=== PATIENT | female | born 1995 | race Caucasian/White ===

== ENCOUNTER 2016-09-02 01:00 | Emergency (ER) | payer MEDICAID ==
[2016-09-02] MEDS ORDERED: diphenhydrAMINE INJ 50 MG/ML VIAL IVP STA (01:22)
[2016-09-02] MEDS ORDERED: SODIUM CHLORIDE 0.9% 1,000 ML IV ONE (01:22)
[2016-09-02] MEDS ORDERED: METOCLOPRAMIDE 10 MG/2 ML VIAL IVP STA (01:22)
[2016-09-02] MEDS ORDERED: diphenhydrAMINE INJ 50 MG/ML VIAL ONE (01:36)
[2016-09-02] MEDS ORDERED: METOCLOPRAMIDE 10 MG/2 ML VIAL IVP ONE (01:36)
[2016-09-02] MEDS ORDERED: ONDANSETRON 4 MG/2 ML VIAL IVP STA (02:23)
[2016-09-02] MEDS ORDERED: LORazepam 2 MG/ML SYRINGE IVP STA (02:24)
[2016-09-02] MEDS ORDERED: ONDANSETRON 4 MG/2 ML VIAL ONE (02:30)
[2016-09-02] MEDS ORDERED: LORazepam 2 MG/ML SYRINGE ONE (02:30)
== END 2016-09-02 04:04 | disposition home or self-care (01) ==
DX: G43.A0 Cyclical vomiting, in migraine, not intractable (principal)
CPT/HCPCS: 36415; 80053; 83690; 83735; 84100; 84703; 85025; 96361; 96374; 96375; 99283; 99284; J2060

== ENCOUNTER 2016-09-03 09:09 | Emergency (ER) | payer MEDICAID ==
[2016-09-03] MEDS ORDERED: SODIUM CHLORIDE 0.9% 1,000 ML IV ONE (09:27)
[2016-09-03] MEDS ORDERED: FAMOTIDINE 20 MG/50 ML 50 ML IV ONE ×2 (09:27→09:53)
--- NOTE | 2016-09-03 09:40 | ED Physician Documentation ---
History of Present Illness - Stated complaint Stated Complaint: ABN PX, BLOOD IN VOMIT - Chief complaint Chief Complaint: Abd Pain - Additonal information Additional information: hx from pt 20 f denies preg - neg HCG yesterday hx cyclic vomiting related to marijuana seen 24 hr ago for same txed with zofran and ativan and was better got home sx reoccurred feels dehydrated streak of blood in vomit after retching no bloody black BM mild to mod upper abd pain Review of Systems Constitutional: denies: Fever, Chills GI: reports: Abdominal Pain, Nausea, Vomiting, Hematemesis. denies: Bloody / black stool : denies: Now EGA Endocrine: denies: Easy bruising / bleeding Immunocompromised: denies: Immunocompromised PD PAST MEDICAL HISTORY - Past Medical History Cardiovascular: None Respiratory: None Neuro: None Endocrine/Autoimmune: None GI: Other DBA: None : None HEENT: None Psych: None Musculoskeletal: None Derm: None - Past Surgical History Past Surgical History: Yes General: EGD HEENT: Myringotomy (tubes) - Present Medications Home Medications: Ambulatory Orders Medication Instructions Recorded Confirmed Lorazepam [Ativan] 1 mg PO BID #15 tablet 07/08/16 09/02/16 Ondansetron Odt [Zofran] 4 mg TL Q6H PRN #20 tablet 07/08/16 09/02/16 Doxylamine/Pyridoxine HCl 1 each PO Q6HR PRN #30 tab 09/02/16 [Diclegis Dr 10-10 mg Tablet] Levonorgestrel-Ethin Estradiol 1 each PO DAILY 09/02/16 09/02/16 [Lutera-28 Tablet] Promethazine Sup [Phenergan Supp] 12.5 mg IA Q8H #12 supp 09/03/16 Sucralfate 1 gm PO ACHS #120 tablet 09/03/16 raNITIdine [Zantac] 150 mg PO BID #60 tablet 09/03/16 - Allergies Allergies/Adverse Reactions: Allergies Allergy/AdvReac Type Severity Reaction Status Date / Time No Known Drug Allergies Allergy Verified 09/02/16 01:08 - Social History Does the pt smoke?: No Smoking Status: Never smoker Does the pt drink ETOH?: No Does the pt have substance abuse?: Yes Substance Use and Type: Marijuana - Immunizations Immunizations are current?: Yes - POLST Patient has POLST: No PD ED PE NORMAL - Vitals Vital signs reviewed: Yes - Neck Neck: Supple, no meningeal sign - Cardiac Cardiac: RRR - Respiratory Respiratory: No respiratory distress, Clear bilaterally - Abdomen Abdomen: Soft, Other (mild upper TTP s rebound or guarding) - Derm Derm: Normal color - Neuro Neuro: Alert and oriented X 3 - Psych Psych: Normal mood Results - Vitals Vitals: Vital Signs - 24 hr 09/03/16 09/03/16 09/03/16 09:15 11:16 11:54 Temperature 37.5 C Heart Rate 80 79 Respiratory 18 18 Rate Blood Pressure 140/91 H 132/82 H O2 Saturation 100 100 09/03/16 12:24 Temperature Heart Rate 98 Respiratory 18 Rate Blood Pressure 112/57 L O2 Saturation 98 Oxygen O2 Source Room air - Labs Labs: Laboratory Tests 09/03/16 10:00 Hgb 13.6 PD MEDICAL DECISION MAKING - ED course ED course: hgb fine pt txed with IVF zofran pepcid and phenergan and felt better Departure - Departure Disposition: 01 Home, Self Care Clinical Impression: Cyclic vomiting syndrome Qualifiers: Vomiting Intractability: non-intractable Nausea presence: with nausea Qualified Code(s): G43.A0 - Cyclical vomiting, not intractable Gastritis Qualifiers: Gastritis type: unspecified gastritis Chronicity: acute Gastritis bleeding: with bleeding Qualified Code(s): K29.01 - Acute gastritis with bleeding Condition: Good Instructions: ED PUD Vs Gastritis, Syndrome Cyclic Vomiting Ch Follow-Up: Fadi Davila MD [Provider Admit Priv/Credential] - (for consideration of endoscopy to further evaluate the blood in your vomit) Prescriptions: Promethazine Sup [Phenergan Supp] 12.5 mg IA Q8H #12 supp Sucralfate 1 gm PO ACHS #120 tablet raNITIdine [Zantac] 150 mg PO BID #60 tablet Comments: You have been rehydrated. We rechecked you blood count and you have not lost too much blood We gave medications in the ER and to take at home for gastritis / ulcers as this is the likely cause of your vomiting blood. I also recommend that you follow up with the surgeons for consideration of a scope I also wrote a prescription for another vomiting medication called phenergan Forms: Activity restrictions
[2016-09-03] MEDS ORDERED: ONDANSETRON 4 MG/2 ML VIAL ONE ×2 (09:56→11:00)
[2016-09-03] MEDS: ONDANSETRON 4 MG/2 ML VIAL IVP STA ×2 (10:00→10:17)
[2016-09-03] MEDS ORDERED: LORazepam 2 MG/ML SYRINGE IVP STA (10:04)
[2016-09-03] MEDS ORDERED: LORazepam 2 MG/ML SYRINGE ONE (10:10)
[2016-09-03] MEDS ORDERED: ONDANSETRON 4 MG/2 ML VIAL IVP STA (11:03)
[2016-09-03] MEDS ORDERED: PROMETHAZINE INJ 25 MG in SODIUM CHLORIDE 0.9% 50 ML IV STA (11:42)
[2016-09-03] MEDS ORDERED: PROMETHAZINE 25 MG/1 ML VIAL ONE (11:44)
[2016-09-03 12:25] VITALS: BP 112/57
== END 2016-09-03 12:52 | disposition home or self-care (01) ==
LOC: ED 09:09
DX: K29.01 Acute gastritis with bleeding (principal); G43.A0 Cyclical vomiting, in migraine, not intractable
CPT/HCPCS: 36415; 85018; 96365; 96375; 96376; 99284; J2060

== ENCOUNTER 2016-10-02 04:25 | Emergency (ER) | payer MEDICAID ==
[2016-10-02] MEDS ORDERED: ONDANSETRON ODT 4 MG TABLET TL STA (04:55)
[2016-10-02] MEDS ORDERED: ONDANSETRON ODT 4 MG TABLET ONE (05:01)
[2016-10-02] MEDS ORDERED: ONDANSETRON 4 MG/2 ML VIAL IVP STA (05:22)
[2016-10-02] MEDS ORDERED: SODIUM CHLORIDE 0.9% 1,000 ML IV ONE (05:22)
[2016-10-02] MEDS ORDERED: ONDANSETRON 4 MG/2 ML VIAL ONE (05:24)
[2016-10-02] MEDS ORDERED: METOCLOPRAMIDE 10 MG/2 ML VIAL IVP STA (06:12)
[2016-10-02] MEDS ORDERED: METOCLOPRAMIDE 10 MG/2 ML VIAL IVP ONE (06:23)
[2016-10-02] MEDS ORDERED: MORPHINE 2 MG/ML SYRINGE IVP STA (06:25)
[2016-10-02] MEDS ORDERED: MORPHINE 2 MG/ML SYRINGE ONE (06:29)
== END 2016-10-02 07:34 | disposition home or self-care (01) ==
DX: K52.9 Noninfective gastroenteritis and colitis, unspecified (principal)
CPT/HCPCS: 81001; 81025; 87275; 87276; 96361; 96374; 96375; 99284; Q0162

== ENCOUNTER 2016-11-01 22:56 | Emergency (ER) | payer MEDICAID ==
[2016-11-01] MEDS ORDERED: IPRATROPIUM/ALBUTEROL 3 ML NEB INH STA (23:55)
[2016-11-02] MEDS ORDERED: IPRATROPIUM/ALBUTEROL 3 ML NEB INH ONE (00:02)
[2016-11-02] MEDS ORDERED: MAG HYDROX/AL HYDROX/SIMETH 30 ML UDC PO STA (01:14)
[2016-11-02] MEDS ORDERED: PHENobarb/HYOSCY/ATROPINE/SCOP 5 ML SYRINGE PO STA (01:14)
[2016-11-02] MEDS ORDERED: LIDOCAINE VISCOUS 2% 15 ML UDC MM STA (01:15)
[2016-11-02] MEDS ORDERED: MAG HYDROX/AL HYDROX/SIMETH 30 ML UDC ONE (01:16)
[2016-11-02] MEDS ORDERED: PHENobarb/HYOSCY/ATROPINE/SCOP 5 ML SYRINGE PO ONE (01:16)
[2016-11-02] MEDS ORDERED: LIDOCAINE VISCOUS 2% 15 ML UDC MM ONE (01:16)
== END 2016-11-02 01:25 | disposition home or self-care (01) ==
DX: J45.909 Unspecified asthma, uncomplicated (principal); K21.9 Gastro-esophageal reflux disease without esophagitis
CPT/HCPCS: 71020; 81025; 94640; 99283; 99284; A9270; J7620

== ENCOUNTER 2017-01-03 18:56 | Emergency (ER) | payer MEDICAID ==
--- NOTE | 2017-01-03 20:13 | ED Physician Documentation ---
PD HPI NVD - Stated complaint Stated Complaint: VOMITING - Chief complaint Chief Complaint: Abd Pain - History obtained from History obtained from: Patient - History of Present Illness Timing - onset: Enter time (07:30), Today Timing - duration: Hours Timing - details: Gradual onset, Waxing and waning Pain level now: 9 Associated symptoms: Abdominal pain. No: Fever Improved by: Other (nothing) Worsened by: Eating (any PO intake), Other Similar symptoms before: No diagnosis (multiple visits to this ED including several this year already for similar symptoms) Recently seen: Emergency Dept - Additonal information Additional information: c/o nausea, vomiting, generalized abdominal pain since 7:30 this morning. H/O same, episodically for years w/o specific diagnosis. Patient tells me she currently does not have a PMD, that she "ran out" of her antinauseants as well. Review of Systems Constitutional: denies: Fever Cardiac: reports: Reviewed and negative Respiratory: reports: Reviewed and negative GI: reports: Abdominal Pain, Nausea, Vomiting : denies: Dysuria, Frequency PD PAST MEDICAL HISTORY - Past Medical History Cardiovascular: None Respiratory: Asthma Neuro: None Endocrine/Autoimmune: None GI: Other INTAKE MAN: None : None HEENT: None Psych: None Musculoskeletal: None Derm: None - Past Surgical History Past Surgical History: Yes General: EGD HEENT: Myringotomy (tubes) - Present Medications Home Medications: Ambulatory Orders Medication Instructions Recorded Confirmed Lorazepam [Ativan] 1 mg PO BID #15 tablet 07/08/16 01/03/17 Levonorgestrel-Ethin Estradiol 1 each PO DAILY 09/02/16 01/03/17 [Lutera-28 Tablet] Albuterol Sulfate [Proventil Hfa 1 - 2 puffs INH Q4H PRN #1 inhaler 11/02/1606/11 Inhaler] Inhaler, Assist Devices [Aerovent 1 each MC PRN PRN #1 spacer 11/02/16 01/03/17 Plus] Ibuprofen 800 mg PO 01/03/17 LORazepam [Ativan] 0.5 mg PO Q6H PRN #14 tablet 01/03/17 Promethazine [Phenergan] 25 - 50 mg PO Q6H PRN #10 tab 01/03/17 - Allergies Allergies/Adverse Reactions: Allergies Allergy/AdvReac Type Severity Reaction Status Date / Time No Known Drug Allergies Allergy Verified 09/02/16 01:08 - Social History Does the pt smoke?: No Smoking Status: Never smoker Does the pt drink ETOH?: No Does the pt have substance abuse?: Yes - Immunizations Immunizations are current?: Yes - POLST Patient has POLST: No PD ED PE NORMAL - Vitals Vital signs reviewed: Yes - General General: Alert and oriented X 3, No acute distress, Well developed/nourished - HEENT HEENT: Moist mucous membranes - Neck Neck: Supple, no meningeal sign - Cardiac Cardiac: RRR, No murmur - Respiratory Respiratory: No respiratory distress, Clear bilaterally - Abdomen Abdomen: Soft, Non tender, Non distended - Back Back: No CVA TTP Results - Vitals Vitals: Vital Signs - 24 hr 01/03/17 01/03/17 19:08 21:20 Temperature 36.0 C L 36.6 C Heart Rate 106 H 70 Respiratory 20 18 Rate Blood Pressure 129/89 H 128/77 O2 Saturation 98 100 Oxygen O2 Source Room air - Labs Labs: Laboratory Tests 01/03/17 01/03/17 20:25 20:25 WBC 11.8 H RBC 4.66 Hgb 14.5 Hct 42.9 MCV 92.1 MCH 31.2 H MCHC 33.9 RDW 13.6 Plt Count 345 MPV 7.0 L Neut # 9.6 H Lymph # 1.5 [place] # 0.6 Eos # 0.0 Baso # 0.1 Absolute Nucleated RBC 0.00 Nucleated RBCs 0.0 Sodium 139 Potassium 4.6 Chloride 108 Carbon Dioxide 22 Anion Gap 9.0 BUN 15 Creatinine 0.9 Estimated GFR (MDRD) 80 L Glucose 149 H Calcium 9.9 Total Bilirubin 0.8 AST 17 ALT 15 Alkaline Phosphatase 45 Total Protein 8.1 Albumin 4.5 Globulin 3.6 Albumin/Globulin Ratio 1.3 Lipase 17 L PD MEDICAL DECISION MAKING - ED course Complexity details: reviewed old records, reviewed results, re-evaluated patient , considered differential, d/w patient Departure - Departure Disposition: 01 Home, Self Care Clinical Impression: Vomiting Condition: Good Instructions: ED Nausea Vomiting Follow-Up: [facility] [Provider Group] [facility] [Provider Group] Prescriptions: LORazepam [Ativan] 0.5 mg PO Q6H PRN #14 tablet PRN Reason: Nausea / Vomiting Promethazine [Phenergan] 25 - 50 mg PO Q6H PRN #10 tab PRN Reason: Nausea / Vomiting Discharge Date/Time: 01/03/17 22:17
[2017-01-03] MEDS ORDERED: PROMETHAZINE INJ 12.5 MG in SODIUM CHLORIDE 0.9% 50 ML IV STA (20:22)
[2017-01-03] MEDS ORDERED: LORazepam 2 MG/ML SYRINGE IVP STA (20:22)
[2017-01-03] MEDS ORDERED: SODIUM CHLORIDE 0.9% 1,000 ML IV STA (20:22)
[2017-01-03] MEDS ORDERED: PROMETHAZINE 25 MG/1 ML VIAL ONE (20:25)
[2017-01-03] MEDS ORDERED: LORazepam 2 MG/ML SYRINGE ONE (20:25)
[2017-01-03 20:38] LABS: BASOPHILS # (AUTO) 0.1 10^3/uL (0.0-0.1); BASOPHILS % (AUTO) 1.1 %; EOSINOPHILS % (AUTO) 0.4 %; HCT - HEMATOCRIT 42.9 % (37.0-47.0); HGB - HEMOGLOBIN 14.5 g/dL (12.0-16.0); LYMPHOCYTES # (AUTO) 1.5 10^3/uL (1.5-3.5); LYMPHOCYTES % (AUTO) 12.5 %; MEAN CORPUSCULAR HEMOGLOBIN 31.2 pg (27.0-31.0); MEAN CORPUSCULAR HGB CONC 33.9 g/dL (32.0-36.0); MEAN CORPUSCULAR VOLUME 92.1 fL (81.0-99.0); MONOCYTES # (AUTO) 0.6 10^3/uL (0.0-1.0); NEUTROPHILS # (AUTO) 9.6 10^3/uL (1.5-6.6); RED BLOOD COUNT 4.66 10^6/uL (4.20-5.40); RED CELL DISTRIBUTION WIDTH 13.6 % (12.0-15.0); UNCORRECTED WHITE BLOOD COUNT 11.8 x10^3/uL; WHITE BLOOD COUNT 11.8 x10^3/uL (4.8-10.8)
[2017-01-03 20:47] LABS: ALBUMIN/GLOBULIN RATIO 1.3 (1.0-2.2); BILIRUBIN,TOTAL 0.8 mg/dL (0.2-1.0); CALCIUM 9.9 mg/dL (8.5-10.3); CREATININE 0.9 mg/dL (0.4-1.0); POTASSIUM 4.6 mmol/L (3.5-5.0); TOTAL PROTEIN 8.1 g/dL (6.7-8.2)
[2017-01-03 21:21] VITALS: BP 128/77
[2017-01-03] MEDS ORDERED: ONDANSETRON ODT 4 MG Prepack 2 TL STA (22:09)
[2017-01-03] MEDS ORDERED: ONDANSETRON ODT 4 MG Prepack 2 TL ONE (22:11)
== END 2017-01-03 22:17 | disposition home or self-care (01) ==
LOC: ED 18:56
DX: R11.2 Nausea with vomiting, unspecified (principal); R10.84 Generalized abdominal pain; J45.909 Unspecified asthma, uncomplicated
CPT/HCPCS: 36415; 80053; 83690; 85025; 96365; 96375; 99283; 99284; J2060

== ENCOUNTER 2017-01-12 08:00 | Outpatient (CLI) | payer MEDICAID | END 2017-01-12 08:01 | disposition home or self-care (01) | LOC: LAB.R 08:00 | PROVIDERS: ATTEND Nurse Practitioner Obstetrics & Gynecology | DX: Z11.3 Encounter for screening for infections with a predominantly sexual mode of transmission (principal) | CPT/HCPCS: 87491; 87591 ==

== ENCOUNTER 2017-02-14 11:20 | Emergency (ER) | payer MEDICAID ==
[2017-02-14] MEDS ORDERED: HALOPERIDOL 5 MG/ML VIAL IVP STA (12:29)
[2017-02-14] MEDS ORDERED: SODIUM CHLORIDE 0.9% 1,000 ML IV ONE (12:29)
[2017-02-14] MEDS ORDERED: HALOPERIDOL 5 MG/ML VIAL ONE (12:31)
--- NOTE | 2017-02-14 12:32 | ED Physician Documentation ---
PD HPI NVD - Stated complaint Stated Complaint: VOMITTING, DIARRHEA - Chief complaint Chief Complaint: Abd Pain - History obtained from History obtained from: Patient, Family - History of Present Illness Timing - onset: Yesterday Timing - duration: Days (2) Timing - details: Gradual onset Pain level max: 8 Pain level now: 6 Associated symptoms: Abdominal pain (cramping). No: Fever, Chest pain, Hematemesis, Melena, Hematochezia, Dizzy, Near syncope / syncope Contributing factors: Other (uses marijuana daily). No: Sick contact, Bad food , Travel, Recent antibiotics, Alcohol use, Anticoagulated Improved by: Other (zofran, phenergan) Worsened by: Other (nothing) Similar symptoms before: Other (states this happens routinely to her) Recently seen: Emergency Dept (several times for same) Review of Systems Ten Systems: 10 systems reviewed and negative Constitutional: denies: Fever, Chills Nose: denies: Rhinorrhea / runny nose, Congestion Throat: denies: Sore throat Cardiac: denies: Chest pain / pressure Respiratory: denies: Cough GI: reports: Nausea, Vomiting, Diarrhea Skin: denies: Rash Musculoskeletal: denies: Neck pain, Back pain Neurologic: denies: Headache PD PAST MEDICAL HISTORY - Past Medical History Past Medical History: Yes Cardiovascular: None Respiratory: Asthma Neuro: None Endocrine/Autoimmune: None GI: Other 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 : None HEENT: None Psych: None Musculoskeletal: None Derm: None - Past Surgical History Past Surgical History: Yes General: EGD HEENT: Myringotomy (tubes) - Present Medications Home Medications: Ambulatory Orders Medication Instructions Recorded Confirmed Levonorgestrel-Ethin Estradiol 1 each PO DAILY 09/02/16 02/14/17 [Lutera-28 Tablet] Albuterol Sulfate [Proventil Hfa 1 - 2 puffs INH Q4H PRN #1 inhaler 11/02/16 Inhaler] LORazepam [Ativan] 0.5 mg PO Q6H PRN #10 tablet 02/14/17 Ondansetron Odt [Zofran] 4 mg TL Q6H PRN #10 tablet 02/14/17 Promethazine [Phenergan] 25 mg PO Q6H PRN #10 tab 02/14/17 - Allergies Allergies/Adverse Reactions: Allergies Allergy/AdvReac Type Severity Reaction Status Date / Time No Known Drug Allergies Allergy Verified 09/02/16 01:08 - Social History Does the pt smoke?: No Smoking Status: Never smoker Does the pt drink ETOH?: No Does the pt have substance abuse?: Yes - Immunizations Immunizations are current?: Yes - POLST Patient has POLST: No PD ED PE NORMAL - Vitals Vital signs reviewed: Yes - General General: Alert and oriented X 3, No acute distress - HEENT HEENT: Moist mucous membranes - Neck Neck: Supple, no meningeal sign - Cardiac Cardiac: RRR - Respiratory Respiratory: No respiratory distress, Clear bilaterally - Abdomen Abdomen: Soft, Non tender, Non distended - Derm Derm: Warm and dry - Neuro Neuro: Alert and oriented X 3 - Psych Psych: Normal mood, Normal affect Results - Vitals Vitals: Vital Signs - 24 hr 02/14/17 02/14/17 11:23 13:08 Temperature 37.0 C Heart Rate 58 L 72 Respiratory 18 16 Rate Blood Pressure 132/83 H 121/80 O2 Saturation 99 99 Oxygen O2 Source Room air - Labs Labs: Laboratory Tests 02/14/17 02/14/17 02/14/17 11:27 11:27 12:40 WBC 13.3 H RBC 4.52 Hgb 14.0 Hct 41.7 MCV 92.3 MCH 31.0 MCHC 33.6 RDW 13.2 Plt Count 334 MPV 7.8 L Neut # 12.2 H Lymph # 0.7 L [place] # 0.3 Eos # 0.0 Baso # 0.1 Absolute Nucleated RBC 0.00 Nucleated RBCs 0.0 Sodium 137 Potassium 3.6 Chloride 107 Carbon Dioxide 19 L Anion Gap 11.0 BUN 12 Creatinine 1.0 Estimated GFR (MDRD) 71 L Glucose 144 H Calcium 9.8 Total Bilirubin 0.5 AST 19 ALT 14 Alkaline Phosphatase 38 L Total Protein 8.0 Albumin 4.4 Globulin 3.6 Albumin/Globulin Ratio 1.2 Lipase 21 L Urine Color YELLOW Urine Clarity CLEAR Urine pH 6.0 Ur Specific [place] 1.020 Urine Protein NEGATIVE Urine Glucose (UA) NEGATIVE Urine Ketones 40 H Urine Occult Blood NEGATIVE Urine Nitrite NEGATIVE Urine Bilirubin NEGATIVE Urine Urobilinogen 0.2 (NORMAL) Ur Leukocyte Esterase NEGATIVE Ur Microscopic Review NOT INDICATED Urine Culture Comments NOT INDICATED Urine HCG, Qual NEGATIVE PD MEDICAL DECISION MAKING - ED course Complexity details: reviewed results, re-evaluated patient, considered differential, d/w patient, d/w family ED course: Patient is a 21-year-old female who presents to the emergency department with recurrent abdominal pain and vomiting. Appears to be linked to her daily marijuana use. It resolved with Haldol and Zofran. She states that warm showers often help her as well. She is well-appearing, nontoxic. Afebrile. Tolerating p.o. without difficulty. Well-hydrated. Patient counseled regarding signs and symptoms for which I believe and urgent re-evaluation would be necessary. Patient with good understanding of and agreement to plan and is comfortable going home at this time This document was made in part using voice recognition software. While efforts are made to proofread this document, sound alike and grammatical errors may occur. Departure - Departure Disposition: 01 Home, Self Care Clinical Impression: Cannabinoid hyperemesis syndrome Condition: Good Instructions: ED Nausea Vomiting Follow-Up: your,doctor in 1 week [Other] Prescriptions: LORazepam [Ativan] 0.5 mg PO Q6H PRN #10 tablet PRN Reason: Anxiety Promethazine [Phenergan] 25 mg PO Q6H PRN #10 tab PRN Reason: Nausea / Vomiting Ondansetron Odt [Zofran] 4 mg TL Q6H PRN #10 tablet PRN Reason: Nausea / Vomiting Comments: This is very likely related to your marijuana use. It will likely resolve with stopping your marijuana use. Return if you worsen. Discharge Date/Time: 02/14/17 13:42
[2017-02-14 12:49] LABS: BILIRUBIN,URINE NEGATIVE (NEGATIVE)
[2017-02-14 12:55] LABS: HCG UR QUAL NEGATIVE; UA CHARGE (STRIP ONLY) YES; UR CULTURE IF IND NOT INDICATED
[2017-02-14 12:56] LABS: BASOPHILS # (AUTO) 0.1 10^3/uL (0.0-0.1); BASOPHILS % (AUTO) 0.4 %; HCT - HEMATOCRIT 41.7 % (37.0-47.0); LYMPHOCYTES # (AUTO) 0.7 10^3/uL (1.5-3.5); LYMPHOCYTES % (AUTO) 5.3 %; MEAN CORPUSCULAR HGB CONC 33.6 g/dL (32.0-36.0); MEAN CORPUSCULAR VOLUME 92.3 fL (81.0-99.0); MEAN PLATELET VOLUME 7.8 fL (7.9-10.8); MONOCYTES # (AUTO) 0.3 10^3/uL (0.0-1.0); MONOCYTES % (AUTO) 2.3 %; NEUTROPHILS # (AUTO) 12.2 10^3/uL (1.5-6.6); RED BLOOD COUNT 4.52 10^6/uL (4.20-5.40); RED CELL DISTRIBUTION WIDTH 13.2 % (12.0-15.0); UNCORRECTED WHITE BLOOD COUNT 13.3 x10^3/uL; WHITE BLOOD COUNT 13.3 x10^3/uL (4.8-10.8)
[2017-02-14 12:59] LABS: ALBUMIN/GLOBULIN RATIO 1.2 (1.0-2.2); BILIRUBIN,TOTAL 0.5 mg/dL (0.2-1.0); CALCIUM 9.8 mg/dL (8.5-10.3); POTASSIUM 3.6 mmol/L (3.5-5.0)
[2017-02-14 13:08] VITALS: BP 121/80
[2017-02-14] MEDS ORDERED: ONDANSETRON 4 MG/2 ML VIAL IVP STA (13:18)
[2017-02-14] MEDS ORDERED: ONDANSETRON 4 MG/2 ML VIAL ONE (13:22)
== END 2017-02-14 13:42 | disposition home or self-care (01) ==
LOC: ED 11:20
DX: R11.10 Vomiting, unspecified (principal); F12.988 Cannabis use, unspecified with other cannabis-induced disorder; J45.909 Unspecified asthma, uncomplicated
CPT/HCPCS: 36415; 80053; 81001; 81003; 81025; 83690; 85025; 87086; 96361; 96374; 96375; 99283; 99284

== ENCOUNTER → 2017-03-04 | Outpatient (CLI) | payer MEDICAID ==
[2017-03-04 19:11] LABS: BASOPHILS # (AUTO) 0.1 10^3/uL (0.0-0.1); BASOPHILS % (AUTO) 1.9 %; EOSINOPHILS # (AUTO) 0.2 10^3/uL (0.0-0.7); EOSINOPHILS % (AUTO) 2.1 %; HCT - HEMATOCRIT 45.9 % (37.0-47.0); HGB - HEMOGLOBIN 15.2 g/dL (12.0-16.0); LYMPHOCYTES # (AUTO) 1.9 10^3/uL (1.5-3.5); LYMPHOCYTES % (AUTO) 24.3 %; MEAN CORPUSCULAR HEMOGLOBIN 31.2 pg (27.0-31.0); MEAN CORPUSCULAR HGB CONC 33.2 g/dL (32.0-36.0); MEAN CORPUSCULAR VOLUME 94.1 fL (81.0-99.0); MEAN PLATELET VOLUME 7.6 fL (7.9-10.8); MONOCYTES # (AUTO) 0.6 10^3/uL (0.0-1.0); NEUTROPHILS # (AUTO) 4.9 10^3/uL (1.5-6.6); NEUTROPHILS % (AUTO) 63.7 %; RED BLOOD COUNT 4.88 10^6/uL (4.20-5.40); RED CELL DISTRIBUTION WIDTH 13.1 % (12.0-15.0); UNCORRECTED WHITE BLOOD COUNT 7.7 x10^3/uL; WHITE BLOOD COUNT 7.7 x10^3/uL (4.8-10.8)
[2017-03-04 19:30] LABS: ALBUMIN/GLOBULIN RATIO 1.3 (1.0-2.2); BILIRUBIN,TOTAL 0.6 mg/dL (0.2-1.0); BUN - BLOOD UREA NITROGEN 10 mg/dL (6-20); CALCIUM 9.5 mg/dL (8.5-10.3); CARBON DIOXIDE - CO2 24 mmol/L (21-32); CHLORIDE 106 mmol/L (101-111); CHOL/HDL RATIO 2.8 (<4.4); CHOLESTEROL 173 mg/dL; CREATININE 0.9 mg/dL (0.4-1.0); GFR - MDRD 80 (>89); GLUCOSE 83 mg/dL (70-100); HDL CHOLESTEROL 62 mg/dL; LDL/HDL RATIO 1.6 (<4.4); POTASSIUM 3.8 mmol/L (3.5-5.0); SODIUM 137 mmol/L (135-145); TRIGLYCERIDES 44 mg/dL; VLDL CHOLESTEROL 9 mg/dL
== END ==
LOC: LAB.N 08:00
PROVIDERS: ATTEND Nurse Practitioner Gerontology
DX: Z13.9 Encounter for screening, unspecified (principal)
CPT/HCPCS: 36415; 80050; 80061

== ENCOUNTER 2017-03-09 12:25 | Emergency (ER) | payer MEDICAID ==
[2017-03-09] MEDS ORDERED: ONDANSETRON ODT 4 MG TABLET TL STA (13:26)
[2017-03-09] MEDS ORDERED: ONDANSETRON ODT 4 MG TABLET ONE (13:27)
[2017-03-09 14:27] LABS: HCG UR QUAL NEGATIVE
[2017-03-09] MEDS ORDERED: HYDROmorphone 1 MG/ML SYRINGE IVP STA (14:49)
[2017-03-09] MEDS ORDERED: SODIUM CHLORIDE 0.9% 1,000 ML IV ONE (14:49)
[2017-03-09] MEDS ORDERED: PROMETHAZINE INJ 25 MG in SODIUM CHLORIDE 0.9% 50 ML IV STA (14:49)
[2017-03-09] MEDS ORDERED: LORazepam 2 MG/ML SYRINGE IVP STA (14:49)
--- NOTE | 2017-03-09 14:53 | ED Physician Documentation ---
PD HPI ABD PAIN - Stated complaint Stated Complaint: VOMITING/DEHYDRATION - Chief complaint Chief Complaint: Abd Pain - History obtained from History obtained from: Patient - History of Present Illness Timing - onset: Other (21-year-old woman with recurrent nausea, vomiting, upper abdominal pain. Thought due to cannabinoid hyperemesis, she does smoke marijuana daily and gets significant relief with warm showers. Has been throwing up for the last 12-13 hours nonstop without blood.) Review of Systems Constitutional: reports: Fatigue. 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 : None HEENT: None Psych: None Musculoskeletal: None Derm: None - Past Surgical History Past Surgical History: Yes General: EGD HEENT: Myringotomy (tubes) - Present Medications Home Medications: Ambulatory Orders Medication Instructions Recorded Confirmed Levonorgestrel-Ethin Estradiol 1 each PO DAILY 09/02/16 02/14/17 [Lutera-28 Tablet] Albuterol Sulfate [Proventil Hfa 1 - 2 puffs INH Q4H PRN #1 inhaler 11/02/16 Inhaler] LORazepam [Ativan] 0.5 mg PO Q6H PRN #10 tablet 02/14/17 Ondansetron Odt [Zofran] 4 mg TL Q6H PRN #10 tablet 02/14/17 Promethazine [Phenergan] 25 mg PO Q6H PRN #10 tab 02/14/17 Lorazepam [Ativan] 1 mg PO TID PRN #10 tablet 03/09/17 Ondansetron HCl [Zofran] 4 mg PO Q6H PRN #10 tablet 03/09/17 Promethazine [Phenergan] 25 - 50 mg PO Q6H PRN #15 tab 03/09/17 - Allergies Allergies/Adverse Reactions: Allergies Allergy/AdvReac Type Severity Reaction Status Date / Time No Known Drug Allergies Allergy Verified 09/02/16 01:08 - Social History Does the pt smoke?: No Smoking Status: Never smoker Does the pt drink ETOH?: No Does the pt have substance abuse?: Yes - Immunizations Immunizations are current?: Yes - POLST Patient has POLST: No PD ED PE NORMAL - Vitals Vital signs reviewed: Yes - General General: Alert and oriented X 3 (anxious/retiching) - Abdomen Abdomen: Soft, Other (hyperactive bowel tones, NTTP) - Neuro Neuro: Alert and oriented X 3, Normal speech - Psych Psych: Normal mood, Normal affect Results - Vitals Vitals: Vital Signs - 24 hr 03/09/17 03/09/17 03/09/17 12:35 15:03 16:23 Temperature 36.3 C L Heart Rate 62 91 93 Respiratory 18 20 16 Rate Blood Pressure 138/92 H 120/73 110/73 O2 Saturation 100 100 97 Oxygen O2 Source Room air - Labs Labs: Laboratory Tests 03/09/17 03/09/17 14:13 14:45 Sodium 137 Potassium 3.6 Chloride 104 Carbon Dioxide 18 L Anion Gap 15.0 H BUN 10 Creatinine 0.9 Estimated GFR (MDRD) 80 L Glucose 144 H Calcium 9.8 Ur Specific [place] 1.025 Urine HCG, Qual NEGATIVE PD MEDICAL DECISION MAKING - ED course ED course: She has a history and physical examination consistent with cannabinoid hyperemesis syndrome. She was administered IV medications and fluids with improvement and on recheck she passed an oral challenge and remains nontender. Departure - Departure Disposition: 01 Home, Self Care Clinical Impression: Cannabinoid hyperemesis syndrome Vomiting Qualifiers: Vomiting type: unspecified Vomiting Intractability: non-intractable Nausea presence: with nausea Qualified Code(s): R11.2 - Nausea with vomiting, unspecified Condition: Good Record reviewed to determine appropriate education?: Yes Instructions: ED Nausea Vomiting Prescriptions: Lorazepam [Ativan] 1 mg PO TID PRN #10 tablet PRN Reason: Anxiety Promethazine [Phenergan] 25 - 50 mg PO Q6H PRN #15 tab PRN Reason: Nausea / Vomiting Ondansetron HCl [Zofran] 4 mg PO Q6H PRN #10 tablet PRN Reason: Nausea / Vomiting Comments: DISCUSSED IT IS IMPERATIVE TO STOP SMOKING MARIJUANA
[2017-03-09] MEDS ORDERED: HYDROmorphone 1 MG/ML SYRINGE ONE (15:35)
[2017-03-09] MEDS ORDERED: PROMETHAZINE 25 MG/1 ML VIAL ONE (15:36)
[2017-03-09] MEDS ORDERED: LORazepam 2 MG/ML SYRINGE ONE (16:09)
[2017-03-09 16:21] LABS: CALCIUM 9.8 mg/dL (8.5-10.3); CREATININE 0.9 mg/dL (0.4-1.0); POTASSIUM 3.6 mmol/L (3.5-5.0)
[2017-03-09 17:15] VITALS: BP 98/61
== END 2017-03-09 17:16 | disposition home or self-care (01) ==
LOC: ED 12:25
DX: F12.988 Cannabis use, unspecified with other cannabis-induced disorder (principal); R11.10 Vomiting, unspecified
CPT/HCPCS: 36415; 80048; 81025; 96365; 96375; 99283; 99284; J1170; J2060; J7040; Q0162

== ENCOUNTER 2017-03-25 14:39 | Emergency (ER) | payer MEDICAID ==
[2017-03-25] MEDS ORDERED: ONDANSETRON 4 MG/2 ML VIAL ONE (15:04)
[2017-03-25] MEDS ORDERED: ONDANSETRON 4 MG/2 ML VIAL IVP STA (15:06)
[2017-03-25 15:35] LABS: BASOPHILS # (AUTO) 0.1 10^3/uL (0.0-0.1); BASOPHILS % (AUTO) 1.2 %; EOSINOPHILS % (AUTO) 0.3 %; HCT - HEMATOCRIT 44.8 % (37.0-47.0); HGB - HEMOGLOBIN 15.4 g/dL (12.0-16.0); LYMPHOCYTES # (AUTO) 1.1 10^3/uL (1.5-3.5); LYMPHOCYTES % (AUTO) 10.6 %; MEAN CORPUSCULAR HEMOGLOBIN 31.9 pg (27.0-31.0); MEAN CORPUSCULAR HGB CONC 34.3 g/dL (32.0-36.0); MEAN CORPUSCULAR VOLUME 93.1 fL (81.0-99.0); MEAN PLATELET VOLUME 7.2 fL (7.9-10.8); MONOCYTES # (AUTO) 0.4 10^3/uL (0.0-1.0); MONOCYTES % (AUTO) 4.2 %; NEUTROPHILS # (AUTO) 8.8 10^3/uL (1.5-6.6); NEUTROPHILS % (AUTO) 83.7 %; RED BLOOD COUNT 4.81 10^6/uL (4.20-5.40); RED CELL DISTRIBUTION WIDTH 12.7 % (12.0-15.0); UNCORRECTED WHITE BLOOD COUNT 10.5 x10^3/uL; WHITE BLOOD COUNT 10.5 x10^3/uL (4.8-10.8)
[2017-03-25 15:48] LABS: ALBUMIN/GLOBULIN RATIO 1.3 (1.0-2.2); BILIRUBIN,TOTAL 0.8 mg/dL (0.2-1.0); POTASSIUM 3.7 mmol/L (3.5-5.0); TOTAL PROTEIN 8.4 g/dL (6.7-8.2)
--- NOTE | 2017-03-25 17:25 | ED Physician Documentation ---
PD HPI NVD - Stated complaint Stated Complaint: VOMITING - Chief complaint Chief Complaint: Abd Pain - History obtained from History obtained from: Patient - History of Present Illness Timing - onset: Last night Timing - duration: Hours Timing - details: Abrupt onset Associated symptoms: Abdominal pain. No: Fever, Hematemesis Contributing factors: No: Sick contact, Bad food, Travel, Recent antibiotics Similar symptoms before: Diagnosis (presumed cyclic vomiting) Recently seen: Emergency Dept Review of Systems Constitutional: reports: Myalgias. denies: Fever, Chills Nose: denies: Rhinorrhea / runny nose, Congestion Throat: denies: Sore throat Cardiac: denies: Chest pain / pressure Respiratory: denies: Dyspnea, Cough GI: reports: Abdominal Pain, Nausea, Vomiting, Diarrhea (mild). denies: Abdominal Swelling, Hematemesis, Bloody / black stool : denies: Dysuria, Frequency Neurologic: reports: Generalized weakness. 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 : None HEENT: None Psych: None Musculoskeletal: None Derm: None - Past Surgical History Past Surgical History: Yes General: EGD HEENT: Myringotomy (tubes) - Present Medications Home Medications: Ambulatory Orders Medication Instructions Recorded Confirmed Levonorgestrel-Ethin Estradiol 1 each PO DAILY 09/02/16 03/25/17 [Lutera-28 Tablet] Albuterol Sulfate [Proventil Hfa 1 - 2 puffs INH Q4H PRN #1 inhaler 11/02/16 Inhaler] Ondansetron Odt [Zofran] 4 mg TL Q6H PRN #15 tablet 03/25/17 Promethazine Supp [Phenergan Supp] 25 mg MI Q6H PRN #5 supp 03/25/17 - Allergies Allergies/Adverse Reactions: Allergies Allergy/AdvReac Type Severity Reaction Status Date / Time No Known Drug Allergies Allergy Verified 09/02/16 01:08 - Social History Does the pt smoke?: No Smoking Status: Never smoker Does the pt drink ETOH?: No Does the pt have substance abuse?: Yes - Immunizations Immunizations are current?: Yes - POLST Patient has POLST: No PD ED PE NORMAL - Vitals Vital signs reviewed: Yes - General General: Alert and oriented X 3, Well developed/nourished, Other (forceful wretching. vomiting water that she just drank in waiting room. ) - HEENT HEENT: Moist mucous membranes, Pharynx benign - Neck Neck: Supple, no meningeal sign, No adenopathy - Cardiac Cardiac: RRR, No murmur - Respiratory Respiratory: Clear bilaterally - Abdomen Abdomen: Normal bowel sounds, Soft, Non distended, No organomegaly, Other ( tender upper abd uniformly) - Female Female : Deferred - Rectal Rectal: Deferred - Back Back: No CVA TTP - Derm Derm: Normal color, Warm and dry - Neuro Neuro: Alert and oriented X 3, No motor deficit, Normal speech Results - Vitals Vitals: Vital Signs - 24 hr 03/25/17 03/25/17 03/25/17 14:50 17:02 18:18 Temperature 36.2 C L 36.3 C L Heart Rate 85 63 79 Respiratory 18 15 15 Rate Blood Pressure 145/105 H 133/98 H 121/90 H O2 Saturation 99 100 99 03/25/17 03/25/17 19:13 19:47 Temperature 36.5 C Heart Rate 97 71 Respiratory 15 14 Rate Blood Pressure 104/68 102/68 O2 Saturation 98 100 Oxygen O2 Source Room air - Labs Labs: Laboratory Tests 03/25/17 03/25/17 03/25/17 14:50 14:50 14:50 WBC 10.5 RBC 4.81 Hgb 15.4 Hct 44.8 MCV 93.1 MCH 31.9 H MCHC 34.3 RDW 12.7 Plt Count 365 MPV 7.2 L Neut # 8.8 H Lymph # 1.1 L [place] # 0.4 Eos # 0.0 Baso # 0.1 Absolute Nucleated RBC 0.00 Nucleated RBCs 0.0 Sodium 141 Potassium 3.7 Chloride 109 Carbon Dioxide 20 L Anion Gap 12.0 BUN 11 Creatinine 1.0 Estimated GFR (MDRD) 71 L Glucose 149 H Calcium 10.0 Total Bilirubin 0.8 AST 20 ALT 12 Alkaline Phosphatase 40 L Total Protein 8.4 H Albumin 4.7 Globulin 3.7 Albumin/Globulin Ratio 1.3 Lipase 25 Urine Color Urine Clarity Urine pH Ur Specific [place] Urine Protein Urine Glucose (UA) Urine Ketones Urine Occult Blood Urine Nitrite Urine Bilirubin Urine Urobilinogen Ur Leukocyte Esterase Urine RBC Urine WBC Ur Squamous Epith Cells Urine Bacteria Ur Microscopic Review Urine Culture Comments Urine HCG, Qual H. pylori IgG Antibody Negative 03/25/17 03/25/17 17:23 17:23 WBC RBC Hgb Hct MCV MCH MCHC RDW Plt Count MPV Neut # Lymph # [place] # Eos # Baso # Absolute Nucleated RBC Nucleated RBCs Sodium Potassium Chloride Carbon Dioxide Anion Gap BUN Creatinine Estimated GFR (MDRD) Glucose Calcium Total Bilirubin AST ALT Alkaline Phosphatase Total Protein Albumin Globulin Albumin/Globulin Ratio Lipase Urine Color YELLOW Urine Clarity CLEAR Urine pH 6.0 Ur Specific [place] >=1.030 H >=1.030 H Urine Protein NEGATIVE Urine Glucose (UA) NEGATIVE Urine Ketones 15 H Urine Occult Blood LARGE H Urine Nitrite NEGATIVE Urine Bilirubin NEGATIVE Urine Urobilinogen 0.2 (NORMAL) Ur Leukocyte Esterase NEGATIVE Urine RBC TNTC H Urine WBC 0-3 Ur Squamous Epith Cells FEW Squamous Urine Bacteria Rare Ur Microscopic Review INDICATED Urine Culture Comments NOT INDICATED Urine HCG, Qual NEGATIVE H. pylori IgG Antibody PD MEDICAL DECISION MAKING - ED course Complexity details: considered differential (seems similar to prior episodes and so I did not feel imaging/workup needed. Feeling improved with IV meds and fluids. ), d/w patient Departure - Departure Disposition: 01 Home, Self Care Clinical Impression: Cyclic vomiting syndrome Qualifiers: Vomiting Intractability: intractable Nausea presence: with nausea Qualified Code(s): G43.A1 - Cyclical vomiting, intractable Condition: Stable Record reviewed to determine appropriate education?: Yes Prescriptions: Promethazine Supp [Phenergan Supp] 25 mg MI Q6H PRN #5 supp PRN Reason: Nausea / Vomiting Ondansetron Odt [Zofran] 4 mg TL Q6H PRN #15 tablet PRN Reason: Nausea / Vomiting Comments: Plan food only for the next couple of days. Ondansetron or promethazine as needed for nausea. If there are potential triggers for starting the nausea than try to avoid them. Recheck if repetitive vomiting not relieved by home medications. Discharge Date/Time: 03/25/17 19:53
[2017-03-25] MEDS ORDERED: LORazepam 2 MG/ML SYRINGE IVP STA (17:33)
[2017-03-25] MEDS ORDERED: SODIUM CHLORIDE 0.9% 1,000 ML IV ONE ×2 (17:33→17:34)
[2017-03-25] MEDS ORDERED: PROMETHAZINE INJ 12.5 MG in SODIUM CHLORIDE 0.9% 50 ML IV STA (17:34)
[2017-03-25] MEDS ORDERED: HYDROmorphone 1 MG/ML SYRINGE IVP STA (17:34)
[2017-03-25] MEDS ORDERED: HYDROmorphone 1 MG/ML SYRINGE ONE (17:52)
[2017-03-25] MEDS ORDERED: PROMETHAZINE 25 MG/1 ML VIAL ONE (17:54)
[2017-03-25] MEDS ORDERED: LORazepam 2 MG/ML SYRINGE ONE (17:54)
[2017-03-25 18:50] LABS: BILIRUBIN,URINE NEGATIVE (NEGATIVE)
[2017-03-25 18:52] LABS: HCG UR QUAL NEGATIVE; UA w/ MICROSCOPIC CHARGE YES
[2017-03-25 18:56] LABS: UR CULTURE IF IND NOT INDICATED; WBC,URINE 0-3 /HPF (0-5)
[2017-03-25 19:48] VITALS: BP 102/68
[2017-03-25 19:50] LABS: H. PYLORI IGG ANTIBODY Negative (Negative); HPYLORI NEG QC Negative (Negative); HPYLORI POS QC POSITIVE (Positive)
== END 2017-03-25 19:53 | disposition home or self-care (01) ==
LOC: ED 14:39
DX: G43.A1 Cyclical vomiting, in migraine, intractable (principal)
CPT/HCPCS: 36415; 80053; 81001; 81025; 83690; 85025; 87339; 96365; 96375; 99284; J1170; J2060; J7040; 81003; 87086

== ENCOUNTER 2017-04-24 12:09 | Emergency (ER) | payer MEDICAID ==
[2017-04-24 12:56] LABS: HCT - HEMATOCRIT 44.2 % (37.0-47.0); HGB - HEMOGLOBIN 14.8 g/dL (12.0-16.0); MEAN CORPUSCULAR HGB CONC 33.5 g/dL (32.0-36.0); MEAN CORPUSCULAR VOLUME 92.6 fL (81.0-99.0); MEAN PLATELET VOLUME 6.9 fL (7.9-10.8); RED BLOOD COUNT 4.78 10^6/uL (4.20-5.40); RED CELL DISTRIBUTION WIDTH 12.7 % (12.0-15.0); WHITE BLOOD COUNT 10.3 x10^3/uL (4.8-10.8)
[2017-04-24 13:04] LABS: BILIRUBIN,URINE NEGATIVE (NEGATIVE); PH,URINE 5.5 PH (5.0-7.5)
[2017-04-24] MEDS ORDERED: HYDROmorphone 1 MG/ML CARPUJECT IVP STA (13:06)
[2017-04-24] MEDS ORDERED: LORazepam 2 MG/ML SYRINGE IVP STA (13:06)
[2017-04-24] MEDS ORDERED: PROMETHAZINE INJ 25 MG in SODIUM CHLORIDE 0.9% 50 ML IV STA (13:06)
[2017-04-24 13:09] LABS: ALBUMIN/GLOBULIN RATIO 1.3 (1.0-2.2); BILIRUBIN,TOTAL 0.8 mg/dL (0.2-1.0); CALCIUM 9.7 mg/dL (8.5-10.3); CREATININE 1.1 mg/dL (0.4-1.0); POTASSIUM 3.9 mmol/L (3.5-5.0); TOTAL PROTEIN 8.1 g/dL (6.7-8.2)
[2017-04-24] MEDS ORDERED: SODIUM CHLORIDE FLUSH 0.9% 10 ML SYRINGE IVP ONE (13:14)
[2017-04-24] MEDS ORDERED: HYDROmorphone 1 MG/ML CARPUJECT ONE (13:23)
[2017-04-24] MEDS ORDERED: PROMETHAZINE 25 MG/1 ML VIAL ONE (13:24)
[2017-04-24] MEDS ORDERED: LORazepam 2 MG/ML SYRINGE ONE (13:24)
[2017-04-24] MEDS ORDERED: SODIUM CHLORIDE 0.9% 1,000 ML IV ONE (13:27)
--- NOTE | 2017-04-24 14:46 | ED Physician Documentation ---
PD HPI ABD PAIN - Stated complaint Stated Complaint: VOMITING - Chief complaint Chief Complaint: Abd Pain - History obtained from History obtained from: Patient, Family - History of Present Illness Timing - onset: Today Timing - duration: Days (1) Timing - details: Abrupt onset Pain level max: 9 Quality: Aching, Pain Location: Epigastric Radiation: Other (non-radiating) Improved by: Vomiting Worsened by: Eating Associated symptoms: Nausea, Vomiting. No: Fever, Hematemesis, Diarrhea, Constipation, Melena, Hematochezia, Dysuria Similar symptoms before: Diagnosis (Cannabinoid-induced hyperemesis) Recently seen: Emergency Dept (Several times for same) - Additional information Additional information: States that she is still utilizing marijuana nearly daily Review of Systems Constitutional: denies: Fever, Chills Throat: denies: Sore throat Cardiac: denies: Chest pain / pressure Respiratory: denies: Cough GI: reports: Nausea, Vomiting. denies: Constipation, Diarrhea : denies: Now EGA Skin: denies: Rash Musculoskeletal: denies: Neck pain, Back pain Neurologic: denies: Headache PD PAST MEDICAL HISTORY - Past Medical History Past Medical History: Yes Cardiovascular: None Respiratory: Asthma Neuro: None Endocrine/Autoimmune: None GI: Other SIDER: None : None HEENT: None Psych: None Musculoskeletal: None Derm: None - Past Surgical History Past Surgical History: Yes General: EGD HEENT: Myringotomy (tubes) - Present Medications Home Medications: Ambulatory Orders Medication Instructions Recorded Confirmed Levonorgestrel-Ethin Estradiol 1 each PO DAILY 09/02/16 04/24/17 [Lutera-28 Tablet] Albuterol Sulfate [Proventil Hfa 1 - 2 puffs INH Q4H PRN #1 inhaler 11/02/16 Inhaler] Promethazine Supp [Phenergan Supp] 25 mg ME Q6H PRN #5 supp 03/25/17 04/24/17 Ondansetron Odt [Zofran] 4 mg TL Q6H PRN #10 tablet 04/24/17 Promethazine [Phenergan] 25 mg PO Q6H PRN #10 tab 04/24/17 - Allergies Allergies/Adverse Reactions: Allergies Allergy/AdvReac Type Severity Reaction Status Date / Time No Known Drug Allergies Allergy Verified 09/02/16 01:08 - Social History Does the pt smoke?: No Smoking Status: Never smoker Does the pt drink ETOH?: No Does the pt have substance abuse?: Yes Substance Use and Type: Marijuana - Immunizations Immunizations are current?: Yes - POLST Patient has POLST: No PD ED PE NORMAL - Vitals Vital signs reviewed: Yes - General General: Alert and oriented X 3, No acute distress, Well developed/nourished - HEENT HEENT: PERRL, Moist mucous membranes - Neck Neck: Supple, no meningeal sign - Cardiac Cardiac: RRR, Strong equal pulses - Respiratory Respiratory: No respiratory distress, Clear bilaterally - Abdomen Abdomen: Normal bowel sounds, Soft, Non distended, Other (Mildly diffuse tenderness to palpation without peritoneal signs) - Derm Derm: Warm and dry - Neuro Neuro: Alert and oriented X 3 - Psych Psych: Normal mood, Normal affect Results - Vitals Vitals: Vital Signs - 24 hr 04/24/17 04/24/17 04/24/17 12:12 13:38 14:56 Temperature 36.9 C Heart Rate 81 50 L 74 Respiratory 20 15 16 Rate Blood Pressure 136/89 H 136/95 H 130/63 O2 Saturation 96 100 98 Oxygen O2 Source Room air - Labs Labs: Laboratory Tests 04/24/17 04/24/17 04/24/17 12:29 12:29 12:29 WBC RBC Hgb Hct MCV MCH MCHC RDW Plt Count MPV Sodium Potassium Chloride Carbon Dioxide Anion Gap BUN Creatinine Estimated GFR (MDRD) Glucose Calcium Total Bilirubin AST ALT Alkaline Phosphatase Total Protein Albumin Globulin Albumin/Globulin Ratio Lipase Urine Color YELLOW Cancelled Urine Clarity CLEAR Cancelled Urine pH 5.5 Cancelled Ur Specific [place] >=1.030 H Cancelled Urine Protein NEGATIVE Cancelled Urine Glucose (UA) NEGATIVE Cancelled Urine Ketones 15 H Cancelled Urine Occult Blood LARGE H Cancelled Urine Nitrite NEGATIVE Cancelled Urine Bilirubin NEGATIVE Cancelled Urine Urobilinogen 0.2 (NORMAL) Cancelled Ur Leukocyte Esterase TRACE H Cancelled Urine RBC 0-5 Urine WBC 4-5 Ur Squamous Epith Cells MOD Squamous H Amorphous Sediment Marked Urine Bacteria None Seen Ur Microscopic Review Cancelled Urine Culture Comments Cancelled 04/24/17 04/24/17 12:51 12:51 WBC 10.3 RBC 4.78 Hgb 14.8 Hct 44.2 MCV 92.6 MCH 31.0 MCHC 33.5 RDW 12.7 Plt Count 379 MPV 6.9 L Sodium 138 Potassium 3.9 Chloride 106 Carbon Dioxide 20 L Anion Gap 12.0 BUN 19 Creatinine 1.1 H Estimated GFR (MDRD) 63 L Glucose 178 H Calcium 9.7 Total Bilirubin 0.8 AST 17 ALT 13 Alkaline Phosphatase 45 Total Protein 8.1 Albumin 4.5 Globulin 3.6 Albumin/Globulin Ratio 1.3 Lipase 23 Urine Color Urine Clarity Urine pH Ur Specific [place] Urine Protein Urine Glucose (UA) Urine Ketones Urine Occult Blood Urine Nitrite Urine Bilirubin Urine Urobilinogen Ur Leukocyte Esterase Urine RBC Urine WBC Ur Squamous Epith Cells Amorphous Sediment Urine Bacteria Ur Microscopic Review Urine Culture Comments PD MEDICAL DECISION MAKING - ED course Complexity details: reviewed old records, reviewed results, re-evaluated patient , considered differential, d/w patient, d/w family ED course: Patient is a 21-year-old female who presents to the emergency department with what appears to be recurrent cannabinoid-induced hyperemesis. Counseled again to stop using marijuana. Patient was given her usual medications which resolved her symptoms. Tolerating p.o. without difficulty and request to go home at this time. Will prescribe a small amount of medications for home and have her follow-up with her PCP for further evaluation and care. She is very well-appearing, nontoxic. Afebrile. Abdomen is soft, nontender nondistended on serial examination. Patient counseled regarding signs and symptoms for which I believe and urgent re-evaluation would be necessary. Patient with good understanding of and agreement to plan and is comfortable going home at this time This document was made in part using voice recognition software. While efforts are made to proofread this document, sound alike and grammatical errors may occur. Departure - Departure Disposition: 01 Home, Self Care Clinical Impression: Cannabinoid hyperemesis syndrome Cyclic vomiting syndrome Qualifiers: Vomiting Intractability: non-intractable Nausea presence: with nausea Qualified Code(s): G43.A0 - Cyclical vomiting, not intractable Condition: Good Instructions: ED Nausea Vomiting Follow-Up: your,doctor within 1 week [Other] Prescriptions: Ondansetron Odt [Zofran] 4 mg TL Q6H PRN #10 tablet PRN Reason: Nausea / Vomiting Promethazine [Phenergan] 25 mg PO Q6H PRN #10 tab PRN Reason: Nausea / Vomiting Comments: Please stop using marijuana at home. Return if you worsen. Your blood pressure was elevated today on check in to the emergency department. This does not mean that you have hypertension, it is a common phenomenon to check into the emergency department and have elevated blood pressure. I recommend that you see your primary care physician within the week to have it rechecked when you're feeling better. Discharge Date/Time: 04/24/17 14:59
[2017-04-24 14:57] VITALS: BP 130/63
== END 2017-04-24 14:59 | disposition home or self-care (01) ==
LOC: ED 12:09
DX: F12.988 Cannabis use, unspecified with other cannabis-induced disorder (principal); G43.A0 Cyclical vomiting, in migraine, not intractable; R03.0 Elevated blood-pressure reading, without diagnosis of hypertension
CPT/HCPCS: 36415; 80053; 81003; 83690; 85027; 96365; 96375; 99283; J1170; J2060; J7040; 81001; 87086

== ENCOUNTER 2017-04-26 07:37 | Outpatient (CLI) | payer MEDICAID | END 2017-04-26 07:38 | disposition critical access hospital (66) | LOC: EMS 07:37 | PROVIDERS: ATTEND Surgery | DX: R11.2 Nausea with vomiting, unspecified (principal) | CPT/HCPCS: A0425; A0427 ==

== ENCOUNTER 2017-04-26 07:56 | Emergency (ER) | payer MEDICAID ==
[2017-04-26] MEDS ORDERED: SODIUM CHLORIDE 0.9% 1,000 ML IV ONE (08:04)
[2017-04-26] MEDS ORDERED: HYDROmorphone 1 MG/ML CARPUJECT IVP STA (08:04)
[2017-04-26] MEDS ORDERED: PROMETHAZINE INJ 25 MG in SODIUM CHLORIDE 0.9% 50 ML IV STA (08:04)
[2017-04-26] MEDS ORDERED: PROMETHAZINE 25 MG/1 ML VIAL ONE (08:10)
[2017-04-26] MEDS ORDERED: HYDROmorphone 1 MG/ML CARPUJECT ONE (08:10)
--- NOTE | 2017-04-26 08:11 | ED Physician Documentation ---
PD HPI NVD - Stated complaint Stated Complaint: VOMITING - Chief complaint Chief Complaint: Abd Pain - History obtained from History obtained from: Patient - History of Present Illness Timing - onset: Enter time (529), Today Timing - duration: Hours Timing - details: Abrupt onset, Still present Associated symptoms: Abdominal pain, Dizzy Improved by: Vomiting Worsened by: Moving Similar symptoms before: Diagnosis (cyclical vomiting) Recently seen: Emergency Dept (Seen here 2 days ago) - Additonal information Additional information: This is the 22nd visit in 3 years for this 21-year-old female with cannabis hyperemesis. She was seen in the emergency department 2 days ago and medicated then. Review of Systems Constitutional: reports: Chills, Myalgias, Fatigue, Sweats. 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 : None HEENT: None Psych: None Musculoskeletal: None Derm: None - Past Surgical History Past Surgical History: Yes General: EGD HEENT: Myringotomy (tubes) - Present Medications Home Medications: Ambulatory Orders Medication Instructions Recorded Confirmed Levonorgestrel-Ethin Estradiol 1 each PO DAILY 09/02/16 04/24/17 [Lutera-28 Tablet] Albuterol Sulfate [Proventil Hfa 1 - 2 puffs INH Q4H PRN #1 inhaler 11/02/16 Inhaler] Promethazine Supp [Phenergan Supp] 25 mg OR Q6H PRN #5 supp 03/25/17 04/24/17 Ondansetron Odt [Zofran] 4 mg TL Q6H PRN #10 tablet 04/24/17 Promethazine [Phenergan] 25 mg PO Q6H PRN #10 tab 04/24/17 Lorazepam [Ativan] 1 mg PO Q6HR PRN #12 tablet 04/26/17 Sulfamethoxazole/Trimethoprim 1 each PO BID #10 tablet 04/26/17 [Sulfamethoxazole-Tmp Ds Tablet] - Allergies Allergies/Adverse Reactions: Allergies Allergy/AdvReac Type Severity Reaction Status Date / Time No Known Drug Allergies Allergy Verified 09/02/16 01:08 - Social History Does the pt smoke?: No Smoking Status: Never smoker Does the pt drink ETOH?: No Does the pt have substance abuse?: Yes - Immunizations Immunizations are current?: Yes - POLST Patient has POLST: No PD ED PE NORMAL - Vitals Vital signs reviewed: Yes (hypertensive) - General General: Well developed/nourished, Other (Thin female with wretching) - HEENT HEENT: Atraumatic, PERRL, EOMI, Other (dry mucous membranes) - Neck Neck: Supple, no meningeal sign - Cardiac Cardiac: RRR, No murmur - Respiratory Respiratory: No respiratory distress, Clear bilaterally - Abdomen Abdomen: Soft, Other (mild general tenderness without garding/rebound. ) - Back Back: No CVA TTP, No spinal TTP - Derm Derm: Normal color, Warm and dry, No rash - Extremities Extremities: No deformity, No edema - Neuro Neuro: No motor deficit, No sensory deficit, Normal speech - Psych Psych: Normal mood, Normal affect Results - Vitals Vitals: Vital Signs - 24 hr 04/26/17 04/26/17 04/26/17 07:57 08:55 10:11 Temperature 36.4 C L 36.2 C L 36.5 C Heart Rate 68 82 72 Respiratory 18 12 12 Rate Blood Pressure 148/78 H 134/102 H 99/58 L O2 Saturation 100 100 97 04/26/17 11:41 Temperature 36.2 C L Heart Rate 74 Respiratory 16 Rate Blood Pressure 101/68 O2 Saturation 100 Oxygen O2 Source Room air - Labs Labs: Laboratory Tests 04/26/17 04/26/17 04/26/17 08:17 08:17 09:30 WBC 9.6 RBC 4.60 Hgb 14.3 Hct 42.2 MCV 91.8 MCH 31.2 H MCHC 34.0 RDW 12.9 Plt Count 315 MPV 6.8 L Neut # 6.7 H Lymph # 1.9 [place] # 0.7 Eos # 0.2 Baso # 0.1 Absolute Nucleated RBC 0.00 Nucleated RBC % 0.0 Sodium 136 Potassium 3.1 L Chloride 108 Carbon Dioxide 16 L Anion Gap 12.0 BUN 15 Creatinine 1.0 Estimated GFR (MDRD) 71 L Glucose 117 H Calcium 8.8 Total Bilirubin 0.8 AST 15 ALT 11 Alkaline Phosphatase 37 L Total Protein 7.3 Albumin 4.2 Globulin 3.1 Albumin/Globulin Ratio 1.4 Lipase 28 Urine Color YELLOW Urine Clarity HAZY Urine pH 6.0 Ur Specific [place] 1.025 Urine Protein NEGATIVE Urine Glucose (UA) NEGATIVE Urine Ketones 15 H Urine Occult Blood NEGATIVE Urine Nitrite POSITIVE H Urine Bilirubin NEGATIVE Urine Urobilinogen 0.2 (NORMAL) Ur Leukocyte Esterase SMALL H Urine RBC 0-5 Urine WBC >25 H Ur Squamous Epith Cells FEW Squamous Urine Bacteria Many H Urine Mucus Moderate Strands Ur Microscopic Review INDICATED Urine Culture Comments INDICATED Urine HCG, Qual NEGATIVE Procedures - IVC sono (time) 0802 Bedside IVC sono: IVC measures (cm) (1.92), Euvolemia PD MEDICAL DECISION MAKING - ED course Complexity details: reviewed old records, reviewed results, re-evaluated patient , considered differential, d/w patient, d/w family ED course: 22-year-old female with cannabis hyperemesis presents to the emergency department for her 22nd visit to the emergency department in 3 years for similar symptoms. This patient has improvement in her symptoms with the use of intravenous Promethazine and Ativan. She is found to have urinary tract infection and she is given Rocephin intravenously as well.She was not dehydrated on arrival to the emergency department Departure - Departure Disposition: 01 Home, Self Care Clinical Impression: Cannabinoid hyperemesis syndrome Urinary tract infection Qualifiers: Urinary tract infection type: acute cystitis Hematuria presence: without hematuria Qualified Code(s): N30.00 - Acute cystitis without hematuria Condition: Stable Instructions: ED UTI Cystitis Female, Cyclic Vomiting Syndrome Follow-Up: Your, doctor [Other] Prescriptions: Lorazepam [Ativan] 1 mg PO Q6HR PRN #12 tablet PRN Reason: anxiety/vomiting Sulfamethoxazole/Trimethoprim [Sulfamethoxazole-Tmp Ds Tablet] 1 each PO BID # 10 tablet
[2017-04-26 08:24] LABS: BASOPHILS # (AUTO) 0.1 10^3/uL (0.0-0.1); BASOPHILS % (AUTO) 1.4 %; EOSINOPHILS # (AUTO) 0.2 10^3/uL (0.0-0.7); EOSINOPHILS % (AUTO) 1.6 %; HCT - HEMATOCRIT 42.2 % (37.0-47.0); HGB - HEMOGLOBIN 14.3 g/dL (12.0-16.0); LYMPHOCYTES # (AUTO) 1.9 10^3/uL (1.5-3.5); LYMPHOCYTES % (AUTO) 19.3 %; MEAN CORPUSCULAR HEMOGLOBIN 31.2 pg (27.0-31.0); MEAN CORPUSCULAR VOLUME 91.8 fL (81.0-99.0); MEAN PLATELET VOLUME 6.8 fL (7.9-10.8); MONOCYTES # (AUTO) 0.7 10^3/uL (0.0-1.0); MONOCYTES % (AUTO) 7.5 %; NEUTROPHILS # (AUTO) 6.7 10^3/uL (1.5-6.6); NEUTROPHILS % (AUTO) 70.2 %; RED CELL DISTRIBUTION WIDTH 12.9 % (12.0-15.0); UNCORRECTED WHITE BLOOD COUNT 9.6 x10^3/uL; WHITE BLOOD COUNT 9.6 x10^3/uL (4.8-10.8)
[2017-04-26 08:36] LABS: ALBUMIN/GLOBULIN RATIO 1.4 (1.0-2.2); BILIRUBIN,TOTAL 0.8 mg/dL (0.2-1.0); CALCIUM 8.8 mg/dL (8.5-10.3); POTASSIUM 3.1 mmol/L (3.5-5.0); TOTAL PROTEIN 7.3 g/dL (6.7-8.2)
[2017-04-26] MEDS ORDERED: LORazepam 2 MG/ML SYRINGE IVP STA (08:45)
[2017-04-26] MEDS ORDERED: LORazepam 2 MG/ML SYRINGE ONE ×2 (08:53→09:05)
[2017-04-26] MEDS ORDERED: fentaNYL 100 MCG/2 ML VIAL ONE (08:54)
[2017-04-26] MEDS ORDERED: DEXAMETHASONE 10 MG/ML VIAL ONE (08:54)
[2017-04-26] MEDS ORDERED: ONDANSETRON 4 MG/2 ML VIAL ONE (08:54)
[2017-04-26 10:14] LABS: BILIRUBIN,URINE NEGATIVE (NEGATIVE)
[2017-04-26 10:24] LABS: HCG UR QUAL NEGATIVE; UA w/ MICROSCOPIC CHARGE YES
[2017-04-26 10:31] LABS: UR CULTURE IF IND INDICATED; WBC,URINE >25 /HPF (0-5)
[2017-04-26] MEDS ORDERED: cefTRIAXone 1 GM in SODIUM CHLORIDE 0.9% MINIBAG 100 ML IV STA (10:36)
[2017-04-26] MEDS ORDERED: POTASSIUM BICARB 25 MEQ TABLET PO STA (10:36)
[2017-04-26] MEDS ORDERED: POTASSIUM BICARB 25 MEQ TABLET PO ONE (10:44)
[2017-04-26] MEDS ORDERED: cefTRIAXone 1 GM VIAL ONE (10:45)
[2017-04-26 11:42] VITALS: BP 101/68
== END 2017-04-26 12:03 | disposition home or self-care (01) ==
LOC: EDUNIT# → ED 07:56
DX: F12.988 Cannabis use, unspecified with other cannabis-induced disorder (principal); N30.00 Acute cystitis without hematuria
CPT/HCPCS: 36415; 80053; 81001; 81025; 83690; 85025; 87086; 87181; 96365; 96366; 96375; 99283; 99284; A9270; J1170; J2060; J7040; 81003

== ENCOUNTER 2017-06-04 19:39 | Emergency (ER) | payer MEDICAID ==
[2017-06-04 20:12] LABS: BILIRUBIN,URINE NEGATIVE (NEGATIVE); HCG UR QUAL NEGATIVE; UA w/ MICROSCOPIC CHARGE YES
[2017-06-04 20:14] LABS: UR CULTURE IF IND INDICATED
[2017-06-04] MEDS ORDERED: SODIUM CHLORIDE 0.9% 1,000 ML IV ONE (20:46)
[2017-06-04] MEDS ORDERED: PROMETHAZINE INJ 25 MG in SODIUM CHLORIDE 0.9% 50 ML IV STA (20:46)
[2017-06-04] MEDS ORDERED: LORazepam 2 MG/ML SYRINGE IVP STA (20:46)
--- NOTE | 2017-06-04 20:47 | ED Physician Documentation ---
PD HPI ABD PAIN - Stated complaint Stated Complaint: VOMITING - Chief complaint Chief Complaint: Abd Pain - History obtained from History obtained from: Patient, Family - History of Present Illness Timing - onset: Other (21-year-old woman with history of cannabinoid hyperemesis syndrome, continues to smoke marijuana daily. Has been vomiting for the last few hours and lately has had blood streaks. Also complains of upper abdominal pain and chest burning with some diarrhea. 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 : None HEENT: None Psych: None Musculoskeletal: None Derm: None - Past Surgical History Past Surgical History: Yes General: EGD HEENT: Myringotomy (tubes) - Present Medications Home Medications: Ambulatory Orders Medication Instructions Recorded Confirmed Levonorgestrel-Ethin Estradiol 1 each PO DAILY 09/02/16 04/24/17 [Lutera-28 Tablet] Albuterol Sulfate [Proventil Hfa 1 - 2 puffs INH Q4H PRN #1 inhaler 11/02/1605/11 Inhaler] Lorazepam [Ativan] 1 mg PO TID PRN #7 tablet 06/04/17 Ondansetron HCl [Zofran] 4 mg PO Q6H PRN #10 tablet 06/04/17 Promethazine [Phenergan] 25 - 50 mg PO Q6H PRN #15 tab 06/04/17 Sulfamethoxazole/Trimethoprim 1 each PO BID 5 Days tablet 06/04/17 [Sulfamethoxazole-Tmp Ds Tablet] - Allergies Allergies/Adverse Reactions: Allergies Allergy/AdvReac Type Severity Reaction Status Date / Time No Known Drug Allergies Allergy Verified 06/04/17 19:47 - Social History Does the pt smoke?: No Smoking Status: Never smoker Does the pt drink ETOH?: No Does the pt have substance abuse?: Yes - Immunizations Immunizations are current?: Yes - POLST Patient has POLST: No PD ED PE NORMAL - Vitals Vital signs reviewed: Yes - General General: Alert and oriented X 3, Other (Intermittently retching, Nonbloody emesis in the emesis bag.) - Neck Neck: Supple, no meningeal sign, No bony TTP - Cardiac Cardiac: RRR, No murmur - Respiratory Respiratory: No respiratory distress, Clear bilaterally - Abdomen Abdomen: Normal bowel sounds, Soft, Non tender - Neuro Neuro: Alert and oriented X 3, Normal speech - Psych Psych: Normal mood, Normal affect Results - Vitals Vitals: Vital Signs - 24 hr 06/04/17 06/04/17 06/04/17 19:44 21:38 22:08 Temperature 36 C L Heart Rate 78 62 96 Respiratory 16 18 17 Rate Blood Pressure 132/93 H 149/96 H 133/92 H O2 Saturation 98 100 99 Oxygen O2 Source Room air - Labs Labs: Laboratory Tests 06/04/17 06/04/17 06/04/17 20:00 20:40 20:40 WBC 16.2 H RBC 4.64 Hgb 14.5 Hct 44.1 MCV 95.1 MCH 31.2 H MCHC 32.8 RDW 12.7 Plt Count 326 MPV 7.3 L Neut # 13.9 H Lymph # 1.5 [place] # 0.5 Eos # 0.1 Baso # 0.2 H Absolute Nucleated RBC 0.00 Nucleated RBC % 0.0 Sodium 137 Potassium 3.5 Chloride 106 Carbon Dioxide 19 L Anion Gap 12.0 BUN 10 Creatinine 0.9 Estimated GFR (MDRD) 80 L Glucose 174 H Calcium 9.6 Total Bilirubin 0.6 AST 15 ALT 11 Alkaline Phosphatase 39 L Total Protein 7.8 Albumin 4.3 Globulin 3.5 Albumin/Globulin Ratio 1.2 Lipase 19 L Urine Color YELLOW Urine Clarity CLOUDY Urine pH 6.0 Ur Specific [place] >=1.030 H Urine Protein TRACE Urine Glucose (UA) NEGATIVE Urine Ketones 15 H Urine Occult Blood SMALL H Urine Nitrite NEGATIVE Urine Bilirubin NEGATIVE Urine Urobilinogen 0.2 (NORMAL) Ur Leukocyte Esterase TRACE H Urine RBC 0-5 Urine WBC 6-10 H Ur Squamous Epith Cells FEW Squamous Urine Crystals 0-2 Calcium Oxalate Urine Bacteria Many H Ur Microscopic Review INDICATED Urine Culture Comments INDICATED Urine HCG, Qual NEGATIVE PD MEDICAL DECISION MAKING - ED course ED course: 21-year-old with history of cyclic vomiting versus cannabinoid hyperemesis syndrome, I suspect the latter. She was treated stepwise with medications including Ativan, Phenergan, Zofran 2, and later Haldol with relief of her nausea and feeling much better. Note made that she does have evidence of UTI. She did have a UTI a month ago and states she finished the antibiotics. The culture at that time was pansensitive E. coli. She was administered Rocephin in the ER tonight. Departure - Departure Disposition: 01 Home, Self Care Clinical Impression: Cannabinoid hyperemesis syndrome Urinary tract infection Qualifiers: Urinary tract infection type: acute cystitis Hematuria presence: without hematuria Qualified Code(s): N30.00 - Acute cystitis without hematuria Condition: Good Record reviewed to determine appropriate education?: Yes Instructions: ED Nausea Vomiting Prescriptions: Lorazepam [Ativan] 1 mg PO TID PRN #7 tablet PRN Reason: Anxiety Ondansetron HCl [Zofran] 4 mg PO Q6H PRN #10 tablet PRN Reason: Nausea / Vomiting Promethazine [Phenergan] 25 - 50 mg PO Q6H PRN #15 tab PRN Reason: Nausea / Vomiting Sulfamethoxazole/Trimethoprim [Sulfamethoxazole-Tmp Ds Tablet] 1 each PO BID 5 Days tablet Comments: Call your doctor to arrange a follow-up appointment, make the next available appointment. In the interim, return anytime if worse or if new symptoms develop. As discussed, I recommend that you abstain from marijuana. I think that is causing your symptoms. Your blood pressure was elevated today on check into the emergency department. This does not mean that you have hypertension, it is a common phenomenon to come to the emergency department and have elevated blood pressure. I recommend that you see your primary care physician within the week to have it rechecked when you are feeling better.
[2017-06-04 20:59] LABS: BASOPHILS # (AUTO) 0.2 10^3/uL (0.0-0.1); BASOPHILS % (AUTO) 1.1 %; EOSINOPHILS # (AUTO) 0.1 10^3/uL (0.0-0.7); EOSINOPHILS % (AUTO) 0.5 %; HCT - HEMATOCRIT 44.1 % (37.0-47.0); HGB - HEMOGLOBIN 14.5 g/dL (12.0-16.0); LYMPHOCYTES # (AUTO) 1.5 10^3/uL (1.5-3.5); LYMPHOCYTES % (AUTO) 9.3 %; MEAN CORPUSCULAR HEMOGLOBIN 31.2 pg (27.0-31.0); MEAN CORPUSCULAR HGB CONC 32.8 g/dL (32.0-36.0); MEAN CORPUSCULAR VOLUME 95.1 fL (81.0-99.0); MEAN PLATELET VOLUME 7.3 fL (7.9-10.8); MONOCYTES # (AUTO) 0.5 10^3/uL (0.0-1.0); MONOCYTES % (AUTO) 3.4 %; NEUTROPHILS # (AUTO) 13.9 10^3/uL (1.5-6.6); NEUTROPHILS % (AUTO) 85.7 %; RED BLOOD COUNT 4.64 10^6/uL (4.20-5.40); RED CELL DISTRIBUTION WIDTH 12.7 % (12.0-15.0); UNCORRECTED WHITE BLOOD COUNT 16.2 x10^3/uL; WHITE BLOOD COUNT 16.2 x10^3/uL (4.8-10.8)
[2017-06-04] MEDS: ONDANSETRON 4 MG/2 ML VIAL IVP STA ×2 (20:59→21:00)
[2017-06-04] MEDS ORDERED: ONDANSETRON 4 MG/2 ML VIAL ONE ×2 (21:02→22:18)
[2017-06-04] MEDS ORDERED: LORazepam 2 MG/ML SYRINGE ONE (21:02)
[2017-06-04] MEDS ORDERED: PROMETHAZINE 25 MG/1 ML VIAL ONE (21:02)
[2017-06-04 21:05] LABS: ALBUMIN/GLOBULIN RATIO 1.2 (1.0-2.2); BILIRUBIN,TOTAL 0.6 mg/dL (0.2-1.0); CALCIUM 9.6 mg/dL (8.5-10.3); CREATININE 0.9 mg/dL (0.4-1.0); POTASSIUM 3.5 mmol/L (3.5-5.0); TOTAL PROTEIN 7.8 g/dL (6.7-8.2)
[2017-06-04] MEDS ORDERED: cefTRIAXone 1 GM in SODIUM CHLORIDE 0.9% MINIBAG 100 ML IV STA (21:41)
[2017-06-04] MEDS ORDERED: cefTRIAXone 1 GM VIAL ONE (21:54)
[2017-06-04] MEDS ORDERED: ONDANSETRON 4 MG/2 ML VIAL IVP STA (22:11)
[2017-06-04] MEDS ORDERED: HALOPERIDOL 5 MG/ML VIAL IVP ONE (22:36)
[2017-06-04] MEDS ORDERED: HALOPERIDOL 5 MG/ML VIAL ONE (22:45)
[2017-06-04] MEDS ORDERED: ONDANSETRON ODT 4 MG Prepack 2 TL STA (23:11)
[2017-06-04] MEDS ORDERED: ONDANSETRON ODT 4 MG Prepack 2 TL ONE (23:20)
[2017-06-04 23:31] VITALS: BP 136/75
== END 2017-06-04 23:31 | disposition home or self-care (01) ==
LOC: ED 19:39
DX: R11.10 Vomiting, unspecified (principal); N30.00 Acute cystitis without hematuria; R03.0 Elevated blood-pressure reading, without diagnosis of hypertension; F12.90 Cannabis use, unspecified, uncomplicated
CPT/HCPCS: 36415; 80053; 81001; 81025; 83690; 85025; 87086; 96361; 96365; 96367; 96375; 96376; 99284; J2060; J7040; 81003

== ENCOUNTER 2017-07-14 18:09 | Emergency (ER) | payer MEDICAID ==
[2017-07-14] MEDS ORDERED: SODIUM CHLORIDE 0.9% 1,000 ML IV ONE (18:25)
--- NOTE | 2017-07-14 18:28 | ED Physician Documentation ---
PD HPI ABD PAIN - Stated complaint Stated Complaint: ABD PX - Chief complaint Chief Complaint: Abd Pain - History obtained from History obtained from: Patient, Family - History of Present Illness Timing - onset: Other (21-year-old woman with presumed history of cannabinoid hyperemesis presents with ongoing lower abdominal pain and vomiting. She has been slightly constipated and has been vomiting a lot with this and feels dehydrated. No UTI symptoms. 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 : None HEENT: None Psych: None Musculoskeletal: None Derm: None - Past Surgical History Past Surgical History: Yes General: EGD HEENT: Myringotomy (tubes) - Present Medications Home Medications: Ambulatory Orders Medication Instructions Recorded Confirmed Levonorgestrel-Ethin Estradiol 1 each PO DAILY 09/02/16 07/14/17 [Lutera-28 Tablet] Albuterol Sulfate [Proventil Hfa 1 - 2 puffs INH Q4H PRN #1 inhaler 11/02/16 Inhaler] Lorazepam [Ativan] 1 mg PO TID PRN #7 tablet 06/04/17 07/14/17 Ondansetron HCl [Zofran] 4 mg PO Q6H PRN #10 tablet 06/04/17 07/14/17 Promethazine [Phenergan] 25 - 50 mg PO Q6H PRN #15 tab 06/04/17 07/14/17 Ondansetron HCl [Zofran] 4 mg PO Q6H PRN #10 tablet 07/14/17 busPIRone [Buspar] 5 mg PO BID #60 tablet 07/14/17 - Allergies Allergies/Adverse Reactions: Allergies Allergy/AdvReac Type Severity Reaction Status Date / Time No Known Drug Allergies Allergy Verified 06/04/17 19:47 - Social History Does the pt smoke?: No Smoking Status: Never smoker Does the pt drink ETOH?: No Does the pt have substance abuse?: Yes - Immunizations Immunizations are current?: Yes - POLST Patient has POLST: No PD ED PE NORMAL - Vitals Vital signs reviewed: Yes - General General: Alert and oriented X 3, Other (restless, moaning) - HEENT HEENT: PERRL (dilated), EOMI - Neck Neck: Supple, no meningeal sign, No bony TTP - Cardiac Cardiac: RRR, No murmur - Respiratory Respiratory: No respiratory distress, Clear bilaterally - Abdomen Abdomen: Normal bowel sounds, Soft, Non tender - Back Back: No CVA TTP, No spinal TTP - Derm Derm: Normal color, Warm and dry - Extremities Extremities: No edema, No calf tenderness / cord - Neuro Neuro: Alert and oriented X 3, Normal speech - Psych Psych: Normal mood, Normal affect Results - Vitals Vitals: Vital Signs - 24 hr 07/14/17 07/14/17 07/14/17 18:16 19:49 20:32 Temperature 35.9 C L Heart Rate 78 74 80 Respiratory 17 20 16 Rate Blood Pressure 130/93 H 146/86 H 141/97 H O2 Saturation 99 99 100 07/14/17 21:33 Temperature 36.3 C L Heart Rate 74 Respiratory 16 Rate Blood Pressure 134/86 H O2 Saturation 100 Oxygen O2 Source Room air - Labs Labs: Laboratory Tests 07/14/17 07/14/17 07/14/17 18:30 18:30 21:25 WBC 15.4 H RBC 4.64 Hgb 14.6 Hct 43.8 MCV 94.5 MCH 31.4 H MCHC 33.3 RDW 12.2 Plt Count 355 MPV 7.3 L Neut # 13.2 H Lymph # 1.5 [place] # 0.6 Eos # 0.0 Baso # 0.1 Absolute Nucleated RBC 0.00 Nucleated RBC % 0.0 Sodium 139 Potassium 3.3 L Chloride 106 Carbon Dioxide 19 L Anion Gap 14.0 H BUN 11 Creatinine 0.9 Estimated GFR (MDRD) 80 L Glucose 141 H Calcium 9.8 Total Bilirubin 0.7 AST 20 ALT 11 Alkaline Phosphatase 38 L Total Protein 8.1 Albumin 4.5 Globulin 3.6 Albumin/Globulin Ratio 1.3 Lipase 17 L Urine Color YELLOW Urine Clarity HAZY Urine pH 8.0 H Ur Specific [place] 1.020 Urine Protein NEGATIVE Urine Glucose (UA) NEGATIVE Urine Ketones 15 H Urine Occult Blood LARGE H Urine Nitrite NEGATIVE Urine Bilirubin NEGATIVE Urine Urobilinogen 0.2 (NORMAL) Ur Leukocyte Esterase NEGATIVE Urine RBC 11-25 H Urine WBC 6-10 H Ur Squamous Epith Cells MOD Squamous H Urine Bacteria Few Ur Microscopic Review INDICATED Urine Culture Comments NOT INDICATED Urine HCG, Qual NEGATIVE PD MEDICAL DECISION MAKING - ED course ED course: 21-year-old with chronic recurrent abdominal pain, usually here once or twice a month for the last 2 years.Usually resolves with medications here. I had a long discussion with the patient and her mother. She has never successfully tried to quit smoking marijuana and therefore has never been able to dissuade us from the diagnosis of cannabinoid hyperemesis syndrome. We discussed the reasons for her being unable to quit marijuana, partially just because she likes it, partially because of chronic anxiety. The clinic try to put her on Zoloft, the mom refused, stating that everybody in the family had had bad reactions to Zoloft. Mom wanted to trial BuSpar and this did not seem unreasonable. She improved stepwise mixed with medications here and requested discharge. I discussed the importance of outpatient follow-up, despite having been here many times over the last few years she is only seen her family doctor once in the preceding 2 years. And she has not had a GI referral. Departure - Departure Disposition: 01 Home, Self Care Clinical Impression: Cannabinoid hyperemesis syndrome Condition: Good Record reviewed to determine appropriate education?: Yes Instructions: ED Nausea Vomiting Follow-Up: [facility] [Provider Group] Prescriptions: busPIRone [Buspar] 5 mg PO BID #60 tablet Ondansetron HCl [Zofran] 4 mg PO Q6H PRN #10 tablet PRN Reason: Nausea / Vomiting Comments: As discussed, it is imperative to follow-up with your primary care physician for referrals to gastroenterology given your chronic recurrent abdominal pain and vomiting. Also as discussed I suspect this chronic recurrent abdominal pain and vomiting is related to daily marijuana use and it is imperative to quit marijuana to see if that improves her symptoms. Your blood pressure was elevated today on check into the emergency department. This does not mean that you have hypertension, it is a common phenomenon to come to the emergency department and have elevated blood pressure. I recommend that you see your primary care physician within the week to have it rechecked when you are feeling better.
[2017-07-14] MEDS: HALOPERIDOL 5 MG/ML VIAL IVP ONE ×2 (18:32→18:48)
[2017-07-14] MEDS ORDERED: ONDANSETRON 4 MG/2 ML VIAL IVP STA ×2 (18:40→21:02)
[2017-07-14] MEDS ORDERED: ACETAMINOPHEN 1,000 MG/100 ML 100 ML IV STA (18:41)
[2017-07-14] MEDS ORDERED: LORazepam 2 MG/ML VIAL IVP STA (18:41)
[2017-07-14 18:55] LABS: BASOPHILS # (AUTO) 0.1 10^3/uL (0.0-0.1); BASOPHILS % (AUTO) 0.8 %; EOSINOPHILS % (AUTO) 0.3 %; HCT - HEMATOCRIT 43.8 % (37.0-47.0); HGB - HEMOGLOBIN 14.6 g/dL (12.0-16.0); LYMPHOCYTES # (AUTO) 1.5 10^3/uL (1.5-3.5); LYMPHOCYTES % (AUTO) 9.4 %; MEAN CORPUSCULAR HEMOGLOBIN 31.4 pg (27.0-31.0); MEAN CORPUSCULAR HGB CONC 33.3 g/dL (32.0-36.0); MEAN CORPUSCULAR VOLUME 94.5 fL (81.0-99.0); MEAN PLATELET VOLUME 7.3 fL (7.9-10.8); MONOCYTES # (AUTO) 0.6 10^3/uL (0.0-1.0); MONOCYTES % (AUTO) 3.7 %; NEUTROPHILS # (AUTO) 13.2 10^3/uL (1.5-6.6); NEUTROPHILS % (AUTO) 85.8 %; RED BLOOD COUNT 4.64 10^6/uL (4.20-5.40); RED CELL DISTRIBUTION WIDTH 12.2 % (12.0-15.0); UNCORRECTED WHITE BLOOD COUNT 15.4 x10^3/uL; WHITE BLOOD COUNT 15.4 x10^3/uL (4.8-10.8)
[2017-07-14 18:56] LABS: ALBUMIN/GLOBULIN RATIO 1.3 (1.0-2.2); BILIRUBIN,TOTAL 0.7 mg/dL (0.2-1.0); CALCIUM 9.8 mg/dL (8.5-10.3); CREATININE 0.9 mg/dL (0.4-1.0); POTASSIUM 3.3 mmol/L (3.5-5.0); TOTAL PROTEIN 8.1 g/dL (6.7-8.2)
[2017-07-14] MEDS ORDERED: KETOROLAC 30 MG/ML VIAL IVP STA (19:23)
[2017-07-14] MEDS ORDERED: PROMETHAZINE INJ 25 MG in SODIUM CHLORIDE 0.9% 50 ML IV STA (19:23)
[2017-07-14] MEDS ORDERED: LACTATED RINGERS 1,000 ML IV STA (20:34)
[2017-07-14] MEDS ORDERED: busPIRone 5 MG TABLET PO STA (21:02)
[2017-07-14 21:34] LABS: BILIRUBIN,URINE NEGATIVE (NEGATIVE); UA w/ MICROSCOPIC CHARGE YES
[2017-07-14 21:36] LABS: HCG UR QUAL NEGATIVE
[2017-07-14 21:46] LABS: UR CULTURE IF IND NOT INDICATED
[2017-07-14] MEDS ORDERED: ONDANSETRON ODT 4 MG Prepack 2 TL STA (22:13)
[2017-07-14] MEDS ORDERED: HYDROcod/ACET 5/325 Prepack 6 PO STA (22:13)
[2017-07-14 22:22] VITALS: BP 125/93
== END 2017-07-14 22:22 | disposition home or self-care (01) ==
LOC: ED 18:09
DX: F12.988 Cannabis use, unspecified with other cannabis-induced disorder (principal); R11.2 Nausea with vomiting, unspecified; R03.0 Elevated blood-pressure reading, without diagnosis of hypertension; J45.909 Unspecified asthma, uncomplicated
CPT/HCPCS: 36415; 80053; 81001; 81025; 83690; 85025; 96361; 96365; 96375; 96376; 99284; A9270; J2060; J7040; J7120; 81003; 87086

== ENCOUNTER 2017-08-29 03:17 | Emergency (ER) | payer MEDICAID ==
[2017-08-29] MEDS ORDERED: ONDANSETRON 4 MG/2 ML VIAL IVP STA (03:23)
[2017-08-29] MEDS ORDERED: SODIUM CHLORIDE 0.9% 1,000 ML IV ONE ×2 (03:24→03:43)
[2017-08-29] MEDS ORDERED: LORazepam 2 MG/ML VIAL IVP STA (03:24)
[2017-08-29] MEDS ORDERED: PROMETHAZINE INJ 25 MG in SODIUM CHLORIDE 0.9% 50 ML IV STA (03:43)
--- NOTE | 2017-08-29 03:50 | ED Physician Documentation ---
PD HPI NVD - Stated complaint Stated Complaint: VOMITING - Chief complaint Chief Complaint: Abd Pain - History obtained from History obtained from: Patient, EMS - History of Present Illness Timing - onset: Today Timing - details: Abrupt onset Associated symptoms: Abdominal pain Contributing factors: Other (smoking marijuana) Similar symptoms before: Work up / diagnostics, Treatment Recently seen: Not recently seen - Additonal information Additional information: Patient is a 21 year old female with a history of marijuana induced cyclic vomiting who is presenting to the emergency department for uncontrollable vomiting. Patient does admit to smoking marijuana again. Patient has multiple visits for the same reason. Review of Systems Constitutional: denies: Fever, Chills Eyes: reports: Reviewed and negative Ears: reports: Reviewed and negative Nose: reports: Reviewed and negative Throat: reports: Reviewed and negative Cardiac: reports: Reviewed and negative Respiratory: reports: Reviewed and negative GI: reports: Abdominal Pain : denies: Dysuria, Frequency Skin: denies: Rash, Lesions Neurologic: denies: Generalized weakness, Focal weakness Psychiatric: reports: Anxiety Immunocompromised: denies: Immunocompromised PD PAST MEDICAL HISTORY - Past Medical History Past Medical History: Yes Cardiovascular: None Respiratory: Asthma Neuro: None Endocrine/Autoimmune: None 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 : None HEENT: None Psych: None Musculoskeletal: None Derm: None Other Past Medical History: Cyclic Vomiting; Hyperemesis Cannaboid Syndrome - Past Surgical History Past Surgical History: Yes General: EGD HEENT: Myringotomy (tubes) - Present Medications Home Medications: Ambulatory Orders Medication Instructions Recorded Confirmed Levonorgestrel-Ethin Estradiol 1 each PO DAILY 09/02/16 08/29/17 [Lutera-28 Tablet] Albuterol Sulfate [Proventil Hfa 1 - 2 puffs INH Q4H PRN #1 inhaler 11/02/1611/10 Inhaler] Lorazepam [Ativan] 1 mg PO TID PRN #7 tablet 06/04/17 08/29/17 Ondansetron HCl [Zofran] 4 mg PO Q6H PRN #10 tablet 06/04/17 07/14/17 Ondansetron HCl [Zofran] 4 mg PO Q6H PRN #10 tablet 07/14/17 08/29/17 Ondansetron Odt [Zofran] 4 mg TL Q6H PRN #20 tablet 08/29/17 Promethazine [Phenergan] 25 mg PO Q6H PRN #10 tab 08/29/17 - Allergies Allergies/Adverse Reactions: Allergies Allergy/AdvReac Type Severity Reaction Status Date / Time No Known Drug Allergies Allergy Verified 08/29/17 03:22 - Social History Does the pt smoke?: No Smoking Status: Never smoker Does the pt drink ETOH?: No Does the pt have substance abuse?: Yes - Immunizations Immunizations are current?: Yes - POLST Patient has POLST: No PD ED PE NORMAL - Vitals Vital signs reviewed: Yes - General General: Alert and oriented X 3 - HEENT HEENT: Atraumatic - Neck Neck: Supple, no meningeal sign - Respiratory Respiratory: No respiratory distress - Abdomen Abdomen: Non distended - Derm Derm: Normal color - Extremities Extremities: No deformity, Normal ROM s pain - Neuro Neuro: Alert and oriented X 3, No motor deficit, No sensory deficit, Normal speech Eye Opening: Spontaneous Motor: Obeys Commands Verbal: Oriented GCS Score: 15 PD ED PE EXPANDED - General General: Alert, Other (vomiting) - Cardiac Cardiac: Tachy Results - Vitals Vitals: Vital Signs - 24 hr 08/29/17 08/29/17 08/29/17 03:18 03:41 04:20 Temperature 36.4 C L Heart Rate 75 79 96 Respiratory 20 19 20 Rate Blood Pressure 142/101 H 131/86 H 129/96 H O2 Saturation 100 100 100 08/29/17 05:22 Temperature 36.5 C Heart Rate 87 Respiratory 16 Rate Blood Pressure 111/78 O2 Saturation 97 Oxygen O2 Source Room air - Labs Labs: Laboratory Tests 08/29/17 08/29/17 08/29/17 03:30 03:50 03:50 WBC 7.8 RBC 4.09 L Hgb 13.2 Hct 38.7 MCV 94.6 MCH 32.3 H MCHC 34.2 RDW 12.8 Plt Count 232 MPV 7.3 L Neut # 6.1 Lymph # 0.[address] # 0.6 Eos # 0.2 Baso # 0.2 H Absolute Nucleated RBC 0.00 Nucleated RBC % 0.0 Sodium 137 Potassium 3.7 Chloride 110 Carbon Dioxide 17 L Anion Gap 10.0 BUN 9 Creatinine 0.9 Estimated GFR (MDRD) 80 L Glucose 163 H Calcium 8.1 L Urine Color YELLOW Urine Clarity CLEAR Urine pH 6.0 Ur Specific [place] >=1.030 H Urine Protein NEGATIVE Urine Glucose (UA) NEGATIVE Urine Ketones 40 H Urine Occult Blood NEGATIVE Urine Nitrite NEGATIVE Urine Bilirubin NEGATIVE Urine Urobilinogen 0.2 (NORMAL) Ur Leukocyte Esterase TRACE H Urine RBC 0-5 Urine WBC 4-5 Ur Squamous Epith Cells MANY Squamous H Urine Bacteria Few Urine Mucus Few Strands Ur Microscopic Review INDICATED Urine Culture Comments NOT INDICATED Urine HCG, Qual NEGATIVE PD MEDICAL DECISION MAKING - ED course Complexity details: reviewed old records, reviewed results, re-evaluated patient , considered differential, d/w patient ED course: Patient was seen and examined at bedside. IV access was gained and labs were drawn. Patient was treated with a fluid bolus, zofran, ativan and fluids. Patient continued to have nausea so was treated with phenagren. patient continued to vomit and was allowed to take a hot shower in the emergency department. Patient's vomiting did cease. patient was given detailed discharge and follow up Departure - Departure Disposition: 01 Home, Self Care Clinical Impression: Cyclical vomiting with nausea Condition: Good Instructions: ED Nausea Vomiting Follow-Up: primary,care provider [Other] - Within 3 Days Prescriptions: Ondansetron Odt [Zofran] 4 mg TL Q6H PRN #20 tablet PRN Reason: Nausea / Vomiting Promethazine [Phenergan] 25 mg PO Q6H PRN #10 tab PRN Reason: Nausea / Vomiting Comments: Your symptoms today were caused by the cyclic vomiting secondary to marijuana use. the only way to prevent it is to quit using marijuana. I understand that it is a coping mechanism for anxiety but you need to work with your doctor and possible counselors to help better deal with your anxiety.
[2017-08-29 03:56] LABS: BILIRUBIN,URINE NEGATIVE (NEGATIVE); GLUCOSE, URINE (UA) NEGATIVE (NEGATIVE); KETONES,URINE (UA) 40 mg/dL (NEGATIVE); LEUKOCYTE ESTERASE, URINE TRACE (NEGATIVE); NITRITE,URINE NEGATIVE (NEGATIVE); OCCULT BLOOD,URINE NEGATIVE (NEGATIVE); PROTEIN,URINE NEGATIVE (NEGATIVE); UROBILINOGEN,URINE 0.2 (NORMAL) E.U./dL (NORMAL)
[2017-08-29 03:58] LABS: CLARITY,URINE CLEAR (CLEAR); HCG UR QUAL NEGATIVE
[2017-08-29 04:04] LABS: BACTERIA,URINE Few /HPF (None Seen); MUCUS,URINE Few Strands; RBC,URINE 0-5 /HPF (0-5); SQUAMOUS EPITHELIAL CELL,UR MANY Squamous (<= Few)
[2017-08-29 04:06] LABS: BASOPHILS # (AUTO) 0.2 10^3/uL (0.0-0.1); BASOPHILS % (AUTO) 2.2 %; EOSINOPHILS # (AUTO) 0.2 10^3/uL (0.0-0.7); EOSINOPHILS % (AUTO) 2.4 %; HGB - HEMOGLOBIN 13.2 g/dL (12.0-16.0); LYMPHOCYTES # (AUTO) 0.8 10^3/uL (1.5-3.5); LYMPHOCYTES % (AUTO) 10.2 %; MEAN CORPUSCULAR HEMOGLOBIN 32.3 pg (27.0-31.0); MEAN CORPUSCULAR HGB CONC 34.2 g/dL (32.0-36.0); MEAN CORPUSCULAR VOLUME 94.6 fL (81.0-99.0); MEAN PLATELET VOLUME 7.3 fL (7.9-10.8); MONOCYTES # (AUTO) 0.6 10^3/uL (0.0-1.0); MONOCYTES % (AUTO) 7.6 %; NEUTROPHILS # (AUTO) 6.1 10^3/uL (1.5-6.6); NEUTROPHILS % (AUTO) 77.6 %; PLT - PLATELET COUNT 232 10^3/uL (130-450); RED BLOOD COUNT 4.09 10^6/uL (4.20-5.40); RED CELL DISTRIBUTION WIDTH 12.8 % (12.0-15.0); WHITE BLOOD COUNT 7.8 x10^3/uL (4.8-10.8)
[2017-08-29 04:13] LABS: CALCIUM 8.1 mg/dL (8.5-10.3); CREATININE 0.9 mg/dL (0.4-1.0)
[2017-08-29] MEDS ORDERED: ONDANSETRON ODT 4 MG Prepack 2 TL PRN (05:36)
[2017-08-29 06:12] VITALS: BP 131/84
== END 2017-08-29 05:46 | disposition home or self-care (01) ==
LOC: EDUNIT# → EDBD → ED 03:17
DX: G43.A0 Cyclical vomiting, in migraine, not intractable (principal)
CPT/HCPCS: 36415; 80048; 81001; 81003; 81025; 85025; 87086; 96365; 96375; 99284

== ENCOUNTER 2017-08-29 12:24 | Emergency (ER) | payer MEDICAID ==
[2017-08-29] MEDS ORDERED: LACTATED RINGERS 1,000 ML IV STA (13:05)
[2017-08-29] MEDS ORDERED: HALOPERIDOL 5 MG/ML VIAL IVP ONE (13:07)
--- NOTE | 2017-08-29 13:08 | ED Physician Documentation ---
PD HPI ABD PAIN - Stated complaint Stated Complaint: VOMITING - Chief complaint Chief Complaint: Abd Pain - History obtained from History obtained from: Patient - History of Present Illness Timing - onset: Other (She has recurrent vomiting, possibly cannabinoid hyperemesis. She says she did stop for about a week but did not really notice a difference. She was here last night with vomiting and abdominal pain, but recurred shortly after discharge.) Review of Systems Constitutional: denies: Fever, Chills Throat: denies: Dental pain / toothache, Sore throat Cardiac: denies: Chest pain / pressure, Palpitations Respiratory: denies: Dyspnea, Cough PD PAST MEDICAL HISTORY - Past Medical History Cardiovascular: None Respiratory: Asthma Neuro: None Endocrine/Autoimmune: None GI: Other [place]: None : None HEENT: None Psych: None Musculoskeletal: None Derm: None - Past Surgical History Past Surgical History: Yes General: EGD HEENT: Myringotomy (tubes) - Present Medications Home Medications: Ambulatory Orders Medication Instructions Recorded Confirmed Levonorgestrel-Ethin Estradiol 1 each PO DAILY 09/02/16 08/29/17 [Lutera-28 Tablet] Albuterol Sulfate [Proventil Hfa 1 - 2 puffs INH Q4H PRN #1 inhaler 11/02/1611/10 Inhaler] Lorazepam [Ativan] 1 mg PO TID PRN #7 tablet 06/04/17 08/29/17 Ondansetron HCl [Zofran] 4 mg PO Q6H PRN #10 tablet 06/04/17 07/14/17 Ondansetron HCl [Zofran] 4 mg PO Q6H PRN #10 tablet 07/14/17 08/29/17 Ondansetron HCl [Zofran] 4 mg PO Q6H PRN #10 tablet 08/29/17 Ondansetron Odt [Zofran] 4 mg TL Q6H PRN #20 tablet 08/29/17 Promethazine [Phenergan] 25 mg PO Q6H PRN #10 tab 08/29/17 - Allergies Allergies/Adverse Reactions: Allergies Allergy/AdvReac Type Severity Reaction Status Date / Time No Known Drug Allergies Allergy Verified 08/29/17 12:29 - Social History Does the pt smoke?: No Smoking Status: Never smoker Does the pt drink ETOH?: No Does the pt have substance abuse?: Yes - Immunizations Immunizations are current?: Yes - POLST Patient has POLST: No PD ED PE NORMAL - Vitals Vital signs reviewed: Yes - General General: Alert and oriented X 3, No acute distress - Abdomen Abdomen: Normal bowel sounds, Soft, Non tender - Neuro Neuro: Alert and oriented X 3, Normal speech Results - Vitals Vitals: Vital Signs - 24 hr 08/29/17 12:27 Temperature 36 C L Heart Rate 85 Respiratory 18 Rate Blood Pressure 144/93 H O2 Saturation 97 Oxygen O2 Source Room air - Labs Labs: Laboratory Tests 08/29/17 13:35 Sodium 133 L Potassium 3.7 Chloride 102 Carbon Dioxide 19 L Anion Gap 12.0 BUN 7 Creatinine 0.8 Estimated GFR (MDRD) 91 Glucose 118 H Calcium 8.9 Total Bilirubin 0.5 AST 17 ALT 12 Alkaline Phosphatase 37 L Total Protein 7.4 Albumin 4.0 Globulin 3.4 Albumin/Globulin Ratio 1.2 Lipase 23 PD MEDICAL DECISION MAKING - ED course Complexity details: reviewed old records (Frequent visits for same with negative workups) ED course: Benign examination, labs improved especially with regard to bicarb. After Haldol IV and IV fluids passed an oral challenge and requested discharge. Departure - Departure Disposition: Home, Self Care Clinical Impression: Cyclic vomiting syndrome Qualifiers: Vomiting Intractability: non-intractable Nausea presence: with nausea Qualified Code(s): G43.A0 - Cyclical vomiting, not intractable Condition: Good Record reviewed to determine appropriate education?: Yes Instructions: ED Abdominal Pain Unkn Cause Prescriptions: Ondansetron HCl [Zofran] 4 mg PO Q6H PRN #10 tablet PRN Reason: Nausea / Vomiting Comments: Call your doctor to arrange a follow-up appointment, make the next available appointment. In the interim, return anytime if worse or if new symptoms develop. Your blood pressure was elevated today on check into the emergency department. This does not mean that you have hypertension, it is a common phenomenon to come to the emergency department and have elevated blood pressure. I recommend that you see your primary care physician within the week to have it rechecked when you are feeling better.
[2017-08-29 13:53] LABS: ALBUMIN/GLOBULIN RATIO 1.2 (1.0-2.2); BILIRUBIN,TOTAL 0.5 mg/dL (0.2-1.0); CALCIUM 8.9 mg/dL (8.5-10.3); CREATININE 0.8 mg/dL (0.4-1.0); TOTAL PROTEIN 7.4 g/dL (6.7-8.2)
[2017-08-29] MEDS ORDERED: ONDANSETRON 4 MG/2 ML VIAL IVP STA (14:19)
[2017-08-29 15:04] VITALS: BP 98/68
== END 2017-08-29 15:02 | disposition home or self-care (01) ==
LOC: ED 12:24
DX: G43.A0 Cyclical vomiting, in migraine, not intractable (principal); R03.0 Elevated blood-pressure reading, without diagnosis of hypertension
CPT/HCPCS: 36415; 80048; 80053; 81001; 81025; 83690; 85025; 96361; 96365; 96375; 99283; 99284; J2060; J7040; J7120; 81003; 87086; 96374

== ENCOUNTER 2017-10-01 07:13 | Emergency (ER) | payer MEDICAID ==
[2017-10-01] MEDS ORDERED: SODIUM CHLORIDE 0.9% 2,000 ML IV ONE (07:31)
[2017-10-01 08:00] LABS: CALCIUM 9.1 mg/dL (8.5-10.3); CREATININE 0.8 mg/dL (0.4-1.0)
--- NOTE | 2017-10-01 08:02 | ED Physician Documentation ---
History of Present Illness - Stated complaint Stated Complaint: VOMITING - Chief complaint Chief Complaint: General - Additonal information Additional information: hx from pt 22 y/o f known cyclic vomiting syndrome to ER toda with 2 days of intractable NV abd pain diarrhea typcial of her cyclic vomiting small amt blood in emesis after retching none in stool no travel or bad food pshx endoscopy (normal per pt) states haldol does not work for her but phenergan and ativan do Review of Systems Constitutional: denies: Fever, Chills Cardiac: denies: Chest pain / pressure Respiratory: denies: Dyspnea GI: reports: Abdominal Pain, Nausea, Vomiting, Diarrhea. 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 : None HEENT: None Psych: None Musculoskeletal: None Derm: None - Past Surgical History Past Surgical History: Yes General: EGD HEENT: Myringotomy (tubes) - Present Medications Home Medications: Ambulatory Orders Medication Instructions Recorded Confirmed Levonorgestrel-Ethin Estradiol 1 each PO DAILY 09/02/16 08/29/17 [Lutera-28 Tablet] Ondansetron Odt [Zofran] 4 mg TL Q6H PRN #10 tablet 10/01/17 - Allergies Allergies/Adverse Reactions: Allergies Allergy/AdvReac Type Severity Reaction Status Date / Time No Known Drug Allergies Allergy Verified 10/01/17 07:27 - Social History Does the pt smoke?: No Smoking Status: Never smoker Does the pt drink ETOH?: No Does the pt have substance abuse?: Yes - Immunizations Immunizations are current?: Yes - POLST Patient has POLST: No PD ED PE NORMAL - Vitals Vital signs reviewed: Yes - General General: Alert and oriented X 3 - HEENT HEENT: PERRL, Moist mucous membranes - Neck Neck: Supple, no meningeal sign - Cardiac Cardiac: RRR - Respiratory Respiratory: No respiratory distress, Clear bilaterally - Abdomen Abdomen: Soft, Other (mild diffuse non focal TTP) - Derm Derm: Warm and dry - Neuro Neuro: Alert and oriented X 3 Results - Vitals Vitals: Vital Signs - 24 hr 10/01/17 07:21 Temperature 35.3 C L Heart Rate 71 Respiratory 18 Rate Blood Pressure 141/108 H O2 Saturation 98 Oxygen O2 Source Room air - Labs Labs: Laboratory Tests 10/01/17 10/01/17 10/01/17 07:40 07:40 07:40 Sodium 134 L Potassium 3.3 L Chloride 107 Carbon Dioxide 16 L Anion Gap 11.0 BUN 15 Creatinine 0.8 Estimated GFR (MDRD) 91 Glucose 146 H Calcium 9.1 Lipase 13 L Serum HCG, Qual NEGATIVE Urine Color Urine Clarity Urine pH Ur Specific [place] Urine Protein Urine Glucose (UA) Urine Ketones Urine Occult Blood Urine Nitrite Urine Bilirubin Urine Urobilinogen Ur Leukocyte Esterase Urine RBC Urine WBC Ur Squamous Epith Cells Urine Bacteria Ur Microscopic Review Urine Culture Comments 10/01/17 07:45 Sodium Potassium Chloride Carbon Dioxide Anion Gap BUN Creatinine Estimated GFR (MDRD) Glucose Calcium Lipase Serum HCG, Qual Urine Color YELLOW Urine Clarity CLOUDY Urine pH 5.5 Ur Specific [place] >=1.030 H Urine Protein NEGATIVE Urine Glucose (UA) NEGATIVE Urine Ketones NEGATIVE Urine Occult Blood TRACE-INTA Urine Nitrite NEGATIVE Urine Bilirubin NEGATIVE Urine Urobilinogen 0.2 (NORMAL) Ur Leukocyte Esterase NEGATIVE Urine RBC 6-10 H Urine WBC 4-5 Ur Squamous Epith Cells FEW Squamous Urine Bacteria Many H Ur Microscopic Review INDICATED Urine Culture Comments INDICATED PD MEDICAL DECISION MAKING - ED course ED course: no improvement with phenergan and ativan pt requesting to take a warm shower (not available in ER and too busy for staff to take her to med surg) will try haldol which worked last time per Dr head note - it worked great and all vomiting ceased and pt told nurse she was ready to go Departure - Departure Disposition: 01 Home, Self Care Clinical Impression: Cyclic vomiting syndrome Qualifiers: Vomiting Intractability: unspecified Nausea presence: unspecified Qualified Code(s): G43.A0 - Cyclical vomiting, not intractable Condition: Good Instructions: ED Diet High Potassium, ED Nausea Vomiting Prescriptions: Ondansetron Odt [Zofran] 4 mg TL Q6H PRN #10 tablet PRN Reason: Nausea / Vomiting Comments: Your labs were fine except for slightly low potassium You are not Since the rectal; phernaergan was not working for you, i have prescribed dissolvable zofran - do not take it today after getting haldol because they interact and can cause heart rhythm issues - but can use it in the future as needed. if you use marijuana please stop - it might be causing the cyclic vomiting Forms: Activity restrictions
[2017-10-01 08:15] LABS: HCG,QUALITATIVE BLOOD NEGATIVE
[2017-10-01] MEDS ORDERED: LORazepam 2 MG/ML VIAL IVP STA (08:24)
[2017-10-01] MEDS ORDERED: PROMETHAZINE INJ 25 MG in SODIUM CHLORIDE 0.9% 50 ML IV STA (08:24)
[2017-10-01] MEDS ORDERED: HALOPERIDOL 5 MG/ML VIAL IVP STA (09:33)
[2017-10-01 09:43] LABS: BILIRUBIN,URINE NEGATIVE (NEGATIVE); GLUCOSE, URINE (UA) NEGATIVE (NEGATIVE); KETONES,URINE (UA) NEGATIVE (NEGATIVE); LEUKOCYTE ESTERASE, URINE NEGATIVE (NEGATIVE); NITRITE,URINE NEGATIVE (NEGATIVE); OCCULT BLOOD,URINE TRACE-INTA (NEGATIVE); PH,URINE 5.5 PH (5.0-7.5); PROTEIN,URINE NEGATIVE (NEGATIVE); UROBILINOGEN,URINE 0.2 (NORMAL) E.U./dL (NORMAL)
[2017-10-01 09:50] LABS: BACTERIA,URINE Many /HPF (None Seen); CLARITY,URINE CLOUDY (CLEAR); SQUAMOUS EPITHELIAL CELL,UR FEW Squamous (<= Few)
[2017-10-01 11:07] VITALS: BP 119/75
== END 2017-10-01 11:09 | disposition home or self-care (01) ==
LOC: ED 07:13
DX: G43.A0 Cyclical vomiting, in migraine, not intractable (principal)
CPT/HCPCS: 36415; 80048; 81001; 83690; 84703; 87086; 96365; 96366; 96375; 99283; 99284; J2060; J7040; 81003

== ENCOUNTER 2017-10-15 23:39 | Emergency (ER) | payer MEDICAID ==
[2017-10-15] MEDS ORDERED: SODIUM CHLORIDE 0.9% 1,000 ML IV ONE (23:58)
[2017-10-15] MEDS ORDERED: MORPHINE 10 MG/ML VIAL ONE (23:58)
[2017-10-15] MEDS ORDERED: LORazepam 2 MG/ML VIAL IVP STA (23:58)
[2017-10-15] MEDS ORDERED: ONDANSETRON 4 MG/2 ML VIAL IVP STA (23:58)
[2017-10-16] MEDS ORDERED: HALOPERIDOL 5 MG/ML VIAL IVP ONE (01:01)
[2017-10-16] MEDS ORDERED: diphenhydrAMINE INJ 50 MG/ML VIAL IVP STA (01:15)
[2017-10-16 01:56] VITALS: BP 143/98
--- NOTE | 2017-10-16 01:57 | ED Physician Documentation ---
PD HPI NVD - Stated complaint Stated Complaint: VOM/FLAKO/FEV - Chief complaint Chief Complaint: Abd Pain - History obtained from History obtained from: Patient - History of Present Illness Timing - onset: Today Timing - details: Gradual onset, Still present Associated symptoms: Abdominal pain Contributing factors: Other (smoked marijuana). No: Sick contact Similar symptoms before: Work up / diagnostics, Treatment Recently seen: Emergency Dept - Additonal information Additional information: patient is a 22 year old female with a history of cyclic vomiting and anxiety who is presenting to the emergency department for nausea, vomiting and abdominal pain. Patient states that she gets very anxious and the only thing that helps is the marijuana. The marijuana then triggers the vomiting. Patient states that she has been vomiting throughout the day today. Review of Systems Constitutional: denies: Fever, Chills Eyes: reports: Reviewed and negative Nose: reports: Reviewed and negative Throat: reports: Reviewed and negative Cardiac: denies: Chest pain / pressure, Palpitations GI: reports: Abdominal Pain, Nausea, Vomiting, Diarrhea : reports: Reviewed and negative Skin: reports: Reviewed and negative Musculoskeletal: reports: Reviewed and negative Neurologic: reports: Reviewed and negative Psychiatric: reports: Anxiety. 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 : None HEENT: None Psych: None Musculoskeletal: None Derm: None - Past Surgical History Past Surgical History: Yes General: EGD HEENT: Myringotomy (tubes) - Present Medications Home Medications: Ambulatory Orders Medication Instructions Recorded Confirmed Levonorgestrel-Ethin Estradiol 1 each PO DAILY 09/02/16 08/29/17 [Lutera-28 Tablet] Ondansetron Odt [Zofran] 4 mg TL Q6H PRN #10 tablet 10/01/17 Ondansetron Odt [Zofran] 4 mg TL Q6H PRN #14 tablet 10/16/17 - Allergies Allergies/Adverse Reactions: Allergies Allergy/AdvReac Type Severity Reaction Status Date / Time No Known Drug Allergies Allergy Verified 10/15/17 23:49 - Social History Does the pt smoke?: No Smoking Status: Never smoker Does the pt drink ETOH?: No Does the pt have substance abuse?: Yes Substance Use and Type: Marijuana - Immunizations Immunizations are current?: Yes - POLST Patient has POLST: No PD ED PE NORMAL - Vitals Vital signs reviewed: Yes - General General: Alert and oriented X 3 - HEENT HEENT: Atraumatic, PERRL - Neck Neck: Supple, no meningeal sign - Cardiac Cardiac: RRR, No murmur - Respiratory Respiratory: No respiratory distress - Derm Derm: Normal color, No rash - Extremities Extremities: No deformity - Neuro Neuro: Alert and oriented X 3, No motor deficit Eye Opening: Spontaneous Motor: Obeys Commands Verbal: Oriented GCS Score: 15 PD ED PE EXPANDED - General General: Alert, Anxious, Other (actively vomiting) - Abdomen Abdomen: Tender to palpation, Epigastric. No: Rebound, Guarding Results - Vitals Vitals: Vital Signs - 24 hr 10/15/17 10/16/17 10/16/17 23:48 00:25 01:04 Temperature 36.0 C L Heart Rate 102 H 95 Respiratory 20 20 20 Rate Blood Pressure 138/108 H 146/103 H O2 Saturation 100 99 10/16/17 01:55 Temperature 36.5 C Heart Rate 85 Respiratory 12 Rate Blood Pressure 143/98 H O2 Saturation 98 Oxygen O2 Source Room air PD MEDICAL DECISION MAKING - ED course Complexity details: reviewed old records, reviewed results, re-evaluated patient , considered differential, d/w patient, d/w family ED course: Patient was seen and examined at bedside. IV access was gained. patient was treated with zofran, morphine, ativan and IV fluids. Patient was allowed to take a hot shower for about 20 mintues. When patient came out of the shower she started gagging again. Patient was treated with benadryl and hadol. Patient responeded well to the therapy. Patient had no more episodes of emesis and was asking to go home. Patient was discharged in stable condition. Departure - Departure Disposition: 01 Home, Self Care Clinical Impression: Cyclic vomiting syndrome Condition: Good Instructions: Cyclic Vomiting Syndrome Follow-Up: primary,care provider [Other] - Within 3 Days Prescriptions: Ondansetron Odt [Zofran] 4 mg TL Q6H PRN #14 tablet PRN Reason: Nausea / Vomiting Comments: Your symptoms today are being caused by cyclic vomiting, likely secondary to your marijuana use. I understand that you use it for your anxiety but this is a recurrent issue. You should try alternatives to managing your stress and anxiety if possible. You should follow up with your doctor. You may return to the emergency department at any time for new, worsening or uncontrollable symptoms. Discharge Date/Time: 10/16/17 02:03
== END 2017-10-16 02:03 | disposition home or self-care (01) ==
LOC: ED 23:39
DX: G43.A0 Cyclical vomiting, in migraine, not intractable (principal); F12.90 Cannabis use, unspecified, uncomplicated
CPT/HCPCS: 96361; 96374; 96375; 99283; 99284; J1200; J2060

== ENCOUNTER 2017-10-21 07:12 | Emergency (ER) | payer MEDICAID ==
[2017-10-21] MEDS ORDERED: SODIUM CHLORIDE 0.9% 2,000 ML IV ONE (07:31)
--- NOTE | 2017-10-21 07:35 | ED Physician Documentation ---
History of Present Illness - Stated complaint Stated Complaint: VOMITING - Chief complaint Chief Complaint: Abd Pain - Additonal information Additional information: hx from pt 22 f well known to the ed as she suffers from cyclic vomiting to ED with NV for a week now intractable no diarrhea thinks this bout may have been triggered by rx for sulfa for infected toes no fever diffuse abd pain not sure if she might be only possible bad food was a pizza pocket Review of Systems Constitutional: denies: Fever, Chills Cardiac: denies: Chest pain / pressure Respiratory: denies: Dyspnea GI: reports: Abdominal Pain, Nausea, Vomiting. 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 : None HEENT: None Psych: None Musculoskeletal: None Derm: None - Past Surgical History Past Surgical History: Yes General: EGD HEENT: Myringotomy (tubes) - Present Medications Home Medications: Ambulatory Orders Medication Instructions Recorded Confirmed Levonorgestrel-Ethin Estradiol 1 each PO DAILY 09/02/16 08/29/17 [Lutera-28 Tablet] Ondansetron Odt [Zofran] 4 mg TL Q6H PRN #10 tablet 10/01/17 Ondansetron Odt [Zofran] 4 mg TL Q6H PRN #14 tablet 10/16/17 Promethazine Supp [Phenergan Supp] 25 mg NC Q6H PRN #10 supp 10/21/17 - Allergies Allergies/Adverse Reactions: Allergies Allergy/AdvReac Type Severity Reaction Status Date / Time No Known Drug Allergies Allergy Verified 10/15/17 23:49 - Social History Does the pt smoke?: No Smoking Status: Never smoker Does the pt drink ETOH?: No Does the pt have substance abuse?: Yes - Immunizations Immunizations are current?: Yes - POLST Patient has POLST: No PD ED PE NORMAL - Vitals Vital signs reviewed: Yes - General General: Alert and oriented X 3, Other (retching) - Cardiac Cardiac: RRR - Respiratory Respiratory: No respiratory distress, Clear bilaterally - Abdomen Abdomen: Soft, Other (mod diffuse TTP s peritoneal signs) - Derm Derm: Normal color - Neuro Neuro: Alert and oriented X 3 Results - Vitals Vitals: Vital Signs - 24 hr 10/21/17 10/21/17 07:15 08:35 Temperature 37.0 C Heart Rate 90 76 Respiratory 18 17 Rate Blood Pressure 147/107 H 133/99 H O2 Saturation 97 100 Oxygen O2 Source Room air - Labs Labs: Laboratory Tests 10/21/17 10/21/17 10/21/17 07:30 07:37 07:37 WBC 9.2 RBC 4.41 Hgb 14.2 Hct 41.1 MCV 93.1 MCH 32.3 H MCHC 34.7 RDW 12.2 Plt Count 338 MPV 7.0 L Neut # 6.2 Lymph # 2.0 [place] # 0.8 Eos # 0.2 Baso # 0.1 Absolute Nucleated RBC 0.00 Nucleated RBC % 0.0 Sodium 134 L Potassium 3.2 L Chloride 103 Carbon Dioxide 19 L Anion Gap 12.0 BUN 10 Creatinine 1.2 H Estimated GFR (MDRD) 57 L Glucose 135 H Calcium 9.9 Total Bilirubin 0.9 AST 24 ALT 13 Alkaline Phosphatase 40 L Total Protein 7.8 Albumin 4.6 Globulin 3.2 Albumin/Globulin Ratio 1.4 Lipase 14 L Urine Color DARK YELLOW Urine Clarity CLEAR Urine pH 5.5 Ur Specific [place] >=1.030 H Urine Protein NEGATIVE Urine Glucose (UA) NEGATIVE Urine Ketones 15 H Urine Occult Blood NEGATIVE Urine Nitrite NEGATIVE Urine Bilirubin NEGATIVE Urine Urobilinogen 0.2 (NORMAL) Ur Leukocyte Esterase TRACE H Urine RBC 0-5 Urine WBC 0-3 Ur Squamous Epith Cells MOD Squamous H Urine Bacteria Moderate H Ur Microscopic Review INDICATED Urine Culture Comments NOT INDICATED Urine HCG, Qual NEGATIVE PD MEDICAL DECISION MAKING - ED course ED course: better with haldol, still with abd pain, given toradol as well tele checked and pt has nl QT K repleted HCG neg UA not a clean catch feeling better, little nausea no more vomit, abd non tender on rpt exam will dc Departure - Departure Disposition: 01 Home, Self Care Clinical Impression: Cyclic vomiting syndrome Qualifiers: Vomiting Intractability: non-intractable Nausea presence: with nausea Qualified Code(s): G43.A0 - Cyclical vomiting, not intractable Condition: Good Prescriptions: Promethazine Supp [Phenergan Supp] 25 mg NC Q6H PRN #10 supp PRN Reason: vomiting Comments: You are not Your labs were fine except for dehydration and slightly low potassium which we replaced. Your were given IV fluids, IV potassium, IV pain meds. Please continue your usual vomiting medications at home (but no zofran today because you got haldol) and plenty or oral fluids Marijuana use can contribute to cyclic vomiting so if you use marijuana please stop Forms: Activity restrictions
[2017-10-21 07:39] LABS: GLUCOSE, URINE (UA) NEGATIVE (NEGATIVE); KETONES,URINE (UA) 15 mg/dL (NEGATIVE); LEUKOCYTE ESTERASE, URINE TRACE (NEGATIVE); NITRITE,URINE NEGATIVE (NEGATIVE); OCCULT BLOOD,URINE NEGATIVE (NEGATIVE); PH,URINE 5.5 PH (5.0-7.5); PROTEIN,URINE NEGATIVE (NEGATIVE); UROBILINOGEN,URINE 0.2 (NORMAL) E.U./dL (NORMAL)
[2017-10-21 07:41] LABS: CLARITY,URINE CLEAR (CLEAR); HCG UR QUAL NEGATIVE
[2017-10-21 07:45] LABS: BILIRUBIN,URINE NEGATIVE (NEGATIVE); ICTOTEST,URINE NEGATIVE
[2017-10-21 07:46] LABS: BASOPHILS # (AUTO) 0.1 10^3/uL (0.0-0.1); BASOPHILS % (AUTO) 0.8 %; EOSINOPHILS # (AUTO) 0.2 10^3/uL (0.0-0.7); EOSINOPHILS % (AUTO) 1.9 %; HGB - HEMOGLOBIN 14.2 g/dL (12.0-16.0); LYMPHOCYTES % (AUTO) 21.4 %; MEAN CORPUSCULAR HEMOGLOBIN 32.3 pg (27.0-31.0); MEAN CORPUSCULAR HGB CONC 34.7 g/dL (32.0-36.0); MEAN CORPUSCULAR VOLUME 93.1 fL (81.0-99.0); MONOCYTES # (AUTO) 0.8 10^3/uL (0.0-1.0); MONOCYTES % (AUTO) 8.9 %; NEUTROPHILS # (AUTO) 6.2 10^3/uL (1.5-6.6); PLT - PLATELET COUNT 338 10^3/uL (130-450); RED BLOOD COUNT 4.41 10^6/uL (4.20-5.40); RED CELL DISTRIBUTION WIDTH 12.2 % (12.0-15.0); WHITE BLOOD COUNT 9.2 x10^3/uL (4.8-10.8)
[2017-10-21 07:56] LABS: BACTERIA,URINE Moderate /HPF (None Seen); RBC,URINE 0-5 /HPF (0-5); SQUAMOUS EPITHELIAL CELL,UR MOD Squamous (<= Few)
[2017-10-21] MEDS ORDERED: HALOPERIDOL 5 MG/ML VIAL IVP STA (07:56)
[2017-10-21 07:58] LABS: ALBUMIN 4.6 g/dL (3.2-5.5); ALBUMIN/GLOBULIN RATIO 1.4 (1.0-2.2); BILIRUBIN,TOTAL 0.9 mg/dL (0.2-1.0); CALCIUM 9.9 mg/dL (8.5-10.3); CREATININE 1.2 mg/dL (0.4-1.0); TOTAL PROTEIN 7.8 g/dL (6.7-8.2)
[2017-10-21] MEDS ORDERED: KETOROLAC 60 MG/2 ML VIAL IVP STA (08:19)
[2017-10-21] MEDS ORDERED: POTASSIUM CHLOR 10 MEQ/100 ML 10 MEQ/100 ML BAG IV ONE (08:20)
[2017-10-21 09:46] VITALS: BP 138/98
== END 2017-10-21 09:47 | disposition home or self-care (01) ==
LOC: ED 07:12
DX: G43.A0 Cyclical vomiting, in migraine, not intractable (principal); E86.0 Dehydration
CPT/HCPCS: 36415; 80053; 81001; 81003; 81025; 83690; 85025; 87086; 96365; 96375; 99284

== ENCOUNTER 2017-11-25 01:46 | Emergency (ER) | payer MEDICAID ==
[2017-11-25] MEDS ORDERED: HALOPERIDOL 5 MG/ML VIAL IVP ONE (01:51)
[2017-11-25] MEDS ORDERED: SODIUM CHLORIDE 0.9% 1,000 ML IV ONE (01:52)
[2017-11-25] MEDS ORDERED: PROMETHAZINE INJ 25 MG in SODIUM CHLORIDE 0.9% 50 ML IV STA (01:56)
[2017-11-25] MEDS ORDERED: LORazepam 2 MG/ML VIAL IVP STA ×2 (01:56→04:03)
[2017-11-25] MEDS ORDERED: ONDANSETRON 4 MG/2 ML VIAL IVP STA ×2 (01:56→04:03)
--- NOTE | 2017-11-25 02:00 | ED Physician Documentation ---
History of Present Illness - Stated complaint Stated Complaint: VOMITING - History obtained from History obtained from: Patient, Friend - History of Present Illness Timing: Today, How many hours ago (12) Pain level max: 8 Pain level now: 8 Improved by: states ativan, phenergan and zofran have helped in the past Worsened by: eating - Additonal information Additional information: Patient is a 22-year-old female who presents to the emergency department with vomiting for the past 12 hours. This is a chronic ongoing condition for her. She does use marijuana daily. States that she does not like the way that the Haldol makes her feel and does not want this medication in the emergency department. Has not taken anything for vomiting today. Has cramping diffuse abdominal pain as well. No fevers. No diarrhea. No constipation. States that she is not . 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 : None HEENT: None Psych: None Musculoskeletal: None Derm: None - Past Surgical History Past Surgical History: Yes General: EGD HEENT: Myringotomy (tubes) - Present Medications Home Medications: Ambulatory Orders Medication Instructions Recorded Confirmed Levonorgestrel-Ethin Estradiol 1 each PO DAILY 09/02/16 08/29/17 [Lutera-28 Tablet] Ondansetron Odt [Zofran] 4 mg TL Q6H PRN #10 tablet 10/01/17 Ondansetron Odt [Zofran] 4 mg TL Q6H PRN #14 tablet 10/16/17 Promethazine Supp [Phenergan Supp] 25 mg MA Q6H PRN #10 supp 10/21/17 Ondansetron Odt [Zofran] 4 mg TL Q6H PRN #10 tablet 05/03/18 Promethazine [Phenergan] 25 mg PO Q6H PRN #10 tab 11/25/17 - Allergies Allergies/Adverse Reactions: Allergies Allergy/AdvReac Type Severity Reaction Status Date / Time No Known Drug Allergies Allergy Verified 10/15/17 23:49 - Social History Does the pt smoke?: No Smoking Status: Never smoker Does the pt drink ETOH?: No Does the pt have substance abuse?: Yes - Immunizations Immunizations are current?: Yes - POLST Patient has POLST: No PD ED PE NORMAL - Vitals Vital signs reviewed: Yes - General General: Alert and oriented X 3, No acute distress - HEENT HEENT: Moist mucous membranes - Neck Neck: Supple, no meningeal sign - Cardiac Cardiac: RRR, Strong equal pulses - Respiratory Respiratory: No respiratory distress, Clear bilaterally - Abdomen Abdomen: Soft, Non tender, Non distended - Derm Derm: Warm and dry - Extremities Extremities: No edema - Neuro Neuro: Alert and oriented X 3 Results - Vitals Vitals: Vital Signs - 24 hr 11/25/17 11/25/17 11/25/17 01:50 03:14 04:52 Temperature 36.8 C 37.1 C 36.8 C Heart Rate 79 88 83 Respiratory 18 24 12 Rate Blood Pressure 147/72 H 140/92 H 140/94 H O2 Saturation 96 100 100 Oxygen O2 Source Room air - Labs Labs: Laboratory Tests 11/25/17 11/25/17 01:50 01:50 WBC 12.0 H RBC 4.56 Hgb 14.6 Hct 42.4 MCV 93.1 MCH 32.0 H MCHC 34.3 RDW 12.3 Plt Count 376 MPV 6.7 L Neut # 8.5 H Lymph # 2.3 [place] # 1.0 Eos # 0.1 Baso # 0.1 Absolute Nucleated RBC 0.00 Nucleated RBC % 0.0 Sodium 138 Potassium 3.5 Chloride 109 Carbon Dioxide 18 L Anion Gap 11.0 BUN 13 Creatinine 0.9 Estimated GFR (MDRD) 79 L Glucose 143 H Calcium 9.5 Total Bilirubin 0.9 AST 20 ALT 18 Alkaline Phosphatase 36 L Total Protein 8.1 Albumin 4.4 Globulin 3.7 Albumin/Globulin Ratio 1.2 Lipase 17 L PD MEDICAL DECISION MAKING - ED course Complexity details: reviewed old records, reviewed results, re-evaluated patient , considered differential, d/w patient ED course: Patient is a 22-year-old female who presents to the emergency department with vomiting. Appears consistent with her prior history of cannabinoid-induced hyperemesis. She was given Ativan, Zofran and Phenergan. She was also allowed to take a warm shower and felt better. She adamantly refuses Haldol that she does not like the way it makes her feel. Counseled that she should stop smoking marijuana. Patient states that she would like to go home at this time. Will prescribe Zofran and Phenergan for home. Patient counseled regarding signs and symptoms for which I believe and urgent re-evaluation would be necessary. Patient with good understanding of and agreement to plan and is comfortable going home at this time This document was made in part using voice recognition software. While efforts are made to proofread this document, sound alike and grammatical errors may occur. Patient refused UA as well. States no poss of . Departure - Departure Disposition: Home, Self Care Clinical Impression: Cannabinoid hyperemesis syndrome, Vomiting Condition: Good Instructions: ED Nausea Vomiting Follow-Up: your,doctor in 1 week [Other] Prescriptions: Ondansetron Odt [Zofran] 4 mg TL Q6H PRN #10 tablet PRN Reason: Nausea / Vomiting Promethazine [Phenergan] 25 mg PO Q6H PRN #10 tab PRN Reason: Nausea / Vomiting Comments: Go home and rest. You need to stop using marijuana as this is likely contributing to your symptoms. Return if you worsen. Discharge Date/Time: 11/25/17 05:05
[2017-11-25 02:16] LABS: ALBUMIN 4.4 g/dL (3.2-5.5); ALBUMIN/GLOBULIN RATIO 1.2 (1.0-2.2); BILIRUBIN,TOTAL 0.9 mg/dL (0.2-1.0); CALCIUM 9.5 mg/dL (8.5-10.3); CREATININE 0.9 mg/dL (0.4-1.0); TOTAL PROTEIN 8.1 g/dL (6.7-8.2)
[2017-11-25] MEDS ORDERED: KETOROLAC 60 MG/2 ML VIAL IVP STA (02:26)
[2017-11-25 02:49] LABS: BASOPHILS # (AUTO) 0.1 10^3/uL (0.0-0.1); BASOPHILS % (AUTO) 0.8 %; EOSINOPHILS # (AUTO) 0.1 10^3/uL (0.0-0.7); EOSINOPHILS % (AUTO) 0.9 %; HGB - HEMOGLOBIN 14.6 g/dL (12.0-16.0); LYMPHOCYTES # (AUTO) 2.3 10^3/uL (1.5-3.5); LYMPHOCYTES % (AUTO) 18.9 %; MEAN CORPUSCULAR HGB CONC 34.3 g/dL (32.0-36.0); MEAN CORPUSCULAR VOLUME 93.1 fL (81.0-99.0); MEAN PLATELET VOLUME 6.7 fL (7.9-10.8); MONOCYTES % (AUTO) 8.7 %; NEUTROPHILS # (AUTO) 8.5 10^3/uL (1.5-6.6); NEUTROPHILS % (AUTO) 70.7 %; PLT - PLATELET COUNT 376 10^3/uL (130-450); RED BLOOD COUNT 4.56 10^6/uL (4.20-5.40); RED CELL DISTRIBUTION WIDTH 12.3 % (12.0-15.0)
[2017-11-25 04:53] VITALS: BP 140/94
== END 2017-11-25 05:05 | disposition home or self-care (01) ==
LOC: ED 01:46
DX: R11.10 Vomiting, unspecified (principal); F12.90 Cannabis use, unspecified, uncomplicated
CPT/HCPCS: 36415; 80053; 83690; 85025; 96365; 96375; 96376; 99283; 99284; J2060; J7040

== ENCOUNTER 2017-11-26 20:01 | Emergency (ER) | payer MEDICAID ==
--- NOTE | 2017-11-26 20:13 | ED Physician Documentation ---
PD HPI NVD - Stated complaint Stated Complaint: VOMITING - History obtained from History obtained from: Patient - History of Present Illness Timing - onset: How many days ago (2) Timing - details: Gradual onset, Waxing and waning Pain level now: 9 Associated symptoms: Abdominal pain. No: Fever Improved by: Other (no ameliorating factors) Worsened by: Eating, Position Similar symptoms before: No diagnosis (chronic N/V) Recently seen: Emergency Dept - Additonal information Additional information: T+R from this ED yesterday for same. This is her [facility]th [facility] ED visit over past 12 months, predominantly for same c/o. She says she tried zofran and phenergan at home PO without success and did not try phenergan ND because she feels this "makes my intestinal pain worse" (per patient). She is very specifically asking that I not give her haldol, as "it takes too long". Her chief complaint tonight is, as typical for her ED visits, intractable N/V, and also generalized abdominal pain Review of Systems Constitutional: denies: Fever, Chills, Sweats Cardiac: reports: Reviewed and negative Respiratory: reports: Reviewed and negative GI: reports: Abdominal Pain, Nausea, Vomiting. 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 HEENT: None Psych: None Musculoskeletal: None Derm: None - Past Surgical History Past Surgical History: Yes General: EGD HEENT: Myringotomy (tubes) - Present Medications Home Medications: Ambulatory Orders Medication Instructions Recorded Confirmed Levonorgestrel-Ethin Estradiol 1 each PO DAILY 09/02/16 08/29/17 [Lutera-28 Tablet] Ondansetron Odt [Zofran] 4 mg TL Q6H PRN #10 tablet 10/01/17 Ondansetron Odt [Zofran] 4 mg TL Q6H PRN #14 tablet 10/16/17 Promethazine Supp [Phenergan Supp] 25 mg ND Q6H PRN #10 supp 10/21/17 Ondansetron Odt [Zofran] 4 mg TL Q6H PRN #10 tablet 11/25/17 Promethazine [Phenergan] 25 mg PO Q6H PRN #10 tab 11/25/17 Potassium Chloride [K-Dur] 20 meq PO BIDWM #6 tablet 11/26/17 - Allergies Allergies/Adverse Reactions: Allergies Allergy/AdvReac Type Severity Reaction Status Date / Time No Known Drug Allergies Allergy Verified 10/15/17 23:49 - Social History Does the pt smoke?: No Smoking Status: Never smoker Does the pt drink ETOH?: No Does the pt have substance abuse?: Yes - Immunizations Immunizations are current?: Yes - POLST Patient has POLST: No PD ED PE NORMAL - Vitals Vital signs reviewed: Yes - General General: Alert and oriented X 3, No acute distress, Well developed/nourished - HEENT HEENT: Moist mucous membranes - Neck Neck: Supple, no meningeal sign - Cardiac Cardiac: RRR, No murmur - Respiratory Respiratory: No respiratory distress - Abdomen Abdomen: Normal bowel sounds, Soft, Non distended, Other (indicates tenderness with palpation, but when distracted, the tenderness fluctuates greatly in severity and location. when asked to focus on the abdominal exam, she is diffusely tender) Results - Vitals Vitals: Vital Signs - 24 hr 11/26/17 11/26/17 20:10 22:17 Temperature 36.3 C L 37.2 C Heart Rate 80 69 Respiratory 20 20 Rate Blood Pressure 148/105 H 130/105 H O2 Saturation 100 100 Oxygen O2 Source Room air - Labs Labs: Laboratory Tests 11/26/17 11/26/17 11/26/17 20:21 20:21 20:21 WBC 14.1 H RBC 4.51 Hgb 14.1 Hct 42.1 MCV 93.4 MCH 31.2 H MCHC 33.4 RDW 12.4 Plt Count 455 H MPV 6.6 L Neut # 10.1 H Lymph # 2.7 [place] # 1.0 Eos # 0.1 Baso # 0.1 Absolute Nucleated RBC 0.00 Nucleated RBC % 0.0 Sodium 134 L Potassium 2.9 L Chloride 104 Carbon Dioxide 19 L Anion Gap 11.0 BUN 10 Creatinine 1.0 Estimated GFR (MDRD) 70 L Glucose 113 H Calcium 8.8 Total Bilirubin 1.1 H AST 22 ALT 25 Alkaline Phosphatase 34 L Total Protein 8.0 Albumin 4.7 Globulin 3.3 Albumin/Globulin Ratio 1.4 Lipase 22 HCG, Quant < 0.60 PD MEDICAL DECISION MAKING - ED course Complexity details: reviewed old records, reviewed results, re-evaluated patient , considered differential, d/w patient ED course: After IV fluids, zofran, ativan, toradol, and phenergan, patient felt well enough to go home and requested d/c home. Mild hypokalemia; given her presentation of vomiting, I thought it would be best to rx potassium to be taken tomorrow once rx is filled and BID for next few days rather than give dose in ED now that vomiting is under control Departure - Departure Disposition: Home, Self Care Clinical Impression: Vomiting, Hypokalemia Condition: Good Instructions: ED Potassium Deficiency, ED Nausea Vomiting Follow-Up: [facility] [Provider Group] [facility] [Provider Group] Prescriptions: Potassium Chloride [K-Dur] 20 meq PO BIDWM #6 tablet
[2017-11-26] MEDS ORDERED: SODIUM CHLORIDE 0.9% 1,000 ML IV STA ×2 (20:23→21:00)
[2017-11-26] MEDS ORDERED: ONDANSETRON 4 MG/2 ML VIAL IVP STA ×2 (20:23→22:07)
[2017-11-26] MEDS ORDERED: PROMETHAZINE INJ 25 MG in SODIUM CHLORIDE 0.9% 50 ML IV STA (20:23)
[2017-11-26] MEDS ORDERED: diphenhydrAMINE INJ 50 MG/ML VIAL IVP STA (20:24)
[2017-11-26] MEDS ORDERED: KETOROLAC 60 MG/2 ML VIAL IVP STA (20:24)
[2017-11-26 20:30] LABS: BASOPHILS # (AUTO) 0.1 10^3/uL (0.0-0.1); EOSINOPHILS # (AUTO) 0.1 10^3/uL (0.0-0.7); EOSINOPHILS % (AUTO) 0.5 %; HGB - HEMOGLOBIN 14.1 g/dL (12.0-16.0); LYMPHOCYTES # (AUTO) 2.7 10^3/uL (1.5-3.5); LYMPHOCYTES % (AUTO) 19.3 %; MEAN CORPUSCULAR HEMOGLOBIN 31.2 pg (27.0-31.0); MEAN CORPUSCULAR HGB CONC 33.4 g/dL (32.0-36.0); MEAN CORPUSCULAR VOLUME 93.4 fL (81.0-99.0); MEAN PLATELET VOLUME 6.6 fL (7.9-10.8); MONOCYTES % (AUTO) 7.2 %; NEUTROPHILS # (AUTO) 10.1 10^3/uL (1.5-6.6); PLT - PLATELET COUNT 455 10^3/uL (130-450); RED BLOOD COUNT 4.51 10^6/uL (4.20-5.40); RED CELL DISTRIBUTION WIDTH 12.4 % (12.0-15.0); WHITE BLOOD COUNT 14.1 x10^3/uL (4.8-10.8)
[2017-11-26 20:39] LABS: ALBUMIN 4.7 g/dL (3.2-5.5); ALBUMIN/GLOBULIN RATIO 1.4 (1.0-2.2); BILIRUBIN,TOTAL 1.1 mg/dL (0.2-1.0); CALCIUM 8.8 mg/dL (8.5-10.3)
[2017-11-26] MEDS ORDERED: LORazepam 2 MG/ML VIAL IVP STA (22:07)
[2017-11-26 23:49] VITALS: BP 128/88
== END 2017-11-26 23:30 | disposition home or self-care (01) ==
LOC: ED 20:01
DX: R11.10 Vomiting, unspecified (principal); E87.6 Hypokalemia
CPT/HCPCS: 36415; 80053; 83690; 84702; 85025; 96361; 96365; 96375; 96376; 99283; 99284; J1200; J2060; J7040

== ENCOUNTER 2018-01-07 18:54 | Emergency (ER) | payer MEDICAID ==
[2018-01-07] MEDS ORDERED: HALOPERIDOL 5 MG/ML VIAL IVP ONE (19:06)
[2018-01-07] MEDS ORDERED: SODIUM CHLORIDE 0.9% 1,000 ML IV ONE (19:06)
[2018-01-07] MEDS ORDERED: ONDANSETRON 4 MG/2 ML VIAL IVP STA (19:06)
[2018-01-07 19:26] LABS: BASOPHILS # (AUTO) 0.1 10^3/uL (0.0-0.1); EOSINOPHILS # (AUTO) 0.4 10^3/uL (0.0-0.7); EOSINOPHILS % (AUTO) 2.7 %; LYMPHOCYTES # (AUTO) 2.4 10^3/uL (1.5-3.5); LYMPHOCYTES % (AUTO) 16.9 %; MEAN CORPUSCULAR HEMOGLOBIN 32.5 pg (27.0-31.0); MEAN CORPUSCULAR HGB CONC 33.6 g/dL (32.0-36.0); MEAN CORPUSCULAR VOLUME 96.6 fL (81.0-99.0); MONOCYTES # (AUTO) 1.1 10^3/uL (0.0-1.0); MONOCYTES % (AUTO) 7.4 %; NEUTROPHILS # (AUTO) 10.3 10^3/uL (1.5-6.6); PLT - PLATELET COUNT 343 10^3/uL (130-450); RED BLOOD COUNT 4.63 10^6/uL (4.20-5.40); RED CELL DISTRIBUTION WIDTH 12.6 % (12.0-15.0); WHITE BLOOD COUNT 14.3 x10^3/uL (4.8-10.8)
[2018-01-07] MEDS ORDERED: LORazepam 2 MG/ML VIAL IVP STA (19:28)
[2018-01-07] MEDS ORDERED: PROMETHAZINE INJ 25 MG in SODIUM CHLORIDE 0.9% 50 ML IV STA ×2 (19:28→21:32)
[2018-01-07 19:39] LABS: ALBUMIN 4.3 g/dL (3.2-5.5); ALBUMIN/GLOBULIN RATIO 1.2 (1.0-2.2); BILIRUBIN,TOTAL 0.6 mg/dL (0.2-1.0); CALCIUM 9.3 mg/dL (8.5-10.3); CREATININE 0.9 mg/dL (0.4-1.0)
[2018-01-07 19:43] LABS: BILIRUBIN,URINE NEGATIVE (NEGATIVE); GLUCOSE, URINE (UA) NEGATIVE (NEGATIVE); KETONES,URINE (UA) TRACE mg/dL (NEGATIVE); LEUKOCYTE ESTERASE, URINE NEGATIVE (NEGATIVE); NITRITE,URINE NEGATIVE (NEGATIVE); OCCULT BLOOD,URINE NEGATIVE (NEGATIVE); PROTEIN,URINE TRACE mg/dL (NEGATIVE); UROBILINOGEN,URINE 0.2 (NORMAL) E.U./dL (NORMAL)
[2018-01-07 19:47] LABS: CLARITY,URINE CLOUDY (CLEAR); HCG UR QUAL NEGATIVE
[2018-01-07 20:16] LABS: AMORPHOUS SEDIMENT,UR Marked /LPF; BACTERIA,URINE None Seen /HPF (None Seen); RBC,URINE 0-5 /HPF (0-5); SQUAMOUS EPITHELIAL CELL,UR FEW Squamous (<= Few)
--- NOTE | 2018-01-07 20:43 | ED Physician Documentation ---
PD HPI NVD - Stated complaint Stated Complaint: AB PX - Chief complaint Chief Complaint: Abd Pain - History obtained from History obtained from: Patient, Family - History of Present Illness Timing - onset: How many weeks ago (2) Timing - details: Gradual onset Associated symptoms: Abdominal pain Similar symptoms before: Work up / diagnostics, Treatment Recently seen: Emergency Dept - Additonal information Additional information: Patient is a 22 year old female with a history of cyclic vomiting who is presenting to the emergency department for vomiting. patient states that she has had nausea and vomiting for the last 15 days. Patient does admit to smoking marijuana again recently. Review of Systems Constitutional: denies: Fever, Chills GI: reports: Abdominal Pain, Nausea, Vomiting. 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 : None HEENT: None Psych: None Musculoskeletal: None Derm: None - Past Surgical History Past Surgical History: Yes General: EGD HEENT: Myringotomy (tubes) - Present Medications Home Medications: Ambulatory Orders Medication Instructions Recorded Confirmed Levonorgestrel-Ethin Estradiol 1 each PO DAILY 09/02/16 08/29/17 [Lutera-28 Tablet] Ondansetron Odt [Zofran] 4 mg TL Q6H PRN #10 tablet 10/01/17 Ondansetron Odt [Zofran] 4 mg TL Q6H PRN #14 tablet 10/16/17 Promethazine Supp [Phenergan Supp] 25 mg [place] Q6H PRN #10 supp 10/21/17 Ondansetron Odt [Zofran] 4 mg TL Q6H PRN #10 tablet 11/25/17 Promethazine [Phenergan] 25 mg PO Q6H PRN #10 tab 11/25/17 LORazepam [Ativan] 0.5 mg PO Q6H #10 tablet 01/07/18 Promethazine [Phenergan] 25 mg PO Q6H PRN #10 tab 01/07/18 - Allergies Allergies/Adverse Reactions: Allergies Allergy/AdvReac Type Severity Reaction Status Date / Time No Known Drug Allergies Allergy Verified 01/07/18 19:01 - Social History Does the pt smoke?: No Smoking Status: Never smoker Does the pt drink ETOH?: No Does the pt have substance abuse?: Yes - Immunizations Immunizations are current?: Yes - POLST Patient has POLST: No PD ED PE NORMAL - Vitals Vital signs reviewed: Yes - General General: Alert and oriented X 3 - HEENT HEENT: Atraumatic - Cardiac Cardiac: RRR - Respiratory Respiratory: No respiratory distress - Derm Derm: Normal color, Warm and dry - Extremities Extremities: No deformity - Neuro Neuro: Alert and oriented X 3, No motor deficit Eye Opening: Spontaneous Motor: Obeys Commands Verbal: Oriented GCS Score: 15 - Psych Psych: Normal mood PD ED PE EXPANDED - Abdomen Abdomen: Tender to palpation, Generalized/diffuse. No: Rebound, Guarding Results - Vitals Vitals: Vital Signs - 24 hr 01/07/18 18:59 Temperature 36.3 C L Heart Rate 109 H Respiratory 18 Rate Blood Pressure 142/98 H O2 Saturation 97 Oxygen O2 Source Room air - Labs Labs: Laboratory Tests 01/07/18 01/07/18 01/07/18 19:16 19:16 19:19 WBC 14.3 H RBC 4.63 Hgb 15.0 Hct 44.7 MCV 96.6 MCH 32.5 H MCHC 33.6 RDW 12.6 Plt Count 343 MPV 7.0 L Neut # (Auto) 10.3 H Lymph # (Auto) 2.4 [place] # (Auto) 1.1 H Eos # (Auto) 0.4 Baso # (Auto) 0.1 Absolute Nucleated RBC 0.01 Nucleated RBC % 0.1 Sodium 135 Potassium 3.8 Chloride 104 Carbon Dioxide 21 Anion Gap 10.0 BUN 14 Creatinine 0.9 Estimated GFR (MDRD) 79 L Glucose 108 H Calcium 9.3 Total Bilirubin 0.6 AST 18 ALT 12 Alkaline Phosphatase 39 L Total Protein 8.0 Albumin 4.3 Globulin 3.7 Albumin/Globulin Ratio 1.2 Lipase 24 Urine Color YELLOW Urine Clarity CLOUDY Urine pH 8.0 H Ur Specific [place] 1.020 Urine Protein TRACE Urine Glucose (UA) NEGATIVE Urine Ketones TRACE Urine Occult Blood NEGATIVE Urine Nitrite NEGATIVE Urine Bilirubin NEGATIVE Urine Urobilinogen 0.2 (NORMAL) Ur Leukocyte Esterase NEGATIVE Urine RBC 0-5 Urine WBC 0-3 Ur Squamous Epith Cells FEW Squamous Amorphous Sediment Marked Urine Bacteria None Seen Ur Microscopic Review INDICATED Urine Culture Comments NOT INDICATED Urine HCG, Qual NEGATIVE PD MEDICAL DECISION MAKING - ED course Complexity details: reviewed old records, reviewed results, re-evaluated patient , considered differential, d/w patient ED course: Patient was seen and examined at bedside. IV access was gained and labs were drawn. patient was started on a fluid bolus. Patient states that the things that work best for her are phenegran and ativan. Patient was treated with both. Patient's did get a repeat doses of phenagran and ativan. patient had a few episodes of wretching but no significant vomiting. patient's electrolytes were within normal limits and there was no sign of severe dehydration. patient required no further inpatient work up and was stable for discharge with outpatient follow up. - Sepsis Event Vital Signs: Vital Signs - 24 hr 01/07/18 18:59 Temperature 36.3 C L Heart Rate 109 H Respiratory 18 Rate Blood Pressure 142/98 H O2 Saturation 97 Oxygen O2 Source Room air Departure - Departure Disposition: Home, Self Care Clinical Impression: Cyclical vomiting with nausea Condition: Good Instructions: ED Nausea Vomiting Follow-Up: Sonia Brody ARNP [Primary Care Provider] - Prescriptions: LORazepam [Ativan] 0.5 mg PO Q6H #10 tablet Promethazine [Phenergan] 25 mg PO Q6H PRN #10 tab PRN Reason: Nausea / Vomiting Comments: Your diagnostics today were within normal limits. there are no major abnormalities or signs of severe dehydration on your blood work or urine. As you know you need to try to quit smoking/taking marijuana. You should follow up with your doctor on wednesday. You may return to the emergency department at any time for new, worsening or uncontrollable symptoms.
[2018-01-07] MEDS ORDERED: PROMETHAZINE 25 MG TABLET PO STA (21:45)
[2018-01-07] MEDS ORDERED: LORazepam 0.5 MG TABLET PO STA (21:45)
[2018-01-07 21:47] VITALS: BP 134/92
== END 2018-01-07 22:37 | disposition home or self-care (01) ==
LOC: ED 18:54
DX: G43.A0 Cyclical vomiting, in migraine, not intractable (principal); R11.0 Nausea
CPT/HCPCS: 36415; 80053; 81001; 81025; 83690; 85025; 96365; 96375; 99283; 99284; A9270; J2060; J7040; Q0169; 81003; 87086

== ENCOUNTER 2018-02-03 20:15 | Outpatient (CLI) | payer MEDICAID ==
--- NOTE | 2018-02-04 12:19 | Ultrasound Report ---
Procedure Date: 02/03/2018 Accession Number: [id number] / [id number] Procedure: US - Abdomen Complete CPT Code: FULL RESULT: EXAM: Abdomen Complete DATE: 02/03/2018 9:04 PM CLINICAL HISTORY: ABDOMINAL PAIN, CHRONIC COMPARISON: 02/16/2016 TECHNIQUE: Real-time scanning was performed with static images obtained. FINDINGS: Liver: Normal in size and echotexture. 16 cm. Main portal vein flow: Hepatopetal. Gallbladder: Normal. No stones, wall thickening, or sonographic Krishnamurthy's sign. Biliary System: Common bile duct measures 4 mm. No intrahepatic or extrahepatic ductal dilatation. Pancreas: Visualized portion is unremarkable. Kidneys: Right: 10 cm longitudinally. Normal. No contour-deforming mass, stones, or hydronephrosis. Left: 9.3 cm longitudinally. Normal. No contour-deforming mass, stones, or hydronephrosis. Spleen: 9.2 cm. Normal in size and echotexture. Aorta and Inferior Vena Cava: Unremarkable. IMPRESSION: Normal abdomen ultrasound. RADIA
== END 2018-02-03 20:16 | disposition home or self-care (01) ==
LOC: DI 20:15
PROVIDERS: ATTEND Nurse Practitioner
DX: R10.9 Unspecified abdominal pain (principal)
CPT/HCPCS: 76700

== ENCOUNTER 2018-02-18 17:30 | Emergency (ER) | payer MEDICAID ==
[2018-02-18] MEDS ORDERED: HYDROmorphone 2 MG/ML VIAL IVP STA ×2 (17:51→18:50)
[2018-02-18] MEDS ORDERED: LORazepam 2 MG/ML VIAL IVP STA (17:51)
[2018-02-18] MEDS ORDERED: SODIUM CHLORIDE 0.9% 1,000 ML IV ONE (17:51)
[2018-02-18] MEDS ORDERED: HALOPERIDOL 5 MG/ML VIAL IVP ONE ×2 (17:51→19:26)
--- NOTE | 2018-02-18 17:53 | ED Physician Documentation ---
PD HPI ABD PAIN - Stated complaint Stated Complaint: VOM/CONST - Chief complaint Chief Complaint: Abd Pain - History obtained from History obtained from: Patient - History of Present Illness Timing - onset: Yesterday (22-year-old woman with chronic recurrent abdominal pain which I think is probably cannabinoid hyperemesis, she admits to smoking every day including today. She has developed central and lower abdominal pain starting 2 days ago and vomiting starting yesterday. She has been feeling like she is constipated for the last 2 days but did have a small bowel movement today. She had a recent negative ultrasound.) Review of Systems Constitutional: reports: Sweats. 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 : None HEENT: None Psych: None Musculoskeletal: None Derm: None - Past Surgical History Past Surgical History: Yes General: EGD HEENT: Myringotomy (tubes) - Present Medications Home Medications: Ambulatory Orders Medication Instructions Recorded Confirmed Levonorgestrel-Ethin Estradiol 1 each PO DAILY 09/02/16 08/29/17 [Lutera-28 Tablet] Ondansetron Odt [Zofran] 4 mg TL Q6H PRN #10 tablet 10/01/17 Ondansetron Odt [Zofran] 4 mg TL Q6H PRN #14 tablet 10/16/17 Promethazine Supp [Phenergan Supp] 25 mg [place] Q6H PRN #10 supp 10/21/17 Ondansetron Odt [Zofran] 4 mg TL Q6H PRN #10 tablet 11/25/17 Promethazine [Phenergan] 25 mg PO Q6H PRN #10 tab 11/25/17 LORazepam [Ativan] 0.5 mg PO Q6H #10 tablet 01/07/18 Promethazine [Phenergan] 25 mg PO Q6H PRN #10 tab 01/07/18 Lorazepam [Ativan] 1 mg PO TID PRN #15 tablet 02/18/18 Promethazine [Phenergan] 25 - 50 mg PO Q6H PRN #15 tab 02/18/18 - Allergies Allergies/Adverse Reactions: Allergies Allergy/AdvReac Type Severity Reaction Status Date / Time No Known Drug Allergies Allergy Verified 02/18/18 17:39 - Social History Does the pt smoke?: No Smoking Status: Never smoker Does the pt drink ETOH?: No Does the pt have substance abuse?: Yes - Immunizations Immunizations are current?: Yes - POLST Patient has POLST: No PD ED PE NORMAL - Vitals Vital signs reviewed: Yes - General General: Alert and oriented X 3, Other (Writhing uncomfortable) - HEENT HEENT: Pharynx benign - Neck Neck: Supple, no meningeal sign, No bony TTP - Cardiac Cardiac: RRR, No murmur - Respiratory Respiratory: No respiratory distress, Clear bilaterally - Abdomen Abdomen: Normal bowel sounds, Soft, Non tender - Back Back: No CVA TTP, No spinal TTP - Derm Derm: Normal color, Warm and dry - Extremities Extremities: No edema, No calf tenderness / cord - Neuro Neuro: Alert and oriented X 3, Normal speech Results - Vitals Vitals: Vital Signs - 24 hr 02/18/18 02/18/18 02/18/18 17:36 18:12 18:57 Temperature 37 C Heart Rate 97 89 86 Respiratory 24 16 16 Rate Blood Pressure 162/98 H 125/87 H 112/75 O2 Saturation 100 99 100 02/18/18 02/18/18 19:05 19:28 Temperature Heart Rate 85 Respiratory 17 16 Rate Blood Pressure 103/67 O2 Saturation 98 Oxygen O2 Source Room air - Labs Labs: Laboratory Tests 02/18/18 02/18/18 02/18/18 18:15 18:15 18:15 WBC 13.1 H RBC 4.58 Hgb 14.9 Hct 44.2 MCV 96.6 MCH 32.6 H MCHC 33.8 RDW 12.2 Plt Count 336 MPV 7.8 L Neut # (Auto) 10.2 H Lymph # (Auto) 1.8 [place] # (Auto) 0.8 Eos # (Auto) 0.1 Baso # (Auto) 0.2 H Absolute Nucleated RBC 0.00 Nucleated RBC % 0.0 Sodium 139 Potassium 3.3 L Chloride 111 Carbon Dioxide 17 L Anion Gap 11.0 BUN 12 Creatinine 0.9 Estimated GFR (MDRD) 79 L Glucose 131 H Calcium 9.6 Total Bilirubin 1.0 AST 19 ALT 12 Alkaline Phosphatase 39 L Total Protein 8.2 Albumin 4.4 Globulin 3.8 Albumin/Globulin Ratio 1.2 Lipase 24 Urine Color YELLOW Urine Clarity CLEAR Urine pH 6.0 Ur Specific [place] >=1.030 H Urine Protein NEGATIVE Urine Glucose (UA) NEGATIVE Urine Ketones >=80 H Urine Occult Blood SMALL H Urine Nitrite NEGATIVE Urine Bilirubin NEGATIVE Urine Urobilinogen 0.2 (NORMAL) Ur Leukocyte Esterase TRACE H Urine RBC 6-10 H Urine WBC 0-3 Ur Squamous Epith Cells MANY Squamous H Amorphous Sediment Few Urine Bacteria Few Urine Mucus Moderate Strands Ur Microscopic Review INDICATED Urine Culture Comments NOT INDICATED Urine HCG, Qual 02/18/18 18:22 WBC RBC Hgb Hct MCV MCH MCHC RDW Plt Count MPV Neut # (Auto) Lymph # (Auto) [place] # (Auto) Eos # (Auto) Baso # (Auto) Absolute Nucleated RBC Nucleated RBC % Sodium Potassium Chloride Carbon Dioxide Anion Gap BUN Creatinine Estimated GFR (MDRD) Glucose Calcium Total Bilirubin AST ALT Alkaline Phosphatase Total Protein Albumin Globulin Albumin/Globulin Ratio Lipase Urine Color Urine Clarity Urine pH Ur Specific [place] 1.030 Urine Protein Urine Glucose (UA) Urine Ketones Urine Occult Blood Urine Nitrite Urine Bilirubin Urine Urobilinogen Ur Leukocyte Esterase Urine RBC Urine WBC Ur Squamous Epith Cells Amorphous Sediment Urine Bacteria Urine Mucus Ur Microscopic Review Urine Culture Comments Urine HCG, Qual NEGATIVE PD MEDICAL DECISION MAKING - ED course ED course: 22-year-old woman who has recurrent upper abdominal pain and vomiting which I am sure is cannabinoid hyperemesis. We talked at length about her marijuana use and she admits to using daily and heavily. She has a lot of anxiety about quitting, problems include the fact that she enjoys it so much and also that her boyfriend uses heavily. She understands it may help her to quit and I am sure that this is so. She was treated stepwise with medications here and remained nontender with improvement in her symptoms and passed an oral challenge. - Sepsis Event Vital Signs: Vital Signs - 24 hr 02/18/18 02/18/18 02/18/18 17:36 18:12 18:57 Temperature 37 C Heart Rate 97 89 86 Respiratory 24 16 16 Rate Blood Pressure 162/98 H 125/87 H 112/75 O2 Saturation 100 99 100 02/18/18 02/18/18 19:05 19:28 Temperature Heart Rate 85 Respiratory 17 16 Rate Blood Pressure 103/67 O2 Saturation 98 Oxygen O2 Source Room air Departure - Departure Disposition: 01 Home, Self Care Clinical Impression: Cannabinoid hyperemesis syndrome, Vomiting, Dehydration Condition: Good Record reviewed to determine appropriate education?: Yes Instructions: ED Nausea Vomiting Prescriptions: Lorazepam [Ativan] 1 mg PO TID PRN #15 tablet PRN Reason: Anxiety Promethazine [Phenergan] 25 - 50 mg PO Q6H PRN #15 tab PRN Reason: Nausea / Vomiting Comments: Call your doctor to arrange a follow-up appointment, make the next available appointment. In the interim, return anytime if worse or if new symptoms develop.
[2018-02-18 18:25] LABS: GLUCOSE, URINE (UA) NEGATIVE (NEGATIVE); KETONES,URINE (UA) >=80 mg/dL (NEGATIVE); LEUKOCYTE ESTERASE, URINE TRACE (NEGATIVE); NITRITE,URINE NEGATIVE (NEGATIVE); OCCULT BLOOD,URINE SMALL (NEGATIVE); PROTEIN,URINE NEGATIVE (NEGATIVE); UROBILINOGEN,URINE 0.2 (NORMAL) E.U./dL (NORMAL)
[2018-02-18 18:33] LABS: BILIRUBIN,URINE NEGATIVE (NEGATIVE); CLARITY,URINE CLEAR (CLEAR); ICTOTEST,URINE NEGATIVE
[2018-02-18 18:34] LABS: HCG UR QUAL NEGATIVE
[2018-02-18 18:37] LABS: AMORPHOUS SEDIMENT,UR Few /LPF; BACTERIA,URINE Few /HPF (None Seen); SQUAMOUS EPITHELIAL CELL,UR MANY Squamous (<= Few)
[2018-02-18 18:38] LABS: MUCUS,URINE Moderate Strands
[2018-02-18 19:20] VITALS: BP 103/67
[2018-02-18 19:39] LABS: BASOPHILS # (AUTO) 0.2 10^3/uL (0.0-0.1); BASOPHILS % (AUTO) 1.2 %; EOSINOPHILS # (AUTO) 0.1 10^3/uL (0.0-0.7); EOSINOPHILS % (AUTO) 0.7 %; HGB - HEMOGLOBIN 14.9 g/dL (12.0-16.0); LYMPHOCYTES # (AUTO) 1.8 10^3/uL (1.5-3.5); LYMPHOCYTES % (AUTO) 14.1 %; MEAN CORPUSCULAR HEMOGLOBIN 32.6 pg (27.0-31.0); MEAN CORPUSCULAR HGB CONC 33.8 g/dL (32.0-36.0); MEAN CORPUSCULAR VOLUME 96.6 fL (81.0-99.0); MEAN PLATELET VOLUME 7.8 fL (7.9-10.8); MONOCYTES # (AUTO) 0.8 10^3/uL (0.0-1.0); MONOCYTES % (AUTO) 6.3 %; NEUTROPHILS # (AUTO) 10.2 10^3/uL (1.5-6.6); NEUTROPHILS % (AUTO) 77.7 %; PLT - PLATELET COUNT 336 10^3/uL (130-450); RED BLOOD COUNT 4.58 10^6/uL (4.20-5.40); RED CELL DISTRIBUTION WIDTH 12.2 % (12.0-15.0); WHITE BLOOD COUNT 13.1 x10^3/uL (4.8-10.8)
[2018-02-18 19:42] LABS: ALBUMIN 4.4 g/dL (3.2-5.5); ALBUMIN/GLOBULIN RATIO 1.2 (1.0-2.2); CALCIUM 9.6 mg/dL (8.5-10.3); CREATININE 0.9 mg/dL (0.4-1.0); TOTAL PROTEIN 8.2 g/dL (6.7-8.2)
== END 2018-02-18 20:14 | disposition home or self-care (01) ==
LOC: ED 17:30
DX: F12.188 Cannabis abuse with other cannabis-induced disorder (principal)
CPT/HCPCS: 80053; 81001; 81025; 83690; 85025; 96361; 96374; 96376; 99284; J1170; J2060; 36415; 81003; 87086

== ENCOUNTER 2018-02-22 06:32 | Outpatient (CLI) | payer MEDICAID | END 2018-02-22 06:33 | disposition critical access hospital (66) | LOC: EMS 06:32 | PROVIDERS: ATTEND Surgery | DX: R11.10 Vomiting, unspecified (principal); R10.30 Lower abdominal pain, unspecified | CPT/HCPCS: A0425; A0427; A0999 ==

== ENCOUNTER 2018-02-22 06:50 | Emergency (ER) | payer MEDICAID ==
[2018-02-22] MEDS ORDERED: SODIUM CHLORIDE 0.9% 1,000 ML IV ONE (07:04)
[2018-02-22] MEDS ORDERED: LORazepam 2 MG/ML VIAL IVP STA (07:04)
[2018-02-22] MEDS ORDERED: KETOROLAC 60 MG/2 ML VIAL IVP STA (07:04)
[2018-02-22] MEDS ORDERED: PROMETHAZINE INJ 12.5 MG in SODIUM CHLORIDE 0.9% 50 ML IV STA (07:04)
[2018-02-22 07:22] LABS: BASOPHILS # (AUTO) 0.1 10^3/uL (0.0-0.1); BASOPHILS % (AUTO) 0.6 %; EOSINOPHILS % (AUTO) 0.1 %; HGB - HEMOGLOBIN 13.8 g/dL (12.0-16.0); LYMPHOCYTES # (AUTO) 0.7 10^3/uL (1.5-3.5); LYMPHOCYTES % (AUTO) 4.9 %; MEAN CORPUSCULAR HEMOGLOBIN 32.4 pg (27.0-31.0); MEAN CORPUSCULAR HGB CONC 34.2 g/dL (32.0-36.0); MEAN CORPUSCULAR VOLUME 94.8 fL (81.0-99.0); MEAN PLATELET VOLUME 7.1 fL (7.9-10.8); MONOCYTES # (AUTO) 0.4 10^3/uL (0.0-1.0); MONOCYTES % (AUTO) 2.7 %; NEUTROPHILS # (AUTO) 12.3 10^3/uL (1.5-6.6); NEUTROPHILS % (AUTO) 91.7 %; PLT - PLATELET COUNT 329 10^3/uL (130-450); RED BLOOD COUNT 4.25 10^6/uL (4.20-5.40); RED CELL DISTRIBUTION WIDTH 12.2 % (12.0-15.0); WHITE BLOOD COUNT 13.4 x10^3/uL (4.8-10.8)
--- NOTE | 2018-02-22 07:23 | ED Physician Documentation ---
History of Present Illness - Stated complaint Stated Complaint: VOMITING - Chief complaint Chief Complaint: Abd Pain - Additonal information Additional information: hx from pt 22 f numerous ED visits for abd pain NVD has had neg EGD and sono for same per prior EMP notes believed to be cannaboid hypermesis pt presents today with NVD and abd pain lower > upper since 2 AM [place] small blood streaks in vomit no blood in diarrhea no bad food took phenergan [place] at home and EMS gave zofran IV not sure if she might be preg but doubts it - HCG was neg 3 days ago on her last ED visit no travel she tells me toradol and ofirmev dont work for her and she will need morphine or dilaudid Review of Systems Constitutional: denies: Fever, Chills Cardiac: denies: Chest pain / pressure Respiratory: denies: Dyspnea, Cough GI: reports: Abdominal Pain, Nausea, Vomiting, Diarrhea : denies: Now EGA (neg 3 days ago) Endocrine: denies: Easy bruising / bleeding Immunocompromised: denies: Immunocompromised PD PAST MEDICAL HISTORY - Past Medical History Past Medical History: Yes Cardiovascular: None Respiratory: Asthma Neuro: None Endocrine/Autoimmune: None 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 : None HEENT: None Psych: None Musculoskeletal: None Derm: None - Past Surgical History Past Surgical History: Yes General: EGD HEENT: Myringotomy (tubes) - Present Medications Home Medications: Ambulatory Orders Medication Instructions Recorded Confirmed Levonorgestrel-Ethin Estradiol 1 each PO DAILY 09/02/16 08/29/17 [Lutera-28 Tablet] Ondansetron Odt [Zofran] 4 mg TL Q6H PRN #10 tablet 10/01/17 Ondansetron Odt [Zofran] 4 mg TL Q6H PRN #14 tablet 10/16/17 Promethazine Supp [Phenergan Supp] 25 mg [place] Q6H PRN #10 supp 10/21/17 Ondansetron Odt [Zofran] 4 mg TL Q6H PRN #10 tablet 11/25/17 Promethazine [Phenergan] 25 mg PO Q6H PRN #10 tab 11/25/17 LORazepam [Ativan] 0.5 mg PO Q6H #10 tablet 01/07/18 Promethazine [Phenergan] 25 mg PO Q6H PRN #10 tab 01/07/18 Lorazepam [Ativan] 1 mg PO TID PRN #15 tablet 02/18/18 Promethazine [Phenergan] 25 - 50 mg PO Q6H PRN #15 tab 02/18/18 Sucralfate 1 gm PO ACHS #120 tablet 02/22/18 raNITIdine [Zantac] 150 mg PO BID #60 tablet 02/22/18 - Allergies Allergies/Adverse Reactions: Allergies Allergy/AdvReac Type Severity Reaction Status Date / Time No Known Drug Allergies Allergy Verified 02/22/18 06:58 - Social History Does the pt smoke?: No Smoking Status: Never smoker Does the pt drink ETOH?: No Does the pt have substance abuse?: Yes - Immunizations Immunizations are current?: Yes - POLST Patient has POLST: No PD ED PE NORMAL - Vitals Vital signs reviewed: Yes (tachypneic - anxious crying yelling) - General General: Alert and oriented X 3 - HEENT HEENT: Atraumatic - Neck Neck: Supple, no meningeal sign - Cardiac Cardiac: RRR - Respiratory Respiratory: No respiratory distress, Clear bilaterally - Abdomen Abdomen: Soft, Other (diffuse TTP s focal pain or peritoneal signs) - Derm Derm: Normal color - Neuro Neuro: Alert and oriented X 3 - Psych Psych: Other (anxious) Results - Vitals Vitals: Vital Signs - 24 hr 02/22/18 02/22/18 02/22/18 06:55 07:48 09:13 Temperature 36.7 C 36.6 C Heart Rate 88 78 85 Respiratory 26 H 18 18 Rate Blood Pressure 149/81 H 140/100 H 149/100 H O2 Saturation 100 99 100 Oxygen O2 Source Room air - Labs Labs: Laboratory Tests 02/22/18 02/22/18 02/22/18 07:14 07:14 07:14 WBC 13.4 H RBC 4.25 Hgb 13.8 Hct 40.3 MCV 94.8 MCH 32.4 H MCHC 34.2 RDW 12.2 Plt Count 329 MPV 7.1 L Neut # (Auto) 12.3 H Lymph # (Auto) 0.7 L [place] # (Auto) 0.4 Eos # (Auto) 0.0 Baso # (Auto) 0.1 Absolute Nucleated RBC 0.00 Nucleated RBC % 0.0 Sodium 135 Potassium 3.4 L Chloride 108 Carbon Dioxide 16 L Anion Gap 11.0 BUN 9 Creatinine 0.7 Estimated GFR (MDRD) 106 Glucose 129 H Calcium 8.6 Total Bilirubin 0.8 AST 22 ALT 13 Alkaline Phosphatase 38 L Total Protein 7.7 Albumin 4.0 Globulin 3.7 Albumin/Globulin Ratio 1.1 Lipase 20 L Serum HCG, Qual NEGATIVE PD MEDICAL DECISION MAKING - ED course ED course: pt has 11 visits for same 2017 and this is her 9th or 10th visit so far in 2018 will give phenergan ativan toradol and pepcid - but not dilaudid or morphine pt a little better req more meds so gave carafate as well has received MSE and not avute issue req admission or surgery or antibiotics identified, it is recurrent, feels safe to dc home - Sepsis Event Vital Signs: Vital Signs - 24 hr 02/22/18 02/22/18 02/22/18 06:55 07:48 09:13 Temperature 36.7 C 36.6 C Heart Rate 88 78 85 Respiratory 26 H 18 18 Rate Blood Pressure 149/81 H 140/100 H 149/100 H O2 Saturation 100 99 100 Oxygen O2 Source Room air Departure - Departure Disposition: 01 Home, Self Care Clinical Impression: Recurrent abdominal pain Vomiting Qualifiers: Vomiting type: unspecified Vomiting Intractability: unspecified Nausea presence : unspecified Qualified Code(s): R11.10 - Vomiting, unspecified Diarrhea Qualifiers: Diarrhea type: unspecified type Qualified Code(s): R19.7 - Diarrhea, unspecified Instructions: ED Abdominal Pain Unkn Cause, ED Nausea Vomiting Follow-Up: Steve López MD [Provider Admit Priv/Credential] - Annabella Dorado DNP [Primary Care Provider] - Prescriptions: raNITIdine [Zantac] 150 mg PO BID #60 tablet Sucralfate 1 gm PO ACHS #120 tablet Comments: Your labs look fine. You are not Since you were vomiting small amounts of blood i am concerned about gastritis or an ulcer - since you cant get into GI until June I referred you to our surgery clinic for an endoscopy Continue your zofran and phenergan as prescribed Also take the zantac and carafate I prescribed Recommend decreasing marijuana and alcohol use. Follow up with your PMD for a repeat blood count this week Discharge Date/Time: 02/22/18 09:14
[2018-02-22 07:37] LABS: ALBUMIN/GLOBULIN RATIO 1.1 (1.0-2.2); BILIRUBIN,TOTAL 0.8 mg/dL (0.2-1.0); CALCIUM 8.6 mg/dL (8.5-10.3); CREATININE 0.7 mg/dL (0.4-1.0); TOTAL PROTEIN 7.7 g/dL (6.7-8.2)
[2018-02-22 07:47] LABS: HCG,QUALITATIVE BLOOD NEGATIVE
[2018-02-22] MEDS ORDERED: SUCRALFATE 1 GM/10 ML UDC PO STA (09:04)
[2018-02-22 09:14] VITALS: BP 149/100
== END 2018-02-22 09:14 | disposition home or self-care (01) ==
LOC: EDUNIT# → ED 06:50
DX: R10.9 Unspecified abdominal pain (principal); R11.10 Vomiting, unspecified; R19.7 Diarrhea, unspecified
CPT/HCPCS: 36415; 80053; 83690; 84703; 85025; 96365; 96375; 99283; A9270; J2060; J7040

== ENCOUNTER 2018-04-21 18:59 | Emergency (ER) | payer MEDICAID ==
[2018-04-21] MEDS ORDERED: ONDANSETRON 4 MG/2 ML VIAL IVP STA (19:08)
[2018-04-21] MEDS ORDERED: SODIUM CHLORIDE 0.9% 1,000 ML IV ONE (19:08)
[2018-04-21] MEDS ORDERED: LORazepam 2 MG/ML VIAL IVP STA (19:08)
[2018-04-21 19:34] LABS: MUDS CUTOFF CONCENTRATIONS CUTOFF CONC BELOW:
[2018-04-21 19:38] LABS: BILIRUBIN,URINE NEGATIVE (NEGATIVE); GLUCOSE, URINE (UA) NEGATIVE (NEGATIVE); KETONES,URINE (UA) NEGATIVE (NEGATIVE); LEUKOCYTE ESTERASE, URINE MODERATE (NEGATIVE); NITRITE,URINE NEGATIVE (NEGATIVE); OCCULT BLOOD,URINE LARGE (NEGATIVE); PROTEIN,URINE NEGATIVE (NEGATIVE); UROBILINOGEN,URINE 0.2 (NORMAL) E.U./dL (NORMAL)
[2018-04-21] MEDS ORDERED: PROMETHAZINE INJ 25 MG in SODIUM CHLORIDE 0.9% 50 ML IV STA (19:40)
[2018-04-21] MEDS ORDERED: HYDROmorphone 1 MG/ML CARPUJECT IVP STA (19:40)
[2018-04-21 19:41] LABS: CLARITY,URINE SL. CLOUDY (CLEAR); HCG UR QUAL NEGATIVE
--- NOTE | 2018-04-21 19:45 | ED Physician Documentation ---
PD HPI NVD - Stated complaint Stated Complaint: VOMITING - Chief complaint Chief Complaint: Abd Pain - History obtained from History obtained from: Patient, Family (mom) - History of Present Illness Timing - onset: Other (This is a 22-year-old woman who is well-known to this emergency department for cannabinoid hyperemesis. Despite having this discussed many times she continues to smoke marijuana daily. She had 3 Days of central abdominal pain, vomiting and diarrhea without fevers. Her menses started today so she doubts .) Review of Systems Ten Systems: 10 systems reviewed and negative Constitutional: reports: Fatigue. 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 : None HEENT: None Psych: None Musculoskeletal: None Derm: None - Past Surgical History Past Surgical History: Yes General: EGD HEENT: Myringotomy (tubes) - Present Medications Home Medications: Ambulatory Orders Medication Instructions Recorded Confirmed Levonorgestrel-Ethin Estradiol 1 each PO DAILY 09/02/16 08/29/17 [Lutera-28 Tablet] Ondansetron Odt [Zofran] 4 mg TL Q6H PRN #10 tablet 10/01/17 Ondansetron Odt [Zofran] 4 mg TL Q6H PRN #14 tablet 10/16/17 Promethazine Supp [Phenergan Supp] 25 mg [place] Q6H PRN #10 supp 10/21/17 Ondansetron Odt [Zofran] 4 mg TL Q6H PRN #10 tablet 11/25/17 Promethazine [Phenergan] 25 mg PO Q6H PRN #10 tab 11/25/17 LORazepam [Ativan] 0.5 mg PO Q6H #10 tablet 01/07/18 Promethazine [Phenergan] 25 mg PO Q6H PRN #10 tab 01/07/18 Lorazepam [Ativan] 1 mg PO TID PRN #15 tablet 02/18/18 Promethazine [Phenergan] 25 - 50 mg PO Q6H PRN #15 tab 02/18/18 Sucralfate 1 gm PO ACHS #120 tablet 02/22/18 raNITIdine [Zantac] 150 mg PO BID #60 tablet 02/22/18 Lorazepam [Ativan] 1 mg PO TID PRN #10 tablet 04/21/18 Ondansetron Odt [Zofran] 4 mg TL Q6H PRN #10 tablet 04/21/18 Promethazine [Phenergan] 25 mg PO Q6H PRN #10 tab 04/21/18 - Allergies Allergies/Adverse Reactions: Allergies Allergy/AdvReac Type Severity Reaction Status Date / Time No Known Drug Allergies Allergy Verified 02/22/18 06:58 - Social History Does the pt smoke?: No Smoking Status: Never smoker Does the pt drink ETOH?: No Does the pt have substance abuse?: Yes - Immunizations Immunizations are current?: Yes - POLST Patient has POLST: No PD ED PE NORMAL - Vitals Vital signs reviewed: Yes - General General: Alert and oriented X 3, No acute distress - Cardiac Cardiac: RRR, No murmur - Respiratory Respiratory: No respiratory distress, Clear bilaterally - Abdomen Abdomen: Normal bowel sounds, Soft, Non tender - Neuro Neuro: Alert and oriented X 3, Normal speech Results - Vitals Vitals: Vital Signs - 24 hr 04/21/18 04/21/18 19:01 20:10 Temperature 36.3 C L Heart Rate 110 H 91 Respiratory 23 16 Rate Blood Pressure 137/104 H 114/67 O2 Saturation 94 96 Oxygen O2 Source Room air - Labs Labs: Laboratory Tests 04/21/18 04/21/18 04/21/18 19:07 19:07 19:46 Sodium 137 Potassium 3.3 L Chloride 108 Carbon Dioxide 18 L Anion Gap 11.0 BUN 10 Creatinine 1.0 Estimated GFR (MDRD) 70 L Glucose 124 H Calcium 8.6 Total Bilirubin 0.9 AST 19 ALT 12 Alkaline Phosphatase 40 L Total Protein 7.3 Albumin 4.1 Globulin 3.2 Albumin/Globulin Ratio 1.3 Lipase 30 Urine Color YELLOW Urine Clarity SL. CLOUDY Urine pH 6.0 Ur Specific [place] 1.015 Urine Protein NEGATIVE Urine Glucose (UA) NEGATIVE Urine Ketones NEGATIVE Urine Occult Blood LARGE H Urine Nitrite NEGATIVE Urine Bilirubin NEGATIVE Urine Urobilinogen 0.2 (NORMAL) Ur Leukocyte Esterase MODERATE H Urine RBC TNTC H Urine WBC 11-25 H Ur Squamous Epith Cells MOD Squamous H Urine Bacteria Many H Ur Microscopic Review INDICATED Urine Culture Comments NOT INDICATED Urine HCG, Qual NEGATIVE Urine Opiates Screen NEGATIVE Ur Oxycodone Screen NEGATIVE Urine Methadone Screen NEGATIVE Ur Propoxyphene Screen NEGATIVE Ur Barbiturates Screen NEGATIVE Ur Tricyclics Screen NEGATIVE Ur Phencyclidine Scrn NEGATIVE Ur Amphetamine Screen NEGATIVE U Methamphetamines Scrn NEGATIVE U Benzodiazepines Scrn POSITIVE H Urine Cocaine Screen NEGATIVE U Cannabinoids Screen POSITIVE H PD MEDICAL DECISION MAKING - ED course Complexity details: reviewed old records ED course: 22-year-old woman with cannabinoid hyperemesis syndrome presents with exacerbation of same, nothing in the history is physical examination to suggest new etiology. Administration of meds she improved in stepwise fashion and was able to tolerate oral liquids and potassium was repleted orally. - Sepsis Event Vital Signs: Vital Signs - 24 hr 04/21/18 04/21/18 19:01 20:10 Temperature 36.3 C L Heart Rate 110 H 91 Respiratory 23 16 Rate Blood Pressure 137/104 H 114/67 O2 Saturation 94 96 Oxygen O2 Source Room air Departure - Departure Disposition: Home, Self Care Clinical Impression: Cannabinoid hyperemesis syndrome Condition: Good Record reviewed to determine appropriate education?: Yes Instructions: ED Nausea Vomiting Prescriptions: Lorazepam [Ativan] 1 mg PO TID PRN #10 tablet PRN Reason: Anxiety Ondansetron Odt [Zofran] 4 mg TL Q6H PRN #10 tablet PRN Reason: Nausea / Vomiting Promethazine [Phenergan] 25 mg PO Q6H PRN #10 tab PRN Reason: Nausea / Vomiting Comments: Really, stop smoking marijuana, you will get better. Call your doctor to arrange a follow-up appointment, make the next available appointment. In the interim, return anytime if worse or if new symptoms develop.
[2018-04-21 19:48] LABS: BACTERIA,URINE Many /HPF (None Seen); RBC,URINE TNTC /HPF (0-5); SQUAMOUS EPITHELIAL CELL,UR MOD Squamous (<= Few)
[2018-04-21 19:50] LABS: AMPHETAMINE SCREEN,URINE NEGATIVE (NEGATIVE); BENZODIAZEPINES SCREEN, URINE POSITIVE (NEGATIVE); COCAINE SCREEN URINE NEGATIVE (NEGATIVE); METHADONE SCREEN, URINE NEGATIVE (NEGATIVE); METHAMPHETAMINES SCREEN, URINE NEGATIVE (NEGATIVE); OPIATE SCREEN, URINE NEGATIVE (NEGATIVE); OXYCODONE SCREEN, URINE NEGATIVE (NEGATIVE); PROPOXYPHENE SCREEN, URINE NEGATIVE (NEGATIVE); TRICYCLIC ANTIDEPRESSANT,URINE NEGATIVE (NEGATIVE)
[2018-04-21 20:04] LABS: ALBUMIN 4.1 g/dL (3.2-5.5); ALBUMIN/GLOBULIN RATIO 1.3 (1.0-2.2); BILIRUBIN,TOTAL 0.9 mg/dL (0.2-1.0); CALCIUM 8.6 mg/dL (8.5-10.3); TOTAL PROTEIN 7.3 g/dL (6.7-8.2)
[2018-04-21] MEDS ORDERED: POTASSIUM BICARB 25 MEQ TABLET PO STA (20:18)
[2018-04-21] MEDS ORDERED: ONDANSETRON ODT 4 MG Prepack 2 TL STA (20:51)
[2018-04-21 21:13] VITALS: BP 112/65
== END 2018-04-21 21:14 | disposition home or self-care (01) ==
LOC: ED 18:59
DX: T40.7X1A Poisoning by cannabis (derivatives), accidental (unintentional), initial encounter (principal); R11.10 Vomiting, unspecified
CPT/HCPCS: 36415; 80053; 80306; 81001; 81025; 83690; 96361; 96365; 96375; 99283; 99284; A9270; J1170; J2060; J7040; 81003; 87086

== ENCOUNTER 2018-05-14 08:41 | Emergency (ER) | payer MEDICAID ==
[2018-05-14] MEDS ORDERED: SODIUM CHLORIDE 0.9% 1,000 ML IV ONE (09:04)
[2018-05-14] MEDS ORDERED: LORazepam 2 MG/ML VIAL IVP STA (09:04)
[2018-05-14] MEDS ORDERED: PROMETHAZINE INJ 25 MG in SODIUM CHLORIDE 0.9% 50 ML IV STA (09:04)
[2018-05-14] MEDS ORDERED: MORPHINE 10 MG/ML VIAL IVP STA (09:05)
--- NOTE | 2018-05-14 09:07 | ED Physician Documentation ---
PD HPI NVD - Stated complaint Stated Complaint: VOMITING - Chief complaint Chief Complaint: Abd Pain - History obtained from History obtained from: Patient, Family - History of Present Illness Timing - onset: How many days ago (3) Timing - duration: Days (3) Timing - details: Gradual onset, Still present Associated symptoms: Abdominal pain, Loss of appetite Contributing factors: Other (cannibis use) Improved by: Vomiting Similar symptoms before: Diagnosis (canabis hyperemisis) Recently seen: Emergency Dept (last month for same) - Additonal information Additional information: 22-year-old female with history of cyclic cannabis induced hyperemesis has developed vomiting again. She has had significant vomiting for the past 3 days and is now into the emergency department for treatment. Patient has history of cannabis use and cannabis hyperemesis and she is declaring today that she will stop using cannabis. 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 : None HEENT: None Psych: None Musculoskeletal: None Derm: None - Past Surgical History Past Surgical History: Yes General: EGD HEENT: Myringotomy (tubes) - Present Medications Home Medications: Ambulatory Orders Medication Instructions Recorded Confirmed Levonorgestrel-Ethin Estradiol 1 each PO DAILY 09/02/16 08/29/17 [Lutera-28 Tablet] Ondansetron Odt [Zofran] 4 mg TL Q6H PRN #10 tablet 10/01/17 Ondansetron Odt [Zofran] 4 mg TL Q6H PRN #14 tablet 10/16/17 Promethazine Supp [Phenergan Supp] 25 mg [place] Q6H PRN #10 supp 10/21/17 Ondansetron Odt [Zofran] 4 mg TL Q6H PRN #10 tablet 11/25/17 Promethazine [Phenergan] 25 mg PO Q6H PRN #10 tab 11/25/17 LORazepam [Ativan] 0.5 mg PO Q6H #10 tablet 01/07/18 Promethazine [Phenergan] 25 mg PO Q6H PRN #10 tab 01/07/18 Lorazepam [Ativan] 1 mg PO TID PRN #15 tablet 02/18/18 Promethazine [Phenergan] 25 - 50 mg PO Q6H PRN #15 tab 02/18/18 Sucralfate 1 gm PO ACHS #120 tablet 02/22/18 raNITIdine [Zantac] 150 mg PO BID #60 tablet 02/22/18 Lorazepam [Ativan] 1 mg PO TID PRN #10 tablet 04/21/18 Ondansetron Odt [Zofran] 4 mg TL Q6H PRN #10 tablet 04/21/18 Promethazine [Phenergan] 25 mg PO Q6H PRN #10 tab 04/21/18 Ondansetron Odt [Zofran] 4 mg TL Q6H PRN #10 tablet 05/14/18 - Allergies Allergies/Adverse Reactions: Allergies Allergy/AdvReac Type Severity Reaction Status Date / Time No Known Drug Allergies Allergy Verified 02/22/18 06:58 - Social History Does the pt smoke?: No Smoking Status: Never smoker Does the pt drink ETOH?: No Does the pt have substance abuse?: Yes - Immunizations Immunizations are current?: Yes - POLST Patient has POLST: No PD ED PE NORMAL - Vitals Vital signs reviewed: Yes (tachy ) - General General: Alert and oriented X 3, Well developed/nourished, Other (22 y/o female wiggling in the bed appears uncomfortable. 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, No motor deficit, No sensory deficit, Normal speech Eye Opening: Spontaneous Motor: Obeys Commands Verbal: Oriented GCS Score: 15 - Psych Psych: Normal mood, Normal affect Results - Vitals Vitals: Vital Signs - 24 hr 05/14/18 08:45 Temperature 35.5 C L Heart Rate 115 H Respiratory 20 Rate Blood Pressure 113/74 O2 Saturation 99 Oxygen O2 Source Room air - Labs Labs: Laboratory Tests 05/14/18 05/14/18 05/14/18 09:11 09:11 11:18 WBC 13.5 H RBC 4.56 Hgb 14.8 Hct 42.8 MCV 93.9 MCH 32.6 H MCHC 34.7 RDW 12.8 Plt Count 352 MPV 7.1 L Neut # (Auto) 10.5 H Lymph # (Auto) 1.5 [place] # (Auto) 1.0 Eos # (Auto) 0.2 Baso # (Auto) 0.2 H Absolute Nucleated RBC 0.00 Nucleated RBC % 0.0 Sodium 138 Potassium 3.6 Chloride 108 Carbon Dioxide 17 L Anion Gap 13.0 BUN 12 Creatinine 1.1 H Estimated GFR (MDRD) 63 L Glucose 133 H Calcium 9.2 Total Bilirubin 0.8 AST 20 ALT 12 Alkaline Phosphatase 43 Total Protein 7.9 Albumin 4.2 Globulin 3.7 Albumin/Globulin Ratio 1.1 Lipase 26 Urine Color DARK YELLOW Urine Clarity CLEAR Urine pH 6.5 Ur Specific [place] 1.025 Urine Protein NEGATIVE Urine Glucose (UA) NEGATIVE Urine Ketones 40 H Urine Occult Blood TRACE-LYSE Urine Nitrite NEGATIVE Urine Bilirubin NEGATIVE Urine Urobilinogen 0.2 (NORMAL) Ur Leukocyte Esterase NEGATIVE Ur Microscopic Review NOT INDICATED Urine Culture Comments NOT INDICATED Urine HCG, Qual NEGATIVE PD MEDICAL DECISION MAKING - ED course Complexity details: reviewed results, re-evaluated patient, considered differential, d/w patient ED course: 22-year-old female with history of cannabis hyperemesis is treated in the emergency department with the use of intravenous Ativan Phenergan and morphine with resolution of her symptoms. Departure - Departure Disposition: 01 Home, Self Care Clinical Impression: Cannabinoid hyperemesis syndrome Condition: Stable Instructions: ED Nausea Vomiting Follow-Up: Annabella Dorado DNP [Primary Care Provider] - Prescriptions: Ondansetron Odt [Zofran] 4 mg TL Q6H PRN #10 tablet PRN Reason: Nausea / Vomiting
[2018-05-14 09:18] LABS: BASOPHILS # (AUTO) 0.2 10^3/uL (0.0-0.1); BASOPHILS % (AUTO) 1.4 %; EOSINOPHILS # (AUTO) 0.2 10^3/uL (0.0-0.7); EOSINOPHILS % (AUTO) 1.7 %; HGB - HEMOGLOBIN 14.8 g/dL (12.0-16.0); LYMPHOCYTES # (AUTO) 1.5 10^3/uL (1.5-3.5); LYMPHOCYTES % (AUTO) 11.3 %; MEAN CORPUSCULAR HEMOGLOBIN 32.6 pg (27.0-31.0); MEAN CORPUSCULAR HGB CONC 34.7 g/dL (32.0-36.0); MEAN CORPUSCULAR VOLUME 93.9 fL (81.0-99.0); MEAN PLATELET VOLUME 7.1 fL (7.9-10.8); MONOCYTES % (AUTO) 7.5 %; NEUTROPHILS # (AUTO) 10.5 10^3/uL (1.5-6.6); NEUTROPHILS % (AUTO) 78.1 %; PLT - PLATELET COUNT 352 10^3/uL (130-450); RED BLOOD COUNT 4.56 10^6/uL (4.20-5.40); RED CELL DISTRIBUTION WIDTH 12.8 % (12.0-15.0); WHITE BLOOD COUNT 13.5 x10^3/uL (4.8-10.8)
[2018-05-14 09:28] LABS: ALBUMIN 4.2 g/dL (3.2-5.5); ALBUMIN/GLOBULIN RATIO 1.1 (1.0-2.2); BILIRUBIN,TOTAL 0.8 mg/dL (0.2-1.0); CALCIUM 9.2 mg/dL (8.5-10.3); CREATININE 1.1 mg/dL (0.4-1.0); TOTAL PROTEIN 7.9 g/dL (6.7-8.2)
[2018-05-14 11:24] LABS: BILIRUBIN,URINE NEGATIVE (NEGATIVE); GLUCOSE, URINE (UA) NEGATIVE (NEGATIVE); KETONES,URINE (UA) 40 mg/dL (NEGATIVE); LEUKOCYTE ESTERASE, URINE NEGATIVE (NEGATIVE); NITRITE,URINE NEGATIVE (NEGATIVE); OCCULT BLOOD,URINE TRACE-LYSE (NEGATIVE); PH,URINE 6.5 PH (5.0-7.5); PROTEIN,URINE NEGATIVE (NEGATIVE); UROBILINOGEN,URINE 0.2 (NORMAL) E.U./dL (NORMAL)
[2018-05-14 11:26] LABS: CLARITY,URINE CLEAR (CLEAR); HCG UR QUAL NEGATIVE
[2018-05-14 12:04] VITALS: BP 110/70
== END 2018-05-14 12:04 | disposition home or self-care (01) ==
LOC: ED 08:41
DX: T40.7X1A Poisoning by cannabis (derivatives), accidental (unintentional), initial encounter (principal); R11.10 Vomiting, unspecified; F12.90 Cannabis use, unspecified, uncomplicated; Z96.22 Myringotomy tube(s) status
CPT/HCPCS: 36415; 80053; 81003; 81025; 83690; 85025; 96361; 96365; 96375; 99283; J2060; J7040; 81001; 87086

== ENCOUNTER 2018-05-17 07:02 | Emergency (ER) | payer MEDICAID ==
[2018-05-17] MEDS ORDERED: HYDROmorphone 1 MG/ML CARPUJECT IVP STA (07:24)
[2018-05-17] MEDS ORDERED: LORazepam 2 MG/ML VIAL IVP STA (07:24)
[2018-05-17] MEDS ORDERED: PROMETHAZINE INJ 12.5 MG in SODIUM CHLORIDE 0.9% 50 ML IV STA (07:24)
[2018-05-17] MEDS ORDERED: SODIUM CHLORIDE 0.9% 1,000 ML IV ONE (07:24)
[2018-05-17] MEDS ORDERED: ONDANSETRON 4 MG/2 ML VIAL IVP STA (07:25)
--- NOTE | 2018-05-17 07:25 | ED Physician Documentation ---
PD HPI NVD - Stated complaint Stated Complaint: N/V - Chief complaint Chief Complaint: Abd Pain - History obtained from History obtained from: Patient, Family (mother), EMS - History of Present Illness Timing - onset: How many hours ago (07 26/), Today Timing - duration: Hours Timing - details: Abrupt onset, Still present Associated symptoms: Abdominal pain, Loss of appetite. No: Fever, Hematemesis, Melena, Near syncope / syncope, Weight loss, Dysuria Contributing factors: Other (regular cannibis use). No: Sick contact, Bad food, Travel, Recent antibiotics, Alcohol use Improved by: Other (feels better with showering). No: Vomiting Worsened by: Eating Similar symptoms before: Diagnosis (presumed cannabis hyperemesis.) Recently seen: Emergency Dept (2 days ago) Review of Systems Constitutional: denies: Fever, Chills, Myalgias Nose: denies: Rhinorrhea / runny nose, Congestion Throat: denies: Sore throat Cardiac: denies: Chest pain / pressure Respiratory: denies: Dyspnea, Cough GI: reports: Abdominal Pain (mid abdomen, and today is lower abd.), Nausea, Vomiting. denies: Abdominal Swelling, Diarrhea, Hematemesis : denies: Dysuria, Frequency, Discharge, Missed period Skin: denies: Rash, Lesions Neurologic: reports: Generalized weakness. 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 : None HEENT: None Psych: None Musculoskeletal: None Derm: None - Past Surgical History Past Surgical History: Yes General: EGD HEENT: Myringotomy (tubes) - Present Medications Home Medications: Ambulatory Orders Medication Instructions Recorded Confirmed Levonorgestrel-Ethin Estradiol 1 each PO DAILY 09/02/16 08/29/17 [Lutera-28 Tablet] Ondansetron Odt [Zofran] 4 mg TL Q6H PRN #10 tablet 10/01/17 Ondansetron Odt [Zofran] 4 mg TL Q6H PRN #14 tablet 10/16/17 Ondansetron Odt [Zofran] 4 mg TL Q6H PRN #10 tablet 11/25/17 Promethazine [Phenergan] 25 mg PO Q6H PRN #10 tab 11/25/17 LORazepam [Ativan] 0.5 mg PO Q6H #10 tablet 01/07/18 Promethazine [Phenergan] 25 mg PO Q6H PRN #10 tab 01/07/18 Lorazepam [Ativan] 1 mg PO TID PRN #15 tablet 02/18/18 Sucralfate 1 gm PO ACHS #120 tablet 02/22/18 raNITIdine [Zantac] 150 mg PO BID #60 tablet 02/22/18 Lorazepam [Ativan] 1 mg PO TID PRN #10 tablet 04/21/18 Ondansetron Odt [Zofran] 4 mg TL Q6H PRN #10 tablet 04/21/18 Promethazine [Phenergan] 25 mg PO Q6H PRN #10 tab 04/21/18 Ondansetron Odt [Zofran] 4 mg TL Q6H PRN #10 tablet 05/14/18 Promethazine Supp [Phenergan Supp] 25 mg [place] Q6H PRN #10 supp 05/17/18 Promethazine [Phenergan] 25 - 50 mg PO Q6H PRN #15 tab 05/17/18 - Allergies Allergies/Adverse Reactions: Allergies Allergy/AdvReac Type Severity Reaction Status Date / Time No Known Drug Allergies Allergy Verified 05/17/18 07:19 - Social History Does the pt smoke?: No Smoking Status: Never smoker Does the pt drink ETOH?: No Does the pt have substance abuse?: Yes - Immunizations Immunizations are current?: Yes - POLST Patient has POLST: No PD ED PE NORMAL - Vitals Vital signs reviewed: Yes - General General: Alert and oriented X 3, Well developed/nourished, Other (appears in severe pain and is yelling/screaming, having repetitive vomiting. ) - HEENT HEENT: PERRL, Pharynx benign - Neck Neck: Supple, no meningeal sign, No adenopathy - Cardiac Cardiac: RRR, No murmur - Respiratory Respiratory: Clear bilaterally - Abdomen Abdomen: Soft, Non distended, No organomegaly, Other (tender diffusely, but more mid abd without distension. Bowel sounds are active. ) - Female Female : Deferred - Rectal Rectal: Deferred - Back Back: No CVA TTP - Derm Derm: Normal color, Warm and dry - Extremities Extremities: No deformity, No tenderness to palpate - Neuro Neuro: Alert and oriented X 3, No motor deficit, Normal speech - Psych Psych: No: Normal affect (crying, yelling, and emotive. ) Results - Vitals Vitals: Vital Signs - 24 hr 05/17/18 05/17/18 05/17/18 07:10 07:39 09:54 Temperature 36.0 C L 36.4 C L Heart Rate 92 73 Respiratory 18 18 14 Rate Blood Pressure 147/86 H 91/61 O2 Saturation 99 97 98 Oxygen O2 Source Room air - Labs Labs: Laboratory Tests 05/17/18 07:30 Sodium 134 L Potassium 3.3 L Chloride 107 Carbon Dioxide 14 L Anion Gap 13.0 BUN 12 Creatinine 1.0 Estimated GFR (MDRD) 70 L Glucose 164 H Calcium 9.1 Total Bilirubin 0.7 AST 24 ALT 12 Alkaline Phosphatase 39 L Total Protein 7.6 Albumin 4.0 Globulin 3.6 Albumin/Globulin Ratio 1.1 Lipase 32 PD MEDICAL DECISION MAKING - ED course Complexity details: re-evaluated patient (improved with meds (Zofran, Ativen and Dilaudid, along with fluids). Recheck abd shows still mid and lower abd mild tenderness, left and right, without guarding nor percussion tenderness. Doubt appendix by exam at this point. Talked with patient/mom about returning if persistent lower abd pain or RLQ tender. She is encouraged to stop regular marijuana use. ) Departure - Departure Disposition: 01 Home, Self Care Clinical Impression: Cannabinoid hyperemesis syndrome, Abdominal pain Condition: Stable Record reviewed to determine appropriate education?: Yes Instructions: ED Abdominal Pain Unkn Cause, ED Nausea Vomiting Follow-Up: Annabella Dorado DNP [Primary Care Provider] - Prescriptions: Promethazine [Phenergan] 25 - 50 mg PO Q6H PRN #15 tab PRN Reason: Nausea / Vomiting Promethazine Supp [Phenergan Supp] 25 mg [place] Q6H PRN #10 supp PRN Reason: vomiting Comments: Drink lots of fluids today. Tylenol or ibuprofen if needed for some residual pains. Ondansetron or promethazine if needed for persistent nausea. Avoid any cannabis for at least a month or 2 and see if you stop having these episodes, which is likely. Discharge Date/Time: 05/17/18 10:15
[2018-05-17 07:54] LABS: ALBUMIN/GLOBULIN RATIO 1.1 (1.0-2.2); BILIRUBIN,TOTAL 0.7 mg/dL (0.2-1.0); CALCIUM 9.1 mg/dL (8.5-10.3); TOTAL PROTEIN 7.6 g/dL (6.7-8.2)
[2018-05-17] MEDS ORDERED: KETOROLAC 15 MG/ML VIAL IVP STA (08:46)
[2018-05-17] MEDS ORDERED: HYDROmorphone 2 MG/ML VIAL IVP STA (08:46)
[2018-05-17 09:55] VITALS: BP 91/61
== END 2018-05-17 10:15 | disposition home or self-care (01) ==
LOC: EDUNIT# → ED 07:02
DX: T40.7X1A Poisoning by cannabis (derivatives), accidental (unintentional), initial encounter (principal); F12.188 Cannabis abuse with other cannabis-induced disorder; R11.2 Nausea with vomiting, unspecified; R10.9 Unspecified abdominal pain
CPT/HCPCS: 36415; 80053; 83690; 96365; 96375; 96376; 99283; J1170; J2060; J7040

== ENCOUNTER 2018-05-23 16:00 | Emergency (ER) | payer MEDICAID ==
[2018-05-23 16:09] VITALS: BP 137/89
== END 2018-05-23 19:27 | disposition left against medical advice (07) ==
LOC: ED 16:00
DX: Z53.21 Procedure and treatment not carried out due to patient leaving prior to being seen by health care provider (principal)

== ENCOUNTER 2018-05-23 19:37 | Outpatient (CLI) | payer MEDICAID | END 2018-05-23 19:38 | disposition critical access hospital (66) | LOC: EMS 19:37 | PROVIDERS: ATTEND Surgery | DX: R11.2 Nausea with vomiting, unspecified (principal) | CPT/HCPCS: A0425; A0429; A0999 ==

== ENCOUNTER 2018-05-23 19:45 | Emergency (ER) | payer MEDICAID ==
[2018-05-23 21:06] LABS: BASOPHILS % (AUTO) 0.2 %; EOSINOPHILS % (AUTO) 0.1 %; HGB - HEMOGLOBIN 15.7 g/dL (12.0-16.0); LYMPHOCYTES # (AUTO) 0.6 10^3/uL (1.5-3.5); LYMPHOCYTES % (AUTO) 3.6 %; MEAN CORPUSCULAR HEMOGLOBIN 32.9 pg (27.0-31.0); MEAN CORPUSCULAR HGB CONC 34.8 g/dL (32.0-36.0); MEAN CORPUSCULAR VOLUME 94.6 fL (81.0-99.0); MEAN PLATELET VOLUME 7.2 fL (7.9-10.8); MONOCYTES # (AUTO) 0.4 10^3/uL (0.0-1.0); MONOCYTES % (AUTO) 2.6 %; NEUTROPHILS # (AUTO) 14.9 10^3/uL (1.5-6.6); NEUTROPHILS % (AUTO) 93.5 %; PLT - PLATELET COUNT 392 10^3/uL (130-450); RED BLOOD COUNT 4.76 10^6/uL (4.20-5.40); RED CELL DISTRIBUTION WIDTH 12.8 % (12.0-15.0); WHITE BLOOD COUNT 15.9 x10^3/uL (4.8-10.8)
[2018-05-23 21:14] LABS: ALBUMIN 4.7 g/dL (3.2-5.5); ALBUMIN/GLOBULIN RATIO 1.2 (1.0-2.2); BILIRUBIN,TOTAL 1.1 mg/dL (0.2-1.0); CALCIUM 9.8 mg/dL (8.5-10.3); TOTAL PROTEIN 8.6 g/dL (6.7-8.2)
[2018-05-23] MEDS ORDERED: MORPHINE 2 MG/ML CARPUJECT IVP STA (21:55)
[2018-05-23] MEDS ORDERED: SODIUM CHLORIDE 0.9% 1,000 ML IV ONE (21:55)
[2018-05-23] MEDS ORDERED: ONDANSETRON 4 MG/2 ML VIAL IVP STA (21:55)
[2018-05-23] MEDS ORDERED: LORazepam 2 MG/ML VIAL IVP STA (21:56)
--- NOTE | 2018-05-23 21:58 | ED Physician Documentation ---
PD HPI NVD - Stated complaint Stated Complaint: VOMITING - Chief complaint Chief Complaint: Abd Pain - History obtained from History obtained from: Patient, Family - History of Present Illness Timing - onset: Today Timing - duration: Hours Timing - details: Abrupt onset, Still present Associated symptoms: Abdominal pain Contributing factors: Alcohol use Improved by: Vomiting Similar symptoms before: Diagnosis (cannabis hyperemesis) Recently seen: Emergency Dept - Additonal information Additional information: 22-year-old female with a history of cannabis hyperemesis syndrome has developed vomiting again today. She was most recently in the emergency department about 1 week ago with cannabis hyperemesis. She has responded to treatment previously with morphine and Ativan Zofran and Phenergan and Dilaudid. Any combination of these seems to help. She states that she was not partaking in cannabis but was drinking last night. 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 : None HEENT: None Psych: None Musculoskeletal: None Derm: None - Past Surgical History Past Surgical History: Yes General: EGD HEENT: Myringotomy (tubes) - Present Medications Home Medications: Ambulatory Orders Medication Instructions Recorded Confirmed Levonorgestrel-Ethin Estradiol 1 each PO DAILY 09/02/16 08/29/17 [Lutera-28 Tablet] Ondansetron Odt [Zofran] 4 mg TL Q6H PRN #10 tablet 10/01/17 Ondansetron Odt [Zofran] 4 mg TL Q6H PRN #14 tablet 10/16/17 Ondansetron Odt [Zofran] 4 mg TL Q6H PRN #10 tablet 11/25/17 Promethazine [Phenergan] 25 mg PO Q6H PRN #10 tab 11/25/17 LORazepam [Ativan] 0.5 mg PO Q6H #10 tablet 01/07/18 Promethazine [Phenergan] 25 mg PO Q6H PRN #10 tab 01/07/18 Lorazepam [Ativan] 1 mg PO TID PRN #15 tablet 02/18/18 RX: Sucralfate 1 gm PO ACHS #120 tablet 02/22/18 raNITIdine [Zantac] 150 mg PO BID #60 tablet 02/22/18 Lorazepam [Ativan] 1 mg PO TID PRN #10 tablet 04/21/18 Ondansetron Odt [Zofran] 4 mg TL Q6H PRN #10 tablet 04/21/18 Promethazine [Phenergan] 25 mg PO Q6H PRN #10 tab 04/21/18 Ondansetron Odt [Zofran] 4 mg TL Q6H PRN #10 tablet 05/14/18 Promethazine Supp [Phenergan Supp] 25 mg [place] Q6H PRN #10 supp 05/17/18 Promethazine [Phenergan] 25 - 50 mg PO Q6H PRN #15 tab 05/17/18 Ondansetron Odt [Zofran] 4 mg TL Q6H PRN #10 tablet 05/24/18 - Allergies Allergies/Adverse Reactions: Allergies Allergy/AdvReac Type Severity Reaction Status Date / Time No Known Drug Allergies Allergy Verified 05/23/18 20:05 - Social History Does the pt smoke?: No Smoking Status: Never smoker Does the pt drink ETOH?: No Does the pt have substance abuse?: Yes - Immunizations Immunizations are current?: Yes - POLST Patient has POLST: No PD ED PE NORMAL - Vitals Vital signs reviewed: Yes (hypertensive) - General General: Alert and oriented X 3, Well developed/nourished, Other (Thin 22-year-old female writhing in pain in the emergency department crying and begging for relief. The patient came to the emergency department the road waiting room was full and she called 911 to be brought in by ambulance.) - HEENT HEENT: Atraumatic, PERRL, EOMI - Neck Neck: Supple, no meningeal sign - Cardiac Cardiac: RRR, No murmur - Respiratory Respiratory: No respiratory distress, Clear bilaterally - Abdomen Abdomen: Soft, Non tender, Non distended - Back Back: No CVA TTP, No spinal TTP - Derm Derm: Normal color, Warm and dry, No rash - Extremities Extremities: No deformity, No edema - Neuro Neuro: Alert and oriented X 3, sales activity manager 2-12 intact, No motor deficit, No sensory deficit, Normal speech Eye Opening: Spontaneous Motor: Obeys Commands Verbal: Oriented GCS Score: 15 - Psych Psych: Normal affect, Other (mood is anxoius ) Results - Vitals Vitals: Vital Signs - 24 hr 05/23/18 05/24/18 20:00 00:14 Temperature 37.1 C Heart Rate 74 98 Respiratory 20 18 Rate Blood Pressure 145/100 H 109/83 H O2 Saturation 100 98 Oxygen O2 Source Room air - Labs Labs: Laboratory Tests 05/23/18 05/23/18 05/23/18 20:55 20:55 22:00 WBC 15.9 H RBC 4.76 Hgb 15.7 Hct 45.0 MCV 94.6 MCH 32.9 H MCHC 34.8 RDW 12.8 Plt Count 392 MPV 7.2 L Neut # (Auto) 14.9 H Lymph # (Auto) 0.6 L [place] # (Auto) 0.4 Eos # (Auto) 0.0 Baso # (Auto) 0.0 Absolute Nucleated RBC 0.01 Nucleated RBC % 0.0 Sodium 136 Potassium 3.4 L Chloride 102 Carbon Dioxide 19 L Anion Gap 15.0 H BUN 11 Creatinine 1.0 Estimated GFR (MDRD) 70 L Glucose 143 H Calcium 9.8 Total Bilirubin 1.1 H AST 27 ALT 19 Alkaline Phosphatase 51 Total Protein 8.6 H Albumin 4.7 Globulin 3.9 Albumin/Globulin Ratio 1.2 Lipase 21 L Urine Color YELLOW Urine Clarity CLEAR Urine pH 8.5 H Ur Specific [place] 1.020 Urine Protein TRACE Urine Glucose (UA) NEGATIVE Urine Ketones >=80 H Urine Occult Blood NEGATIVE Urine Nitrite NEGATIVE Urine Bilirubin NEGATIVE Urine Urobilinogen 0.2 (NORMAL) Ur Leukocyte Esterase NEGATIVE Ur Microscopic Review NOT INDICATED Urine Culture Comments NOT INDICATED Urine HCG, Qual 05/23/18 22:00 WBC RBC Hgb Hct MCV MCH MCHC RDW Plt Count MPV Neut # (Auto) Lymph # (Auto) [place] # (Auto) Eos # (Auto) Baso # (Auto) Absolute Nucleated RBC Nucleated RBC % Sodium Potassium Chloride Carbon Dioxide Anion Gap BUN Creatinine Estimated GFR (MDRD) Glucose Calcium Total Bilirubin AST ALT Alkaline Phosphatase Total Protein Albumin Globulin Albumin/Globulin Ratio Lipase Urine Color Urine Clarity Urine pH Ur Specific [place] 1.020 Urine Protein Urine Glucose (UA) Urine Ketones Urine Occult Blood Urine Nitrite Urine Bilirubin Urine Urobilinogen Ur Leukocyte Esterase Ur Microscopic Review Urine Culture Comments Urine HCG, Qual NEGATIVE PD MEDICAL DECISION MAKING - ED course Complexity details: reviewed old records, reviewed results, re-evaluated patient, considered differential, d/w patient, d/w family ED course: 22-year-old female with history of cannabis hyperemesis has developed hyperemesis again and she is treated here in the emergency department with Ativan morphine 2 mg and Zofran intravenously. She has marked resolution of her symptoms and is discharged home. She states that she did not smoke cannabis this time but did drink heavily. She was counseled on the inappropriateness of her drama this evening related to calling the ambulance from the waiting room of the emergency department. Departure - Departure Disposition: 01 Home, Self Care Clinical Impression: Cyclic vomiting syndrome Condition: Stable Instructions: ED Diet Vomiting Diarrhea Follow-Up: Annabella Dorado DNP [Primary Care Provider] - Prescriptions: Ondansetron Odt [Zofran] 4 mg TL Q6H PRN #10 tablet PRN Reason: Nausea / Vomiting Discharge Date/Time: 05/24/18 00:16
[2018-05-23 22:17] LABS: BILIRUBIN,URINE NEGATIVE (NEGATIVE); GLUCOSE, URINE (UA) NEGATIVE (NEGATIVE); KETONES,URINE (UA) >=80 mg/dL (NEGATIVE); LEUKOCYTE ESTERASE, URINE NEGATIVE (NEGATIVE); NITRITE,URINE NEGATIVE (NEGATIVE); OCCULT BLOOD,URINE NEGATIVE (NEGATIVE); PH,URINE 8.5 PH (5.0-7.5); PROTEIN,URINE TRACE mg/dL (NEGATIVE); UROBILINOGEN,URINE 0.2 (NORMAL) E.U./dL (NORMAL)
[2018-05-23 22:18] LABS: CLARITY,URINE CLEAR (CLEAR)
[2018-05-23 22:20] LABS: HCG UR QUAL NEGATIVE
[2018-05-24 00:14] VITALS: BP 109/83
== END 2018-05-24 00:16 | disposition home or self-care (01) ==
LOC: ED 19:45
DX: R11.10 Vomiting, unspecified (principal)
CPT/HCPCS: 36415; 80053; 81003; 81025; 83690; 85025; 96361; 96374; 96375; 99283; J2060; 81001; 87086

== ENCOUNTER 2018-06-13 11:10 | Outpatient (CLI) | payer MEDICAID | END 2018-06-13 11:11 | disposition critical access hospital (66) | LOC: EMS 11:10 | PROVIDERS: ATTEND Surgery | DX: R11.2 Nausea with vomiting, unspecified (principal); R10.9 Unspecified abdominal pain ==

== ENCOUNTER 2018-06-13 11:16 | Emergency (ER) | payer MEDICAID ==
[2018-06-13 11:25] VITALS: BP 110/70
--- NOTE | 2018-06-13 11:25 | ED Physician Documentation ---
PD HPI NVD - Stated complaint Stated Complaint: N/V - Chief complaint Chief Complaint: Abd Pain - History obtained from History obtained from: Patient - History of Present Illness Timing - onset: How many hours ago (4), Today Timing - duration: Hours (4) Timing - details: Abrupt onset Associated symptoms: Abdominal pain (upper). No: Fever, Chest pain, Near syncope / syncope Contributing factors: No: Sick contact, Bad food, Travel, Recent antibiotics Improved by: No: Eating, Vomiting Worsened by: Eating Similar symptoms before: Diagnosis (cyclic vomiting, presumed Cannabis mediated) Review of Systems Constitutional: denies: Fever Nose: denies: Rhinorrhea / runny nose, Congestion Throat: denies: Sore throat Cardiac: denies: Chest pain / pressure Respiratory: denies: Dyspnea GI: reports: Abdominal Pain, Nausea, Vomiting, Diarrhea (mild). 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 : None HEENT: None Psych: None Musculoskeletal: None Derm: None - Past Surgical History Past Surgical History: Yes General: EGD HEENT: Myringotomy (tubes) - Present Medications Home Medications: Ambulatory Orders Medication Instructions Recorded Confirmed Levonorgestrel-Ethin Estradiol 1 each PO DAILY 09/02/16 08/29/17 [Lutera-28 Tablet] Ondansetron Odt [Zofran] 4 mg TL Q6H PRN #10 tablet 10/01/17 Ondansetron Odt [Zofran] 4 mg TL Q6H PRN #14 tablet 10/16/17 Ondansetron Odt [Zofran] 4 mg TL Q6H PRN #10 tablet 11/25/17 Promethazine [Phenergan] 25 mg PO Q6H PRN #10 tab 11/25/17 LORazepam [Ativan] 0.5 mg PO Q6H #10 tablet 01/07/18 Promethazine [Phenergan] 25 mg PO Q6H PRN #10 tab 01/07/18 Lorazepam [Ativan] 1 mg PO TID PRN #15 tablet 02/18/18 Sucralfate 1 gm PO ACHS #120 tablet 02/22/18 raNITIdine [Zantac] 150 mg PO BID #60 tablet 02/22/18 Lorazepam [Ativan] 1 mg PO TID PRN #10 tablet 04/21/18 Ondansetron Odt [Zofran] 4 mg TL Q6H PRN #10 tablet 04/21/18 Promethazine [Phenergan] 25 mg PO Q6H PRN #10 tab 04/21/18 Ondansetron Odt [Zofran] 4 mg TL Q6H PRN #10 tablet 05/14/18 Promethazine Supp [Phenergan Supp] 25 mg [place] Q6H PRN #10 supp 05/17/18 Promethazine [Phenergan] 25 - 50 mg PO Q6H PRN #15 tab 05/17/18 Ondansetron Odt [Zofran] 4 mg TL Q6H PRN #10 tablet 05/24/18 - Allergies Allergies/Adverse Reactions: Allergies Allergy/AdvReac Type Severity Reaction Status Date / Time No Known Drug Allergies Allergy Verified 05/23/18 20:05 - Social History Does the pt smoke?: No Smoking Status: Never smoker Does the pt drink ETOH?: No Does the pt have substance abuse?: Yes - Immunizations Immunizations are current?: Yes - POLST Patient has POLST: No PD ED PE NORMAL - Vitals Vital signs reviewed: Yes - General General: Alert and oriented X 3, Well developed/nourished, Other (appears anxious and in pain; holding emesis bag. ) - HEENT HEENT: Pharynx benign - Neck Neck: Supple, no meningeal sign, No adenopathy - Cardiac Cardiac: RRR, No murmur - Respiratory Respiratory: Clear bilaterally - Abdomen Abdomen: Soft, Non distended, No organomegaly, Other (increased active bowel sounds. Tender with guarding upper abdomen. Small emesis here did not have any blood appearance. ). No: Normal bowel sounds - Female Female : Deferred - Rectal Rectal: Deferred - Back Back: No CVA TTP - Derm Derm: Normal color, Warm and dry - Neuro Neuro: Alert and oriented X 3, No motor deficit, Normal speech Results - Vitals Vitals: Vital Signs - 24 hr 06/13/18 11:21 Heart Rate 75 Respiratory 20 Rate Blood Pressure 110/70 O2 Saturation 99 Oxygen O2 Source Room air - Labs Labs: Laboratory Tests 06/13/18 11:24 Ur Specific [place] 1.020 Urine HCG, Qual NEGATIVE PD MEDICAL DECISION MAKING - ED course Complexity details: reviewed old records, re-evaluated patient (much improved with meds similar to prior visits. ), considered differential, d/w patient Departure - Departure Disposition: 01 Home, Self Care Clinical Impression: Cyclic vomiting syndrome Qualifiers: Vomiting Intractability: intractable Nausea presence: with nausea Qualified Code(s): G43.A1 - Cyclical vomiting, intractable Condition: Stable Record reviewed to determine appropriate education?: Yes Follow-Up: Annabella Dorado DNP [Primary Care Provider] - Comments: Small frequent fluids at home and bland food today. Progress to regular as tolerated. Discharge Date/Time: 06/13/18 14:19
[2018-06-13 11:46] LABS: HCG UR QUAL NEGATIVE
[2018-06-13] MEDS ORDERED: ONDANSETRON 4 MG/2 ML VIAL IVP STA (11:51)
[2018-06-13] MEDS ORDERED: SODIUM CHLORIDE 0.9% 1,000 ML IV ONE (11:51)
[2018-06-13] MEDS ORDERED: PROMETHAZINE INJ 12.5 MG in SODIUM CHLORIDE 0.9% 50 ML IV STA (11:51)
[2018-06-13] MEDS ORDERED: KETOROLAC 15 MG/ML VIAL IVP STA (11:51)
[2018-06-13] MEDS ORDERED: HYDROmorphone 2 MG/ML VIAL IVP STA (11:51)
[2018-06-13] MEDS ORDERED: LORazepam 2 MG/ML VIAL IVP STA (11:52)
== END 2018-06-13 14:19 | disposition home or self-care (01) ==
LOC: EDUNIT# → ED 11:16
DX: G43.A1 Cyclical vomiting, in migraine, intractable (principal)
CPT/HCPCS: 81025; 96361; 96365; 96375; 99283; J1170; J2060; J7040

== ENCOUNTER 2018-07-08 23:07 | Outpatient (CLI) | payer MEDICAID | END 2018-07-08 23:08 | disposition critical access hospital (66) | LOC: EMS 23:07 | PROVIDERS: ATTEND Surgery | DX: R11.10 Vomiting, unspecified (principal) | CPT/HCPCS: A0425; A0429 ==

== ENCOUNTER 2018-07-08 23:14 | Emergency (ER) | payer MEDICAID ==
--- NOTE | 2018-07-08 23:18 | ED Physician Documentation ---
PD HPI NVD - Stated complaint Stated Complaint: VOMITING - History obtained from History obtained from: Patient, Family (mother (in ED, at bedside)) - History of Present Illness Timing - onset: Today Timing - duration: Hours Timing - details: Abrupt onset, Waxing and waning Pain level max: 10 Pain level now: 10 Associated symptoms: Abdominal pain. No: Fever, Chest pain, Hematemesis, Hematochezia Improved by: Other (nothing) Worsened by: Other (no exacerbating factors) Similar symptoms before: Diagnosis (cyclical vomiting syndrome) Recently seen: Emergency Dept - Additonal information Additional information: Patient c/o nausea, vomiting, abdominal pain. "It's my cannabis hyperemesis syndrome" (per patient). Patient states she was anxious earlier today and thus smoked marijuana, and she subsequently developed these symptoms. She has had many previous ED visits for same, including last month as well as a few visits in April. Patient's ALEXIA form indicates 20 MI ED visits over past 12 months. Patient was at [facility] ED a few hours ago. I was able to access ED notes through [facility], and they indicate patient took out her IV and told staff there that she was going to go to another ED. Patient went home and called 911 and brought to [facility] ED. Patient tells me that she needs ativan, phenergan, and "either morphine or dilaudid". 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 : None HEENT: None Psych: None Musculoskeletal: None Derm: None - Past Surgical History Past Surgical History: Yes General: EGD HEENT: Myringotomy (tubes) - Present Medications Home Medications: Ambulatory Orders Medication Instructions Recorded Confirmed Levonorgestrel-Ethin Estradiol 1 each PO DAILY 09/02/16 08/29/17 [Lutera-28 Tablet] Ondansetron Odt [Zofran] 4 mg TL Q6H PRN #10 tablet 10/01/17 Ondansetron Odt [Zofran] 4 mg TL Q6H PRN #14 tablet 10/16/17 Ondansetron Odt [Zofran] 4 mg TL Q6H PRN #10 tablet 11/25/17 Promethazine [Phenergan] 25 mg PO Q6H PRN #10 tab 11/25/17 LORazepam [Ativan] 0.5 mg PO Q6H #10 tablet 01/07/18 Promethazine [Phenergan] 25 mg PO Q6H PRN #10 tab 01/07/18 Lorazepam [Ativan] 1 mg PO TID PRN #15 tablet 02/18/18 Sucralfate 1 gm PO ACHS #120 tablet 02/22/18 raNITIdine [Zantac] 150 mg PO BID #60 tablet 02/22/18 Lorazepam [Ativan] 1 mg PO TID PRN #10 tablet 04/21/18 Ondansetron Odt [Zofran] 4 mg TL Q6H PRN #10 tablet 04/21/18 Promethazine [Phenergan] 25 mg PO Q6H PRN #10 tab 04/21/18 Ondansetron Odt [Zofran] 4 mg TL Q6H PRN #10 tablet 05/14/18 Promethazine Supp [Phenergan Supp] 25 mg [place] Q6H PRN #10 supp 05/17/18 Promethazine [Phenergan] 25 - 50 mg PO Q6H PRN #15 tab 05/17/18 Ondansetron Odt [Zofran] 4 mg TL Q6H PRN #10 tablet 05/24/18 LORazepam [Ativan] 0.5 - 1 mg PO Q6H PRN #10 tablet 07/09/18 - Allergies Allergies/Adverse Reactions: Allergies Allergy/AdvReac Type Severity Reaction Status Date / Time No Known Drug Allergies Allergy Verified 05/23/18 20:05 - Social History Does the pt smoke?: No Smoking Status: Never smoker Does the pt drink ETOH?: No Does the pt have substance abuse?: Yes - Immunizations Immunizations are current?: Yes - POLST Patient has POLST: No PD ED PE NORMAL - Vitals Vital signs reviewed: Yes - General General: Alert and oriented X 3, Well developed/nourished, Other (anxious at times, although there seems to be a strong distractable component (when discussing her symptoms, she seems anxious, but relaxed and NAD when discussing past medical/surgical history)) - HEENT HEENT: Moist mucous membranes - Cardiac Cardiac: RRR, No murmur - Respiratory Respiratory: No respiratory distress, Clear bilaterally - Abdomen Abdomen: Soft, Non distended, Other (c/o tenderness with palpation diffusely, but distractable component (while listening for bowel sounds, I do not note any reaction when I push with my stethoscope while asking her about current medications and allergies)) - Back Back: No CVA TTP - Derm Derm: Normal color, Warm and dry Results - Vitals Vitals: Vital Signs - 24 hr 07/08/18 07/09/18 23:18 01:16 Temperature 36.6 C Heart Rate 98 97 Respiratory 18 16 Rate Blood Pressure 145/102 H 107/80 O2 Saturation 99 99 Oxygen O2 Source Room air - Labs Labs: Laboratory Tests 07/08/18 07/08/18 23:52 23:52 WBC 15.7 H RBC 4.09 L Hgb 13.5 Hct 38.7 MCV 94.6 MCH 33.1 H MCHC 35.0 RDW 12.3 Plt Count 291 MPV 7.4 L Neut # (Auto) 14.6 H Lymph # (Auto) 0.7 L [place] # (Auto) 0.3 Eos # (Auto) 0.0 Baso # (Auto) 0.1 Absolute Nucleated RBC 0.01 Nucleated RBC % 0.1 Sodium 132 L Potassium 3.3 L Chloride 104 Carbon Dioxide 17 L Anion Gap 11.0 BUN 10 Creatinine 0.8 Estimated GFR (MDRD) 91 Glucose 130 H Calcium 8.7 Total Bilirubin 0.8 AST 19 ALT 14 Alkaline Phosphatase 41 L Total Protein 7.8 Albumin 4.1 Globulin 3.7 Albumin/Globulin Ratio 1.1 Lipase 20 L PD MEDICAL DECISION MAKING - ED course Complexity details: reviewed old records, reviewed results, re-evaluated patient, considered differential, d/w patient, d/w family ED course: On initial evaluation, patient and parent repeatedly insist patient needs to have morphine or dilaudid. They both repeatedly tell me "that's what she always gets", and "it's the only thing that works". Mother tells me that if I look at previous records, I will see that she only responds to regimens that include morphine or dilaudid. I expressed my concern regarding her frequency of ED visits and insistence on receiving opiate/narcotic medication as the only means of relief. I explained that I would like to treat her symptoms and that there were different medications that can be tried, but that I would not order opiate medications at this time. On reevaluation, after IV fluids, IV phenergan and IV ativan, patient is resting comfortably. She is smiling and in NAD, says she feels "much better". I d/w patient and mother that I had a chance to further review her previous visits and I note that most of her visits in the first half of this year involved regimens that did not include any opiate medications, and that the notes reflected good symptomatic relief on these visits (including in November when I was the on-duty ED physician). The patient did not seem to be frustrated and unhappy as she did when I first evaluated her tonight. Departure - Departure Disposition: 01 Home, Self Care Clinical Impression: Cyclic vomiting syndrome Qualifiers: Vomiting Intractability: non-intractable Nausea presence: with nausea Qualified Code(s): G43.A0 - Cyclical vomiting, not intractable Condition: Good Instructions: ED Diet Vomiting Diarrhea, ED Vomiting Diarrhea Nonspecific Ad Follow-Up: Annabella Dorado DNP [Primary Care Provider] - Within 1 week Prescriptions: LORazepam [Ativan] 0.5 - 1 mg PO Q6H PRN #10 tablet PRN Reason: Anxiety Discharge Date/Time: 07/09/18 01:19
[2018-07-08] MEDS ORDERED: SODIUM CHLORIDE 0.9% 1,000 ML IV STA (23:54)
[2018-07-08] MEDS ORDERED: PROMETHAZINE INJ 25 MG in SODIUM CHLORIDE 0.9% 50 ML IV STA (23:54)
[2018-07-08] MEDS ORDERED: LORazepam 2 MG/ML VIAL IVP STA (23:54)
[2018-07-09 00:19] LABS: BASOPHILS # (AUTO) 0.1 10^3/uL (0.0-0.1); BASOPHILS % (AUTO) 0.6 %; HGB - HEMOGLOBIN 13.5 g/dL (12.0-16.0); LYMPHOCYTES # (AUTO) 0.7 10^3/uL (1.5-3.5); LYMPHOCYTES % (AUTO) 4.4 %; MEAN CORPUSCULAR HEMOGLOBIN 33.1 pg (27.0-31.0); MEAN CORPUSCULAR VOLUME 94.6 fL (81.0-99.0); MEAN PLATELET VOLUME 7.4 fL (7.9-10.8); MONOCYTES # (AUTO) 0.3 10^3/uL (0.0-1.0); MONOCYTES % (AUTO) 1.8 %; NEUTROPHILS # (AUTO) 14.6 10^3/uL (1.5-6.6); NEUTROPHILS % (AUTO) 93.2 %; PLT - PLATELET COUNT 291 10^3/uL (130-450); RED BLOOD COUNT 4.09 10^6/uL (4.20-5.40); RED CELL DISTRIBUTION WIDTH 12.3 % (12.0-15.0); WHITE BLOOD COUNT 15.7 x10^3/uL (4.8-10.8)
[2018-07-09 00:28] LABS: ALBUMIN 4.1 g/dL (3.2-5.5); ALBUMIN/GLOBULIN RATIO 1.1 (1.0-2.2); BILIRUBIN,TOTAL 0.8 mg/dL (0.2-1.0); CALCIUM 8.7 mg/dL (8.5-10.3); CREATININE 0.8 mg/dL (0.4-1.0); TOTAL PROTEIN 7.8 g/dL (6.7-8.2)
[2018-07-09 01:17] VITALS: BP 107/80
== END 2018-07-09 01:19 | disposition home or self-care (01) ==
LOC: EDUNIT# → ED 23:14
DX: G43.A0 Cyclical vomiting, in migraine, not intractable (principal)
CPT/HCPCS: 36415; 80053; 83690; 85025; 93005; 96374; 99283; J2060; J7040

== ENCOUNTER 2018-07-14 11:34 | Outpatient (CLI) | payer MEDICAID ==
--- NOTE | 2018-07-15 00:38 | XRAY Report ---
Reason: ABDOMINAL PAIN,CHRONIC Procedure Date: 07/14/2018 Accession Number: [id number] / [id number] Procedure: XR - Abdomen 2 View X-Ray CPT Code: 67241 FULL RESULT: EXAM: ABDOMEN RADIOGRAPHY EXAM DATE: 07/14/2018 12:59 PM. CLINICAL HISTORY: ABDOMINAL PAIN,CHRONIC. COMPARISON: None. TECHNIQUE: 2 views. FINDINGS: Lung Bases: Unremarkable. Bowel Gas Pattern: Within normal limits. No dilated loops or abnormal fluid levels. Free Air: None. Other: None. IMPRESSION: Normal 2-view abdomen x-ray. RADIA
== END 2018-07-14 11:35 | disposition home or self-care (01) ==
LOC: DI 11:34
PROVIDERS: ATTEND Nurse Practitioner
DX: R10.9 Unspecified abdominal pain (principal); G89.29 Other chronic pain
CPT/HCPCS: 74019

== ENCOUNTER 2018-07-14 19:39 | Emergency (ER) | payer MEDICAID ==
--- NOTE | 2018-07-14 20:16 | ED Physician Documentation ---
PD HPI NVD - Stated complaint Stated Complaint: VOMITING - Chief complaint Chief Complaint: Abd Pain - History obtained from History obtained from: Patient - History of Present Illness Timing - onset: Yesterday Timing - details: Gradual onset, Waxing and waning Pain level now: 7 Associated symptoms: Abdominal pain. No: Fever Improved by: Other (no ameliorating factors) Worsened by: Eating Recently seen: Emergency Dept (Frequent ED visits including last week) Review of Systems Constitutional: denies: Fever, Chills, Sweats Cardiac: reports: Reviewed and negative Respiratory: reports: Reviewed and negative GI: reports: Abdominal Pain, Nausea, Vomiting. denies: Constipation, Diarrhea : denies: Dysuria, Frequency PD PAST MEDICAL HISTORY - Past Medical History Cardiovascular: None Respiratory: Asthma Neuro: None Endocrine/Autoimmune: None GI: Other INDUSTRIAL ENG: None : None HEENT: None Psych: Anxiety Musculoskeletal: None Derm: None - Past Surgical History Past Surgical History: Yes General: EGD HEENT: Myringotomy (tubes) - Present Medications Home Medications: Ambulatory Orders Medication Instructions Recorded Confirmed Levonorgestrel-Ethin Estradiol 1 each PO DAILY 09/02/16 08/29/17 [Lutera-28 Tablet] Promethazine Supp [Phenergan Supp] 25 mg [place] Q6H PRN #10 supp 05/17/18 - Allergies Allergies/Adverse Reactions: Allergies Allergy/AdvReac Type Severity Reaction Status Date / Time No Known Drug Allergies Allergy Verified 07/14/18 19:50 - Social History Does the pt smoke?: No Smoking Status: Never smoker Does the pt drink ETOH?: No Does the pt have substance abuse?: Yes Substance Use and Type: Marijuana - Immunizations Immunizations are current?: Yes - POLST Patient has POLST: No PD ED PE NORMAL - Vitals Vital signs reviewed: Yes - General General: Alert and oriented X 3, No acute distress, Well developed/nourished - Cardiac Cardiac: RRR, No murmur - Respiratory Respiratory: No respiratory distress, Clear bilaterally - Abdomen Abdomen: Soft, Non distended, Other (periubilical tenderness with distractable component) - Derm Derm: Normal color, Warm and dry Results - Vitals Vitals: Vital Signs - 24 hr 07/14/18 07/14/18 07/14/18 19:46 21:58 23:05 Temperature 36.5 C Heart Rate 97 74 75 Respiratory 22 16 16 Rate Blood Pressure 158/114 H 130/93 H 106/75 O2 Saturation 96 100 99 Oxygen O2 Source Room air - Labs Labs: Laboratory Tests 07/14/18 07/14/18 20:24 20:24 WBC 10.7 RBC 4.54 Hgb 15.1 Hct 43.5 MCV 95.8 MCH 33.3 H MCHC 34.8 RDW 12.6 Plt Count 396 MPV 7.4 L Neut # (Auto) 7.2 H Lymph # (Auto) 2.0 [place] # (Auto) 0.9 Eos # (Auto) 0.2 Baso # (Auto) 0.4 H Absolute Nucleated RBC 0.01 Nucleated RBC % 0.1 Sodium 138 Potassium 3.2 L Chloride 108 Carbon Dioxide 18 L Anion Gap 12.0 BUN 12 Creatinine 1.0 Estimated GFR (MDRD) 70 L Glucose 114 H Calcium 9.2 Total Bilirubin 0.9 AST 22 ALT 17 Alkaline Phosphatase 44 Total Protein 8.2 Albumin 4.3 Globulin 3.9 Albumin/Globulin Ratio 1.1 Lipase 25 PD MEDICAL DECISION MAKING - ED course Complexity details: reviewed old records, reviewed results, re-evaluated patient, considered differential, d/w patient ED course: Patient reported significant improvement in symptoms, nearly resolved nausea and the pain resolved completely. Departure - Departure Disposition: 01 Home, Self Care Clinical Impression: Hypokalemia, Vomiting Condition: Good Instructions: ED Potassium Deficiency, ED Nausea Vomiting Follow-Up: Annabella Dorado DNP [Primary Care Provider] - Discharge Date/Time: 07/14/18 23:08
[2018-07-14] MEDS ORDERED: LORazepam 2 MG/ML VIAL IVP STA (20:27)
[2018-07-14] MEDS ORDERED: PROMETHAZINE INJ 25 MG in SODIUM CHLORIDE 0.9% 50 ML IV STA (20:27)
[2018-07-14] MEDS ORDERED: SODIUM CHLORIDE 0.9% 1,000 ML IV STA (20:27)
[2018-07-14 20:43] LABS: BASOPHILS # (AUTO) 0.4 10^3/uL (0.0-0.1); BASOPHILS % (AUTO) 3.9 %; EOSINOPHILS # (AUTO) 0.2 10^3/uL (0.0-0.7); EOSINOPHILS % (AUTO) 2.1 %; HGB - HEMOGLOBIN 15.1 g/dL (12.0-16.0); LYMPHOCYTES % (AUTO) 18.5 %; MEAN CORPUSCULAR HEMOGLOBIN 33.3 pg (27.0-31.0); MEAN CORPUSCULAR HGB CONC 34.8 g/dL (32.0-36.0); MEAN CORPUSCULAR VOLUME 95.8 fL (81.0-99.0); MEAN PLATELET VOLUME 7.4 fL (7.9-10.8); MONOCYTES # (AUTO) 0.9 10^3/uL (0.0-1.0); MONOCYTES % (AUTO) 8.1 %; NEUTROPHILS # (AUTO) 7.2 10^3/uL (1.5-6.6); NEUTROPHILS % (AUTO) 67.4 %; PLT - PLATELET COUNT 396 10^3/uL (130-450); RED BLOOD COUNT 4.54 10^6/uL (4.20-5.40); RED CELL DISTRIBUTION WIDTH 12.6 % (12.0-15.0); WHITE BLOOD COUNT 10.7 x10^3/uL (4.8-10.8)
[2018-07-14 20:52] LABS: ALBUMIN 4.3 g/dL (3.2-5.5); ALBUMIN/GLOBULIN RATIO 1.1 (1.0-2.2); BILIRUBIN,TOTAL 0.9 mg/dL (0.2-1.0); CALCIUM 9.2 mg/dL (8.5-10.3); TOTAL PROTEIN 8.2 g/dL (6.7-8.2)
[2018-07-14] MEDS ORDERED: KETOROLAC 60 MG/2 ML VIAL IVP STA (21:06)
[2018-07-14] MEDS ORDERED: ONDANSETRON 4 MG/2 ML VIAL IVP STA (22:29)
[2018-07-14 23:07] VITALS: BP 106/75
== END 2018-07-14 23:08 | disposition home or self-care (01) ==
LOC: ED 19:39
DX: E87.6 Hypokalemia (principal); R11.10 Vomiting, unspecified
CPT/HCPCS: 36415; 74019; 80053; 83690; 85025; 96361; 96365; 96375; 99283

== ENCOUNTER 2018-08-06 05:43 | Emergency (ER) | payer MEDICAID ==
[2018-08-06] MEDS ORDERED: SODIUM CHLORIDE 0.9% 1,000 ML IV ONE (06:04)
[2018-08-06] MEDS ORDERED: LORazepam 2 MG/ML VIAL IVP STA (06:05)
[2018-08-06] MEDS ORDERED: KETOROLAC 15 MG/ML VIAL IVP STA (06:05)
[2018-08-06] MEDS ORDERED: PROMETHAZINE INJ 12.5 MG in SODIUM CHLORIDE 0.9% 50 ML IV STA (06:05)
[2018-08-06] MEDS ORDERED: PROMETHAZINE INJ 25 MG in SODIUM CHLORIDE 0.9% 50 ML IV STA (06:07)
[2018-08-06] MEDS ORDERED: HYDROmorphone 1 MG/ML CARPUJECT IVP STA (06:07)
[2018-08-06 06:14] LABS: BILIRUBIN,URINE NEGATIVE (NEGATIVE); GLUCOSE, URINE (UA) NEGATIVE (NEGATIVE); KETONES,URINE (UA) NEGATIVE (NEGATIVE); LEUKOCYTE ESTERASE, URINE SMALL (NEGATIVE); NITRITE,URINE NEGATIVE (NEGATIVE); OCCULT BLOOD,URINE SMALL (NEGATIVE); PH,URINE 5.5 PH (5.0-7.5); PROTEIN,URINE NEGATIVE (NEGATIVE); UROBILINOGEN,URINE 0.2 (NORMAL) E.U./dL (NORMAL)
[2018-08-06 06:20] LABS: ALBUMIN 4.4 g/dL (3.2-5.5); ALBUMIN/GLOBULIN RATIO 1.2 (1.0-2.2); CALCIUM 9.2 mg/dL (8.5-10.3); TOTAL PROTEIN 8.2 g/dL (6.7-8.2)
[2018-08-06 06:25] LABS: CLARITY,URINE HAZY (CLEAR)
[2018-08-06 06:47] LABS: RBC,URINE None Seen /HPF (0-5); SQUAMOUS EPITHELIAL CELL,UR MANY Squamous (<= Few)
[2018-08-06 06:48] LABS: BACTERIA,URINE Few /HPF (None Seen); SPERM,URINE PRESENT
[2018-08-06 06:57] LABS: HCG UR QUAL NEGATIVE
[2018-08-06] MEDS ORDERED: POTASSIUM CHLOR 10 MEQ/100 ML 10 MEQ/100 ML BAG IV ONE (07:50)
--- NOTE | 2018-08-06 07:53 | ED Physician Documentation ---
PD HPI NVD - Stated complaint Stated Complaint: NAUSEA,ABD CRAMPING - Chief complaint Chief Complaint: Abd Pain - History obtained from History obtained from: Patient - History of Present Illness Timing - onset: Yesterday Timing - details: Abrupt onset, Still present Associated symptoms: Abdominal pain, Loss of appetite. No: Fever Contributing factors: Other (she had stopped cannibis use a week and a half ago, but resumed yesterday.). No: Sick contact, Bad food Similar symptoms before: Diagnosis (presumed cannibis hyperemesis, and seen often in ER.) Recently seen: Emergency Dept Review of Systems Constitutional: denies: Fever Nose: denies: Rhinorrhea / runny nose, Congestion Throat: denies: Sore throat Respiratory: denies: Cough GI: reports: Abdominal Pain, Nausea, Vomiting. 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 : None HEENT: None Psych: Anxiety Musculoskeletal: None Derm: None - Past Surgical History Past Surgical History: Yes General: EGD HEENT: Myringotomy (tubes) - Present Medications Home Medications: Ambulatory Orders Medication Instructions Recorded Confirmed Levonorgestrel-Ethin Estradiol 1 each PO DAILY 09/02/16 08/29/17 [Lutera-28 Tablet] Ondansetron Odt [Zofran] 4 mg TL Q6H PRN #10 tablet 08/06/18 Potassium Bicarbonate 25 meq PO DAILY #20 tablet 08/06/18 [K-Effervescent] Promethazine Supp [Phenergan Supp] 25 mg OR Q6H PRN #10 supp 08/06/18 - Allergies Allergies/Adverse Reactions: Allergies Allergy/AdvReac Type Severity Reaction Status Date / Time No Known Drug Allergies Allergy Verified 08/06/18 05:52 - Social History Does the pt smoke?: No Smoking Status: Never smoker Does the pt drink ETOH?: No Does the pt have substance abuse?: Yes - Immunizations Immunizations are current?: Yes - POLST Patient has POLST: No PD ED PE NORMAL - Vitals Vital signs reviewed: Yes - General General: Alert and oriented X 3, Well developed/nourished - HEENT HEENT: Pharynx benign - Neck Neck: Supple, no meningeal sign, No adenopathy - Cardiac Cardiac: RRR, No murmur - Respiratory Respiratory: Clear bilaterally - Abdomen Abdomen: Normal bowel sounds, Soft, Non distended, No organomegaly, Other (general tenderness, mostly central. ) - Back Back: No CVA TTP - Derm Derm: Warm and dry. No: Normal color (mild pallor) - Neuro Neuro: Alert and oriented X 3, No motor deficit, Normal speech Results - Vitals Vitals: Vital Signs - 24 hr 08/06/18 05:51 Temperature 36.1 C L Heart Rate 81 Respiratory 22 Rate Blood Pressure 146/104 H O2 Saturation 97 Oxygen O2 Source Room air - Labs Labs: Laboratory Tests 08/06/18 08/06/18 05:50 06:00 Sodium 136 Potassium 3.0 L Chloride 105 Carbon Dioxide 20 L Anion Gap 11.0 BUN 15 Creatinine 1.0 Estimated GFR (MDRD) 70 L Glucose 138 H Calcium 9.2 Magnesium 2.0 Total Bilirubin 1.0 AST 19 ALT 13 Alkaline Phosphatase 40 L Total Protein 8.2 Albumin 4.4 Globulin 3.8 Albumin/Globulin Ratio 1.2 Lipase 29 Urine Color YELLOW Urine Clarity HAZY Urine pH 5.5 Ur Specific [place] >=1.030 H Urine Protein NEGATIVE Urine Glucose (UA) NEGATIVE Urine Ketones NEGATIVE Urine Occult Blood SMALL H Urine Nitrite NEGATIVE Urine Bilirubin NEGATIVE Urine Urobilinogen 0.2 (NORMAL) Ur Leukocyte Esterase SMALL H Urine RBC None Seen Urine WBC >25 H Ur Squamous Epith Cells MANY Squamous H Urine Bacteria Few Urine Sperm PRESENT Ur Microscopic Review INDICATED Urine Culture Comments NOT INDICATED Urine HCG, Qual NEGATIVE PD MEDICAL DECISION MAKING - ED course Complexity details: reviewed old records, reviewed results, re-evaluated patient (improved with usual combo of meds. ), considered differential, d/w patient Departure - Departure Disposition: Home, Self Care Clinical Impression: Cyclical vomiting with nausea Qualifiers: Vomiting Intractability: non-intractable Qualified Code(s): G43.A0 - Cyclical vomiting, not intractable Condition: Stable Record reviewed to determine appropriate education?: Yes Follow-Up: Annabella Dorado DNP [Primary Care Provider] - Prescriptions: Ondansetron Odt [Zofran] 4 mg TL Q6H PRN #10 tablet PRN Reason: Nausea / Vomiting Potassium Bicarbonate [K-Effervescent] 25 meq PO DAILY #20 tablet Promethazine Supp [Phenergan Supp] 25 mg OR Q6H PRN #10 supp PRN Reason: vomiting Comments: Small frequent fluids. Add a potassium supplement over the next week or 2. Use ondansetron or promethazine as needed for nausea.
[2018-08-06 08:21] VITALS: BP 135/99
== END 2018-08-06 08:21 | disposition home or self-care (01) ==
LOC: ED 05:43
DX: G43.A0 Cyclical vomiting, in migraine, not intractable (principal)
CPT/HCPCS: 36415; 80053; 81001; 81003; 81025; 83690; 83735; 87086; 99283

== ENCOUNTER 2018-08-06 13:28 | Emergency (ER) | payer MEDICAID ==
[2018-08-06] MEDS ORDERED: PROMETHAZINE INJ 25 MG in SODIUM CHLORIDE 0.9% 50 ML IV STA (15:38)
[2018-08-06] MEDS ORDERED: SODIUM CHLORIDE 0.9% 1,000 ML IV ONE (15:38)
[2018-08-06] MEDS ORDERED: ONDANSETRON 4 MG/2 ML VIAL IVP STA ×2 (15:38→17:08)
[2018-08-06] MEDS ORDERED: KETOROLAC 30 MG/ML VIAL IVP STA (15:38)
--- NOTE | 2018-08-06 15:44 | ED Physician Documentation ---
History of Present Illness - Stated complaint Stated Complaint: VOMITING/ABD PX - Chief complaint Chief Complaint: Abd Pain - Additonal information Additional information: hx from pt 22 y/o f known cannabis hyperemesis worked up for these sx including imaging and EGD still uses [facility] to ED for second time with NVD abd opain no ad food or travel no blood in vomit or diarrhea no fever was not this AM seen this AM and txed with ativan zofran phenergan toradol then dilaudid she went home, filled her rx for phenergan and zofran, took that but still with NVD so came back Review of Systems Constitutional: denies: Fever, Chills Cardiac: denies: Chest pain / pressure Respiratory: denies: Dyspnea GI: reports: Abdominal Pain, Nausea, Vomiting, Diarrhea : denies: Now EGA Neurologic: denies: Generalized weakness Endocrine: denies: Easy bruising / bleeding Immunocompromised: denies: Immunocompromised PD PAST MEDICAL HISTORY - Past Medical History Cardiovascular: None Respiratory: Asthma Neuro: None Endocrine/Autoimmune: None GI: 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 : None HEENT: None Psych: Anxiety Musculoskeletal: None Derm: None - Past Surgical History Past Surgical History: Yes General: EGD HEENT: Myringotomy (tubes) - Present Medications Home Medications: Ambulatory Orders Medication Instructions Recorded Confirmed Levonorgestrel-Ethin Estradiol 1 each PO DAILY 09/02/16 08/29/17 [Lutera-28 Tablet] Ondansetron Odt [Zofran] 4 mg TL Q6H PRN #10 tablet 08/06/18 Promethazine Supp [Phenergan Supp] 25 mg [place] Q6H PRN #10 supp 08/06/18 RX: Potassium Bicarbonate 25 meq PO DAILY #20 tablet 08/06/18 [K-Effervescent] - Allergies Allergies/Adverse Reactions: Allergies Allergy/AdvReac Type Severity Reaction Status Date / Time No Known Drug Allergies Allergy Verified 08/06/18 13:33 - Social History Does the pt smoke?: No Smoking Status: Never smoker Does the pt drink ETOH?: No Does the pt have substance abuse?: Yes - Immunizations Immunizations are current?: Yes - POLST Patient has POLST: No PD ED PE NORMAL - Vitals Vital signs reviewed: Yes - General General: Alert and oriented X 3, No acute distress - Neck Neck: Supple, no meningeal sign - Cardiac Cardiac: RRR - Respiratory Respiratory: No respiratory distress - Abdomen Abdomen: Soft, Other (no focal TTP non peritoneal, she kept talking while I palpated her abd) - Derm Derm: Normal color - Neuro Neuro: Alert and oriented X 3 Eye Opening: Spontaneous Motor: Obeys Commands Verbal: Oriented GCS Score: 15 Results - Vitals Vitals: Vital Signs - 24 hr 08/06/18 08/06/18 13:31 17:57 Temperature 36.3 C L Heart Rate 79 102 H Respiratory 14 14 Rate Blood Pressure 133/92 H 104/85 H O2 Saturation 98 100 Oxygen O2 Source Room air PD MEDICAL DECISION MAKING - ED course ED course: chromic problem benign abd exam has labs this AM gave IVF zofran phenergan ativan toradol pepcid and bentyl do not feel narcotics would be appropriate for this ongoing non surgical issue and explained that to pt pt has had a MSE (no need to rpt labs already done today) and I feel she does not have a life threatening condition requiring admission surgery antibiotics or narcotics will reassure and dc Departure - Departure Disposition: 01 Home, Self Care Clinical Impression: Cyclical vomiting with nausea Condition: Good Instructions: ED Diet Vomiting Diarrhea Follow-Up: Annabella Dorado DNP [Primary Care Provider] - Comments: Continue your usual medications Drink plenty of fluids I strongly recommend you try stopping marijuana use - you have to stop for at least a month the see improvement in your symptoms.
[2018-08-06] MEDS ORDERED: DICYCLOMINE 10 MG CAPSULE PO STA (16:44)
[2018-08-06] MEDS ORDERED: LORazepam 2 MG/ML VIAL IVP STA (17:07)
[2018-08-06] MEDS ORDERED: PROMETHAZINE INJ 12.5 MG in SODIUM CHLORIDE 0.9% 50 ML IV STA (17:07)
[2018-08-06 17:59] VITALS: BP 104/85
== END 2018-08-06 18:05 | disposition home or self-care (01) ==
LOC: ED 13:28
DX: G43.A0 Cyclical vomiting, in migraine, not intractable (principal); F12.90 Cannabis use, unspecified, uncomplicated
CPT/HCPCS: 36415; 80053; 81001; 81025; 83690; 83735; 96361; 96365; 96375; 96376; 99283; A9270; J1170; J2060; J7040

== ENCOUNTER 2018-09-09 01:03 | Emergency (ER) | payer MEDICAID ==
[2018-09-09] MEDS ORDERED: SODIUM CHLORIDE 0.9% 1,000 ML IV ONE (01:46)
--- NOTE | 2018-09-09 01:48 | ED Physician Documentation ---
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 She says she used edible marijuana tonight and drank 2 beers. This is her th [facility] ED visit in past 12 months; all of these visits have been for same symptoms. 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 : None HEENT: None Psych: Anxiety Musculoskeletal: None Derm: None Other Past Medical History: Cannibas induced hyperemesis - Past Surgical History Past Surgical History: Yes General: EGD HEENT: Myringotomy (tubes) - Present Medications Home Medications: Ambulatory Orders Medication Instructions Recorded Confirmed Levonorgestrel-Ethin Estradiol 1 each PO DAILY 09/02/16 08/29/17 [Lutera-28 Tablet] Ondansetron Odt [Zofran] 4 mg TL Q6H PRN #10 tablet 08/06/18 Potassium Bicarbonate 25 meq PO DAILY #20 tablet 08/06/18 [K-Effervescent] Promethazine Supp [Phenergan Supp] 25 mg [place] Q6H PRN #10 supp 08/06/18 LORazepam [Lorazepam] 1 mg PO TID PRN #14 tablet 09/09/18 Ondansetron Odt [Zofran] 4 mg TL Q6H PRN #10 tablet 09/09/18 Promethazine [Phenergan] 25 mg PO Q6H PRN #10 tab 09/09/18 - Allergies Allergies/Adverse Reactions: Allergies Allergy/AdvReac Type Severity Reaction Status Date / Time No Known Drug Allergies Allergy Verified 09/09/18 01:15 - Social History Does the pt smoke?: No Smoking Status: Never smoker Does the pt drink ETOH?: No Does the pt have substance abuse?: Yes Substance Use and Type: Marijuana - Immunizations Immunizations are current?: Yes - POLST Patient has POLST: No PD ED PE NORMAL - Vitals Vital signs reviewed: Yes - General General: Alert and oriented X 3, Well developed/nourished, Other (appears anxious) - Neck Neck: Supple, no meningeal sign - Cardiac Cardiac: RRR, No murmur - Respiratory Respiratory: No respiratory distress, Clear bilaterally - Abdomen Abdomen: Soft, Non distended, Other (generalized abdominal tenderness to palpation with strong distractable component) - Back Back: No CVA TTP Results - Vitals Vitals: Vital Signs - 24 hr 09/09/18 09/09/18 09/09/18 01:13 03:24 06:08 Temperature 36.4 C L 37 C Heart Rate 87 80 108 H Respiratory 20 18 20 Rate Blood Pressure 134/109 H 128/97 H 133/92 H O2 Saturation 99 99 100 Oxygen O2 Source Room air - Labs Labs: Laboratory Tests 09/09/18 01:21 Sodium 136 Potassium 3.4 L Chloride 108 Carbon Dioxide 17 L Anion Gap 11.0 BUN 11 Creatinine 0.9 Estimated GFR (MDRD) 79 L Glucose 104 H Calcium 9.5 PD MEDICAL DECISION MAKING - ED course Complexity details: reviewed old records, reviewed results, re-evaluated patient, considered differential, d/w patient ED course: given IV fluids, zofran, phenergan, ativan, and toradol. Patient requests "daniel ething stronger than toradol" (per patient), but expresses understanding when I explain to her that I do not feel narcotic medication is appropriate at this time for this chronic problem for which she has had frequent/recurrent ED visits. She reported inadequate symptom relief on reevaluation, but appeared more comfortable. She asks for another dose of ativan and toradol. I explained that I could redose the ativan but not the toradol (too early for redosing). She also had more nausea, vomiting and thus given second liter NS and second dose of zofran. On reevaluation, she appeared more comfortable although still appears anxious. I explained that I did not feel further emergent treatment or testing was indicated at this time and patient expressed understanding of this Departure - Departure Disposition: 01 Home, Self Care Clinical Impression: Cyclic vomiting syndrome Qualifiers: Vomiting Intractability: non-intractable Nausea presence: with nausea Qualified Code(s): G43.A0 - Cyclical vomiting, not intractable Condition: Good Instructions: ED Nausea Vomiting Follow-Up: Annabella Dorado DNP [Primary Care Provider] - Prescriptions: LORazepam [Lorazepam] 1 mg PO TID PRN #14 tablet PRN Reason: Anxiety Ondansetron Odt [Zofran] 4 mg TL Q6H PRN #10 tablet PRN Reason: Nausea / Vomiting Promethazine [Phenergan] 25 mg PO Q6H PRN #10 tab PRN Reason: Nausea / Vomiting Discharge Date/Time: 09/09/18 06:18
[2018-09-09] MEDS ORDERED: KETOROLAC 30 MG/ML VIAL IVP STA (02:04)
[2018-09-09] MEDS ORDERED: PROMETHAZINE INJ 25 MG in SODIUM CHLORIDE 0.9% 50 ML IV STA (02:05)
[2018-09-09] MEDS ORDERED: ONDANSETRON 4 MG/2 ML VIAL IVP STA ×2 (02:05→04:20)
[2018-09-09] MEDS ORDERED: LORazepam 2 MG/ML VIAL IVP STA ×2 (02:05→04:20)
[2018-09-09 02:23] LABS: CALCIUM 9.5 mg/dL (8.5-10.3); CREATININE 0.9 mg/dL (0.4-1.0)
[2018-09-09] MEDS ORDERED: SODIUM CHLORIDE 0.9% 1,000 ML IV STA (04:21)
[2018-09-09 06:09] VITALS: BP 133/92
== END 2018-09-09 06:18 | disposition home or self-care (01) ==
LOC: ED 01:03
DX: G43.A0 Cyclical vomiting, in migraine, not intractable (principal)
CPT/HCPCS: 36415; 80048; 96361; 96365; 96375; 96376; 99283; 99284; J2060; J7040

== ENCOUNTER 2018-10-28 14:26 | Outpatient (CLI) | payer MEDICAID | END 2018-10-28 23:59 | disposition home or self-care (01) | LOC: LAB.R 14:26 | PROVIDERS: ATTEND Nurse Practitioner Obstetrics & Gynecology | DX: Z11.3 Encounter for screening for infections with a predominantly sexual mode of transmission (principal) | CPT/HCPCS: 87491; 87591 ==

== ENCOUNTER 2018-11-02 18:01 | Emergency (ER) | payer MEDICAID ==
[2018-11-02] MEDS ORDERED: LORazepam 2 MG/ML VIAL IVP STA (18:23)
[2018-11-02] MEDS ORDERED: MORPHINE 2 MG/ML SYRINGE IVP STA ×2 (18:23→19:30)
[2018-11-02] MEDS ORDERED: ONDANSETRON 4 MG/2 ML VIAL IVP STA ×2 (18:23→19:30)
[2018-11-02] MEDS ORDERED: SODIUM CHLORIDE 0.9% 1,000 ML IV ONE (18:23)
[2018-11-02] MEDS ORDERED: PROMETHAZINE INJ 25 MG in SODIUM CHLORIDE 0.9% 50 ML IV STA (18:23)
[2018-11-02] MEDS ORDERED: CAPSAICIN 0.025% CREAM 60 GM TUBE TOP STA (18:29)
--- NOTE | 2018-11-02 18:33 | ED Physician Documentation ---
PD HPI NVD - Stated complaint Stated Complaint: N/V - Chief complaint Chief Complaint: Abd Pain - History obtained from History obtained from: Patient, Family - History of Present Illness Timing - onset: Today (This is a 23-year-old woman with cannabinoid hyperemesis syndrome who despite many admonitions continues to smoke marijuana daily. She was told by her GI doctor per her recollection that it might be from butane or the pesticides on the marijuana, so she has gone from marijuana oil to an organic product. Despite that her symptoms continue and she has recurrent nausea vomiting and upper abdominal pain which recurred today. Her symptoms are severe. There is no blood in the vomitus. She is worried because she needs to go to [place] tomorrow for a week to visit family.) Review of Systems Constitutional: reports: Sweats. denies: Fever, Chills Respiratory: denies: Dyspnea, Cough GI: reports: Abdominal Pain, Nausea, Vomiting. 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 : None HEENT: None Psych: Anxiety Musculoskeletal: None Derm: None - Past Surgical History Past Surgical History: Yes General: EGD HEENT: Myringotomy (tubes) - Present Medications Home Medications: Ambulatory Orders Medication Instructions Recorded Confirmed Promethazine Supp [Phenergan Supp] 25 mg [place] Q6H PRN #10 supp 08/06/18 Promethazine [Phenergan] 25 mg PO Q6H PRN #10 tab 09/09/18 Control Patch 11/02/18 Ondansetron Odt [Zofran] 4 mg TL Q6H PRN #10 tablet 11/02/18 - Allergies Allergies/Adverse Reactions: Allergies Allergy/AdvReac Type Severity Reaction Status Date / Time No Known Drug Allergies Allergy Verified 11/02/18 18:24 - Social History Does the pt smoke?: No Smoking Status: Never smoker Does the pt drink ETOH?: No Does the pt have substance abuse?: Yes Substance Use and Type: Marijuana - Immunizations Immunizations are current?: Yes - POLST Patient has POLST: No PD ED PE NORMAL - Vitals Vital signs reviewed: Yes - General General: Alert and oriented X 3, Other (She is retching and sweaty) Results - Vitals Vitals: Vital Signs - 24 hr 11/02/18 11/02/18 18:06 20:00 Temperature 36.8 C Heart Rate 96 95 Respiratory 16 18 Rate Blood Pressure 125/97 H 143/101 H O2 Saturation 99 97 Oxygen O2 Source Room air - Labs Labs: Laboratory Tests 11/02/18 11/02/18 18:20 18:41 Sodium 136 Potassium 3.3 L Chloride 106 Carbon Dioxide 18 L Anion Gap 12.0 BUN 15 Creatinine 0.9 Estimated GFR (MDRD) 78 L Glucose 105 H Calcium 9.4 Total Bilirubin 0.8 AST 23 ALT 14 Alkaline Phosphatase 45 Total Protein 8.1 Albumin 4.3 Globulin 3.8 Albumin/Globulin Ratio 1.1 Lipase 31 Urine Color YELLOW Urine Clarity CLOUDY Urine pH 7.0 Ur Specific [place] 1.020 Urine Protein TRACE Urine Glucose (UA) NEGATIVE Urine Ketones NEGATIVE Urine Occult Blood SMALL H Urine Nitrite NEGATIVE Urine Bilirubin NEGATIVE Urine Urobilinogen 0.2 (NORMAL) Ur Leukocyte Esterase TRACE H Urine RBC 6-10 H Urine WBC 6-10 H Ur Squamous Epith Cells MANY Squamous H Amorphous Sediment Marked Urine Bacteria Few Ur Microscopic Review INDICATED Urine Culture Comments NOT INDICATED Urine HCG, Qual NEGATIVE PD MEDICAL DECISION MAKING - ED course ED course: This is a young woman with cannabinoid hyperemesis syndrome who presents with an exacerbation of same. She was administered initially morphine, Ativan, Phenergan, and Zofran. Also capsaicin cream was trialed, she had not trial this before and she really did not like it because of the burning sensation to her skin. It was wiped off and she was given an ice pack. Her symptoms continued and she was administered a little more morphine, Haldol and Zofran. She continued to retch on and off and demanded to have a shower here. The vushaper took her over there and then she stopped vomiting. Departure - Departure Disposition: 01 Home, Self Care Clinical Impression: Cannabinoid hyperemesis syndrome Condition: Good Record reviewed to determine appropriate education?: Yes Instructions: ED Marijuana Abuse Prescriptions: Ondansetron Odt [Zofran] 4 mg TL Q6H PRN #10 tablet PRN Reason: Nausea / Vomiting Comments: Call your doctor to arrange a follow-up appointment, make the next available appointment. In the interim, return anytime if worse or if new symptoms develop. STOP USING MARIJUANA
[2018-11-02 18:47] LABS: ALBUMIN 4.3 g/dL (3.2-5.5); ALBUMIN/GLOBULIN RATIO 1.1 (1.0-2.2); BILIRUBIN,TOTAL 0.8 mg/dL (0.2-1.0); CALCIUM 9.4 mg/dL (8.5-10.3); CREATININE 0.9 mg/dL (0.4-1.0); TOTAL PROTEIN 8.1 g/dL (6.7-8.2)
[2018-11-02 18:52] LABS: BILIRUBIN,URINE NEGATIVE (NEGATIVE); GLUCOSE, URINE (UA) NEGATIVE (NEGATIVE); KETONES,URINE (UA) NEGATIVE (NEGATIVE); LEUKOCYTE ESTERASE, URINE TRACE (NEGATIVE); NITRITE,URINE NEGATIVE (NEGATIVE); OCCULT BLOOD,URINE SMALL (NEGATIVE); PROTEIN,URINE TRACE mg/dL (NEGATIVE); UROBILINOGEN,URINE 0.2 (NORMAL) E.U./dL (NORMAL)
[2018-11-02 19:05] LABS: CLARITY,URINE CLOUDY (CLEAR); HCG UR QUAL NEGATIVE
[2018-11-02 19:16] LABS: AMORPHOUS SEDIMENT,UR Marked /LPF; BACTERIA,URINE Few /HPF (None Seen); SQUAMOUS EPITHELIAL CELL,UR MANY Squamous (<= Few)
[2018-11-02] MEDS ORDERED: HALOPERIDOL 5 MG/ML VIAL IVP ONE (19:30)
[2018-11-02] MEDS ORDERED: ONDANSETRON ODT 4 MG Prepack 2 TL STA (20:54)
[2018-11-02 21:00] VITALS: BP 126/85
== END 2018-11-02 21:03 | disposition home or self-care (01) ==
LOC: ED 18:01
DX: F12.988 Cannabis use, unspecified with other cannabis-induced disorder (principal); R11.2 Nausea with vomiting, unspecified
CPT/HCPCS: 36415; 80053; 81001; 81025; 83690; 96361; 96374; 96375; 96376; 99283; A9270; J2060; J2270; J7040; 81003; 87086

== ENCOUNTER 2018-11-03 03:09 | Emergency (ER) | payer MEDICAID ==
--- NOTE | 2018-11-03 03:15 | ED Physician Documentation ---
PD HPI NVD - Stated complaint Stated Complaint: N/V - History obtained from History obtained from: Patient - History of Present Illness Timing - onset: Chronic Timing - details: Waxing and waning Pain level now: 5 Associated symptoms: Abdominal pain Improved by: Other (nothing) Worsened by: Eating, Moving, Position, Palpation Similar symptoms before: Other (suspected canabinoid hyperemesis) Recently seen: Emergency Dept - Additonal information Additional information: frequent [facility] ED visits for same symptoms and was discharged from this ED several hours ago, returns with usual c/o of generalized abd. pain, nausea, vomiting. She has had extensive w/u for this, both in ED and outpatient setting. Canabinoid hyperemesis is suspected etiology. Review of Systems Constitutional: denies: Fever Cardiac: reports: Reviewed and negative Respiratory: reports: Reviewed and negative GI: reports: Abdominal Pain, Nausea, Vomiting. 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 HEENT: None Psych: Anxiety Musculoskeletal: None Derm: None - Past Surgical History Past Surgical History: Yes General: EGD HEENT: Myringotomy (tubes) - Present Medications Home Medications: Ambulatory Orders Medication Instructions Recorded Confirmed Promethazine Supp [Phenergan Supp] 25 mg [place] Q6H PRN #10 supp 08/06/18 Promethazine [Phenergan] 25 mg PO Q6H PRN #10 tab 09/09/18 Control Patch 11/02/18 Ondansetron Odt [Zofran] 4 mg TL Q6H PRN #10 tablet 11/02/18 LORazepam [Lorazepam] 0.5 - 1 mg PO TID PRN #10 tablet 11/03/18 - Allergies Allergies/Adverse Reactions: Allergies Allergy/AdvReac Type Severity Reaction Status Date / Time No Known Drug Allergies Allergy Verified 11/03/18 03:17 - Social History Does the pt smoke?: No Smoking Status: Never smoker Does the pt drink ETOH?: No Does the pt have substance abuse?: Yes - Immunizations Immunizations are current?: Yes - POLST Patient has POLST: No PD ED PE NORMAL - Vitals Vital signs reviewed: Yes - General General: Alert and oriented X 3, Well developed/nourished, Other (appears to be in mild discomfort and vomits twice during H+P) - HEENT HEENT: Other (tacky/pasty mucous membranes) - Neck Neck: Supple, no meningeal sign - Cardiac Cardiac: RRR, No murmur - Respiratory Respiratory: No respiratory distress, Clear bilaterally - Abdomen Abdomen: Normal bowel sounds, Soft, Non tender, Non distended - Back Back: No CVA TTP - Derm Derm: Normal color, Warm and dry Results - Vitals Vitals: Vital Signs - 24 hr 11/03/18 11/03/18 11/03/18 03:14 05:25 06:18 Temperature 35.6 C L 37.1 C Heart Rate 90 126 H Respiratory 19 14 18 Rate Blood Pressure 147/98 H 121/73 O2 Saturation 97 98 Oxygen O2 Source Room air PD MEDICAL DECISION MAKING - ED course Complexity details: reviewed old records, re-evaluated patient, considered differential, d/w patient ED course: patient had unremarkable blood tests, UA, and negative urine test several hours ago in this ED, and thus blood tests and UA not performed at this time. IV established, given IV NS x 2 liters, zofran, phenergan, haldol, and ativan. She had no subsequent vomiting and after a few hours of ED observation and several reevaluations by me, she was drowsy but awakens to voice and in no apparent distress, agreeable with discharge. She did not bargain or argue for medications on this visit Departure - Departure Disposition: 01 Home, Self Care Clinical Impression: Cannabinoid hyperemesis syndrome Condition: Good Instructions: ED Nausea Vomiting Prescriptions: LORazepam [Lorazepam] 0.5 - 1 mg PO TID PRN #10 tablet PRN Reason: Anxiety Discharge Date/Time: 11/03/18 06:38
[2018-11-03] MEDS ORDERED: SODIUM CHLORIDE 0.9% 1,000 ML IV STA ×2 (03:26→04:15)
[2018-11-03] MEDS ORDERED: ONDANSETRON 4 MG/2 ML VIAL IVP STA (03:26)
[2018-11-03] MEDS ORDERED: LORazepam 2 MG/ML VIAL IVP STA (03:26)
[2018-11-03] MEDS ORDERED: KETOROLAC 30 MG/ML VIAL IVP STA (03:26)
[2018-11-03] MEDS ORDERED: PROMETHAZINE INJ 25 MG in SODIUM CHLORIDE 0.9% 50 ML IV STA (03:28)
[2018-11-03] MEDS ORDERED: HALOPERIDOL 5 MG/ML VIAL IVP STA (03:28)
[2018-11-03 06:19] VITALS: BP 121/73
== END 2018-11-03 06:38 | disposition home or self-care (01) ==
LOC: ED 03:09
DX: F12.188 Cannabis abuse with other cannabis-induced disorder (principal)
CPT/HCPCS: 96361; 96365; 96375; 99283; J2060; J7040

== ENCOUNTER 2018-12-09 14:52 | Emergency (ER) | payer MEDICAID ==
[2018-12-09] MEDS ORDERED: LORazepam 2 MG/ML VIAL IVP STA (15:09)
[2018-12-09] MEDS ORDERED: MORPHINE 2 MG/ML CARPUJECT IVP STA (15:09)
[2018-12-09] MEDS ORDERED: ONDANSETRON 4 MG/2 ML VIAL IVP STA (15:09)
--- NOTE | 2018-12-09 15:12 | ED Physician Documentation ---
PD HPI ABD PAIN - Stated complaint Stated Complaint: VOMITING/AB PX - History obtained from History obtained from: Patient, Family - History of Present Illness Timing - onset: Today (23-year-old with recurrent abdominal pain and vomiting with negative work-ups. Presumed cannabinoid hyperemesis in the past. Pain recurred today, upper abdomen with multiple episodes of vomiting and sweats. 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 ATTORNEYS: None : None HEENT: None Psych: Anxiety Musculoskeletal: None Derm: None - Past Surgical History Past Surgical History: Yes General: EGD HEENT: Myringotomy (tubes) - Present Medications Home Medications: Ambulatory Orders Medication Instructions Recorded Confirmed Promethazine Supp [Phenergan Supp] 25 mg [place] Q6H PRN #10 supp 08/06/18 Promethazine [Phenergan] 25 mg PO Q6H PRN #10 tab 09/09/18 Control Patch 11/02/18 Ondansetron Odt [Zofran] 4 mg TL Q6H PRN #10 tablet 11/02/18 LORazepam [Lorazepam] 0.5 - 1 mg PO TID PRN #10 tablet 11/03/18 Albuterol Sulf [Ventolin Hfa 1 - 2 puffs INH Q4HR PRN #1 inhaler 12/09/18 Inhaler] Promethazine [Phenergan] 25 mg PO Q6H PRN #10 tab 12/09/18 - Allergies Allergies/Adverse Reactions: Allergies Allergy/AdvReac Type Severity Reaction Status Date / Time No Known Drug Allergies Allergy Verified 11/03/18 03:17 - Social History Does the pt smoke?: No Smoking Status: Never smoker Does the pt drink ETOH?: No Does the pt have substance abuse?: Yes - Family History Family history: reports: Non contributory - Immunizations Immunizations are current?: Yes - POLST Patient has POLST: No PD ED PE NORMAL - Vitals Vital signs reviewed: Yes - General General: Alert and oriented X 3, Other (Retching and belching) - HEENT HEENT: PERRL, EOMI - Neck Neck: Supple, no meningeal sign, No bony TTP - Cardiac Cardiac: RRR, No murmur - Respiratory Respiratory: No respiratory distress, Other (B exp wheezing) - Abdomen Abdomen: Normal bowel sounds, Soft, Non tender - Back Back: No CVA TTP, No spinal TTP - Derm Derm: Normal color, Warm and dry - Extremities Extremities: No edema, No calf tenderness / cord - Psych Psych: Normal mood, Normal affect Results - Vitals Vitals: Vital Signs - 24 hr 12/09/18 12/09/18 12/09/18 15:09 15:15 16:18 Temperature 36.7 C Heart Rate 94 94 110 H Respiratory 18 18 16 Rate Blood Pressure 130/98 H 130/98 H O2 Saturation 100 100 Oxygen O2 Source Room air - Labs Labs: Laboratory Tests 12/09/18 12/09/18 12/09/18 15:00 15:00 15:05 Sodium 137 Potassium 3.4 L Chloride 106 Carbon Dioxide 18 L Anion Gap 13.0 BUN 11 Creatinine 1.1 H Estimated GFR (MDRD) 62 L Glucose 178 H Calcium 9.6 Total Bilirubin 0.5 AST 22 ALT 13 Alkaline Phosphatase 55 Total Protein 8.3 H Albumin 4.3 Globulin 4.0 Albumin/Globulin Ratio 1.1 Lipase 22 Urine Color YELLOW Urine Clarity CLOUDY Urine pH 6.0 Ur Specific [place] 1.025 1.025 Urine Protein 30 H Urine Glucose (UA) NEGATIVE Urine Ketones 40 H Urine Occult Blood SMALL H Urine Nitrite NEGATIVE Urine Bilirubin NEGATIVE Urine Urobilinogen 0.2 (NORMAL) Ur Leukocyte Esterase TRACE H Urine RBC 6-10 H Urine WBC 11-25 H Ur Squamous Epith Cells MOD Squamous H Amorphous Sediment Moderate Urine Bacteria Few Urine Mucus Moderate Strands Ur Microscopic Review INDICATED Urine Culture Comments NOT INDICATED Urine HCG, Qual NEGATIVE Urine Opiates Screen NEGATIVE Ur Oxycodone Screen NEGATIVE Urine Methadone Screen NEGATIVE Ur Propoxyphene Screen NEGATIVE Ur Barbiturates Screen NEGATIVE Ur Tricyclics Screen NEGATIVE Ur Phencyclidine Scrn NEGATIVE Ur Amphetamine Screen NEGATIVE U Methamphetamines Scrn POSITIVE H U Benzodiazepines Scrn NEGATIVE Urine Cocaine Screen NEGATIVE U Cannabinoids Screen POSITIVE H Group A Strep Rapid 12/09/18 17:02 Sodium Potassium Chloride Carbon Dioxide Anion Gap BUN Creatinine Estimated GFR (MDRD) Glucose Calcium Total Bilirubin AST ALT Alkaline Phosphatase Total Protein Albumin Globulin Albumin/Globulin Ratio Lipase Urine Color Urine Clarity Urine pH Ur Specific [place] Urine Protein Urine Glucose (UA) Urine Ketones Urine Occult Blood Urine Nitrite Urine Bilirubin Urine Urobilinogen Ur Leukocyte Esterase Urine RBC Urine WBC Ur Squamous Epith Cells Amorphous Sediment Urine Bacteria Urine Mucus Ur Microscopic Review Urine Culture Comments Urine HCG, Qual Urine Opiates Screen Ur Oxycodone Screen Urine Methadone Screen Ur Propoxyphene Screen Ur Barbiturates Screen Ur Tricyclics Screen Ur Phencyclidine Scrn Ur Amphetamine Screen U Methamphetamines Scrn U Benzodiazepines Scrn Urine Cocaine Screen U Cannabinoids Screen Group A Strep Rapid Negative PD MEDICAL DECISION MAKING - ED course ED course: 23-year-old woman presents with an acute exacerbation of chronic abdominal pain. She says initially that she had used marijuana in 2 weeks. Later I asked her mom to exit the room and confronted her with the drug screen. She admits that on the way here her mother told her to lie to us because "we were not checking anything else" and that she last used marijuana this morning. She does not understand the positive methamphetamine screen. She also has a nonproductive barky cough in the setting of asthma and wheezing and is administered albuterol and dexamethasone. Departure - Departure Disposition: 01 Home, Self Care Clinical Impression: Cannabinoid hyperemesis syndrome Condition: Good Record reviewed to determine appropriate education?: Yes Instructions: Abdominal Pain Prescriptions: Albuterol Sulf [Ventolin Hfa Inhaler] 1 - 2 puffs INH Q4HR PRN #1 inhaler PRN Reason: Shortness Of Air/Wheezing Promethazine [Phenergan] 25 mg PO Q6H PRN #10 tab PRN Reason: Nausea / Vomiting Comments: Call your doctor to arrange a follow-up appointment, make the next available appointment. In the interim, return anytime if worse or if new symptoms develop.
[2018-12-09 15:13] LABS: MUDS CUTOFF CONCENTRATIONS CUTOFF CONC BELOW:
[2018-12-09 15:17] LABS: BILIRUBIN,URINE NEGATIVE (NEGATIVE); GLUCOSE, URINE (UA) NEGATIVE (NEGATIVE); KETONES,URINE (UA) 40 mg/dL (NEGATIVE); LEUKOCYTE ESTERASE, URINE TRACE (NEGATIVE); NITRITE,URINE NEGATIVE (NEGATIVE); OCCULT BLOOD,URINE SMALL (NEGATIVE); PROTEIN,URINE 30 mg/dL (NEGATIVE); UROBILINOGEN,URINE 0.2 (NORMAL) E.U./dL (NORMAL)
[2018-12-09 15:21] LABS: CLARITY,URINE CLOUDY (CLEAR)
[2018-12-09 15:22] LABS: HCG UR QUAL NEGATIVE
[2018-12-09 15:24] LABS: ALBUMIN 4.3 g/dL (3.2-5.5); ALBUMIN/GLOBULIN RATIO 1.1 (1.0-2.2); BILIRUBIN,TOTAL 0.5 mg/dL (0.2-1.0); CALCIUM 9.6 mg/dL (8.5-10.3); CREATININE 1.1 mg/dL (0.4-1.0); TOTAL PROTEIN 8.3 g/dL (6.7-8.2)
[2018-12-09 15:26] LABS: AMPHETAMINE SCREEN,URINE NEGATIVE (NEGATIVE); BENZODIAZEPINES SCREEN, URINE NEGATIVE (NEGATIVE); COCAINE SCREEN URINE NEGATIVE (NEGATIVE); METHADONE SCREEN, URINE NEGATIVE (NEGATIVE); METHAMPHETAMINES SCREEN, URINE POSITIVE (NEGATIVE); OPIATE SCREEN, URINE NEGATIVE (NEGATIVE); OXYCODONE SCREEN, URINE NEGATIVE (NEGATIVE); PROPOXYPHENE SCREEN, URINE NEGATIVE (NEGATIVE); TRICYCLIC ANTIDEPRESSANT,URINE NEGATIVE (NEGATIVE)
[2018-12-09 15:35] LABS: AMORPHOUS SEDIMENT,UR Moderate /LPF; BACTERIA,URINE Few /HPF (None Seen); MUCUS,URINE Moderate Strands; SQUAMOUS EPITHELIAL CELL,UR MOD Squamous (<= Few)
[2018-12-09] MEDS ORDERED: ALBUTEROL NEB 2.5 MG/3 ML INH STA (15:46)
[2018-12-09] MEDS ORDERED: DEXAMETHASONE 10 MG/ML VIAL IVP STA (15:46)
[2018-12-09] MEDS ORDERED: PROMETHAZINE INJ 25 MG in SODIUM CHLORIDE 0.9% 50 ML IV STA (16:23)
[2018-12-09] MEDS ORDERED: POTASSIUM CHLORIDE 20 MEQ TABLET PO STA (17:23)
[2018-12-09 18:39] VITALS: BP 126/88
== END 2018-12-09 18:00 | disposition home or self-care (01) ==
LOC: ED 14:52
DX: T40.7X1A Poisoning by cannabis (derivatives), accidental (unintentional), initial encounter (principal); R11.10 Vomiting, unspecified; F12.188 Cannabis abuse with other cannabis-induced disorder; J45.909 Unspecified asthma, uncomplicated
CPT/HCPCS: 36415; 80053; 80306; 81001; 81025; 83690; 87070; 87430; 94640; 96365; 96375; 99283; A9270; J2060; J7040; 81003; 87086

== ENCOUNTER 2018-12-12 08:00 | Outpatient (CLI) | payer MEDICAID ==
[2018-12-12 11:47] LABS: MUDS CUTOFF CONCENTRATIONS CUTOFF CONC BELOW:
[2018-12-12 19:42] LABS: AMPHETAMINE SCREEN,URINE NEGATIVE (NEGATIVE); BENZODIAZEPINES SCREEN, URINE POSITIVE (NEGATIVE); COCAINE SCREEN URINE NEGATIVE (NEGATIVE); METHADONE SCREEN, URINE NEGATIVE (NEGATIVE); METHAMPHETAMINES SCREEN, URINE POSITIVE (NEGATIVE); OPIATE SCREEN, URINE NEGATIVE (NEGATIVE); OXYCODONE SCREEN, URINE NEGATIVE (NEGATIVE); PROPOXYPHENE SCREEN, URINE NEGATIVE (NEGATIVE); TRICYCLIC ANTIDEPRESSANT,URINE NEGATIVE (NEGATIVE)
== END 2018-12-12 23:59 | disposition home or self-care (01) ==
LOC: LAB.R 08:00
PROVIDERS: ATTEND Physician Assistant Medical
DX: R82.998 Other abnormal findings in urine (principal)
CPT/HCPCS: 80306

== ENCOUNTER 2018-12-16 08:29 | Emergency (ER) | payer MEDICAID ==
--- NOTE | 2018-12-16 09:19 | ED Physician Documentation ---
PD HPI ABD PAIN - Stated complaint Stated Complaint: VOMITING, PX - Chief complaint Chief Complaint: Abd Pain - History obtained from History obtained from: Patient, Family - History of Present Illness Timing - onset: Enter time (0700), Today Timing - duration: Minutes Timing - details: Abrupt onset, Still present Quality: Cramping, Sharp, Pain Location: All over / everywhere Improved by: Laying still Associated symptoms: Nausea, Vomiting Similar symptoms before: Diagnosis (cannabis hyperemisis) Recently seen: Emergency Dept - Additional information Additional information: 23-year-old female with a history of cannabis hyperemesis has been recently evaluated in the emergency department treated and she continues to have symptoms. She is awoken this morning with severe abdominal pain nausea and vomiting. Review of Systems Constitutional: reports: Fatigue. 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 : None HEENT: None Psych: Anxiety Musculoskeletal: None Derm: None - Past Surgical History Past Surgical History: Yes General: EGD HEENT: Myringotomy (tubes) - Present Medications Home Medications: Ambulatory Orders Medication Instructions Recorded Confirmed Promethazine Supp [Phenergan Supp] 25 mg [place] Q6H PRN #10 supp 08/06/18 Promethazine [Phenergan] 25 mg PO Q6H PRN #10 tab 09/09/18 Control Patch 11/02/18 Ondansetron Odt [Zofran] 4 mg TL Q6H PRN #10 tablet 11/02/18 LORazepam [Lorazepam] 0.5 - 1 mg PO TID PRN #10 tablet 11/03/18 Albuterol Sulf [Ventolin Hfa 1 - 2 puffs INH Q4HR PRN #1 inhaler 12/09/18 Inhaler] Promethazine [Phenergan] 25 mg PO Q6H PRN #10 tab 12/09/18 hydrOXYzine pamoate [Hydroxyzine 1 - 2 tab PO Q6H PRN #20 capsule 12/09/18 Pamoate] Ondansetron Odt [Zofran] 4 mg TL Q6H PRN #10 tablet 12/16/18 Promethazine [Phenergan] 25 - 50 mg PO Q6H PRN #10 tab 12/16/18 - Allergies Allergies/Adverse Reactions: Allergies Allergy/AdvReac Type Severity Reaction Status Date / Time No Known Drug Allergies Allergy Verified 11/03/18 03:17 - Social History Does the pt smoke?: No Smoking Status: Never smoker Does the pt drink ETOH?: No Does the pt have substance abuse?: Yes - Immunizations Immunizations are current?: Yes - POLST Patient has POLST: No PD ED PE NORMAL - Vitals Vital signs reviewed: Yes - General General: Alert and oriented X 3, Well developed/nourished, Other (writhing in pain moaning and scromicking) - HEENT HEENT: Atraumatic, PERRL, EOMI - Neck Neck: Supple, no meningeal sign - Cardiac Cardiac: No murmur, Other (tachy to 105) - Respiratory Respiratory: No respiratory distress, Clear bilaterally - Abdomen Abdomen: Soft, Non tender - Back Back: No CVA TTP, No spinal TTP - Derm Derm: Normal color, Warm and dry, No rash - Extremities Extremities: No deformity, No edema - Neuro Neuro: Alert and oriented X 3, media account executive 2-12 intact, No motor deficit, No sensory deficit, Normal speech Eye Opening: Spontaneous Motor: Obeys Commands Verbal: Oriented GCS Score: 15 - Psych Psych: Normal affect, Other (mood is painful ) Results - Vitals Vitals: Vital Signs - 24 hr 12/16/18 12/16/18 08:47 09:59 Temperature 36.3 C L Heart Rate 105 H 88 Respiratory 18 22 Rate Blood Pressure 126/98 H 129/95 H O2 Saturation 100 100 Oxygen O2 Source Room air - Labs Labs: Laboratory Tests 12/16/18 12/16/18 12/16/18 09:05 09:05 09:05 WBC RBC Hgb Hct MCV MCH MCHC RDW Plt Count MPV Neut # (Auto) Lymph # (Auto) [place] # (Auto) Eos # (Auto) Baso # (Auto) Absolute Nucleated RBC Nucleated RBC % Sodium Potassium Chloride Carbon Dioxide Anion Gap BUN Creatinine Estimated GFR (MDRD) Glucose Calcium Total Bilirubin AST ALT Alkaline Phosphatase Troponin I Total Protein Albumin Globulin Albumin/Globulin Ratio Lipase Urine Color DARK YELLOW Urine Clarity HAZY Urine pH 6.0 Ur Specific [place] >=1.030 H >=1.030 H Urine Protein NEGATIVE Urine Glucose (UA) NEGATIVE Urine Ketones TRACE Urine Occult Blood LARGE H Urine Nitrite NEGATIVE Urine Bilirubin NEGATIVE Urine Urobilinogen 0.2 (NORMAL) Ur Leukocyte Esterase TRACE H Urine RBC 0-5 Urine WBC 11-25 H Ur Squamous Epith Cells MOD Squamous H Urine Bacteria Moderate H Ur Microscopic Review INDICATED Urine Culture Comments NOT INDICATED Urine HCG, Qual NEGATIVE Urine Opiates Screen NEGATIVE Ur Oxycodone Screen NEGATIVE Urine Methadone Screen NEGATIVE Ur Propoxyphene Screen NEGATIVE Ur Barbiturates Screen NEGATIVE Ur Tricyclics Screen NEGATIVE Ur Phencyclidine Scrn NEGATIVE Ur Amphetamine Screen NEGATIVE U Methamphetamines Scrn NEGATIVE U Benzodiazepines Scrn NEGATIVE Urine Cocaine Screen NEGATIVE U Cannabinoids Screen POSITIVE H 12/16/18 12/16/18 12/16/18 09:15 09:15 09:15 WBC 16.3 H RBC 4.52 Hgb 14.5 Hct 42.4 MCV 93.9 MCH 32.0 H MCHC 34.1 RDW 11.9 L Plt Count 436 MPV 7.0 L Neut # (Auto) 12.6 H Lymph # (Auto) 2.2 [place] # (Auto) 0.9 Eos # (Auto) 0.5 Baso # (Auto) 0.1 Absolute Nucleated RBC 0.01 Nucleated RBC % 0.1 Sodium 137 Potassium 3.9 Chloride 107 Carbon Dioxide 16 L Anion Gap 14.0 H BUN 14 Creatinine 0.9 Estimated GFR (MDRD) 78 L Glucose 160 H Calcium 9.3 Total Bilirubin 0.8 AST 19 ALT 16 Alkaline Phosphatase 53 Troponin I < 0.04 Total Protein 8.0 Albumin 3.8 Globulin 4.2 Albumin/Globulin Ratio 0.9 L Lipase 25 Urine Color Urine Clarity Urine pH Ur Specific [place] Urine Protein Urine Glucose (UA) Urine Ketones Urine Occult Blood Urine Nitrite Urine Bilirubin Urine Urobilinogen Ur Leukocyte Esterase Urine RBC Urine WBC Ur Squamous Epith Cells Urine Bacteria Ur Microscopic Review Urine Culture Comments Urine HCG, Qual Urine Opiates Screen Ur Oxycodone Screen Urine Methadone Screen Ur Propoxyphene Screen Ur Barbiturates Screen Ur Tricyclics Screen Ur Phencyclidine Scrn Ur Amphetamine Screen U Methamphetamines Scrn U Benzodiazepines Scrn Urine Cocaine Screen U Cannabinoids Screen 12/16/18 11:10 WBC RBC Hgb Hct MCV MCH MCHC RDW Plt Count MPV Neut # (Auto) Lymph # (Auto) [place] # (Auto) Eos # (Auto) Baso # (Auto) Absolute Nucleated RBC Nucleated RBC % Sodium Potassium Chloride Carbon Dioxide Anion Gap BUN Creatinine Estimated GFR (MDRD) Glucose Calcium Total Bilirubin AST ALT Alkaline Phosphatase Troponin I Total Protein Albumin Globulin Albumin/Globulin Ratio Lipase Urine Color YELLOW Urine Clarity CLEAR Urine pH 7.5 Ur Specific [place] 1.015 Urine Protein NEGATIVE Urine Glucose (UA) NEGATIVE Urine Ketones 15 H Urine Occult Blood SMALL H Urine Nitrite NEGATIVE Urine Bilirubin NEGATIVE Urine Urobilinogen 0.2 (NORMAL) Ur Leukocyte Esterase NEGATIVE Urine RBC 0-5 Urine WBC 0-3 Ur Squamous Epith Cells FEW Squamous Urine Bacteria Few Ur Microscopic Review INDICATED Urine Culture Comments NOT INDICATED Urine HCG, Qual Urine Opiates Screen Ur Oxycodone Screen Urine Methadone Screen Ur Propoxyphene Screen Ur Barbiturates Screen Ur Tricyclics Screen Ur Phencyclidine Scrn Ur Amphetamine Screen U Methamphetamines Scrn U Benzodiazepines Scrn Urine Cocaine Screen U Cannabinoids Screen Procedures - IVC sono (time) 0920 Bedside IVC sono: IVC measures (cm) (1.22), IVC collapsed c insp (cm) (complet e), Dehydration (est 1 liter deficit) PD MEDICAL DECISION MAKING - ED course Complexity details: considered differential, d/w patient ED course: 23-year-old female with a history of cannabis hyperemesis has awoken this morning with vomiting and abdominal pain she comes into the emergency department with anxiety retching loudly and she is mildly dehydrated on interrogation of the inferior vena cava she is administered saline morphine and Phenergan as well as Ativan.The patient does have some improvement in her pain and nausea and vomiting. She does acknowledge cannabis hyperemesis and I have discussed with her difficulty stopping cannabis and that the older adult social work specialist has given her some resources for treating cannabis use disorder. Departure - Departure Disposition: 01 Home, Self Care Clinical Impression: Cannabinoid hyperemesis syndrome, Cannabis use disorder, moderate, dependence Condition: Stable Instructions: ED Nausea Vomiting, ED Diet Vomiting Diarrhea Follow-Up: [facility] [Provider Group] Prescriptions: Ondansetron Odt [Zofran] 4 mg TL Q6H PRN #10 tablet PRN Reason: Nausea / Vomiting Promethazine [Phenergan] 25 - 50 mg PO Q6H PRN #10 tab PRN Reason: Nausea / Vomiting
[2018-12-16] MEDS ORDERED: SODIUM CHLORIDE 0.9% 1,000 ML IV ONE (09:28)
[2018-12-16] MEDS ORDERED: PROMETHAZINE INJ 25 MG in SODIUM CHLORIDE 0.9% 50 ML IV STA (09:35)
[2018-12-16] MEDS ORDERED: MORPHINE 2 MG/ML CARPUJECT IVP STA (09:35)
[2018-12-16 09:36] LABS: BASOPHILS # (AUTO) 0.1 10^3/uL (0.0-0.1); BASOPHILS % (AUTO) 0.8 %; EOSINOPHILS # (AUTO) 0.5 10^3/uL (0.0-0.7); EOSINOPHILS % (AUTO) 3.1 %; HGB - HEMOGLOBIN 14.5 g/dL (12.0-16.0); LYMPHOCYTES # (AUTO) 2.2 10^3/uL (1.5-3.5); LYMPHOCYTES % (AUTO) 13.4 %; MEAN CORPUSCULAR HGB CONC 34.1 g/dL (32.0-36.0); MEAN CORPUSCULAR VOLUME 93.9 fL (81.0-99.0); MONOCYTES # (AUTO) 0.9 10^3/uL (0.0-1.0); MONOCYTES % (AUTO) 5.3 %; NEUTROPHILS # (AUTO) 12.6 10^3/uL (1.5-6.6); NEUTROPHILS % (AUTO) 77.4 %; PLT - PLATELET COUNT 436 10^3/uL (130-450); RED BLOOD COUNT 4.52 10^6/uL (4.20-5.40); RED CELL DISTRIBUTION WIDTH 11.9 % (12.0-15.0); WHITE BLOOD COUNT 16.3 x10^3/uL (4.8-10.8)
[2018-12-16] MEDS ORDERED: LORazepam 2 MG/ML VIAL IVP STA (09:36)
[2018-12-16 09:37] LABS: MUDS CUTOFF CONCENTRATIONS CUTOFF CONC BELOW:
[2018-12-16 09:43] LABS: CLARITY,URINE HAZY (CLEAR); LEUKOCYTE ESTERASE, URINE TRACE (NEGATIVE); NITRITE,URINE NEGATIVE (NEGATIVE); PROTEIN,URINE NEGATIVE (NEGATIVE); UROBILINOGEN,URINE 0.2 (NORMAL) E.U./dL (NORMAL)
[2018-12-16 09:44] LABS: BILIRUBIN,URINE NEGATIVE (NEGATIVE); GLUCOSE, URINE (UA) NEGATIVE (NEGATIVE); ICTOTEST,URINE NEGATIVE; KETONES,URINE (UA) TRACE mg/dL (NEGATIVE); OCCULT BLOOD,URINE LARGE (NEGATIVE)
[2018-12-16 09:45] LABS: HCG UR QUAL NEGATIVE
[2018-12-16 09:45] LABS: ALBUMIN 3.8 g/dL (3.2-5.5); ALBUMIN/GLOBULIN RATIO 0.9 (1.0-2.2); BILIRUBIN,TOTAL 0.8 mg/dL (0.2-1.0); CALCIUM 9.3 mg/dL (8.5-10.3); CREATININE 0.9 mg/dL (0.4-1.0)
[2018-12-16 09:50] LABS: AMPHETAMINE SCREEN,URINE NEGATIVE (NEGATIVE); BENZODIAZEPINES SCREEN, URINE NEGATIVE (NEGATIVE); COCAINE SCREEN URINE NEGATIVE (NEGATIVE); METHADONE SCREEN, URINE NEGATIVE (NEGATIVE); METHAMPHETAMINES SCREEN, URINE NEGATIVE (NEGATIVE); OPIATE SCREEN, URINE NEGATIVE (NEGATIVE); OXYCODONE SCREEN, URINE NEGATIVE (NEGATIVE); PROPOXYPHENE SCREEN, URINE NEGATIVE (NEGATIVE); TRICYCLIC ANTIDEPRESSANT,URINE NEGATIVE (NEGATIVE)
[2018-12-16 09:54] LABS: BACTERIA,URINE Moderate /HPF (None Seen); RBC,URINE 0-5 /HPF (0-5); SQUAMOUS EPITHELIAL CELL,UR MOD Squamous (<= Few)
[2018-12-16] MEDS ORDERED: ONDANSETRON 4 MG/2 ML VIAL IVP STA (10:16)
[2018-12-16] MEDS ORDERED: MORPHINE 10 MG/ML VIAL IVP STA (11:06)
[2018-12-16] MEDS ORDERED: cefTRIAXone 1 GM in SODIUM CHLORIDE 0.9% MINIBAG 100 ML IV STA (11:06)
[2018-12-16 11:20] LABS: BILIRUBIN,URINE NEGATIVE (NEGATIVE); GLUCOSE, URINE (UA) NEGATIVE (NEGATIVE); KETONES,URINE (UA) 15 mg/dL (NEGATIVE); LEUKOCYTE ESTERASE, URINE NEGATIVE (NEGATIVE); NITRITE,URINE NEGATIVE (NEGATIVE); OCCULT BLOOD,URINE SMALL (NEGATIVE); PH,URINE 7.5 PH (5.0-7.5); PROTEIN,URINE NEGATIVE (NEGATIVE); UROBILINOGEN,URINE 0.2 (NORMAL) E.U./dL (NORMAL)
[2018-12-16 11:21] LABS: CLARITY,URINE CLEAR (CLEAR)
[2018-12-16] MEDS ORDERED: cefTRIAXone 1 GM VIAL ONE (11:25)
[2018-12-16 11:34] LABS: BACTERIA,URINE Few /HPF (None Seen); RBC,URINE 0-5 /HPF (0-5); SQUAMOUS EPITHELIAL CELL,UR FEW Squamous (<= Few)
[2018-12-16 12:14] VITALS: BP 121/73
== END 2018-12-16 12:15 | disposition home or self-care (01) ==
LOC: ED 08:29
DX: T40.7X1A Poisoning by cannabis (derivatives), accidental (unintentional), initial encounter (principal); R11.2 Nausea with vomiting, unspecified; F12.288 Cannabis dependence with other cannabis-induced disorder; E86.0 Dehydration; R10.9 Unspecified abdominal pain; F41.9 Anxiety disorder, unspecified
CPT/HCPCS: 36415; 80053; 80306; 81001; 81025; 83690; 84484; 85025; 96365; 96366; 96367; 96375; 96376; 99284; J2060; J7040; 81003; 87086

== ENCOUNTER 2019-01-16 16:49 | Emergency (ER) | payer MEDICAID ==
[2019-01-16] MEDS ORDERED: LORazepam 2 MG/ML VIAL IVP STA (17:09)
[2019-01-16] MEDS ORDERED: HALOPERIDOL 5 MG/ML VIAL IVP STA (17:09)
[2019-01-16] MEDS ORDERED: MORPHINE 2 MG/ML CARPUJECT IVP STA (17:09)
[2019-01-16] MEDS ORDERED: PROMETHAZINE INJ 25 MG in SODIUM CHLORIDE 0.9% 50 ML IV STA (17:09)
[2019-01-16] MEDS ORDERED: SODIUM CHLORIDE 0.9% 1,000 ML IV ONE (17:09)
[2019-01-16 17:25] LABS: BASOPHILS # (AUTO) 0.2 10^3/uL (0.0-0.1); BASOPHILS % (AUTO) 1.4 %; EOSINOPHILS # (AUTO) 0.4 10^3/uL (0.0-0.7); EOSINOPHILS % (AUTO) 3.2 %; HGB - HEMOGLOBIN 14.4 g/dL (12.0-16.0); LYMPHOCYTES # (AUTO) 2.8 10^3/uL (1.5-3.5); LYMPHOCYTES % (AUTO) 24.9 %; MEAN CORPUSCULAR HEMOGLOBIN 31.5 pg (27.0-31.0); MEAN CORPUSCULAR HGB CONC 33.4 g/dL (32.0-36.0); MEAN CORPUSCULAR VOLUME 94.3 fL (81.0-99.0); MEAN PLATELET VOLUME 8.7 fL (7.9-10.8); MONOCYTES % (AUTO) 8.6 %; NEUTROPHILS # (AUTO) 6.9 10^3/uL (1.5-6.6); NEUTROPHILS % (AUTO) 61.5 %; PLT - PLATELET COUNT 381 10^3/uL (130-450); RED BLOOD COUNT 4.57 10^6/uL (4.20-5.40); RED CELL DISTRIBUTION WIDTH 11.6 % (12.0-15.0); WHITE BLOOD COUNT 11.2 x10^3/uL (4.8-10.8)
[2019-01-16 17:36] LABS: ALBUMIN 4.3 g/dL (3.2-5.5); ALBUMIN/GLOBULIN RATIO 1.2 (1.0-2.2); BILIRUBIN,TOTAL 0.8 mg/dL (0.2-1.0); CALCIUM 9.7 mg/dL (8.5-10.3); CREATININE 0.9 mg/dL (0.4-1.0); TOTAL PROTEIN 7.9 g/dL (6.7-8.2)
[2019-01-16 17:47] LABS: BILIRUBIN,URINE NEGATIVE (NEGATIVE); GLUCOSE, URINE (UA) NEGATIVE (NEGATIVE); KETONES,URINE (UA) NEGATIVE (NEGATIVE); LEUKOCYTE ESTERASE, URINE NEGATIVE (NEGATIVE); NITRITE,URINE NEGATIVE (NEGATIVE); OCCULT BLOOD,URINE MODERATE (NEGATIVE); PH,URINE 6.5 PH (5.0-7.5); PROTEIN,URINE NEGATIVE (NEGATIVE); UROBILINOGEN,URINE 0.2 (NORMAL) E.U./dL (NORMAL)
[2019-01-16 17:51] LABS: CLARITY,URINE HAZY (CLEAR); HCG UR QUAL NEGATIVE
[2019-01-16 17:59] LABS: BACTERIA,URINE Rare /HPF (None Seen); RBC,URINE 0-5 /HPF (0-5); SQUAMOUS EPITHELIAL CELL,UR MOD Squamous (<= Few)
--- NOTE | 2019-01-16 18:07 | ED Physician Documentation ---
History of Present Illness - Stated complaint Stated Complaint: VOMITING - Chief complaint Chief Complaint: General - History obtained from History obtained from: Patient, Family - History of Present Illness Timing: Today Pain level max: 10 Pain level now: 10 - Additonal information Additional information: 23-year-old female with a history of cyclical vomiting/cannabinoid induced hyperemesis presents to the emergency department with vomiting today that started at work. Also complains of diffuse abdominal pain. She sees a GI physician in [place]. She is out of her her medications currently. No fevers. Nothing makes it better or worse. 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 : None HEENT: None Psych: Anxiety Musculoskeletal: None Derm: None - Past Surgical History Past Surgical History: Yes General: EGD HEENT: Myringotomy (tubes) - Present Medications Home Medications: Ambulatory Orders Medication Instructions Recorded Confirmed Promethazine Supp [Phenergan Supp] 25 mg [place] Q6H PRN #10 supp 08/06/18 Promethazine [Phenergan] 25 mg PO Q6H PRN #10 tab 09/09/18 Control Patch 11/02/18 Ondansetron Odt [Zofran] 4 mg TL Q6H PRN #10 tablet 11/02/18 LORazepam [Lorazepam] 0.5 - 1 mg PO TID PRN #10 tablet 11/03/18 Albuterol Sulf [Ventolin Hfa 1 - 2 puffs INH Q4HR PRN #1 inhaler 12/09/18 Inhaler] Promethazine [Phenergan] 25 mg PO Q6H PRN #10 tab 12/09/18 hydrOXYzine pamoate [Hydroxyzine 1 - 2 tab PO Q6H PRN #20 capsule 12/09/18 Pamoate] Ondansetron Odt [Zofran] 4 mg TL Q6H PRN #10 tablet 12/16/18 Promethazine [Phenergan] 25 - 50 mg PO Q6H PRN #10 tab 12/16/18 LORazepam [Ativan] 1 mg PO Q8H PRN #7 tablet 01/16/19 Ondansetron Odt [Zofran] 4 mg TL Q6H PRN #10 tablet 01/16/19 Promethazine [Phenergan] 25 mg PO Q6H PRN #10 tab 01/16/19 - Allergies Allergies/Adverse Reactions: Allergies Allergy/AdvReac Type Severity Reaction Status Date / Time No Known Drug Allergies Allergy Verified 01/16/19 16:54 - Social History Does the pt smoke?: No Smoking Status: Never smoker Does the pt drink ETOH?: No Does the pt have substance abuse?: Yes Substance Use and Type: Marijuana - Immunizations Immunizations are current?: Yes - POLST Patient has POLST: No PD ED PE NORMAL - Vitals Vital signs reviewed: Yes - General General: Alert and oriented X 3, No acute distress, Well developed/nourished - HEENT HEENT: PERRL, Moist mucous membranes - Neck Neck: Supple, no meningeal sign - Cardiac Cardiac: RRR, Strong equal pulses - Respiratory Respiratory: No respiratory distress, Clear bilaterally - Abdomen Abdomen: Soft, Non tender, Non distended - Derm Derm: Warm and dry, No rash - Extremities Extremities: No edema - Neuro Neuro: Alert and oriented X 3 - Psych Psych: Normal mood, Normal affect Results - Vitals Vitals: Vital Signs - 24 hr 01/16/19 01/16/19 16:52 18:48 Temperature 36.6 C Heart Rate 97 73 Respiratory 18 18 Rate Blood Pressure 142/107 H 113/77 O2 Saturation 99 99 Oxygen O2 Source Room air - Labs Labs: Laboratory Tests 01/16/19 01/16/19 01/16/19 16:55 17:18 17:18 WBC 11.2 H RBC 4.57 Hgb 14.4 Hct 43.1 MCV 94.3 MCH 31.5 H MCHC 33.4 RDW 11.6 L Plt Count 381 MPV 8.7 Neut # (Auto) 6.9 H Lymph # (Auto) 2.8 [place] # (Auto) 1.0 Eos # (Auto) 0.4 Baso # (Auto) 0.2 H Absolute Nucleated RBC 0.00 Nucleated RBC % 0.0 Sodium 138 Potassium 3.6 Chloride 105 Carbon Dioxide 18 L Anion Gap 15.0 H BUN 12 Creatinine 0.9 Estimated GFR (MDRD) 78 L Glucose 106 H Calcium 9.7 Total Bilirubin 0.8 AST 21 ALT 12 Alkaline Phosphatase 51 Total Protein 7.9 Albumin 4.3 Globulin 3.6 Albumin/Globulin Ratio 1.2 Lipase 25 Urine Color YELLOW Urine Clarity HAZY Urine pH 6.5 Ur Specific [place] 1.015 Urine Protein NEGATIVE Urine Glucose (UA) NEGATIVE Urine Ketones NEGATIVE Urine Occult Blood MODERATE H Urine Nitrite NEGATIVE Urine Bilirubin NEGATIVE Urine Urobilinogen 0.2 (NORMAL) Ur Leukocyte Esterase NEGATIVE Urine RBC 0-5 Urine WBC 4-5 Ur Squamous Epith Cells MOD Squamous H Urine Bacteria Rare Ur Microscopic Review INDICATED Urine Culture Comments NOT INDICATED Urine HCG, Qual NEGATIVE PD MEDICAL DECISION MAKING - ED course Complexity details: reviewed results, re-evaluated patient, considered differential, d/w patient ED course: Patient is out of her normal medications at home. Will refill Zofran, Phenergan and Ativan for her. Patient received Haldol, Ativan, Phenergan and morphine as well as IV fluids. Symptoms resolved. Tolerating p.o. without difficulty. Patient is well-appearing, nontoxic. This is a typical episode for her. Patient counseled regarding signs and symptoms for which I believe and urgent re-evaluation would be necessary. Patient with good understanding of and agreement to plan and is comfortable going home at this time This document was made in part using voice recognition software. While efforts are made to proofread this document, sound alike and grammatical errors may occur. Departure - Departure Disposition: 01 Home, Self Care Clinical Impression: Vomiting Qualifiers: Vomiting type: unspecified Vomiting Intractability: non-intractable Nausea presence: with nausea Qualified Code(s): R11.2 - Nausea with vomiting, unspecified Condition: Good Health Concerns: vomiting Plan of Treatment: medications Care Goals: improve condition Assessment: improved Instructions: ED Nausea Vomiting Follow-Up: Josh Johnson PA-C [Primary Care Provider] - Within 1 week Prescriptions: LORazepam [Ativan] 1 mg PO Q8H PRN #7 tablet PRN Reason: Anxiety Ondansetron Odt [Zofran] 4 mg TL Q6H PRN #10 tablet PRN Reason: Nausea / Vomiting Promethazine [Phenergan] 25 mg PO Q6H PRN #10 tab PRN Reason: Nausea / Vomiting Comments: Go home and rest. Return if you worsen. Do not drive or operate heavy machinery while taking the Phenergan Forms: Activity restrictions Discharge Date/Time: 01/16/19 18:56
[2019-01-16 18:48] VITALS: BP 113/77
== END 2019-01-16 18:56 | disposition home or self-care (01) ==
LOC: ED 16:49
DX: R11.2 Nausea with vomiting, unspecified (principal); Z76.0 Encounter for issue of repeat prescription
CPT/HCPCS: 36415; 80053; 81001; 81025; 83690; 85025; 96365; 96375; 99283; J2060; J7040; 81003; 87086

== ENCOUNTER 2019-02-27 13:07 | Emergency (ER) | payer MEDICAID ==
[2019-02-27] MEDS ORDERED: SODIUM CHLORIDE 0.9% 1,000 ML IV STA (13:27)
[2019-02-27] MEDS ORDERED: LORazepam 2 MG/ML VIAL IVP STA (13:28)
[2019-02-27] MEDS ORDERED: HALOPERIDOL 5 MG/ML VIAL IVP STA ×2 (13:28→14:18)
[2019-02-27] MEDS ORDERED: MORPHINE 2 MG/ML CARPUJECT IVP STA (13:28)
[2019-02-27] MEDS ORDERED: PROMETHAZINE INJ 25 MG in SODIUM CHLORIDE 0.9% 50 ML IV STA (13:28)
[2019-02-27 13:37] LABS: BASOPHILS # (AUTO) 0.2 10^3/uL (0.0-0.1); BASOPHILS % (AUTO) 1.4 %; EOSINOPHILS # (AUTO) 0.1 10^3/uL (0.0-0.7); EOSINOPHILS % (AUTO) 0.9 %; HGB - HEMOGLOBIN 14.4 g/dL (12.0-16.0); LYMPHOCYTES # (AUTO) 2.5 10^3/uL (1.5-3.5); LYMPHOCYTES % (AUTO) 23.2 %; MEAN CORPUSCULAR VOLUME 94.5 fL (81.0-99.0); MONOCYTES # (AUTO) 0.8 10^3/uL (0.0-1.0); MONOCYTES % (AUTO) 7.6 %; NEUTROPHILS % (AUTO) 66.5 %; PLT - PLATELET COUNT 324 10^3/uL (130-450); RED BLOOD COUNT 4.36 10^6/uL (4.20-5.40); RED CELL DISTRIBUTION WIDTH 11.2 % (12.0-15.0); WHITE BLOOD COUNT 10.6 x10^3/uL (4.8-10.8)
[2019-02-27] MEDS ORDERED: ONDANSETRON 4 MG/2 ML VIAL IVP STA (13:46)
--- NOTE | 2019-02-27 13:46 | ED Physician Documentation ---
PD HPI ABD PAIN - Stated complaint Stated Complaint: ABD PX/DIFFICULTY BREATHING - Chief complaint Chief Complaint: Abd Pain - History obtained from History obtained from: Patient - History of Present Illness Timing - onset: Yesterday Timing - duration: Days (2) Timing - details: Gradual onset Pain level max: 9 Pain level now: 9 Quality: Cramping, Aching, Pain Location: All over / everywhere Radiation: No: Chest, , Lower back, Left flank, Left shoulder, Right flank, Right shoulder, Upper back Improved by: Vomiting Worsened by: Eating Associated symptoms: Nausea, Vomiting. No: Fever, Hematemesis, Diarrhea, Constipation, Melena, Hematochezia Recently seen: Emergency Dept (several times in the past for same) - Additional information Additional information: chronic abd pain with vomiting Review of Systems Constitutional: denies: Fever, Chills Cardiac: denies: Chest pain / pressure Respiratory: denies: Cough GI: reports: Nausea, Vomiting : denies: Now EGA Skin: denies: Rash Musculoskeletal: denies: Neck pain, Back pain Neurologic: denies: Headache PD PAST MEDICAL HISTORY - Past Medical History Cardiovascular: None Respiratory: Asthma Neuro: None Endocrine/Autoimmune: None GI: Other 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 : None HEENT: None Psych: Anxiety Musculoskeletal: None Derm: None - Past Surgical History Past Surgical History: Yes General: EGD HEENT: Myringotomy (tubes) - Present Medications Home Medications: Ambulatory Orders Medication Instructions Recorded Confirmed Promethazine Supp [Phenergan Supp] 25 mg [place] Q6H PRN #10 supp 08/06/18 Promethazine [Phenergan] 25 mg PO Q6H PRN #10 tab 09/09/18 Control Patch 11/02/18 Ondansetron Odt [Zofran] 4 mg TL Q6H PRN #10 tablet 11/02/18 LORazepam [Lorazepam] 0.5 - 1 mg PO TID PRN #10 tablet 11/03/18 Albuterol Sulf [Ventolin Hfa 1 - 2 puffs INH Q4HR PRN #1 inhaler 12/09/18 Inhaler] Promethazine [Phenergan] 25 mg PO Q6H PRN #10 tab 12/09/18 hydrOXYzine pamoate [Hydroxyzine 1 - 2 tab PO Q6H PRN #20 capsule 12/09/18 Pamoate] Ondansetron Odt [Zofran] 4 mg TL Q6H PRN #10 tablet 12/16/18 Promethazine [Phenergan] 25 - 50 mg PO Q6H PRN #10 tab 12/16/18 LORazepam [Ativan] 1 mg PO Q8H PRN #7 tablet 01/16/19 Ondansetron Odt [Zofran] 4 mg TL Q6H PRN #10 tablet 01/16/19 Promethazine [Phenergan] 25 mg PO Q6H PRN #10 tab 01/16/19 Ondansetron Odt [Zofran] 4 mg TL Q6H PRN #10 tablet 02/27/19 Promethazine [Phenergan] 25 mg PO Q6H PRN #10 tab 02/27/19 - Allergies Allergies/Adverse Reactions: Allergies Allergy/AdvReac Type Severity Reaction Status Date / Time No Known Drug Allergies Allergy Verified 02/27/19 13:13 - Social History Does the pt smoke?: No Smoking Status: Never smoker Does the pt drink ETOH?: No Does the pt have substance abuse?: Yes - Immunizations Immunizations are current?: Yes - POLST Patient has POLST: No PD ED PE NORMAL - Vitals Vital signs reviewed: Yes - General General: Alert and oriented X 3, No acute distress, Well developed/nourished - HEENT HEENT: PERRL, Moist mucous membranes - Neck Neck: Supple, no meningeal sign - Cardiac Cardiac: RRR, Strong equal pulses - Respiratory Respiratory: No respiratory distress, Clear bilaterally - Abdomen Abdomen: Soft, Non tender, Non distended - Derm Derm: Warm and dry - Extremities Extremities: No edema - Neuro Neuro: Alert and oriented X 3 - Psych Psych: Normal mood, Normal affect Results - Vitals Vitals: Oxygen O2 Source Room air - Labs Labs: Laboratory Tests 02/27/19 02/27/19 02/27/19 13:19 13:19 13:19 WBC RBC Hgb Hct MCV MCH MCHC RDW Plt Count MPV Neut # (Auto) Lymph # (Auto) [place] # (Auto) Eos # (Auto) Baso # (Auto) Absolute Nucleated RBC Nucleated RBC % Sodium Potassium Chloride Carbon Dioxide Anion Gap BUN Creatinine Estimated GFR (MDRD) Glucose Calcium Total Bilirubin AST ALT Alkaline Phosphatase Total Protein Albumin Globulin Albumin/Globulin Ratio Lipase Urine Color DARK YELLOW Urine Clarity HAZY Urine pH 6.0 Ur Specific [place] 1.025 1.025 Urine Protein NEGATIVE Urine Glucose (UA) NEGATIVE Urine Ketones NEGATIVE Urine Occult Blood NEGATIVE Urine Nitrite NEGATIVE Urine Bilirubin NEGATIVE Urine Urobilinogen 0.2 (NORMAL) Ur Leukocyte Esterase TRACE H Urine RBC 0-5 Urine WBC 11-25 H Ur Squamous Epith Cells MOD Squamous H Urine Bacteria Moderate H Ur Microscopic Review INDICATED Urine Culture Comments NOT INDICATED Urine HCG, Qual NEGATIVE Urine Opiates Screen NEGATIVE Ur Oxycodone Screen NEGATIVE Urine Methadone Screen NEGATIVE Ur Propoxyphene Screen NEGATIVE Ur Barbiturates Screen NEGATIVE Ur Tricyclics Screen NEGATIVE Ur Phencyclidine Scrn NEGATIVE Ur Amphetamine Screen NEGATIVE U Methamphetamines Scrn NEGATIVE U Benzodiazepines Scrn POSITIVE H Urine Cocaine Screen NEGATIVE U Cannabinoids Screen POSITIVE H 02/27/19 02/27/19 13:27 13:27 WBC 10.6 RBC 4.36 Hgb 14.4 Hct 41.2 MCV 94.5 MCH 33.0 H MCHC 35.0 RDW 11.2 L Plt Count 324 MPV 9.0 Neut # (Auto) 7.0 H Lymph # (Auto) 2.5 [place] # (Auto) 0.8 Eos # (Auto) 0.1 Baso # (Auto) 0.2 H Absolute Nucleated RBC 0.00 Nucleated RBC % 0.0 Sodium 138 Potassium 3.6 Chloride 107 Carbon Dioxide 14 L Anion Gap 17.0 H BUN 15 Creatinine 1.0 Estimated GFR (MDRD) 69 L Glucose 142 H Calcium 9.5 Total Bilirubin 1.0 AST 18 ALT 11 Alkaline Phosphatase 42 Total Protein 7.4 Albumin 4.1 Globulin 3.3 Albumin/Globulin Ratio 1.2 Lipase 21 L Urine Color Urine Clarity Urine pH Ur Specific [place] Urine Protein Urine Glucose (UA) Urine Ketones Urine Occult Blood Urine Nitrite Urine Bilirubin Urine Urobilinogen Ur Leukocyte Esterase Urine RBC Urine WBC Ur Squamous Epith Cells Urine Bacteria Ur Microscopic Review Urine Culture Comments Urine HCG, Qual Urine Opiates Screen Ur Oxycodone Screen Urine Methadone Screen Ur Propoxyphene Screen Ur Barbiturates Screen Ur Tricyclics Screen Ur Phencyclidine Scrn Ur Amphetamine Screen U Methamphetamines Scrn U Benzodiazepines Scrn Urine Cocaine Screen U Cannabinoids Screen PD MEDICAL DECISION MAKING - ED course Complexity details: reviewed old records, reviewed results, re-evaluated patient, considered differential, d/w patient, d/w family ED course: 23-year-old female with likely cannabinoid induced hyperemesis. Given Zofran, Phenergan, Ativan, a small dose of morphine and haloperidol. She feels much better and would like to go home at this time. Also given IV fluids. Tolerating p.o. without difficulty. Counseled to stop using marijuana. Patient counseled regarding signs and symptoms for which I believe and urgent re- evaluation would be necessary. Patient with good understanding of and agreement to plan and is comfortable going home at this time This document was made in part using voice recognition software. While efforts are made to proofread this document, sound alike and grammatical errors may occur. Departure - Departure Disposition: 01 Home, Self Care Clinical Impression: Recurrent abdominal pain, Cannabinoid hyperemesis syndrome, Vomiting Condition: Good Instructions: ED Abdominal Pain Unkn Cause Follow-Up: Josh Johnson PA-C [Primary Care Provider] - Within 1 week Prescriptions: Ondansetron Odt [Zofran] 4 mg TL Q6H PRN #10 tablet PRN Reason: Nausea / Vomiting Promethazine [Phenergan] 25 mg PO Q6H PRN #10 tab PRN Reason: Nausea / Vomiting Comments: Follow up with your doctor for further care. It is recommended that you stop using marijuana. Discharge Date/Time: 02/27/19 15:39
[2019-02-27 13:51] LABS: BILIRUBIN,URINE NEGATIVE (NEGATIVE); GLUCOSE, URINE (UA) NEGATIVE (NEGATIVE); KETONES,URINE (UA) NEGATIVE (NEGATIVE); LEUKOCYTE ESTERASE, URINE TRACE (NEGATIVE); NITRITE,URINE NEGATIVE (NEGATIVE); OCCULT BLOOD,URINE NEGATIVE (NEGATIVE); PROTEIN,URINE NEGATIVE (NEGATIVE); UROBILINOGEN,URINE 0.2 (NORMAL) E.U./dL (NORMAL)
[2019-02-27 13:51] LABS: ALBUMIN 4.1 g/dL (3.2-5.5); ALBUMIN/GLOBULIN RATIO 1.2 (1.0-2.2); CALCIUM 9.5 mg/dL (8.5-10.3); TOTAL PROTEIN 7.4 g/dL (6.7-8.2)
[2019-02-27 13:53] LABS: MUDS CUTOFF CONCENTRATIONS CUTOFF CONC BELOW:
[2019-02-27 13:57] LABS: CLARITY,URINE HAZY (CLEAR); HCG UR QUAL NEGATIVE
[2019-02-27 14:06] LABS: AMPHETAMINE SCREEN,URINE NEGATIVE (NEGATIVE); BENZODIAZEPINES SCREEN, URINE POSITIVE (NEGATIVE); COCAINE SCREEN URINE NEGATIVE (NEGATIVE); METHADONE SCREEN, URINE NEGATIVE (NEGATIVE); METHAMPHETAMINES SCREEN, URINE NEGATIVE (NEGATIVE); OPIATE SCREEN, URINE NEGATIVE (NEGATIVE); OXYCODONE SCREEN, URINE NEGATIVE (NEGATIVE); PROPOXYPHENE SCREEN, URINE NEGATIVE (NEGATIVE); TRICYCLIC ANTIDEPRESSANT,URINE NEGATIVE (NEGATIVE)
[2019-02-27 14:12] LABS: BACTERIA,URINE Moderate /HPF (None Seen); RBC,URINE 0-5 /HPF (0-5); SQUAMOUS EPITHELIAL CELL,UR MOD Squamous (<= Few)
[2019-02-27] MEDS ORDERED: SODIUM CHLORIDE 0.9% 1,000 ML IV ONE (14:32)
[2019-02-27 15:41] VITALS: BP 129/74
== END 2019-02-27 15:39 | disposition home or self-care (01) ==
LOC: ED 13:07
DX: F12.188 Cannabis abuse with other cannabis-induced disorder (principal)
CPT/HCPCS: 36415; 80053; 80306; 81001; 81025; 83690; 85025; 96361; 96365; 96375; 99284; 99285; J2060; J7040; 81003; 87086

== ENCOUNTER 2019-04-03 14:50 | Outpatient (CLI) | payer MEDICAID | END 2019-04-03 14:51 | disposition critical access hospital (66) | LOC: EMS 14:50 | PROVIDERS: ATTEND Surgery | DX: R11.2 Nausea with vomiting, unspecified (principal) | CPT/HCPCS: A0425; A0427; A0999 ==

== ENCOUNTER 2019-04-03 14:57 | Emergency (ER) | payer MEDICAID ==
[2019-04-03] MEDS ORDERED: HALOPERIDOL 5 MG/ML VIAL IVP STA (15:22)
[2019-04-03] MEDS ORDERED: PROMETHAZINE INJ 25 MG in SODIUM CHLORIDE 0.9% 50 ML IV STA (15:22)
[2019-04-03] MEDS ORDERED: ONDANSETRON 4 MG/2 ML VIAL IVP STA (15:22)
[2019-04-03] MEDS ORDERED: LORazepam 2 MG/ML VIAL IVP STA (15:22)
[2019-04-03] MEDS ORDERED: SODIUM CHLORIDE 0.9% 1,000 ML IV ONE (15:22)
[2019-04-03 15:41] LABS: BASOPHILS # (AUTO) 0.2 10^3/uL (0.0-0.1); EOSINOPHILS % (AUTO) 0.2 %; LYMPHOCYTES # (AUTO) 1.4 10^3/uL (1.5-3.5); LYMPHOCYTES % (AUTO) 9.3 %; MEAN CORPUSCULAR HEMOGLOBIN 31.7 pg (27.0-31.0); MEAN CORPUSCULAR HGB CONC 34.1 g/dL (32.0-36.0); MONOCYTES # (AUTO) 0.6 10^3/uL (0.0-1.0); MONOCYTES % (AUTO) 4.3 %; NEUTROPHILS # (AUTO) 12.5 10^3/uL (1.5-6.6); NEUTROPHILS % (AUTO) 84.9 %; PLT - PLATELET COUNT 343 10^3/uL (130-450); RED BLOOD COUNT 4.41 10^6/uL (4.20-5.40); RED CELL DISTRIBUTION WIDTH 11.4 % (12.0-15.0); WHITE BLOOD COUNT 14.8 x10^3/uL (4.8-10.8)
--- NOTE | 2019-04-03 15:45 | ED Physician Documentation ---
History of Present Illness - Stated complaint Stated Complaint: N/V - Chief complaint Chief Complaint: Abd Pain - History obtained from History obtained from: Patient, Family - History of Present Illness Timing: Today Pain level max: 8 Pain level now: 8 - Additonal information Additional information: 23-year-old female with chronic abdominal pain and vomiting. Started vomiting again today. Nothing makes it better or worse. Has had many emergency department visits in the past for same. nothing makes it better or worse. Review of Systems Constitutional: denies: Fever, Chills Respiratory: denies: Dyspnea, Cough GI: reports: Nausea, Vomiting. 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 : None HEENT: None Psych: Anxiety Musculoskeletal: None Derm: None - Past Surgical History Past Surgical History: Yes General: EGD HEENT: Myringotomy (tubes) - Present Medications Home Medications: Ambulatory Orders Medication Instructions Recorded Confirmed Control Patch 11/02/18 LORazepam [Lorazepam] 0.5 - 1 mg PO TID PRN #10 tablet 11/03/18 Albuterol Sulf [Ventolin Hfa 1 - 2 puffs INH Q4HR PRN #1 inhaler 12/09/18 Inhaler] Promethazine [Phenergan] 25 mg PO Q6H PRN #10 tab 12/09/18 hydrOXYzine pamoate [Hydroxyzine 1 - 2 tab PO Q6H PRN #20 capsule 12/09/18 Pamoate] Ondansetron Odt [Zofran] 4 mg TL Q6H PRN #10 tablet 12/16/18 Promethazine [Phenergan] 25 - 50 mg PO Q6H PRN #10 tab 12/16/18 LORazepam [Ativan] 1 mg PO Q8H PRN #7 tablet 01/16/19 Ondansetron Odt [Zofran] 4 mg TL Q6H PRN #10 tablet 01/16/19 Promethazine [Phenergan] 25 mg PO Q6H PRN #10 tab 01/16/19 Ondansetron Odt [Zofran] 4 mg TL Q6H PRN #10 tablet 02/27/19 Promethazine [Phenergan] 25 mg PO Q6H PRN #10 tab 02/27/19 Ondansetron Odt [Zofran Odt] 4 mg TL Q6H PRN #10 tablet 04/03/19 Promethazine Supp [Phenergan Supp] 25 mg [place] Q6H PRN #10 supp 04/03/19 Promethazine [Phenergan] 25 mg PO Q6H PRN #10 tab 04/03/19 - Allergies Allergies/Adverse Reactions: Allergies Allergy/AdvReac Type Severity Reaction Status Date / Time No Known Drug Allergies Allergy Verified 02/27/19 13:13 - Social History Does the pt smoke?: No Smoking Status: Never smoker Does the pt drink ETOH?: No Does the pt have substance abuse?: Yes - Immunizations Immunizations are current?: Yes - POLST Patient has POLST: No PD ED PE NORMAL - Vitals Vital signs reviewed: Yes - General General: Alert and oriented X 3, No acute distress, Well developed/nourished - HEENT HEENT: Moist mucous membranes - Neck Neck: Supple, no meningeal sign - Cardiac Cardiac: RRR, Strong equal pulses - Respiratory Respiratory: No respiratory distress, Clear bilaterally - Abdomen Abdomen: Soft, Non tender, Non distended - Back Back: No spinal TTP - Derm Derm: Warm and dry - Extremities Extremities: No edema, No calf tenderness / cord - Neuro Neuro: Alert and oriented X 3 - Psych Psych: Normal mood, Normal affect Results - Vitals Vitals: Oxygen O2 Source Room air - Labs Labs: Laboratory Tests 04/03/19 04/03/19 04/03/19 15:35 15:35 16:50 WBC 14.8 H RBC 4.41 Hgb 14.0 Hct 41.0 MCV 93.0 MCH 31.7 H MCHC 34.1 RDW 11.4 L Plt Count 343 MPV 9.0 Neut # (Auto) 12.5 H Lymph # (Auto) 1.4 L [place] # (Auto) 0.6 Eos # (Auto) 0.0 Baso # (Auto) 0.2 H Absolute Nucleated RBC 0.00 Nucleated RBC % 0.0 Sodium 140 Potassium 3.5 Chloride 107 Carbon Dioxide 19 L Anion Gap 14.0 H BUN 15 Creatinine 1.1 H Estimated GFR (MDRD) 62 L Glucose 172 H Calcium 10.0 Total Bilirubin 0.6 AST 16 ALT 12 Alkaline Phosphatase 42 Total Protein 8.0 Albumin 4.4 Globulin 3.6 Albumin/Globulin Ratio 1.2 Lipase 26 Urine Color YELLOW Urine Clarity CLEAR Urine pH 8.0 H Ur Specific [place] 1.015 Urine Protein NEGATIVE Urine Glucose (UA) NEGATIVE Urine Ketones 40 H Urine Occult Blood NEGATIVE Urine Nitrite NEGATIVE Urine Bilirubin NEGATIVE Urine Urobilinogen 0.2 (NORMAL) Ur Leukocyte Esterase NEGATIVE Ur Microscopic Review NOT INDICATED Urine Culture Comments NOT INDICATED Urine HCG, Qual 04/03/19 16:50 WBC RBC Hgb Hct MCV MCH MCHC RDW Plt Count MPV Neut # (Auto) Lymph # (Auto) [place] # (Auto) Eos # (Auto) Baso # (Auto) Absolute Nucleated RBC Nucleated RBC % Sodium Potassium Chloride Carbon Dioxide Anion Gap BUN Creatinine Estimated GFR (MDRD) Glucose Calcium Total Bilirubin AST ALT Alkaline Phosphatase Total Protein Albumin Globulin Albumin/Globulin Ratio Lipase Urine Color Urine Clarity Urine pH Ur Specific [place] 1.015 Urine Protein Urine Glucose (UA) Urine Ketones Urine Occult Blood Urine Nitrite Urine Bilirubin Urine Urobilinogen Ur Leukocyte Esterase Ur Microscopic Review Urine Culture Comments Urine HCG, Qual NEGATIVE PD MEDICAL DECISION MAKING - ED course Complexity details: reviewed old records, reviewed results, re-evaluated patient, considered differential, d/w patient, d/w family ED course: 23-year-old female with chronic abdominal pain and vomiting. Feels better after medications and is tolerating p.o. without difficulty. She received her usual medications here. Also given IV fluids. Would like to go home at this time. We will refill her Zofran and Phenergan for her. Patient counseled regarding signs and symptoms for which I believe and urgent re-evaluation would be necessary. Patient with good understanding of and agreement to plan and is comfortable going home at this time This document was made in part using voice recognition software. While efforts are made to proofread this document, sound alike and grammatical errors may occur. Departure - Departure Disposition: 01 Home, Self Care Clinical Impression: Cannabinoid hyperemesis syndrome, Vomiting Condition: Good Instructions: ED Nausea Vomiting Follow-Up: Josh Johnson PA-C [Primary Care Provider] - Within 1 week Prescriptions: Ondansetron Odt [Zofran Odt] 4 mg TL Q6H PRN #10 tablet PRN Reason: Nausea / Vomiting Promethazine [Phenergan] 25 mg PO Q6H PRN #10 tab PRN Reason: Nausea / Vomiting Promethazine Supp [Phenergan Supp] 25 mg [place] Q6H PRN #10 supp PRN Reason: vomiting Comments: Follow-up with your doctor for further care. Return if you worsen. Discharge Date/Time: 04/03/19 18:19
[2019-04-03 15:57] LABS: ALBUMIN 4.4 g/dL (3.2-5.5); ALBUMIN/GLOBULIN RATIO 1.2 (1.0-2.2); BILIRUBIN,TOTAL 0.6 mg/dL (0.2-1.0); CREATININE 1.1 mg/dL (0.4-1.0)
[2019-04-03 17:07] LABS: BILIRUBIN,URINE NEGATIVE (NEGATIVE); GLUCOSE, URINE (UA) NEGATIVE (NEGATIVE); KETONES,URINE (UA) 40 mg/dL (NEGATIVE); LEUKOCYTE ESTERASE, URINE NEGATIVE (NEGATIVE); NITRITE,URINE NEGATIVE (NEGATIVE); OCCULT BLOOD,URINE NEGATIVE (NEGATIVE); PROTEIN,URINE NEGATIVE (NEGATIVE); UROBILINOGEN,URINE 0.2 (NORMAL) E.U./dL (NORMAL)
[2019-04-03 17:10] LABS: CLARITY,URINE CLEAR (CLEAR)
[2019-04-03 17:11] LABS: HCG UR QUAL NEGATIVE
[2019-04-03 18:12] VITALS: BP 140/96
== END 2019-04-03 18:19 | disposition home or self-care (01) ==
LOC: EDUNIT# → ED 14:57
DX: T40.7X1A Poisoning by cannabis (derivatives), accidental (unintentional), initial encounter (principal); R11.2 Nausea with vomiting, unspecified; F12.188 Cannabis abuse with other cannabis-induced disorder
CPT/HCPCS: 36415; 80053; 81003; 81025; 83690; 85025; 96365; 96375; 99284; J2060; J7040; 81001; 87086

== ENCOUNTER 2019-04-06 12:36 | Emergency (ER) | payer MEDICAID ==
[2019-04-06 12:43] VITALS: BP 112/68
--- NOTE | 2019-04-06 12:58 | ED Physician Documentation ---
PD HPI ABD PAIN - Stated complaint Stated Complaint: ABD PX - Chief complaint Chief Complaint: Abd Pain - History obtained from History obtained from: Patient - History of Present Illness Timing - onset: Yesterday (This is a very well-known 23-year-old woman to us, she has recurrent visits for cannabinoid hyperemesis. Since her last visit 2 days ago at which time she had a negative test she is developed some mild to moderate bilateral lower pelvic pain without nausea. This is different than her cannabinoid hyperemesis symptoms. She denies discharge or bleeding. She is had dyspareunia with it. She is been a little constipated. No fevers. No changes in appetite.) Review of Systems Constitutional: denies: Fever, Chills Cardiac: denies: Chest pain / pressure, Palpitations GI: reports: Abdominal Pain. 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 : None HEENT: None Psych: Anxiety Musculoskeletal: None Derm: None - Past Surgical History Past Surgical History: Yes General: EGD HEENT: Myringotomy (tubes) - Present Medications Home Medications: Ambulatory Orders Medication Instructions Recorded Confirmed Control Patch 11/02/18 LORazepam [Lorazepam] 0.5 - 1 mg PO TID PRN #10 tablet 11/03/18 Albuterol Sulf [Ventolin Hfa 1 - 2 puffs INH Q4HR PRN #1 inhaler 12/09/18 Inhaler] Promethazine [Phenergan] 25 mg PO Q6H PRN #10 tab 12/09/18 hydrOXYzine pamoate [Hydroxyzine 1 - 2 tab PO Q6H PRN #20 capsule 12/09/18 Pamoate] Ondansetron Odt [Zofran] 4 mg TL Q6H PRN #10 tablet 12/16/18 Promethazine [Phenergan] 25 - 50 mg PO Q6H PRN #10 tab 12/16/18 LORazepam [Ativan] 1 mg PO Q8H PRN #7 tablet 01/16/19 Ondansetron Odt [Zofran] 4 mg TL Q6H PRN #10 tablet 01/16/19 Promethazine [Phenergan] 25 mg PO Q6H PRN #10 tab 01/16/19 Ondansetron Odt [Zofran] 4 mg TL Q6H PRN #10 tablet 02/27/19 Promethazine [Phenergan] 25 mg PO Q6H PRN #10 tab 02/27/19 Ondansetron Odt [Zofran Odt] 4 mg TL Q6H PRN #10 tablet 04/03/19 Promethazine Supp [Phenergan Supp] 25 mg [place] Q6H PRN #10 supp 04/03/19 Promethazine [Phenergan] 25 mg PO Q6H PRN #10 tab 04/03/19 Meloxicam [Mobic] 7.5 mg PO BID PRN #20 tablet 04/06/19 - Allergies Allergies/Adverse Reactions: Allergies Allergy/AdvReac Type Severity Reaction Status Date / Time No Known Drug Allergies Allergy Verified 02/27/19 13:13 - Social History Does the pt smoke?: No Smoking Status: Never smoker Does the pt drink ETOH?: No Does the pt have substance abuse?: Yes - Immunizations Immunizations are current?: Yes - POLST Patient has POLST: No PD ED PE NORMAL - Vitals Vital signs reviewed: Yes - General General: Alert and oriented X 3, Other (Somewhat atypical for her, she looks very comfortable, there is no retching.) - Abdomen Abdomen: Normal bowel sounds, Soft, Non tender - Neuro Neuro: Alert and oriented X 3, Normal speech - Psych Psych: Normal mood, Normal affect Results - Vitals Vitals: Vital Signs - 24 hr 04/06/19 12:41 Temperature 36.8 C Heart Rate 83 Respiratory 18 Rate Blood Pressure 112/68 O2 Saturation 100 Oxygen O2 Source Room air PD MEDICAL DECISION MAKING - ED course ED course: 23-year-old woman presents with pelvic pain, there is no associated discharge or bleeding. She is midcycle. She had a negative test 2 days ago. This is most consistent with ovarian cyst or mittelschmerz. Her LMP was 2 weeks ago. There is no abdominal tenderness. We discussed ultrasonography and labs which she declined, mostly she needed a work note. Departure - Departure Disposition: 01 Home, Self Care Clinical Impression: Pelvic pain Condition: Good Record reviewed to determine appropriate education?: Yes Instructions: ED Pelvic Pain [facility] Prescriptions: Meloxicam [Mobic] 7.5 mg PO BID PRN #20 tablet PRN Reason: Pain Comments: DISCUSSED IT SEEMS THAT THIS NEW PELVIC PAIN IS LIKELY CONSISTENT WITH OVARIAN CYST. RETURN IF PAIN WORSENS, IF YOU DEVELOP A FEVER. OTHERWISE FOLLOWUP WITH YOUR BRAND MARKETING MANAGER. Forms: Activity restrictions
[2019-04-06 20:50] LABS: TRICHOMONAS VAGINALIS DNA NEGATIVE (NEGATIVE)
== END 2019-04-06 13:12 | disposition home or self-care (01) ==
LOC: ED 12:36
DX: R10.2 Pelvic and perineal pain (principal); R11.0 Nausea
CPT/HCPCS: 87491; 87591; 87661; 99283

== ENCOUNTER 2019-04-17 05:53 | Outpatient (CLI) | payer MEDICAID | END 2019-04-17 05:54 | disposition critical access hospital (66) | LOC: EMS 05:53 | PROVIDERS: ATTEND Surgery | DX: R11.10 Vomiting, unspecified (principal); R10.9 Unspecified abdominal pain | CPT/HCPCS: A0425; A0429; A0999 ==

== ENCOUNTER 2019-04-17 06:07 | Emergency (ER) | payer MEDICAID ==
--- NOTE | 2019-04-17 07:03 | ED Physician Documentation ---
PD HPI NVD - Stated complaint Stated Complaint: VOMITING - Chief complaint Chief Complaint: Abd Pain - History obtained from History obtained from: Patient - History of Present Illness Timing - onset: Today Timing - duration: Hours (couple) Timing - details: Abrupt onset, Still present Associated symptoms: Abdominal pain, Loss of appetite. No: Fever, Near syncope / syncope, Weight loss, Dysuria Contributing factors: Other (cannibis use). No: Sick contact, Bad food, Travel, Recent antibiotics, Alcohol use Improved by: No: Vomiting Worsened by: Eating Similar symptoms before: Diagnosis (cyclic vomiting; likely cannibis hy peremesis) Review of Systems Constitutional: denies: Fever, Chills Nose: denies: Rhinorrhea / runny nose, Congestion Throat: denies: Sore throat Respiratory: denies: Cough GI: reports: Abdominal Pain, Nausea, Vomiting. denies: Constipation, Diarrhea : denies: Dysuria, Discharge Neurologic: reports: Generalized weakness. 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 : None HEENT: None Psych: Anxiety Musculoskeletal: None Derm: None - Past Surgical History Past Surgical History: Yes General: EGD HEENT: Myringotomy (tubes) - Present Medications Home Medications: Ambulatory Orders Medication Instructions Recorded Confirmed Control Patch 11/02/18 LORazepam [Lorazepam] 0.5 - 1 mg PO TID PRN #10 tablet 11/03/18 Albuterol Sulf [Ventolin Hfa 1 - 2 puffs INH Q4HR PRN #1 inhaler 12/09/18 Inhaler] Promethazine [Phenergan] 25 mg PO Q6H PRN #10 tab 12/09/18 hydrOXYzine pamoate [Hydroxyzine 1 - 2 tab PO Q6H PRN #20 capsule 12/09/18 Pamoate] Ondansetron Odt [Zofran] 4 mg TL Q6H PRN #10 tablet 12/16/18 Promethazine [Phenergan] 25 - 50 mg PO Q6H PRN #10 tab 12/16/18 LORazepam [Ativan] 1 mg PO Q8H PRN #7 tablet 01/16/19 Ondansetron Odt [Zofran] 4 mg TL Q6H PRN #10 tablet 01/16/19 Promethazine [Phenergan] 25 mg PO Q6H PRN #10 tab 01/16/19 Ondansetron Odt [Zofran] 4 mg TL Q6H PRN #10 tablet 02/27/19 Promethazine [Phenergan] 25 mg PO Q6H PRN #10 tab 02/27/19 Ondansetron Odt [Zofran Odt] 4 mg TL Q6H PRN #10 tablet 04/03/19 Promethazine Supp [Phenergan Supp] [address] Q6H PRN #10 supp 04/03/19 Promethazine [Phenergan] 25 mg PO Q6H PRN #10 tab 04/03/19 Meloxicam [Mobic] 7.5 mg PO BID PRN #20 tablet 04/06/19 Promethazine Supp [Phenergan Supp] [address] Q6H PRN #10 supp 04/17/19 Promethazine [Phenergan] 25 mg PO Q6H PRN #25 tab 04/17/19 - Allergies Allergies/Adverse Reactions: Allergies Allergy/AdvReac Type Severity Reaction Status Date / Time No Known Drug Allergies Allergy Verified 02/27/19 13:13 - Social History Does the pt smoke?: No Smoking Status: Never smoker Does the pt drink ETOH?: No Does the pt have substance abuse?: Yes - Immunizations Immunizations are current?: Yes - POLST Patient has POLST: No PD ED PE NORMAL - Vitals Vital signs reviewed: Yes - General General: Alert and oriented X 3, Well developed/nourished, Other (considerable discomfort, repetitive nonproductive vomiting. ) - HEENT HEENT: Pharynx benign - Neck Neck: Supple, no meningeal sign, No adenopathy - Cardiac Cardiac: RRR, No murmur - Respiratory Respiratory: Clear bilaterally - Abdomen Abdomen: Non distended. No: Normal bowel sounds (decreased) - Female Female : Deferred - Rectal Rectal: Deferred - Back Back: No CVA TTP - Derm Derm: Warm and dry. No: Normal color (pale) Results - Vitals Vitals: Vital Signs - 24 hr 04/17/19 04/17/19 04/17/19 06:09 06:16 08:33 Temperature 36.5 C 36.6 C Heart Rate 100 94 82 Respiratory 29 H 17 18 Rate Blood Pressure 139/117 H 120/80 124/72 O2 Saturation 100 100 99 Oxygen O2 Source Room air - Labs Labs: Laboratory Tests 04/17/19 06:21 Sodium 137 Potassium 3.7 Chloride 108 Carbon Dioxide 15 L Anion Gap 14.0 H BUN 13 Creatinine 0.9 Estimated GFR (MDRD) 78 L Glucose 143 H Calcium 9.5 Magnesium 1.9 Total Bilirubin 1.0 AST 18 ALT 12 Alkaline Phosphatase 37 L Total Protein 7.7 Albumin 4.0 Globulin 3.7 Albumin/Globulin Ratio 1.1 Lipase 49 PD MEDICAL DECISION MAKING - ED course Complexity details: reviewed old records, re-evaluated patient (improved with meds), considered differential (similar to many prior episodes. Will give Ativan, Haldol, and Dilaudid - has worked well in past many times. ), d/w patient Departure - Departure Disposition: 01 Home, Self Care Clinical Impression: Abdominal pain Cyclical vomiting with nausea Qualifiers: Vomiting Intractability: intractable Qualified Code(s): G43.A1 - Cyclical vomiting, intractable Condition: Stable Record reviewed to determine appropriate education?: Yes Follow-Up: Josh Johnson PA-C [Primary Care Provider] - Prescriptions: Promethazine [Phenergan] 25 mg PO Q6H PRN #25 tab PRN Reason: Nausea / Vomiting Promethazine Supp [Phenergan Supp] [address] Q6H PRN #10 supp PRN Reason: Nausea / Vomiting Comments: Small frequent fluids today at home. Progress diet as tolerated. Promethazine as needed for recurrent nausea and vomiting, use either orally or suppository. Return as needed. Discharge Date/Time: 04/17/19 09:30
[2019-04-17] MEDS ORDERED: SODIUM CHLORIDE 0.9% 1,000 ML IV ONE (07:06)
[2019-04-17] MEDS ORDERED: HYDROmorphone 2 MG/ML VIAL IVP STA (07:10)
[2019-04-17] MEDS ORDERED: HALOPERIDOL 5 MG/ML VIAL IVP ONE (07:10)
[2019-04-17] MEDS ORDERED: LORazepam 2 MG/ML VIAL IVP STA (07:10)
[2019-04-17 07:55] LABS: ALBUMIN/GLOBULIN RATIO 1.1 (1.0-2.2); CALCIUM 9.5 mg/dL (8.5-10.3); CREATININE 0.9 mg/dL (0.4-1.0); MAGNESIUM 1.9 mg/dL (1.7-2.8); TOTAL PROTEIN 7.7 g/dL (6.7-8.2)
[2019-04-17 08:33] VITALS: BP 124/72
== END 2019-04-17 09:30 | disposition home or self-care (01) ==
LOC: EDUNIT# → ED 06:07
DX: G43.A1 Cyclical vomiting, in migraine, intractable (principal); R10.9 Unspecified abdominal pain
CPT/HCPCS: 36415; 80053; 83690; 83735; 96361; 96374; 96375; 99283; 99284; J1170; J2060

== ENCOUNTER 2019-05-02 17:48 | Outpatient (CLI) | payer MEDICAID | END 2019-05-02 17:49 | disposition critical access hospital (66) | LOC: EMS 17:48 | PROVIDERS: ATTEND Surgery | DX: F41.9 Anxiety disorder, unspecified (principal); R11.2 Nausea with vomiting, unspecified; R10.9 Unspecified abdominal pain | CPT/HCPCS: A0425; A0427; A0999 ==

== ENCOUNTER 2019-05-02 18:12 | Emergency (ER) | payer MEDICAID ==
[2019-05-02] MEDS ORDERED: SODIUM CHLORIDE 0.9% 1,000 ML IV ONE (18:15)
[2019-05-02] MEDS ORDERED: LORazepam 2 MG/ML VIAL IVP STA (18:15)
[2019-05-02] MEDS ORDERED: MORPHINE 10 MG/ML VIAL IVP STA (18:15)
--- NOTE | 2019-05-02 18:17 | ED Physician Documentation ---
History of Present Illness - Stated complaint Stated Complaint: ANXIETY - History obtained from History obtained from: Patient - History of Present Illness Timing: Yesterday (23-year-old woman with history of cannabinoid hyperemesis syndrome. I saw her recently she said she had a quit date, but never did quit smoking marijuana. Since yesterday she has had epigastric pain vomiting and anxiety similar to prior episodes of cannabinoid hyperemesis.) Review of Systems Ten Systems: 10 systems reviewed and negative Constitutional: reports: Sweats. denies: Fever, Chills Respiratory: denies: Dyspnea, Cough GI: reports: Abdominal Pain, Nausea, Vomiting. 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 : None HEENT: None Psych: Anxiety Musculoskeletal: None Derm: None - Past Surgical History Past Surgical History: Yes General: EGD HEENT: Myringotomy (tubes) - Present Medications Home Medications: Ambulatory Orders Medication Instructions Recorded Confirmed Norelgestromin/Ethin.estradiol 05/02/19 [Xulane Patch] Ondansetron Odt [Zofran] 4 mg TL Q6H PRN #10 tablet 05/02/19 Promethazine [Phenergan] 25 mg PO Q6H PRN #10 tab 05/02/19 - Allergies Allergies/Adverse Reactions: Allergies Allergy/AdvReac Type Severity Reaction Status Date / Time No Known Drug Allergies Allergy Verified 05/02/19 18:19 - Social History Does the pt smoke?: No Smoking Status: Never smoker Does the pt drink ETOH?: No Does the pt have substance abuse?: Yes - Immunizations Immunizations are current?: Yes - POLST Patient has POLST: No PD ED PE NORMAL - Vitals Vital signs reviewed: Yes - General General: Alert and oriented X 3, Other (She is hyperventilating and anxious) - HEENT HEENT: PERRL, EOMI - Neck Neck: Supple, no meningeal sign, No bony TTP - Cardiac Cardiac: RRR, No murmur - Respiratory Respiratory: No respiratory distress, Clear bilaterally - Abdomen Abdomen: Normal bowel sounds, Soft, Non tender - Back Back: No CVA TTP, No spinal TTP - Derm Derm: Normal color, Warm and dry - Extremities Extremities: No edema, No calf tenderness / cord - Neuro Neuro: Alert and oriented X 3, Normal speech Results - Vitals Vitals: Vital Signs - 24 hr 05/02/19 05/02/19 05/02/19 18:15 19:36 20:36 Temperature 36.6 C Heart Rate 92 93 96 Respiratory 18 12 16 Rate Blood Pressure 146/96 H 131/101 H 133/92 H O2 Saturation 100 98 99 Oxygen O2 Source Room air - Labs Labs: Laboratory Tests 05/02/19 05/02/19 18:25 19:32 Sodium 139 Potassium 4.1 Chloride 106 Carbon Dioxide 19 L Anion Gap 14.0 H BUN 20 Creatinine 1.0 Estimated GFR (MDRD) 69 L Glucose 153 H Calcium 9.4 Total Bilirubin 1.0 AST 19 ALT 11 Alkaline Phosphatase 41 L Total Protein 7.9 Albumin 4.4 Globulin 3.5 Albumin/Globulin Ratio 1.3 Lipase 25 Urine Color YELLOW Urine Clarity HAZY Urine pH 7.0 Ur Specific [place] 1.020 Urine Protein NEGATIVE Urine Glucose (UA) NEGATIVE Urine Ketones 15 H Urine Occult Blood TRACE-INTA Urine Nitrite NEGATIVE Urine Bilirubin NEGATIVE Urine Urobilinogen 0.2 (NORMAL) Ur Leukocyte Esterase TRACE H Urine RBC 6-10 H Urine WBC 6-10 H Ur Squamous Epith Cells FEW Squamous Urine Bacteria Rare Ur Microscopic Review INDICATED Urine Culture Comments INDICATED Urine HCG, Qual NEGATIVE PD MEDICAL DECISION MAKING - ED course ED course: 23-year-old woman who is a "frequent flyer" to this emergency department for symptoms due to cannabinoid hyperemesis syndrome. She had recent plans to stop using cannabis, but these plans did not come to fruition. She presents with an exacerbation of same which is treated stepwise with medications here with relief. Departure - Departure Disposition: 01 Home, Self Care Clinical Impression: Cannabinoid hyperemesis syndrome Condition: Good Record reviewed to determine appropriate education?: Yes Instructions: ED Nausea Vomiting Prescriptions: Ondansetron Odt [Zofran] 4 mg TL Q6H PRN #10 tablet PRN Reason: Nausea / Vomiting Promethazine [Phenergan] 25 mg PO Q6H PRN #10 tab PRN Reason: Nausea / Vomiting Comments: I recommend stopping marijuana use. Return for new or worsening symptoms. Discharge Date/Time: 05/02/19 20:43
[2019-05-02] MEDS ORDERED: HALOPERIDOL 5 MG/ML VIAL IVP ONE (18:35)
[2019-05-02 18:45] LABS: ALBUMIN 4.4 g/dL (3.2-5.5); ALBUMIN/GLOBULIN RATIO 1.3 (1.0-2.2); CALCIUM 9.4 mg/dL (8.5-10.3); TOTAL PROTEIN 7.9 g/dL (6.7-8.2)
[2019-05-02] MEDS ORDERED: METOCLOPRAMIDE 10 MG/2 ML VIAL IVP STA (19:14)
[2019-05-02 19:41] LABS: BILIRUBIN,URINE NEGATIVE (NEGATIVE); GLUCOSE, URINE (UA) NEGATIVE (NEGATIVE); KETONES,URINE (UA) 15 mg/dL (NEGATIVE); LEUKOCYTE ESTERASE, URINE TRACE (NEGATIVE); NITRITE,URINE NEGATIVE (NEGATIVE); OCCULT BLOOD,URINE TRACE-INTA (NEGATIVE); PROTEIN,URINE NEGATIVE (NEGATIVE); UROBILINOGEN,URINE 0.2 (NORMAL) E.U./dL (NORMAL)
[2019-05-02 19:44] LABS: CLARITY,URINE HAZY (CLEAR); HCG UR QUAL NEGATIVE
[2019-05-02 19:55] LABS: SQUAMOUS EPITHELIAL CELL,UR FEW Squamous (<= Few)
[2019-05-02 19:56] LABS: BACTERIA,URINE Rare /HPF (None Seen)
[2019-05-02 20:39] VITALS: BP 133/92
== END 2019-05-02 20:43 | disposition home or self-care (01) ==
LOC: EDUNIT# → ED 18:12
DX: T40.7X1A Poisoning by cannabis (derivatives), accidental (unintentional), initial encounter (principal); R11.2 Nausea with vomiting, unspecified; F12.188 Cannabis abuse with other cannabis-induced disorder; F41.9 Anxiety disorder, unspecified
CPT/HCPCS: 36415; 80053; 81001; 81025; 83690; 87086; 96361; 96374; 96375; 99284; 99285; J2060; J2765; 81003

== ENCOUNTER 2019-05-04 12:35 | Emergency (ER) | payer MEDICAID ==
[2019-05-04 12:58] VITALS: BP 130/99
== END 2019-05-04 13:10 | disposition left against medical advice (07) ==
LOC: ED 12:35
DX: Z53.21 Procedure and treatment not carried out due to patient leaving prior to being seen by health care provider (principal)
CPT/HCPCS: 80053; 83690; 85025

== ENCOUNTER 2019-05-04 13:37 | Outpatient (CLI) | payer MEDICAID | END 2019-05-04 13:38 | disposition critical access hospital (66) | LOC: EMS 13:37 | PROVIDERS: ATTEND Surgery | DX: R11.2 Nausea with vomiting, unspecified (principal); R10.10 Upper abdominal pain, unspecified | CPT/HCPCS: A0425; A0427 ==

== ENCOUNTER 2019-05-04 13:47 | Emergency (ER) | payer MEDICAID ==
--- NOTE | 2019-05-04 15:05 | ED Physician Documentation ---
PD HPI NVD - Stated complaint Stated Complaint: ABD PX/ VOMITING - Chief complaint Chief Complaint: Abd Pain - History obtained from History obtained from: Patient - History of Present Illness Timing - onset: Yesterday Timing - duration: Days (07/27) Timing - details: Abrupt onset, Still present Associated symptoms: Abdominal pain, Dysuria (couple days ago). No: Fever, Near syncope / syncope Contributing factors: Other (Patient is well-known to the department for recurrent visits presumedly related to cannabis hyperemesis. She does feel improvement with showers. The common medications for it to help her and she resolves fairly promptly with medications. She does use cannabis regularly. She had typical symptom onset yesterday that has persisted into today.). No: Sick contact, Bad food Improved by: Other (warm showers). No: Vomiting Worsened by: Eating Similar symptoms before: Diagnosis (Cannabis hyperemesis) Recently seen: Emergency Dept Review of Systems Constitutional: denies: Fever, Chills Nose: denies: Rhinorrhea / runny nose, Congestion Throat: denies: Sore throat Respiratory: denies: Cough GI: reports: Abdominal Pain, Nausea, Vomiting. denies: Abdominal Swelling, Constipation, Diarrhea : reports: Dysuria (couple days ago). denies: Discharge Neurologic: reports: Generalized weakness. 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 : None HEENT: None Psych: Anxiety Musculoskeletal: None Derm: None - Past Surgical History Past Surgical History: Yes General: EGD HEENT: Myringotomy (tubes) - Present Medications Home Medications: Ambulatory Orders Medication Instructions Recorded Confirmed Norelgestromin/Ethin.estradiol 05/02/19 [Xulane Patch] Ondansetron Odt [Zofran] 4 mg TL Q6H PRN #10 tablet 05/02/19 Promethazine [Phenergan] 25 mg PO Q6H PRN #10 tab 05/02/19 Prochlorperazine Supp [Compazine 25 mg OR BID PRN #15 supp 05/04/19 Supp] - Allergies Allergies/Adverse Reactions: Allergies Allergy/AdvReac Type Severity Reaction Status Date / Time No Known Drug Allergies Allergy Verified 05/02/19 18:19 - Social History Does the pt smoke?: No Smoking Status: Never smoker Does the pt drink ETOH?: No Does the pt have substance abuse?: Yes - Immunizations Immunizations are current?: Yes - POLST Patient has POLST: No PD ED PE NORMAL - Vitals Vital signs reviewed: Yes - General General: Alert and oriented X 3, Well developed/nourished, Other (She is in distress and anxious and appears in considerable abdominal pain.) - HEENT HEENT: Pharynx benign - Neck Neck: Supple, no meningeal sign, No adenopathy - Cardiac Cardiac: No murmur. No: RRR (regular but tachycardic) - Respiratory Respiratory: Clear bilaterally - Abdomen Abdomen: Non distended, Other (Mid abdominal market tenderness with some levels. She has guarding to palpation. There is no percussion tenderness.). No: Normal bowel sounds (increased) - Back Back: No CVA TTP - Derm Derm: Normal color, Warm and dry - Neuro Neuro: Alert and oriented X 3, No motor deficit, Normal speech Results - Vitals Vitals: Vital Signs - 24 hr 05/04/19 05/04/19 13:50 17:01 Temperature 36.6 C Heart Rate 104 H 87 Respiratory 18 17 Rate Blood Pressure 142/94 H 118/85 H O2 Saturation 98 98 Oxygen O2 Source Room air - Labs Labs: Laboratory Tests 05/04/19 17:02 Urine Color YELLOW Urine Clarity CLEAR Urine pH 6.5 Ur Specific [place] 1.015 Urine Protein NEGATIVE Urine Glucose (UA) NEGATIVE Urine Ketones 40 H Urine Occult Blood TRACE-LYSE Urine Nitrite NEGATIVE Urine Bilirubin NEGATIVE Urine Urobilinogen 0.2 (NORMAL) Ur Leukocyte Esterase NEGATIVE Ur Microscopic Review NOT INDICATED Urine Culture Comments NOT INDICATED Urine HCG, Qual NEGATIVE PD MEDICAL DECISION MAKING - ED course Complexity details: reviewed old records, re-evaluated patient (Improved with IV medications.), considered differential (Symptoms consistent with her typical presentation of the cannabis hyperemesis. We can check a urine as she said she had some dysuria couple of days ago.), d/w patient Departure - Departure Disposition: 01 Home, Self Care Clinical Impression: Cannabinoid hyperemesis syndrome Nausea and vomiting Qualifiers: Vomiting type: unspecified Vomiting Intractability: intractable Qualified Code(s): R11.2 - Nausea with vomiting, unspecified Condition: Stable Record reviewed to determine appropriate education?: Yes Follow-Up: Josh Johnson PA-C [Primary Care Provider] - Prescriptions: Prochlorperazine Supp [Compazine Supp] 25 mg OR BID PRN #15 supp PRN Reason: Nausea / Vomiting Comments: Stop cannabis use. Antiemetics as needed. Small frequent fluids today and progress diet as able.
[2019-05-04] MEDS ORDERED: SODIUM CHLORIDE 0.9% 1,000 ML IV ONE (15:10)
[2019-05-04] MEDS ORDERED: HYDROmorphone 1 MG/ML CARPUJECT IVP STA (15:10)
[2019-05-04] MEDS ORDERED: HALOPERIDOL 5 MG/ML VIAL IVP ONE (15:11)
[2019-05-04] MEDS ORDERED: LORazepam 2 MG/ML VIAL IVP STA (15:11)
[2019-05-04 17:18] LABS: BILIRUBIN,URINE NEGATIVE (NEGATIVE); GLUCOSE, URINE (UA) NEGATIVE (NEGATIVE); KETONES,URINE (UA) 40 mg/dL (NEGATIVE); LEUKOCYTE ESTERASE, URINE NEGATIVE (NEGATIVE); NITRITE,URINE NEGATIVE (NEGATIVE); OCCULT BLOOD,URINE TRACE-LYSE (NEGATIVE); PH,URINE 6.5 PH (5.0-7.5); PROTEIN,URINE NEGATIVE (NEGATIVE); UROBILINOGEN,URINE 0.2 (NORMAL) E.U./dL (NORMAL)
[2019-05-04 17:23] LABS: CLARITY,URINE CLEAR (CLEAR); HCG UR QUAL NEGATIVE
[2019-05-04 18:13] VITALS: BP 103/68
== END 2019-05-04 18:12 | disposition home or self-care (01) ==
LOC: EDUNIT# → ED 13:47
DX: T40.7X1A Poisoning by cannabis (derivatives), accidental (unintentional), initial encounter (principal); R11.2 Nausea with vomiting, unspecified; F12.188 Cannabis abuse with other cannabis-induced disorder
CPT/HCPCS: 81003; 81025; 96374; 96375; 99283; 99284; J1170; J2060; 80053; 81001; 83690; 85025; 87086

== ENCOUNTER 2019-05-05 08:00 | Outpatient (CLI) | payer MEDICAID ==
[2019-05-05 22:52] LABS: CANDIDA KRUSEI DNA NEGATIVE (NEGATIVE); TRICHOMONAS VAGINALIS DNA NEGATIVE (NEGATIVE)
[2019-05-05 22:53] LABS: CANDIDA GROUP DNA NEGATIVE (NEGATIVE)
[2019-05-08 11:01] LABS: TRICHOMONAS VAGINALIS DNA INDETERMINATE (NEGATIVE)
== END 2019-05-05 23:59 ==
LOC: LAB.S 08:00
PROVIDERS: ATTEND Obstetrics & Gynecology
DX: R10.2 Pelvic and perineal pain (principal)
CPT/HCPCS: 87491; 87591; 87661; 87801

== ENCOUNTER 2019-05-26 07:46 | Outpatient (CLI) | payer MEDICAID ==
--- NOTE | 2019-05-26 09:18 | Ultrasound Report ---
Reason: PELVIC PAIN Procedure Date: 05/26/2019 Accession Number: [id number] / [id number] Procedure: US - Pelvic w/Transvaginal CPT Code: Final Report FULL RESULT: EXAM: PELVIC ULTRASOUND EXAM DATE: 05/26/2019 08:31 AM. CLINICAL HISTORY: PELVIC PAIN. Right pelvic pain, and dyspareunia, recent history of vaginitis per patient. COMPARISON: None. TECHNIQUE: Realtime transabdominal pelvic scan performed to identify the uterus and adnexa and as an overview of other pelvic structures, followed by transvaginal scan to provide greater detail of the uterus and adnexa, with static image documentation. FINDINGS: Uterus: 7.9 x 3.5 x 5.4 cm, volume 78 cc. Anteverted position. Mildly inhomogeneous without focal lesion. There is apparent thickening of the posterior myometrium. Masses: None. Endometrium: 4 mm. Normal. Cervix: Unremarkable. Right Ovary: 3.0 x 1.8 x 1.6 cm, volume 4.5 cc. Normal echotexture and blood flow. Left Ovary: 2.4 x 1.3 x 2.7 cm, volume 4.2 cc. Normal echotexture and blood flow. Free Fluid: Trace free pelvic fluid may be physiologic. Possible debris in the urinary bladder. Other: None. IMPRESSION: 1. Inhomogeneous myometrium with apparent focal thickening posteriorly, could reflect focal adenomyosis or possibly fibroid change. MR could be considered for further evaluation, at clinician discretion. 2. Ovaries are unremarkable. 3. Nonspecific trace free pelvic fluid may be physiologic. 4. Possible debris in the urinary bladder. Suggest correlation with urinalysis. RADIA
== END 2019-05-26 07:47 | disposition home or self-care (01) ==
LOC: DI 07:46
PROVIDERS: ATTEND Obstetrics & Gynecology
DX: R93.89 Abnormal findings on diagnostic imaging of other specified body structures (principal)
CPT/HCPCS: 76830; 76856

== ENCOUNTER 2019-06-02 08:00 | Outpatient (CLI) | payer MEDICAID ==
[2019-06-02 20:51] LABS: TRICHOMONAS VAGINALIS DNA NEGATIVE (NEGATIVE)
== END 2019-06-02 23:59 ==
LOC: LAB.R 08:00
PROVIDERS: ATTEND Obstetrics & Gynecology
DX: R10.2 Pelvic and perineal pain (principal)
CPT/HCPCS: 87077; 87086; 87181; 87491; 87591; 87661

== ENCOUNTER 2019-06-27 13:59 | Emergency (ER) | payer MEDICAID ==
[2019-06-27 14:46] LABS: BASOPHILS # (AUTO) 0.2 10^3/uL (0.0-0.1); BASOPHILS % (AUTO) 1.1 %; EOSINOPHILS # (AUTO) 0.2 10^3/uL (0.0-0.7); EOSINOPHILS % (AUTO) 1.2 %; HGB - HEMOGLOBIN 13.7 g/dL (12.0-16.0); LYMPHOCYTES # (AUTO) 1.8 10^3/uL (1.5-3.5); LYMPHOCYTES % (AUTO) 12.5 %; MEAN CORPUSCULAR HEMOGLOBIN 32.8 pg (27.0-31.0); MEAN CORPUSCULAR HGB CONC 33.8 g/dL (32.0-36.0); MEAN CORPUSCULAR VOLUME 96.9 fL (81.0-99.0); MEAN PLATELET VOLUME 8.7 fL (7.9-10.8); MONOCYTES # (AUTO) 0.9 10^3/uL (0.0-1.0); MONOCYTES % (AUTO) 5.9 %; NEUTROPHILS # (AUTO) 11.6 10^3/uL (1.5-6.6); NEUTROPHILS % (AUTO) 78.8 %; PLT - PLATELET COUNT 350 10^3/uL (130-450); RED BLOOD COUNT 4.18 10^6/uL (4.20-5.40); RED CELL DISTRIBUTION WIDTH 12.1 % (12.0-15.0); WHITE BLOOD COUNT 14.7 x10^3/uL (4.8-10.8)
[2019-06-27 15:03] LABS: ALBUMIN 4.3 g/dL (3.2-5.5); ALBUMIN/GLOBULIN RATIO 1.3 (1.0-2.2); BILIRUBIN,TOTAL 0.8 mg/dL (0.2-1.0); CALCIUM 9.7 mg/dL (8.5-10.3); CREATININE 0.9 mg/dL (0.4-1.0); TOTAL PROTEIN 7.6 g/dL (6.7-8.2)
[2019-06-27] MEDS ORDERED: HALOPERIDOL 5 MG/ML VIAL IVP ONE (15:25)
[2019-06-27] MEDS ORDERED: MORPHINE 2 MG/ML CARPUJECT IVP STA (15:25)
[2019-06-27] MEDS ORDERED: SODIUM CHLORIDE 0.9% 1,000 ML IV ONE (15:25)
[2019-06-27] MEDS ORDERED: METOCLOPRAMIDE 10 MG/2 ML VIAL IVP STA ×2 (15:26→16:38)
--- NOTE | 2019-06-27 15:30 | ED Physician Documentation ---
History of Present Illness - Stated complaint Stated Complaint: ABD PX/VOMITING - Chief complaint Chief Complaint: Abd Pain - Additonal information Additional information: This is a 23-year-old female with recurrent episodes of abdominal pain and vomiting which have been diagnosed as cannabinoid hyperemesis in the past, who is a continued daily marijuana user who presents with abdominal pain and nausea and vomiting that began several hours ago at work. She states that the pain is diffuse throughout her abdomen, feels very similar to past episodes. She is out of her nausea medication. She continues to use marijuana daily. 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 : None HEENT: None Psych: Anxiety Musculoskeletal: None Derm: None - Past Surgical History Past Surgical History: Yes General: EGD HEENT: Myringotomy (tubes) - Present Medications Home Medications: Ambulatory Orders Medication Instructions Recorded Confirmed Norelgestromin/Ethin.estradiol 05/02/19 [Xulane Patch] Ondansetron Odt [Zofran] 4 mg TL Q6H PRN #10 tablet 05/02/19 Promethazine [Phenergan] 25 mg PO Q6H PRN #10 tab 05/02/19 Prochlorperazine Supp [Compazine 25 mg [place] BID PRN #15 supp 05/04/19 Supp] Metoclopramide [Reglan] 10 mg PO Q6H PRN #10 tablet 06/27/19 Ondansetron Odt [Zofran] 4 mg TL Q6H PRN #10 tablet 06/27/19 - Allergies Allergies/Adverse Reactions: Allergies Allergy/AdvReac Type Severity Reaction Status Date / Time No Known Drug Allergies Allergy Verified 06/27/19 14:09 - Social History Does the pt smoke?: No Smoking Status: Never smoker Does the pt drink ETOH?: No Does the pt have substance abuse?: Yes Substance Use and Type: Marijuana - Immunizations Immunizations are current?: Yes - POLST Patient has POLST: No PD ED PE NORMAL - General General: Alert and oriented X 3, Other (Patient is nontoxic-appearing, moving around in bed, stating "it hurts, it hurts, give me morphine or Dilaudid." When I asked patient questions she calms down and stops writhing in bed and answers them normally.) - HEENT HEENT: Atraumatic - Neck Neck: Supple, no meningeal sign - Cardiac Cardiac: RRR - Respiratory Respiratory: No respiratory distress, Clear bilaterally - Abdomen Abdomen: Other (Diffuse mild tenderness palpation throughout the abdomen, no guarding, no focal tenderness.) - Derm Derm: Normal color - Extremities Extremities: No deformity - Neuro Neuro: Alert and oriented X 3 Results - Vitals Vitals: Vital Signs - 24 hr 06/27/19 06/27/19 16:52 18:00 Temperature 36.4 C L 36.5 C Heart Rate 93 82 Respiratory 20 14 Rate Blood Pressure 120/91 H 111/86 H O2 Saturation 98 99 Oxygen O2 Source Room air - Labs Labs: Laboratory Tests 06/27/19 06/27/19 14:41 14:41 WBC 14.7 H RBC 4.18 L Hgb 13.7 Hct 40.5 MCV 96.9 MCH 32.8 H MCHC 33.8 RDW 12.1 Plt Count 350 MPV 8.7 Neut # (Auto) 11.6 H Lymph # (Auto) 1.8 [place] # (Auto) 0.9 Eos # (Auto) 0.2 Baso # (Auto) 0.2 H Absolute Nucleated RBC 0.00 Nucleated RBC % 0.0 Sodium 138 Potassium 3.5 Chloride 105 Carbon Dioxide 21 Anion Gap 12.0 BUN 11 Creatinine 0.9 Estimated GFR (MDRD) 78 L Glucose 164 H Calcium 9.7 Total Bilirubin 0.8 AST 18 ALT 11 Alkaline Phosphatase 37 L Total Protein 7.6 Albumin 4.3 Globulin 3.3 Albumin/Globulin Ratio 1.3 Lipase 23 PD MEDICAL DECISION MAKING - ED course Complexity details: considered differential (Cannabinoid hyperemesis, appendicitis, gastritis, diverticulitis, enteritis) ED course: Pt has unremarkable vital signs and a benign abdominal exam, but is complaining of significant pain and nausea, similar to many prior presentations. She was given morphine, zofran, fluids, and haldol. This gave her significant relief, but she did require an additional dose of anti-emetic and pain medication. Her labs are notable for a leukocytosis, but her abdomen remains benign, her vitals unremarkable, and she is feeling much improved, I think this is from de margination and I doubt any acute abdominal process. She states that hot showers do improve her symptoms and I think this is cannabinoid hyperemesis syndrome. I discussed that she should cease marijuana, and I discussed return precautions. She is now feeling well and requested to go home. I prescribed her antiemetic and she was discharged home. Departure - Departure Disposition: Home, Self Care Clinical Impression: Vomiting Qualifiers: Vomiting type: unspecified Vomiting Intractability: non-intractable Nausea presence: with nausea Qualified Code(s): R11.2 - Nausea with vomiting, unspecified Condition: Good Instructions: Hyperemesis Follow-Up: Josh Johnson PA-C [Primary Care Provider] - Within 1 week Prescriptions: Metoclopramide [Reglan] 10 mg PO Q6H PRN #10 tablet PRN Reason: Nausea / Vomiting Ondansetron Odt [Zofran] 4 mg TL Q6H PRN #10 tablet PRN Reason: Nausea / Vomiting Comments: You were seen today for abdominal pain and vomiting. I think this is likely cannabinoid hyperemesis syndrome, which is caused when marijuana builds up in your system and leads you to feel very nauseated and have repeated vomiting. I recommend stopping using marijuana, and it may take weeks before you have significant improvement because the THC is fat-soluble and remains in your system for quite a while. I am prescribing you 2 medications for nausea, but do not combine them together at once as this can lead to some arrhythmias with your heart. If you are having significantly worsening abdominal pain, or repeated vomiting despite the medications, please return to the emergency department. Otherwise follow-up with your primary care provider Discharge Date/Time: 06/27/19 18:15
[2019-06-27] MEDS ORDERED: KETOROLAC 30 MG/ML VIAL IVP STA (16:37)
[2019-06-27] MEDS ORDERED: diphenhydrAMINE INJ 50 MG/ML VIAL IVP STA (17:32)
[2019-06-27 18:01] VITALS: BP 111/86
== END 2019-06-27 18:15 | disposition home or self-care (01) ==
LOC: ED 13:59
DX: R10.9 Unspecified abdominal pain (principal); R11.2 Nausea with vomiting, unspecified; D72.829 Elevated white blood cell count, unspecified; F12.10 Cannabis abuse, uncomplicated
CPT/HCPCS: 36415; 80053; 83690; 85025; 96361; 96374; 96375; 96376; 99284; 99285; J1200; J2765

== ENCOUNTER 2019-08-01 17:30 | Emergency (ER) | payer MEDICAID ==
[2019-08-01 17:48] VITALS: BP 95/55
--- NOTE | 2019-08-01 18:15 | ED Physician Documentation ---
PD HPI NVD - Stated complaint Stated Complaint: VOMITTING - DRS NOTE - Chief complaint Chief Complaint: Abd Pain - History obtained from History obtained from: Patient - History of Present Illness Timing - onset: Today (she had episode of nausea and vomiting today, that improved with home meds. But missed day of work and needs note for her employer. Has history of cyclic vomiting, and is known to ER. 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 : None HEENT: None Psych: Anxiety Musculoskeletal: None Derm: None - Past Surgical History Past Surgical History: Yes General: EGD HEENT: Myringotomy (tubes) - Present Medications Home Medications: Ambulatory Orders Medication Instructions Recorded Confirmed Norelgestromin/Ethin.estradiol 05/02/19 [Xulane Patch] Ondansetron Odt [Zofran] 4 mg TL Q6H PRN #10 tablet 05/02/19 Promethazine [Phenergan] 25 mg PO Q6H PRN #10 tab 05/02/19 Prochlorperazine Supp [Compazine 25 mg [place] BID PRN #15 supp 05/04/19 Supp] Metoclopramide [Reglan] 10 mg PO Q6H PRN #10 tablet 06/27/19 Ondansetron Odt [Zofran] 4 mg TL Q6H PRN #10 tablet 06/27/19 - Allergies Allergies/Adverse Reactions: Allergies Allergy/AdvReac Type Severity Reaction Status Date / Time No Known Drug Allergies Allergy Verified 08/01/19 17:45 - Social History Does the pt smoke?: No Smoking Status: Never smoker Does the pt drink ETOH?: No Does the pt have substance abuse?: Yes - Immunizations Immunizations are current?: Yes - POLST Patient has POLST: No PD ED PE NORMAL - Vitals Vital signs reviewed: Yes - General General: Alert and oriented X 3, No acute distress, Well developed/nourished - Cardiac Cardiac: RRR, No murmur - Respiratory Respiratory: Clear bilaterally - Abdomen Abdomen: Soft, Non tender - Derm Derm: Normal color, Warm and dry - Neuro Neuro: Alert and oriented X 3, No motor deficit, Normal speech Results - Vitals Vitals: Vital Signs - 24 hr 08/01/19 17:45 Temperature 36.8 C Heart Rate 87 Respiratory 14 Rate Blood Pressure 95/55 L O2 Saturation 99 Oxygen O2 Source Room air PD MEDICAL DECISION MAKING - ED course Complexity details: considered differential, d/w patient Departure - Departure Disposition: Home, Self Care Clinical Impression: Nausea & vomiting Qualifiers: Vomiting type: unspecified Vomiting Intractability: non-intractable Qualified Code(s): R11.2 - Nausea with vomiting, unspecified Condition: Stable Record reviewed to determine appropriate education?: Yes Follow-Up: Josh Johnson PA-C [Primary Care Provider] - Comments: Usual medications. Stay well-hydrated. I wrote a work note for today and I presume hopefully will feel better into tomorrow. Forms: Activity restrictions Discharge Date/Time: 08/01/19 18:34
== END 2019-08-01 18:34 | disposition home or self-care (01) ==
LOC: ED 17:30
DX: Z02.89 Encounter for other administrative examinations (principal); R11.2 Nausea with vomiting, unspecified
CPT/HCPCS: 99282

== ENCOUNTER 2019-08-09 15:45 | Emergency (ER) | payer MEDICAID ==
[2019-08-09 17:21] LABS: BILIRUBIN,URINE NEGATIVE (NEGATIVE); GLUCOSE, URINE (UA) NEGATIVE (NEGATIVE); KETONES,URINE (UA) NEGATIVE (NEGATIVE); LEUKOCYTE ESTERASE, URINE NEGATIVE (NEGATIVE); NITRITE,URINE NEGATIVE (NEGATIVE); OCCULT BLOOD,URINE NEGATIVE (NEGATIVE); PH,URINE 7.5 PH (5.0-7.5); PROTEIN,URINE NEGATIVE (NEGATIVE); UROBILINOGEN,URINE 0.2 (NORMAL) E.U./dL (NORMAL)
--- NOTE | 2019-08-09 17:21 | ED Physician Documentation ---
PD HPI ABD PAIN - Stated complaint Stated Complaint: N/V, ABD PX - Chief complaint Chief Complaint: Abd Pain - History obtained from History obtained from: Patient (23-year-old woman with history of cannabinoid hyperemesis, she was vomiting a lot this morning and mostly is here because she wants a work note but also would like to have a test and see what her potassium is. 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 : None HEENT: None Psych: Anxiety Musculoskeletal: None Derm: None - Past Surgical History Past Surgical History: Yes General: EGD HEENT: Myringotomy (tubes) - Present Medications Home Medications: Ambulatory Orders Medication Instructions Recorded Confirmed Norelgestromin/Ethin.estradiol 05/02/19 [Xulane Patch] Ondansetron Odt [Zofran] 4 mg TL Q6H PRN #10 tablet 05/02/19 Promethazine [Phenergan] 25 mg PO Q6H PRN #10 tab 05/02/19 Prochlorperazine Supp [Compazine 25 mg [place] BID PRN #15 supp 05/04/19 Supp] Metoclopramide [Reglan] 10 mg PO Q6H PRN #10 tablet 06/27/19 Ondansetron Odt [Zofran] 4 mg TL Q6H PRN #10 tablet 06/27/19 - Allergies Allergies/Adverse Reactions: Allergies Allergy/AdvReac Type Severity Reaction Status Date / Time No Known Drug Allergies Allergy Verified 08/09/19 15:56 - Social History Does the pt smoke?: No Smoking Status: Never smoker Does the pt drink ETOH?: No Does the pt have substance abuse?: Yes - Immunizations Immunizations are current?: Yes - POLST Patient has POLST: No PD ED PE NORMAL - Vitals Vital signs reviewed: Yes - General General: Alert and oriented X 3, No acute distress - Abdomen Abdomen: Normal bowel sounds, Soft, Non tender - Derm Derm: Normal color, Warm and dry - Neuro Neuro: Alert and oriented X 3, Normal speech Results - Vitals Vitals: Vital Signs - 24 hr 08/09/19 15:52 Temperature 36 C L Heart Rate 79 Respiratory 16 Rate Blood Pressure 98/55 L O2 Saturation 98 Oxygen O2 Source Room air - Labs Labs: Laboratory Tests 08/09/19 08/09/19 08/09/19 17:00 17:00 17:33 Sodium 137 Potassium 4.0 Chloride 105 Carbon Dioxide 23 Anion Gap 9.0 BUN 10 Creatinine 1.0 Estimated GFR (MDRD) 69 L Glucose 88 Calcium 9.2 Urine Color YELLOW Urine Clarity CLEAR Urine pH 7.5 Ur Specific [place] 1.020 1.020 Urine Protein NEGATIVE Urine Glucose (UA) NEGATIVE Urine Ketones NEGATIVE Urine Occult Blood NEGATIVE Urine Nitrite NEGATIVE Urine Bilirubin NEGATIVE Urine Urobilinogen 0.2 (NORMAL) Ur Leukocyte Esterase NEGATIVE Ur Microscopic Review NOT INDICATED Urine Culture Comments NOT INDICATED Urine HCG, Qual NEGATIVE PD MEDICAL DECISION MAKING - ED course ED course: 23-year-old woman with recurrent nausea and vomiting, likely related to cannabinoid hyperemesis presents with a mostly resolved round of same mostly needing a work note but wanting her potassium and status checked which were unremarkable. Departure - Departure Disposition: 01 Home, Self Care Clinical Impression: Nausea and vomiting Qualifiers: Vomiting type: unspecified Vomiting Intractability: non-intractable Qualified Code(s): R11.2 - Nausea with vomiting, unspecified Condition: Good Record reviewed to determine appropriate education?: Yes Instructions: ED Nausea Vomiting Comments: Call your doctor to arrange a follow-up appointment, make the next available appointment. In the interim, return anytime if worse or if new symptoms develop. Forms: Activity restrictions
[2019-08-09 17:27] LABS: CLARITY,URINE CLEAR (CLEAR); HCG UR QUAL NEGATIVE
[2019-08-09 17:48] LABS: CALCIUM 9.2 mg/dL (8.5-10.3)
[2019-08-09 18:00] VITALS: BP 124/89
== END 2019-08-09 18:00 | disposition home or self-care (01) ==
LOC: ED 15:45
DX: R11.2 Nausea with vomiting, unspecified (principal); Z32.02 Encounter for pregnancy test, result negative
CPT/HCPCS: 36415; 80048; 81001; 81003; 81025; 87086; 99283

== ENCOUNTER 2019-09-13 07:00 | Outpatient (CLI) | payer MEDICAID ==
[2019-09-13 20:40] LABS: TRICHOMONAS VAGINALIS DNA NEGATIVE (NEGATIVE)
== END 2019-09-13 23:59 | disposition home or self-care (01) ==
LOC: LAB.R 07:00
PROVIDERS: ATTEND Nurse Practitioner Obstetrics & Gynecology
DX: Z11.3 Encounter for screening for infections with a predominantly sexual mode of transmission (principal)
CPT/HCPCS: 87491; 87591; 87661

== ENCOUNTER 2019-09-21 12:30 | Outpatient (CLI) | payer MEDICAID | END 2019-09-21 12:31 | disposition critical access hospital (66) | LOC: EMS 12:30 | PROVIDERS: ATTEND Surgery | DX: R11.2 Nausea with vomiting, unspecified (principal) | CPT/HCPCS: A0425; A0427 ==

== ENCOUNTER 2019-09-21 12:50 | Emergency (ER) | payer MEDICAID ==
[2019-09-21] MEDS ORDERED: LORazepam 2 MG/ML VIAL IVP STA ×2 (12:58→15:23)
[2019-09-21] MEDS ORDERED: SODIUM CHLORIDE 0.9% 1,000 ML IV ONE (12:58)
--- NOTE | 2019-09-21 13:00 | ED Physician Documentation ---
PD HPI FEMALE - Stated complaint Stated Complaint: ABD PX - History obtained from History obtained from: Patient, EMS - History of Present Illness Timing - onset: Today (23-year-old G0 now G1. She had an appointment for an upper endoscopy yesterday but it was canceled because they did a test and was surprisingly positive. She is not sure when her last menses was but she does not think she is very late yet. She is vacillating on whether or not she like to keep the . She presents with her routine upper but now also lower abdominal pain with associated with vomiting. This is a well-known complication of her cannabinoid hyperemesis syndrome which she has been unable to cease using marijuana for this. She started vomiting about 5 AM this morning.) Review of Systems Ten Systems: 10 systems reviewed and negative Constitutional: denies: Fever, Chills Cardiac: denies: Chest pain / pressure, Palpitations Respiratory: denies: Dyspnea, Cough GI: reports: Abdominal Pain, Nausea, Vomiting. 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 : None HEENT: None Psych: Anxiety Musculoskeletal: None Derm: None - Past Surgical History Past Surgical History: Yes General: EGD HEENT: Myringotomy (tubes) - Present Medications Home Medications: Ambulatory Orders Medication Instructions Recorded Confirmed Norelgestromin/Ethin.estradiol 05/02/19 [Xulane Patch] Ondansetron Odt [Zofran] 4 mg TL Q6H PRN #10 tablet 05/02/19 Promethazine [Phenergan] 25 mg PO Q6H PRN #10 tab 05/02/19 Prochlorperazine Supp [Compazine 25 mg [place] BID PRN #15 supp 05/04/19 Supp] Metoclopramide [Reglan] 10 mg PO Q6H PRN #10 tablet 06/27/19 Ondansetron Odt [Zofran] 4 mg TL Q6H PRN #10 tablet 06/27/19 - Allergies Allergies/Adverse Reactions: Allergies Allergy/AdvReac Type Severity Reaction Status Date / Time No Known Drug Allergies Allergy Verified 08/09/19 15:56 - Social History Does the pt smoke?: No Smoking Status: Never smoker Does the pt drink ETOH?: No Does the pt have substance abuse?: Yes - Immunizations Immunizations are current?: Yes - POLST Patient has POLST: No PD ED PE NORMAL - Vitals Vital signs reviewed: Yes - General General: Alert and oriented X 3, Other (Appears uncomfortable, retching) - HEENT HEENT: PERRL, EOMI - Neck Neck: Supple, no meningeal sign, No bony TTP - Cardiac Cardiac: RRR, No murmur - Respiratory Respiratory: No respiratory distress, Clear bilaterally - Abdomen Abdomen: Soft, Non tender - Female Female : Other (I am unable to visualize a intrauterine on bedside ultrasound) - Back Back: No CVA TTP, No spinal TTP - Derm Derm: Normal color, Warm and dry - Extremities Extremities: No edema, No calf tenderness / cord - Neuro Neuro: Alert and oriented X 3, Normal speech Results - Vitals Vitals: Vital Signs - 24 hr 09/21/19 17:30 Heart Rate 79 Respiratory 18 Rate Blood Pressure 112/70 O2 Saturation 100 Oxygen O2 Source Room air - Labs Labs: Laboratory Tests 09/21/19 09/21/19 09/21/19 13:33 13:33 13:33 WBC 12.3 H RBC 4.33 Hgb 14.2 Hct 40.0 MCV 92.4 MCH 32.8 H MCHC 35.5 RDW 11.6 L Plt Count 321 MPV 8.7 Neut # (Auto) 10.3 H Lymph # (Auto) 1.1 L [place] # (Auto) 0.7 Eos # (Auto) 0.1 Baso # (Auto) 0.1 Absolute Nucleated RBC 0.00 Nucleated RBC % 0.0 Sodium 137 Potassium 3.5 Chloride 109 Carbon Dioxide 13 L Anion Gap 15.0 H BUN 12 Creatinine 1.0 Estimated GFR (MDRD) 69 L Glucose 176 H Calcium 9.1 Total Bilirubin 1.1 H AST 19 ALT 12 Alkaline Phosphatase 32 L Total Protein 7.6 Albumin 4.2 Globulin 3.4 Albumin/Globulin Ratio 1.2 Lipase 26 HCG, Quant Urine Color Urine Clarity Urine pH Ur Specific [place] Urine Protein Urine Glucose (UA) Urine Ketones Urine Occult Blood Urine Nitrite Urine Bilirubin Urine Urobilinogen Ur Leukocyte Esterase Ur Microscopic Review Urine Culture Comments Blood Type A POSITIVE 09/21/19 09/21/19 13:33 14:19 WBC RBC Hgb Hct MCV MCH MCHC RDW Plt Count MPV Neut # (Auto) Lymph # (Auto) [place] # (Auto) Eos # (Auto) Baso # (Auto) Absolute Nucleated RBC Nucleated RBC % Sodium Potassium Chloride Carbon Dioxide Anion Gap BUN Creatinine Estimated GFR (MDRD) Glucose Calcium Total Bilirubin AST ALT Alkaline Phosphatase Total Protein Albumin Globulin Albumin/Globulin Ratio Lipase HCG, Quant 8890.00 Urine Color YELLOW Urine Clarity CLEAR Urine pH 7.0 Ur Specific [place] 1.020 Urine Protein NEGATIVE Urine Glucose (UA) NEGATIVE Urine Ketones 15 H Urine Occult Blood NEGATIVE Urine Nitrite NEGATIVE Urine Bilirubin NEGATIVE Urine Urobilinogen 0.2 (NORMAL) Ur Leukocyte Esterase NEGATIVE Ur Microscopic Review NOT INDICATED Urine Culture Comments NOT INDICATED Blood Type - Rads (name of study) OB SOno Radiology: Final report received (Suspect 5-week 3-day gestational sac, intrauterine) PD MEDICAL DECISION MAKING - ED course ED course: 23-year-old woman with an exacerbation of cannabinoid hyperemesis/cyclic vomiting now , unlikely to be ectopic based on the work-up here but does need a repeat ultrasound in a week or so. [place] better after meds here and passed a p.o. challenge. Remained nontender on reevaluation prior to discharge. Departure - Departure Disposition: 01 Home, Self Care Clinical Impression: Pelvic pain, Cyclical vomiting with nausea Qualifiers: Weeks of gestation: less than 8 weeks Qualified Code(s): Z3A.01 - Less than 8 weeks gestation of Condition: Good Instructions: ED Preg Morning Sickness Follow-Up: [facility] [Provider Group] Comments: Your ultrasound shows what is suspected to be a 5-week and 3-day intrauterine sac, recommend repeat ultrasound in a week to assess for viability and location. Talk with your OB about this. Discharge Date/Time: 09/21/19 17:30
[2019-09-21] MEDS ORDERED: MORPHINE 2 MG/ML CARPUJECT IVP STA (13:31)
[2019-09-21 13:43] LABS: BASOPHILS # (AUTO) 0.1 10^3/uL (0.0-0.1); BASOPHILS % (AUTO) 0.9 %; EOSINOPHILS # (AUTO) 0.1 10^3/uL (0.0-0.7); EOSINOPHILS % (AUTO) 0.6 %; HGB - HEMOGLOBIN 14.2 g/dL (12.0-16.0); LYMPHOCYTES # (AUTO) 1.1 10^3/uL (1.5-3.5); LYMPHOCYTES % (AUTO) 8.8 %; MEAN CORPUSCULAR HEMOGLOBIN 32.8 pg (27.0-31.0); MEAN CORPUSCULAR HGB CONC 35.5 g/dL (32.0-36.0); MEAN CORPUSCULAR VOLUME 92.4 fL (81.0-99.0); MEAN PLATELET VOLUME 8.7 fL (7.9-10.8); MONOCYTES # (AUTO) 0.7 10^3/uL (0.0-1.0); MONOCYTES % (AUTO) 5.7 %; NEUTROPHILS # (AUTO) 10.3 10^3/uL (1.5-6.6); NEUTROPHILS % (AUTO) 83.5 %; PLT - PLATELET COUNT 321 10^3/uL (130-450); RED BLOOD COUNT 4.33 10^6/uL (4.20-5.40); RED CELL DISTRIBUTION WIDTH 11.6 % (12.0-15.0); WHITE BLOOD COUNT 12.3 x10^3/uL (4.8-10.8)
[2019-09-21 13:56] LABS: ALBUMIN 4.2 g/dL (3.2-5.5); ALBUMIN/GLOBULIN RATIO 1.2 (1.0-2.2); BILIRUBIN,TOTAL 1.1 mg/dL (0.2-1.0); CALCIUM 9.1 mg/dL (8.5-10.3); TOTAL PROTEIN 7.6 g/dL (6.7-8.2)
[2019-09-21 14:46] LABS: BILIRUBIN,URINE NEGATIVE (NEGATIVE); GLUCOSE, URINE (UA) NEGATIVE (NEGATIVE); KETONES,URINE (UA) 15 mg/dL (NEGATIVE); LEUKOCYTE ESTERASE, URINE NEGATIVE (NEGATIVE); NITRITE,URINE NEGATIVE (NEGATIVE); OCCULT BLOOD,URINE NEGATIVE (NEGATIVE); PROTEIN,URINE NEGATIVE (NEGATIVE); UROBILINOGEN,URINE 0.2 (NORMAL) E.U./dL (NORMAL)
[2019-09-21 14:47] LABS: CLARITY,URINE CLEAR (CLEAR)
--- NOTE | 2019-09-21 15:34 | Ultrasound Report ---
Reason: pelvic pain Procedure Date: 09/21/2019 Accession Number: [id number] / [id number] Procedure: US - OB First Trimester CPT Code: Final Report FULL RESULT: EXAM: FIRST TRIMESTER OBSTETRIC ULTRASOUND (Less than 11 weeks) EXAM DATE: 09/21/2019 03:17 PM. CLINICAL HISTORY: Pelvic pain. LMP: Unknown. COMPARISONS: None. TECHNIQUE: Transabdominal and transvaginal ultrasound examination with static image documentation. CLINICAL DATES: Unknown ASSESSMENT: Cystic structure with probable double deciduous sign eccentric along the endometrium, measures 0.9 x 0.4 x 0.9 cm corresponding to 5 weeks 3 days. No yolk sac or pole seen. No perigestational collection. MATERNAL STRUCTURES: Uterus: Anteverted. Unremarkable. Cervix: Closed. Right Ovary/Adnexa: The ovary measures 2.1 x 1.6 x 1.4 cm, volume 2.4 cc. Unremarkable. Left Ovary/Adnexa: The ovary measures 4.6 x 1.9 x 2.1 cm, volume 9.5 cc. Unremarkable. Free Fluid: None. Other: None. IMPRESSION: Suspect intrauterine with a gestational sac, without yolk sac or pole seen at this time. Short follow-up pelvic ultrasound can evaluate for pole and viability. RADIA
[2019-09-21] MEDS ORDERED: ONDANSETRON 4 MG/2 ML VIAL IVP STA (15:43)
[2019-09-21] MEDS ORDERED: HYDROmorphone 1 MG/ML SYRINGE IVP STA (15:43)
[2019-09-21 17:31] VITALS: BP 112/70
== END 2019-09-21 17:30 | disposition home or self-care (01) ==
LOC: EDUNIT# → ED 12:50
DX: O21.8 Other vomiting complicating pregnancy (principal); O99.89 Other specified diseases and conditions complicating pregnancy, childbirth and the puerperium; R10.2 Pelvic and perineal pain; T40.7X5A Adverse effect of cannabis (derivatives), initial encounter; Z3A.01 Less than 8 weeks gestation of pregnancy
CPT/HCPCS: 36415; 76801; 76817; 80053; 81003; 83690; 84702; 85025; 86900; 86901; 96361; 96374; 96375; 96376; 99285; J1170; J2060; 81001; 87086

== ENCOUNTER 2019-09-23 10:30 | Emergency (ER) | payer MEDICAID ==
[2019-09-23] MEDS ORDERED: FAMOTIDINE 20 MG/2 ML VIAL IVP STA (10:54)
[2019-09-23] MEDS ORDERED: HYDROmorphone 1 MG/ML SYRINGE IVP STA (10:54)
[2019-09-23] MEDS ORDERED: LORazepam 2 MG/ML VIAL IVP STA (10:54)
[2019-09-23] MEDS ORDERED: SODIUM CHLORIDE 0.9% 1,000 ML IV ONE (10:54)
[2019-09-23] MEDS ORDERED: ONDANSETRON 4 MG/2 ML VIAL IVP STA (10:54)
[2019-09-23 10:55] LABS: BASOPHILS # (AUTO) 0.1 10^3/uL (0.0-0.1); BASOPHILS % (AUTO) 1.2 %; EOSINOPHILS # (AUTO) 0.1 10^3/uL (0.0-0.7); EOSINOPHILS % (AUTO) 0.6 %; HGB - HEMOGLOBIN 14.6 g/dL (12.0-16.0); LYMPHOCYTES # (AUTO) 2.7 10^3/uL (1.5-3.5); LYMPHOCYTES % (AUTO) 22.5 %; MEAN CORPUSCULAR HEMOGLOBIN 33.2 pg (27.0-31.0); MEAN CORPUSCULAR HGB CONC 36.1 g/dL (32.0-36.0); MEAN CORPUSCULAR VOLUME 91.8 fL (81.0-99.0); MEAN PLATELET VOLUME 8.7 fL (7.9-10.8); MONOCYTES # (AUTO) 1.1 10^3/uL (0.0-1.0); MONOCYTES % (AUTO) 9.4 %; NEUTROPHILS # (AUTO) 7.9 10^3/uL (1.5-6.6); NEUTROPHILS % (AUTO) 65.8 %; PLT - PLATELET COUNT 406 10^3/uL (130-450); RED CELL DISTRIBUTION WIDTH 11.8 % (12.0-15.0); WHITE BLOOD COUNT 11.9 x10^3/uL (4.8-10.8)
[2019-09-23] MEDS ORDERED: diphenhydrAMINE INJ 50 MG/ML VIAL IVP STA (10:55)
--- NOTE | 2019-09-23 10:56 | ED Physician Documentation ---
PD HPI NVD - Stated complaint Stated Complaint: VOMITING - Chief complaint Chief Complaint: Abd Pain - History obtained from History obtained from: Patient - History of Present Illness Timing - onset: Today Timing - duration: Hours Timing - details: Abrupt onset, Still present Associated symptoms: Abdominal pain, Loss of appetite. No: Fever, Hematemesis, Near syncope / syncope, Dysuria Contributing factors: Other (presumed cannibis hyperemesis). No: Sick contact, Bad food Improved by: Other (ice chips). No: Eating, Vomiting Worsened by: Eating Recently seen: Emergency Dept (2 days ago for similar episode, and many prior ER visits for similar pattern of symptoms.) Review of Systems Constitutional: denies: Fever, Chills Nose: denies: Rhinorrhea / runny nose, Congestion Throat: denies: Sore throat Respiratory: denies: Cough GI: reports: Abdominal Pain, Nausea, Vomiting. denies: Diarrhea, Hematemesis : reports: Now EGA (5 1/2 wks). 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 : None HEENT: None Psych: Anxiety Musculoskeletal: None Derm: None - Past Surgical History Past Surgical History: Yes General: EGD HEENT: Myringotomy (tubes) - Present Medications Home Medications: Ambulatory Orders Medication Instructions Recorded Confirmed Norelgestromin/Ethin.estradiol 05/02/19 [Xulane Patch] Ondansetron Odt [Zofran] 4 mg TL Q6H PRN #10 tablet 05/02/19 Promethazine [Phenergan] 25 mg PO Q6H PRN #10 tab 05/02/19 Prochlorperazine Supp [Compazine 25 mg [place] BID PRN #15 supp 05/04/19 Supp] Metoclopramide [Reglan] 10 mg PO Q6H PRN #10 tablet 06/27/19 Ondansetron Odt [Zofran] 4 mg TL Q6H PRN #10 tablet 06/27/19 Ondansetron Odt [Zofran] 4 mg TL Q6H PRN #10 tablet 09/23/19 Pyridoxine HCl (Vitamin B6) 100 mg PO BID #60 tablet 09/23/19 [Vitamin B-6] dexAMETHasone [Decadron] 4 mg PO DAILY #5 tablet 09/23/19 - Allergies Allergies/Adverse Reactions: Allergies Allergy/AdvReac Type Severity Reaction Status Date / Time No Known Drug Allergies Allergy Verified 09/23/19 10:32 - Social History Does the pt smoke?: No Smoking Status: Never smoker Does the pt drink ETOH?: No Does the pt have substance abuse?: Yes - Immunizations Immunizations are current?: Yes - POLST Patient has POLST: No PD ED PE NORMAL - Vitals Vital signs reviewed: Yes - General General: Alert and oriented X 3, Well developed/nourished, Other (appears in distress; actively dry heaving. No hematemesis. ) - HEENT HEENT: Pharynx benign - Neck Neck: Supple, no meningeal sign, No adenopathy - Cardiac Cardiac: RRR, No murmur - Respiratory Respiratory: Clear bilaterally - Abdomen Abdomen: Normal bowel sounds, Soft, Non distended, No organomegaly, Other (tender epigastric with some guarding. ) - Female Female : Deferred - Rectal Rectal: Deferred - Back Back: No CVA TTP - Derm Derm: Normal color, Warm and dry - Neuro Neuro: Alert and oriented X 3, No motor deficit, Normal speech Results - Vitals Vitals: Vital Signs - 24 hr 09/23/19 09/23/19 10:32 12:10 Temperature 37.2 C 36.6 C Heart Rate 101 H 89 Respiratory 24 16 Rate Blood Pressure 131/93 H 116/76 O2 Saturation 98 98 Oxygen O2 Source Room air - Labs Labs: Laboratory Tests 09/23/19 09/23/19 10:48 10:48 WBC 11.9 H RBC 4.40 Hgb 14.6 Hct 40.4 MCV 91.8 MCH 33.2 H MCHC 36.1 H RDW 11.8 L Plt Count 406 MPV 8.7 Neut # (Auto) 7.9 H Lymph # (Auto) 2.7 [place] # (Auto) 1.1 H Eos # (Auto) 0.1 Baso # (Auto) 0.1 Absolute Nucleated RBC 0.00 Nucleated RBC % 0.0 Sodium 135 Potassium 3.3 L Chloride 108 Carbon Dioxide 14 L Anion Gap 13.0 BUN 11 Creatinine 1.0 Estimated GFR (MDRD) 69 L Glucose 124 H Calcium 9.6 Magnesium 1.9 Total Bilirubin 1.0 AST 20 ALT 14 Alkaline Phosphatase 31 L Total Protein 7.7 Albumin 4.3 Globulin 3.4 Albumin/Globulin Ratio 1.3 Lipase 29 PD MEDICAL DECISION MAKING - ED course Complexity details: reviewed old records, re-evaluated patient (improved with IV meds (given she is , did not give Haldol. She had gotten Ativan with prior ED visit and pt aware of potential controversy in , chanell third trimester, but would like that med again as works well). Patient improved well, and feeling able to take PO liquids. ), considered differential, d/w patient Departure - Departure Disposition: Home, Self Care Clinical Impression: Nausea and vomiting Qualifiers: Vomiting type: unspecified Vomiting Intractability: intractable Qualified Code(s): R11.2 - Nausea with vomiting, unspecified Condition: Stable Record reviewed to determine appropriate education?: Yes Follow-Up: Josh Johnson PA-C [Primary Care Provider] - [facility] [Provider Group] Prescriptions: dexAMETHasone [Decadron] 4 mg PO DAILY #5 tablet Ondansetron Odt [Zofran] 4 mg TL Q6H PRN #10 tablet PRN Reason: Nausea / Vomiting Pyridoxine HCl (Vitamin B6) [Vitamin B-6] 100 mg PO BID #60 tablet Comments: Stay well-hydrated. In can use anti-inflammatories such as ibuprofen or naproxen up to about 30 weeks . Tylenol can be used throughout the whole . Ondansetron can be used for nausea as can promethazine (Phenergan). Vitamin B6 twice daily regularly reduces nausea in general with so we can try that as well. Decadron steroid daily for the next 5 days to try to prevent recurrence of your nausea and vomiting in the short-term. Follow-up with your primary care and also establish with [facility] MANAGER. Discharge Date/Time: 09/23/19 12:26
[2019-09-23 11:08] LABS: ALBUMIN 4.3 g/dL (3.2-5.5); ALBUMIN/GLOBULIN RATIO 1.3 (1.0-2.2); CALCIUM 9.6 mg/dL (8.5-10.3); MAGNESIUM 1.9 mg/dL (1.7-2.8); TOTAL PROTEIN 7.7 g/dL (6.7-8.2)
[2019-09-23 12:11] VITALS: BP 116/76
== END 2019-09-23 12:26 | disposition home or self-care (01) ==
LOC: ED 10:30
DX: O21.9 Vomiting of pregnancy, unspecified (principal); Z3A.01 Less than 8 weeks gestation of pregnancy
CPT/HCPCS: 36415; 80053; 83690; 83735; 85025; 96361; 96374; 99284; 99285; J1170; J1200; J2060

== ENCOUNTER 2019-10-04 17:01 | Outpatient (CLI) | payer MEDICAID ==
--- NOTE | 2019-10-05 08:15 | Ultrasound Report ---
Reason: SUPERVISION OF NORMAL Procedure Date: 10/04/2019 Accession Number: [id number] / [id number] Procedure: US - OB First Trimester CPT Code: Final Report FULL RESULT: EXAM: FIRST TRIMESTER OBSTETRIC ULTRASOUND (Less than 11 weeks) EXAM DATE: 10/04/2019 06:03 PM. CLINICAL HISTORY: Supervision of normal . LMP: Unknown. COMPARISONS: OB FIRST TRIMESTER 09/21/2019 2:24 PM PELVIC W/TRANSVAGINAL 05/26/2019 7:56 AM. TECHNIQUE: Transabdominal and transvaginal ultrasound examination with static image documentation. CLINICAL DATES: EGA approximately 7 weeks 0 days with SHADIA 05/14/2020 based on LMP with some uncertainty. ASSESSMENT: Gestational Sac: Single intrauterine. Mean gestational sac diameter: 24 mm = 7 weeks 3 days. Embryo: CRL (crown-rump length) 8 mm = 05/24/2020. Cardiac activity: 131 beats per minute. Yolk sac: 5 mm. Amniotic fluid: Not accurately assessed at this gestational age. Early placenta: Not visible at this gestational age. Other: A small perigestational fluid collection measures 0.7 x 0.3 cm. MATERNAL STRUCTURES: Uterus: Anteverted. Unremarkable. Cervix: Closed. Right Ovary/Adnexa: The ovary measures 2.5 x 1.3 x 1.2 cm, volume 1.9 cc. Unremarkable. Left Ovary/Adnexa: The ovary measures 2.7 x 2.0 x 2.0 cm, volume 5.4 cc. Corpus luteum is noted. Free Fluid: None. Other: None. IMPRESSION: 1. Single viable intrauterine at EGA 6 weeks 5 days with SHADIA 05/24/2020 based on crown-rump length, which is concordant with reported likely LMP. 2. Suggested assigned dating is SHADIA 7 weeks 0 days based on LMP, depending on degree of uncertainty regarding accuracy of the LMP. RADIA
== END 2019-10-04 17:02 | disposition home or self-care (01) ==
LOC: DI 17:01
PROVIDERS: ATTEND Nurse Practitioner Obstetrics & Gynecology
DX: Z34.01 Encounter for supervision of normal first pregnancy, first trimester (principal)
CPT/HCPCS: 76801; 76817

== ENCOUNTER 2019-10-08 18:13 | Emergency (ER) | payer MEDICAID ==
[2019-10-08 18:31] VITALS: BP 114/78
[2019-10-08 19:07] LABS: BILIRUBIN,URINE NEGATIVE (NEGATIVE); CLARITY,URINE CLEAR (CLEAR); GLUCOSE, URINE (UA) NEGATIVE (NEGATIVE); KETONES,URINE (UA) 40 mg/dL (NEGATIVE); LEUKOCYTE ESTERASE, URINE NEGATIVE (NEGATIVE); NITRITE,URINE NEGATIVE (NEGATIVE); OCCULT BLOOD,URINE NEGATIVE (NEGATIVE); PH,URINE 5.5 PH (5.0-7.5); PROTEIN,URINE NEGATIVE (NEGATIVE); UROBILINOGEN,URINE 0.2 (NORMAL) E.U./dL (NORMAL)
--- NOTE | 2019-10-08 19:11 | ED Physician Documentation ---
History of Present Illness - Stated complaint Stated Complaint: ABD PX/VOM - Chief complaint Chief Complaint: Abd Pain - History obtained from History obtained from: Patient - History of Present Illness Timing: Today Pain level max: 4 Pain level now: 0 - Additonal information Additional information: 24-year-old female 1 para 0, approximately 7 weeks . She states that she had pelvic cramping today. Had an ultrasound last week. No vaginal bleeding. No discharge. No vomiting. No diarrhea. pain resolved with Tylenol. 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 : None HEENT: None Psych: Anxiety Musculoskeletal: None Derm: None - Past Surgical History Past Surgical History: Yes General: EGD HEENT: Myringotomy (tubes) - Present Medications Home Medications: Ambulatory Orders Medication Instructions Recorded Confirmed Norelgestromin/Ethin.estradiol 05/02/19 [Xulane Patch] Ondansetron Odt [Zofran] 4 mg TL Q6H PRN #10 tablet 05/02/19 Promethazine [Phenergan] 25 mg PO Q6H PRN #10 tab 05/02/19 Prochlorperazine Supp [Compazine 25 mg [place] BID PRN #15 supp 05/04/19 Supp] Metoclopramide [Reglan] 10 mg PO Q6H PRN #10 tablet 06/27/19 Ondansetron Odt [Zofran] 4 mg TL Q6H PRN #10 tablet 06/27/19 Ondansetron Odt [Zofran] 4 mg TL Q6H PRN #10 tablet 09/23/19 Pyridoxine HCl (Vitamin B6) 100 mg PO BID #60 tablet 09/23/19 [Vitamin B-6] dexAMETHasone [Decadron] 4 mg PO DAILY #5 tablet 09/23/19 - Allergies Allergies/Adverse Reactions: Allergies Allergy/AdvReac Type Severity Reaction Status Date / Time No Known Drug Allergies Allergy Verified 10/08/19 18:16 - Social History Does the pt smoke?: No Smoking Status: Never smoker Does the pt drink ETOH?: No Does the pt have substance abuse?: Yes Substance Use and Type: Marijuana - Immunizations Immunizations are current?: Yes - POLST Patient has POLST: No PD ED PE NORMAL - Vitals Vital signs reviewed: Yes - General General: Alert and oriented X 3, No acute distress - HEENT HEENT: Moist mucous membranes - Neck Neck: Supple, no meningeal sign - Cardiac Cardiac: RRR - Respiratory Respiratory: No respiratory distress, Clear bilaterally - Abdomen Abdomen: Soft, Non tender, Non distended - Derm Derm: Warm and dry, No rash - Extremities Extremities: No edema - Neuro Neuro: Alert and oriented X 3 - Psych Psych: Normal mood, Normal affect Results - Vitals Vitals: Vital Signs - 24 hr 10/08/19 10/08/19 18:16 18:29 Temperature 36.6 C 36.6 C Heart Rate 72 64 Respiratory 14 18 Rate Blood Pressure 126/78 114/78 O2 Saturation 100 100 Oxygen O2 Source Room air - Labs Labs: Laboratory Tests 10/08/19 19:00 Urine Color YELLOW Urine Clarity CLEAR Urine pH 5.5 Ur Specific [place] >=1.030 H Urine Protein NEGATIVE Urine Glucose (UA) NEGATIVE Urine Ketones 40 H Urine Occult Blood NEGATIVE Urine Nitrite NEGATIVE Urine Bilirubin NEGATIVE Urine Urobilinogen 0.2 (NORMAL) Ur Leukocyte Esterase NEGATIVE Ur Microscopic Review NOT INDICATED Urine Culture Comments NOT INDICATED PD MEDICAL DECISION MAKING - ED course Complexity details: reviewed results, re-evaluated patient, considered differential, d/w patient ED course: 24-year-old female presents to the emergency department with pelvic cramping earlier today. No vaginal bleeding. No evidence of miscarriage. Bedside ultra sound reveals an intrauterine with a heart rate of 152 bpm. Images were shown to the patient. She had a formal ultrasound last week. No acute findings on urinalysis. Abdomen is soft, nontender nondistended. No evidence of ectopic. Patient counseled regarding signs and symptoms for which I believe and urgent re-evaluation would be necessary. Patient with good understanding of and agreement to plan and is comfortable going home at this time This document was made in part using voice recognition software. While efforts are made to proofread this document, sound alike and grammatical errors may occur. Departure - Departure Disposition: 01 Home, Self Care Clinical Impression: Qualifiers: Weeks of gestation: less than 8 weeks Qualified Code(s): Z3A.01 - Less than 8 weeks gestation of Condition: Good Instructions: ED Preg Established Normal Sxs Follow-Up: Josh Johnson PA-C [Primary Care Provider] - As Needed Comments: Return if you worsen your testing is normal tonight. Follow-up with your doctor as needed for further care. You can use Tylenol for any further pain.
== END 2019-10-08 19:15 | disposition home or self-care (01) ==
LOC: ED 18:13
DX: O99.89 Other specified diseases and conditions complicating pregnancy, childbirth and the puerperium (principal); R10.2 Pelvic and perineal pain; Z3A.01 Less than 8 weeks gestation of pregnancy
CPT/HCPCS: 81001; 81003; 87086; 99283; 99284

== ENCOUNTER 2019-10-20 05:07 | Emergency (ER) | payer MEDICAID ==
[2019-10-20] MEDS ORDERED: diphenhydrAMINE INJ 50 MG/ML VIAL IVP STA (05:36)
[2019-10-20] MEDS ORDERED: METOCLOPRAMIDE 10 MG/2 ML VIAL IVP STA (05:37)
[2019-10-20 05:40] LABS: BILIRUBIN,URINE NEGATIVE (NEGATIVE); GLUCOSE, URINE (UA) NEGATIVE (NEGATIVE); KETONES,URINE (UA) NEGATIVE (NEGATIVE); LEUKOCYTE ESTERASE, URINE NEGATIVE (NEGATIVE); NITRITE,URINE NEGATIVE (NEGATIVE); OCCULT BLOOD,URINE TRACE-LYSE (NEGATIVE); PROTEIN,URINE NEGATIVE (NEGATIVE); UROBILINOGEN,URINE 0.2 (NORMAL) E.U./dL (NORMAL)
--- NOTE | 2019-10-20 05:41 | ED Physician Documentation ---
History of Present Illness - Stated complaint Stated Complaint: VOMITING/8WKS PREG - Chief complaint Chief Complaint: Abd Pain - Additonal information Additional information: This is a 24-year-old female with a history of cannabinoid hyperemesis syndrome who is a at around 8-1/2 weeks who presents with vomiting, nausea, abdominal discomfort after smoking marijuana. Patient stopped smoking marijuana for several weeks and during that time was doing very well without vomiting or abdominal pain but she recently restarted using marijuana and she had recurrence of her typical symptoms including diffuse abdominal discomfort, and multiple episodes of vomiting. The vomiting has been nonbloody, nonbilious. She denies any abnormal vaginal discharge, no vaginal bleeding. She has a confirmed intrauterine on ultrasound. 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 : None HEENT: None Psych: Anxiety Musculoskeletal: None Derm: None - Past Surgical History Past Surgical History: Yes General: EGD HEENT: Myringotomy (tubes) - Present Medications Home Medications: Ambulatory Orders Medication Instructions Recorded Confirmed Norelgestromin/Ethin.estradiol 05/02/19 [Xulane Patch] Ondansetron Odt [Zofran] 4 mg TL Q6H PRN #10 tablet 05/02/19 Promethazine [Phenergan] 25 mg PO Q6H PRN #10 tab 05/02/19 Prochlorperazine Supp [Compazine 25 mg SC BID PRN #15 supp 05/04/19 Supp] Metoclopramide [Reglan] 10 mg PO Q6H PRN #10 tablet 06/27/19 Ondansetron Odt [Zofran] 4 mg TL Q6H PRN #10 tablet 06/27/19 Ondansetron Odt [Zofran] 4 mg TL Q6H PRN #10 tablet 09/23/19 Pyridoxine HCl (Vitamin B6) 100 mg PO BID #60 tablet 09/23/19 [Vitamin B-6] dexAMETHasone [Decadron] 4 mg PO DAILY #5 tablet 09/23/19 - Allergies Allergies/Adverse Reactions: Allergies Allergy/AdvReac Type Severity Reaction Status Date / Time No Known Drug Allergies Allergy Verified 10/20/19 05:15 - Social History Does the pt smoke?: No Smoking Status: Never smoker Does the pt drink ETOH?: No Does the pt have substance abuse?: Yes - Immunizations Immunizations are current?: Yes - POLST Patient has POLST: No PD ED PE NORMAL - Vitals Vital signs reviewed: Yes - General General: Alert and oriented X 3, Other (Non-toxic but somewhat unfomfortable, holding emesis bag.) - HEENT HEENT: PERRL - Neck Neck: Supple, no meningeal sign - Cardiac Cardiac: RRR, No murmur - Respiratory Respiratory: No respiratory distress, Clear bilaterally - Abdomen Abdomen: Soft, Non distended, Other (Mild diffuse tenderness, no focal tenderness. Specifically no RLQ or RUQ focal tenderness.) - Derm Derm: Warm and dry - Extremities Extremities: No deformity - Neuro Neuro: Alert and oriented X 3, No motor deficit, No sensory deficit, Normal speech Results - Vitals Vitals: Vital Signs - 24 hr 10/20/19 10/20/19 10/20/19 05:13 06:32 07:41 Temperature 36.1 C L Heart Rate 79 77 65 Respiratory 26 H 20 32 H Rate Blood Pressure 142/82 H 121/80 112/76 O2 Saturation 98 100 100 10/20/19 10/20/19 08:17 08:48 Temperature 36.5 C Heart Rate 82 65 Respiratory 19 20 Rate Blood Pressure 102/66 112/63 O2 Saturation 100 100 Oxygen O2 Source Room air - Labs Labs: Laboratory Tests 10/20/19 10/20/19 10/20/19 05:15 05:15 05:15 WBC 13.6 H RBC 4.14 L Hgb 13.7 Hct 39.4 MCV 95.2 MCH 33.1 H MCHC 34.8 RDW 12.3 Plt Count 298 MPV 8.5 Neut # (Auto) 9.4 H Lymph # (Auto) 2.5 [place] # (Auto) 1.2 H Eos # (Auto) 0.4 Baso # (Auto) 0.1 Absolute Nucleated RBC 0.00 Nucleated RBC % 0.0 Sodium 134 L Potassium 3.1 L Chloride 107 Carbon Dioxide 15 L Anion Gap 12.0 BUN 13 Creatinine 0.8 Estimated GFR (MDRD) 89 Glucose 131 H Calcium 9.1 Total Bilirubin 0.7 AST 15 ALT 14 Alkaline Phosphatase 31 L Total Protein 7.2 Albumin 4.0 Globulin 3.2 Albumin/Globulin Ratio 1.3 Lipase 35 Urine Color YELLOW Urine Clarity CLEAR Urine pH 6.0 Ur Specific Basile 1.025 Urine Protein NEGATIVE Urine Glucose (UA) NEGATIVE Urine Ketones NEGATIVE Urine Occult Blood TRACE-LYSE Urine Nitrite NEGATIVE Urine Bilirubin NEGATIVE Urine Urobilinogen 0.2 (NORMAL) Ur Leukocyte Esterase NEGATIVE Ur Microscopic Review NOT INDICATED Urine Culture Comments NOT INDICATED PD MEDICAL DECISION MAKING - ED course Complexity details: considered differential (Cannabinoid hyperemesis, hyperemesis gravidarum, threatened miscarriage, electrolyte abnormality, appendicitis, gastroenteritis) ED course: On arrival pt is uncomfortable but non-toxic, her abdomen is mildly diffusely tender but without focal tenderness and she states feels identical to countless other episodes that have occured after marijuana use. On chart review she has well-established cannabinoid hyperemesis. Bedside POCUS shows intrauterine with HR 154. She has had a radiology US previously confirming IUP. Labs show mild leukocytosis, mild hyponatremia, UA negative for infection. On repeat examination after anti-emetics pt appears more comfortable and vital signs are within normal limits. She asks for ativan but I explained I am not com fortable giving this given its contraindication in , particularly in the 1st trimester. She was given pain medicine and another dose of antiemetics. On repeat examination her abdomen is benign and she is not vomiting, is well- appearing. She did become anxious and requested ativan again. She was observed and required one more round of medications, afterwards she was feeling improved and continued to have normal vital signs and a benign abdominal exam. No signs of acute abdominal pathology. She has no vaginal bleeding or signs of miscarriage at this time. I reviewed the importance of avoiding marijuana, discussed follow up and return precautions, and pt was discharged home in good condition. Departure - Departure Disposition: 01 Home, Self Care Clinical Impression: Cannabinoid hyperemesis syndrome Condition: Good Comments: You were seen today for nausea, vomiting abdominal pain. As we discussed I think this is secondary to the marijuana, I would avoid marijuana use altogether, particularly given that during people tend to be more sensitive to nausea and vomiting in general, and marijuana as well as dehydration may be harmful to the fetus. If you are having increasing abdominal pain, inability to tolerate fluids, or other concerning symptoms, return to the ED. Discharge Date/Time: 10/20/19 08:50
[2019-10-20 05:42] LABS: BASOPHILS # (AUTO) 0.1 10^3/uL (0.0-0.1); BASOPHILS % (AUTO) 0.7 %; CLARITY,URINE CLEAR (CLEAR); EOSINOPHILS # (AUTO) 0.4 10^3/uL (0.0-0.7); EOSINOPHILS % (AUTO) 2.7 %; HGB - HEMOGLOBIN 13.7 g/dL (12.0-16.0); LYMPHOCYTES # (AUTO) 2.5 10^3/uL (1.5-3.5); LYMPHOCYTES % (AUTO) 18.5 %; MEAN CORPUSCULAR HEMOGLOBIN 33.1 pg (27.0-31.0); MEAN CORPUSCULAR HGB CONC 34.8 g/dL (32.0-36.0); MEAN CORPUSCULAR VOLUME 95.2 fL (81.0-99.0); MEAN PLATELET VOLUME 8.5 fL (7.9-10.8); MONOCYTES # (AUTO) 1.2 10^3/uL (0.0-1.0); MONOCYTES % (AUTO) 8.9 %; NEUTROPHILS # (AUTO) 9.4 10^3/uL (1.5-6.6); NEUTROPHILS % (AUTO) 68.7 %; PLT - PLATELET COUNT 298 10^3/uL (130-450); RED BLOOD COUNT 4.14 10^6/uL (4.20-5.40); RED CELL DISTRIBUTION WIDTH 12.3 % (12.0-15.0); WHITE BLOOD COUNT 13.6 x10^3/uL (4.8-10.8)
[2019-10-20 05:51] LABS: ALBUMIN/GLOBULIN RATIO 1.3 (1.0-2.2); BILIRUBIN,TOTAL 0.7 mg/dL (0.2-1.0); CALCIUM 9.1 mg/dL (8.5-10.3); CREATININE 0.8 mg/dL (0.4-1.0); TOTAL PROTEIN 7.2 g/dL (6.7-8.2)
[2019-10-20] MEDS ORDERED: ONDANSETRON 4 MG/2 ML VIAL IVP STA ×2 (06:03→06:51)
[2019-10-20] MEDS ORDERED: MORPHINE 2 MG/ML CARPUJECT IVP STA ×2 (06:03→06:54)
[2019-10-20] MEDS ORDERED: ONDANSETRON 4 MG/2 ML VIAL ONE (06:06)
[2019-10-20] MEDS ORDERED: HYDROmorphone 1 MG/ML CARPUJECT IVP STA (08:03)
[2019-10-20 08:50] VITALS: BP 112/63
== END 2019-10-20 08:50 | disposition home or self-care (01) ==
LOC: ED 05:07
DX: O21.8 Other vomiting complicating pregnancy (principal); F12.988 Cannabis use, unspecified with other cannabis-induced disorder; Z3A.08 8 weeks gestation of pregnancy
CPT/HCPCS: 36415; 80053; 81003; 83690; 85025; 96374; 96375; 96376; 99284; 99285; J1170; J1200; J2765; 81001; 87086

== ENCOUNTER 2019-10-21 08:04 | Outpatient (CLI) | payer MEDICAID | END 2019-10-21 08:05 | disposition critical access hospital (66) | LOC: EMS 08:04 | PROVIDERS: ATTEND Surgery | DX: O21.9 Vomiting of pregnancy, unspecified (principal) | CPT/HCPCS: A0425; A0429 ==

== ENCOUNTER 2019-10-21 08:11 | Emergency (ER) | payer MEDICAID ==
[2019-10-21] MEDS ORDERED: SODIUM CHLORIDE 0.9% 1,000 ML IV ONE (08:19)
[2019-10-21] MEDS ORDERED: PROCHLORPERAZINE 10 MG/2 ML VIAL IVP STA ×2 (08:20→09:23)
[2019-10-21] MEDS ORDERED: diphenhydrAMINE INJ 50 MG/ML VIAL IVP STA ×2 (08:20→11:06)
[2019-10-21] MEDS ORDERED: HYDROmorphone 1 MG/ML CARPUJECT IVP STA ×2 (08:20→09:23)
[2019-10-21] MEDS ORDERED: DEXAMETHASONE 10 MG/ML VIAL IVP STA (08:21)
--- NOTE | 2019-10-21 08:31 | ED Physician Documentation ---
PD HPI NVD - Stated complaint Stated Complaint: N/V - Chief complaint Chief Complaint: Abd Pain - History obtained from History obtained from: Patient - History of Present Illness Timing - onset: Yesterday Timing - details: Abrupt onset, Still present, Waxing and waning (improved with meds yesterday in ER, but onset again after getting home.) Associated symptoms: Abdominal pain, Loss of appetite. No: Fever, Chest pain, Hematemesis Contributing factors: Other (cannibis use). No: Sick contact, Bad food, Travel, Recent antibiotics Improved by: No: Vomiting Worsened by: Eating Similar symptoms before: Diagnosis (cannibis hyperemesis, recent contribution from related nausea.) Recently seen: Emergency Dept (Seen yesterday in the emergency department for same. Multiple prior visits for similar episodes. She had not had hyperemesis event for a few weeks having stopped the marijuana. However she was here yesterday after resuming it. She denies any marijuana use since yesterday or the day before. However she states she only felt moderately better on discharge yesterday and ill again soon after returning home and has had worsening symptoms overnight.) Review of Systems Constitutional: denies: Fever, Chills Nose: denies: Rhinorrhea / runny nose, Congestion Throat: denies: Sore throat Respiratory: denies: Cough GI: reports: Abdominal Pain, Nausea, Vomiting. denies: Diarrhea, Hematemesis : reports: Now EGA (8). 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 : None HEENT: None Psych: Anxiety Musculoskeletal: None Derm: None - Past Surgical History Past Surgical History: Yes General: EGD HEENT: Myringotomy (tubes) - Present Medications Home Medications: Ambulatory Orders Medication Instructions Recorded Confirmed Metoclopramide [Reglan] 10 mg PO Q6H PRN #10 tablet 06/27/19 10/21/19 Pyridoxine HCl (Vitamin B6) 100 mg PO BID #60 tablet 09/23/19 10/21/19 [Vitamin B-6] Famotidine 20 mg PO DAILY #30 tablet 10/21/19 Ondansetron Odt [Zofran] 4 mg TL Q8HR PRN 10/21/19 10/21/19 Promethazine Supp [Phenergan Supp] 25 mg [place] DAILY 10/21/19 10/21/19 - Allergies Allergies/Adverse Reactions: Allergies Allergy/AdvReac Type Severity Reaction Status Date / Time No Known Drug Allergies Allergy Verified 10/21/19 08:14 - Social History Does the pt smoke?: No Smoking Status: Never smoker Does the pt drink ETOH?: No Does the pt have substance abuse?: Yes Substance Use and Type: Marijuana - Immunizations Immunizations are current?: Yes - POLST Patient has POLST: No PD ED PE NORMAL - Vitals Vital signs reviewed: Yes - General General: Alert and oriented X 3, Well developed/nourished, Other (appears in considerable abd pain) - HEENT HEENT: Pharynx benign - Neck Neck: Supple, no meningeal sign, No adenopathy - Cardiac Cardiac: RRR, No murmur - Respiratory Respiratory: Clear bilaterally - Abdomen Abdomen: Soft, Non distended. No: Normal bowel sounds (diminished) - Female Female : Deferred - Rectal Rectal: Deferred - Back Back: No CVA TTP - Derm Derm: Normal color, Warm and dry - Neuro Neuro: Alert and oriented X 3, No motor deficit, Normal speech Results - Vitals Vitals: Vital Signs - 24 hr 10/21/19 10/21/19 10/21/19 08:14 08:23 09:06 Temperature 35.6 C L 36.7 C Heart Rate 76 74 90 Respiratory 24 24 18 Rate Blood Pressure 147/86 H 132/94 H 107/63 O2 Saturation 100 100 100 10/21/19 10/21/19 10/21/19 10:48 11:50 12:36 Temperature 36.7 C 36.5 C Heart Rate 87 94 77 Respiratory 16 16 Rate Blood Pressure 108/65 106/73 113/66 O2 Saturation 98 99 100 Oxygen O2 Source Room air PD MEDICAL DECISION MAKING - ED course Complexity details: re-evaluated patient (She states she is feeling considerably improved, more than yesterday, so feeling she will be okay at home. ), considered differential, d/w patient Departure - Departure Disposition: 01 Home, Self Care Clinical Impression: Hyperemesis Condition: Stable Record reviewed to determine appropriate education?: Yes Follow-Up: Josh Johnson PA-C [Primary Care Provider] - Prescriptions: Famotidine 20 mg PO DAILY #30 tablet Comments: Continue usual medications at home. Avoid cannabis. Stay well-hydrated. Consider adding famotidine acid reducing medicine daily for several weeks to reduce stomach irritation Discharge Date/Time: 10/21/19 12:45
[2019-10-21] MEDS ORDERED: ONDANSETRON 4 MG/2 ML VIAL IVP STA (11:03)
[2019-10-21] MEDS ORDERED: FAMOTIDINE 20 MG/2 ML VIAL IVP STA (11:05)
[2019-10-21 12:38] VITALS: BP 113/66
== END 2019-10-21 12:45 | disposition home or self-care (01) ==
LOC: EDUNIT# → ED 08:11
DX: R11.10 Vomiting, unspecified (principal); Z72.89 Other problems related to lifestyle
CPT/HCPCS: 96361; 96374; 96375; 96376; 99284; 99285; J1170; J1200

== ENCOUNTER 2019-10-25 08:00 | Outpatient (CLI) | payer MEDICAID ==
[2019-10-25 13:58] LABS: MUDS CUTOFF CONCENTRATIONS CUTOFF CONC BELOW:
[2019-10-25 14:06] LABS: BILIRUBIN,URINE NEGATIVE (NEGATIVE); GLUCOSE, URINE (UA) NEGATIVE (NEGATIVE); KETONES,URINE (UA) NEGATIVE (NEGATIVE); LEUKOCYTE ESTERASE, URINE NEGATIVE (NEGATIVE); NITRITE,URINE NEGATIVE (NEGATIVE); OCCULT BLOOD,URINE NEGATIVE (NEGATIVE); PROTEIN,URINE NEGATIVE (NEGATIVE); UROBILINOGEN,URINE 0.2 (NORMAL) E.U./dL (NORMAL)
[2019-10-25 14:20] LABS: CLARITY,URINE CLEAR (CLEAR)
[2019-10-25 14:22] LABS: AMPHETAMINE SCREEN,URINE NEGATIVE (NEGATIVE); BENZODIAZEPINES SCREEN, URINE NEGATIVE (NEGATIVE); COCAINE SCREEN URINE NEGATIVE (NEGATIVE); METHADONE SCREEN, URINE NEGATIVE (NEGATIVE); METHAMPHETAMINES SCREEN, URINE NEGATIVE (NEGATIVE); OPIATE SCREEN, URINE NEGATIVE (NEGATIVE); OXYCODONE SCREEN, URINE NEGATIVE (NEGATIVE); PROPOXYPHENE SCREEN, URINE NEGATIVE (NEGATIVE); TRICYCLIC ANTIDEPRESSANT,URINE NEGATIVE (NEGATIVE)
[2019-10-25 14:38] LABS: BACTERIA,URINE Rare /HPF (None Seen); RBC,URINE 0-5 /HPF (0-5); SQUAMOUS EPITHELIAL CELL,UR FEW Squamous (<= Few)
[2019-10-25 22:22] LABS: TRICHOMONAS VAGINALIS DNA NEGATIVE (NEGATIVE)
== END 2019-10-25 23:59 | disposition home or self-care (01) ==
LOC: LAB.R 08:00
PROVIDERS: ATTEND Advanced Practice Midwife
DX: Z34.00 Encounter for supervision of normal first pregnancy, unspecified trimester (principal); Z36.89 Encounter for other specified antenatal screening
CPT/HCPCS: 80306; 81001; 87086; 87491; 87591; 87661

== ENCOUNTER 2019-10-28 16:13 | Outpatient (CLI) | payer MEDICAID | END 2019-10-28 16:14 | disposition critical access hospital (66) | LOC: EMS 16:13 | PROVIDERS: ATTEND Surgery | DX: O99.89 Other specified diseases and conditions complicating pregnancy, childbirth and the puerperium (principal); R10.84 Generalized abdominal pain; R11.10 Vomiting, unspecified | CPT/HCPCS: A0425; A0429 ==

== ENCOUNTER 2019-10-28 16:18 | Emergency (ER) | payer MEDICAID ==
[2019-10-28] MEDS ORDERED: SODIUM CHLORIDE 0.9% 1,000 ML IV ONE (16:28)
[2019-10-28] MEDS ORDERED: PROMETHAZINE INJ 25 MG in SODIUM CHLORIDE 0.9% 50 ML IV STA (16:28)
[2019-10-28] MEDS ORDERED: HYDROmorphone 1 MG/ML CARPUJECT IVP STA (16:29)
--- NOTE | 2019-10-28 16:31 | ED Physician Documentation ---
PD HPI ABD PAIN - Stated complaint Stated Complaint: VOMITING - History obtained from History obtained from: Patient, EMS - History of Present Illness Timing - onset: Other (24-year-old woman with history of cannabinoid hyperemesis now 10 weeks presents with 3 days of vomiting and upper abdominal pain. She is also had lower abdominal cramping but no fluid loss or bleeding. Had slight hematemesis today. No fevers. Symptoms are typical for her. 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 : None HEENT: None Psych: Anxiety Musculoskeletal: None Derm: None - Past Surgical History Past Surgical History: Yes General: EGD HEENT: Myringotomy (tubes) - Present Medications Home Medications: Ambulatory Orders Medication Instructions Recorded Confirmed Metoclopramide [Reglan] 10 mg PO Q6H PRN #10 tablet 06/27/19 10/21/19 Pyridoxine HCl (Vitamin B6) 100 mg PO BID #60 tablet 09/23/19 10/21/19 [Vitamin B-6] Famotidine 20 mg PO DAILY #30 tablet 10/21/19 Ondansetron Odt [Zofran] 4 mg TL Q8HR PRN 10/21/19 10/21/19 Promethazine Supp [Phenergan Supp] 25 mg [place] DAILY 10/21/19 10/21/19 - Allergies Allergies/Adverse Reactions: Allergies Allergy/AdvReac Type Severity Reaction Status Date / Time No Known Drug Allergies Allergy Verified 10/21/19 08:14 - Social History Does the pt smoke?: No Smoking Status: Never smoker Does the pt drink ETOH?: No Does the pt have substance abuse?: Yes - Immunizations Immunizations are current?: Yes - POLST Patient has POLST: No PD ED PE NORMAL - Vitals Vital signs reviewed: Yes - General General: Alert and oriented X 3, Other (Retching and histrionic) - Abdomen Abdomen: Normal bowel sounds, Soft, Non tender - Female Female : Other (Bedside ultrasound shows normal live intrauterine ) - Back Back: No CVA TTP, No spinal TTP - Derm Derm: Normal color, Warm and dry - Extremities Extremities: No edema, No calf tenderness / cord - Neuro Neuro: Alert and oriented X 3, Normal speech Results - Vitals Vitals: Vital Signs - 24 hr 10/28/19 10/28/19 10/28/19 16:28 16:31 17:44 Temperature 37 C 36.8 C Heart Rate 99 78 74 Respiratory 16 16 16 Rate Blood Pressure 161/66 H 145/89 H 118/71 O2 Saturation 96 100 96 Oxygen O2 Source Room air - Labs Labs: Laboratory Tests 10/28/19 16:24 Sodium 135 Potassium 3.4 L Chloride 107 Carbon Dioxide 16 L Anion Gap 12.0 BUN 12 Creatinine 0.8 Estimated GFR (MDRD) 89 Glucose 98 Calcium 9.7 Total Bilirubin 1.1 H AST 19 ALT 14 Alkaline Phosphatase 30 L Total Protein 8.0 Albumin 4.3 Globulin 3.7 Albumin/Globulin Ratio 1.2 Lipase 28 PD MEDICAL DECISION MAKING - ED course ED course: 24-year-old woman with recurrent cannabinoid hyperemesis now compounded by first term was treated stepwise with medications and requested discharge and passed an oral challenge. She remained nontender on reevaluation prior to discharge. She is "planning to quit smoking marijuana over the next few days." Departure - Departure Disposition: 01 Home, Self Care Clinical Impression: Cannabinoid hyperemesis syndrome Qualifiers: Weeks of gestation: 10 weeks Qualified Code(s): Z3A.10 - 10 weeks gestation of Condition: Good Record reviewed to determine appropriate education?: Yes Instructions: ED Nausea Vomiting Discharge Date/Time: 10/28/19 18:20
[2019-10-28 16:46] LABS: ALBUMIN 4.3 g/dL (3.2-5.5); ALBUMIN/GLOBULIN RATIO 1.2 (1.0-2.2); BILIRUBIN,TOTAL 1.1 mg/dL (0.2-1.0); CALCIUM 9.7 mg/dL (8.5-10.3); CREATININE 0.8 mg/dL (0.4-1.0)
[2019-10-28] MEDS ORDERED: KETOROLAC 15 MG/ML VIAL IVP STA (17:01)
[2019-10-28] MEDS ORDERED: HALOPERIDOL 5 MG/ML VIAL IVP ONE (17:01)
[2019-10-28] MEDS ORDERED: MORPHINE 2 MG/ML CARPUJECT IVP STA (17:32)
[2019-10-28] MEDS ORDERED: ONDANSETRON 4 MG/2 ML VIAL IVP STA (17:32)
[2019-10-28 17:44] VITALS: BP 118/71
== END 2019-10-28 18:20 | disposition home or self-care (01) ==
LOC: EDUNIT# → ED 16:18
DX: O21.9 Vomiting of pregnancy, unspecified (principal); F12.288 Cannabis dependence with other cannabis-induced disorder; Z3A.10 10 weeks gestation of pregnancy
CPT/HCPCS: 36415; 80053; 83690; 96365; 96375; 99284; 99285; J1170; J7040

== ENCOUNTER 2019-10-29 08:21 | Outpatient (CLI) | payer MEDICAID | END 2019-10-29 08:22 | disposition home or self-care (01) | LOC: WFO 08:21 → LAB 08:22 | PROVIDERS: ATTEND Advanced Practice Midwife | DX: Z36.0 Encounter for antenatal screening for chromosomal anomalies (principal) | CPT/HCPCS: 36415; 81599 ==

== ENCOUNTER 2019-11-05 06:07 | Outpatient (CLI) | payer MEDICAID | END 2019-11-05 06:08 | disposition critical access hospital (66) | LOC: EMS 06:07 | PROVIDERS: ATTEND Surgery | DX: O21.9 Vomiting of pregnancy, unspecified (principal); Z3A.00 Weeks of gestation of pregnancy not specified; O26.899 Other specified pregnancy related conditions, unspecified trimester; R10.9 Unspecified abdominal pain | CPT/HCPCS: A0425; A0429 ==

== ENCOUNTER 2019-11-05 06:15 | Emergency (ER) | payer MEDICAID ==
[2019-11-05] MEDS ORDERED: SODIUM CHLORIDE 0.9% 1,000 ML IV ONE ×2 (06:26→07:19)
[2019-11-05] MEDS ORDERED: METOCLOPRAMIDE 10 MG/2 ML VIAL IVP STA (06:36)
[2019-11-05] MEDS ORDERED: FAMOTIDINE 20 MG/2 ML VIAL IVP STA (06:36)
[2019-11-05 06:40] LABS: BASOPHILS # (AUTO) 0.1 10^3/uL (0.0-0.1); BASOPHILS % (AUTO) 0.8 %; EOSINOPHILS # (AUTO) 0.1 10^3/uL (0.0-0.7); EOSINOPHILS % (AUTO) 0.6 %; HGB - HEMOGLOBIN 13.9 g/dL (12.0-16.0); LYMPHOCYTES # (AUTO) 1.2 10^3/uL (1.5-3.5); LYMPHOCYTES % (AUTO) 10.8 %; MEAN CORPUSCULAR HEMOGLOBIN 33.3 pg (27.0-31.0); MEAN CORPUSCULAR HGB CONC 34.7 g/dL (32.0-36.0); MEAN CORPUSCULAR VOLUME 95.9 fL (81.0-99.0); MEAN PLATELET VOLUME 8.6 fL (7.9-10.8); MONOCYTES # (AUTO) 0.6 10^3/uL (0.0-1.0); MONOCYTES % (AUTO) 5.2 %; NEUTROPHILS # (AUTO) 9.3 10^3/uL (1.5-6.6); NEUTROPHILS % (AUTO) 82.2 %; PLT - PLATELET COUNT 285 10^3/uL (130-450); RED BLOOD COUNT 4.18 10^6/uL (4.20-5.40); RED CELL DISTRIBUTION WIDTH 11.9 % (12.0-15.0); WHITE BLOOD COUNT 11.3 x10^3/uL (4.8-10.8)
[2019-11-05 06:52] LABS: ALBUMIN/GLOBULIN RATIO 1.1 (1.0-2.2); CALCIUM 9.1 mg/dL (8.5-10.3); CREATININE 0.7 mg/dL (0.4-1.0); TOTAL PROTEIN 7.6 g/dL (6.7-8.2)
--- NOTE | 2019-11-05 06:58 | ED Physician Documentation ---
PD HPI NVD - Stated complaint Stated Complaint: ABD PX - Chief complaint Chief Complaint: Abd Pain - History obtained from History obtained from: Patient - History of Present Illness Timing - onset: Last night Timing - details: Abrupt onset Associated symptoms: Abdominal pain, Loss of appetite. No: Fever, Chest pain, Hematemesis Contributing factors: Other (cannibis use for her nausea at baseline; is taking vitamin B-6 and had zofran for nausea, but was not working well.). No: Sick contact, Bad food, Travel Improved by: Other (warm showers). No: Vomiting Worsened by: Eating Similar symptoms before: Diagnosis (Cannabis induced hyperemesis) Recently seen: Emergency Dept Review of Systems Constitutional: denies: Fever, Chills Nose: denies: Rhinorrhea / runny nose, Congestion Throat: denies: Sore throat Respiratory: denies: Cough GI: reports: Abdominal Pain, Nausea, Vomiting. 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 : None HEENT: None Psych: Anxiety Musculoskeletal: None Derm: None - Past Surgical History Past Surgical History: Yes General: EGD HEENT: Myringotomy (tubes) - Present Medications Home Medications: Ambulatory Orders Medication Instructions Recorded Confirmed Metoclopramide [Reglan] 10 mg PO Q6H PRN #10 tablet 06/27/19 10/21/19 Pyridoxine HCl (Vitamin B6) 100 mg PO BID #60 tablet 09/23/19 10/21/19 [Vitamin B-6] Famotidine 20 mg PO DAILY #30 tablet 10/21/19 Ondansetron Odt [Zofran] 4 mg TL Q8HR PRN 10/21/19 10/21/19 Promethazine Supp [Phenergan Supp] 25 mg [place] DAILY 10/21/19 10/21/19 Famotidine 20 mg PO DAILY #30 tablet 11/05/19 Ondansetron Odt [Zofran] 4 mg TL Q6H PRN #20 tablet 11/05/19 Promethazine Supp [Phenergan Supp] 25 mg [place] Q6H PRN #10 supp 11/05/19 Promethazine [Phenergan] 25 mg PO Q6H PRN #20 tab 11/05/19 dexAMETHasone [Decadron] 4 mg PO DAILY #5 tablet 11/05/19 - Allergies Allergies/Adverse Reactions: Allergies Allergy/AdvReac Type Severity Reaction Status Date / Time No Known Drug Allergies Allergy Verified 10/21/19 08:14 - Social History Does the pt smoke?: No Smoking Status: Never smoker Does the pt drink ETOH?: No Does the pt have substance abuse?: Yes Substance Use and Type: Marijuana - Immunizations Immunizations are current?: Yes - POLST Patient has POLST: No PD ED PE NORMAL - Vitals Vital signs reviewed: Yes - General General: Alert and oriented X 3, Well developed/nourished, Other - HEENT HEENT: No: Moist mucous membranes - Neck Neck: Supple, no meningeal sign, No adenopathy - Cardiac Cardiac: RRR, No murmur - Respiratory Respiratory: Clear bilaterally - Abdomen Abdomen: Soft, Non distended, No organomegaly, Other (Significantly tender in the epigastric area. Guarding.) - Derm Derm: Warm and dry. No: Normal color (She is pale-colored though that may be largely complexion.) Results - Vitals Vitals: Vital Signs - 24 hr 11/05/19 11/05/19 11/05/19 06:20 07:54 08:55 Temperature 36.6 C Heart Rate 95 105 H 95 Respiratory 24 Rate Blood Pressure 146/93 H 127/95 H 127/85 H O2 Saturation 100 100 100 11/05/19 09:55 Temperature Heart Rate 90 Respiratory 0 L Rate Blood Pressure 129/75 O2 Saturation 99 Oxygen O2 Source Room air - Labs Labs: Laboratory Tests 11/05/19 11/05/19 06:30 06:30 WBC 11.3 H RBC 4.18 L Hgb 13.9 Hct 40.1 MCV 95.9 MCH 33.3 H MCHC 34.7 RDW 11.9 L Plt Count 285 MPV 8.6 Neut # (Auto) 9.3 H Lymph # (Auto) 1.2 L [place] # (Auto) 0.6 Eos # (Auto) 0.1 Baso # (Auto) 0.1 Absolute Nucleated RBC 0.00 Nucleated RBC % 0.0 Sodium 134 L Potassium 3.1 L Chloride 105 Carbon Dioxide 18 L Anion Gap 11.0 BUN 12 Creatinine 0.7 Estimated GFR (MDRD) 104 Glucose 157 H Calcium 9.1 Total Bilirubin 1.0 AST 18 ALT 14 Alkaline Phosphatase 35 L Total Protein 7.6 Albumin 4.0 Globulin 3.6 Albumin/Globulin Ratio 1.1 Lipase 42 PD MEDICAL DECISION MAKING - ED course Complexity details: reviewed old records, re-evaluated patient (subsequently feeling better enough to take fluids and felt improved for discharge. ), considered differential, d/w patient ED course: The patient is well-known with repeated visits of the cannabis hyperemesis. She states she had tried really hard to stop the cannabis and had for several weeks and was feeling better but then was feeling a bit nauseous generally and said "I just feel so good after smoking that I started up again". This despite the episodes of the hyperemesis that do not make her feel so good. Given her , it does limit some of the prior successful medicines for her such as the benzodiazepines and haloperidol. The haloperidol according to the [facility] is mainly contraindicated in the first trimester so might be able to reintroduce it as she gets further along in . At this point are us ing fluids, antiemetics, and limited Dilaudid as the regular antiemetics have been largely unsuccessful for her in the past. I did talk with the patient that this is not a preferred treatment but is likely needed in the short-term with the . I did write for various antiemetics for use at home to try to help her with her nausea in general so she is less likely to want to use the cannabis for that. Departure - Departure Disposition: 01 Home, Self Care Clinical Impression: Abdominal pain, Cannabinoid hyperemesis syndrome Gastritis Qualifiers: Gastritis type: unspecified gastritis Chronicity: acute Gastritis bleeding: without bleeding Qualified Code(s): K29.00 - Acute gastritis without bleeding Qualifiers: Weeks of gestation: 11 weeks Qualified Code(s): Z3A.11 - 11 weeks gestation of Condition: Stable Record reviewed to determine appropriate education?: Yes Instructions: ED Nausea Vomiting Follow-Up: Josh Johnson PA-C [Primary Care Provider] - [facility] [Provider Group] Prescriptions: dexAMETHasone [Decadron] 4 mg PO DAILY #5 tablet Famotidine 20 mg PO DAILY #30 tablet Ondansetron Odt [Zofran] 4 mg TL Q6H PRN #20 tablet PRN Reason: Nausea / Vomiting Promethazine [Phenergan] 25 mg PO Q6H PRN #20 tab PRN Reason: Nausea / Vomiting Promethazine Supp [Phenergan Supp] 25 mg [place] Q6H PRN #10 supp PRN Reason: Nausea / Vomiting Comments: Try to continue the vitamin B6 twice daily at home. Hold off on your vitamin for couple of days as a can irritate the stomach. Famotidine acid reducing medicine daily for the next month. Your repeat vomiting episodes likely has created some element of gastritis. Dexamethasone steroid daily for 5 more days to help reduce the nausea as well. Ondansetron if needed for nausea. Alternatively could use promethazine either orally or suppository to help with vomiting as well. Stop cannabis use. Follow-up with GUEST SERVICE AIDE and your primary care. Discharge Date/Time: 11/05/19 09:54
[2019-11-05] MEDS ORDERED: PROCHLORPERAZINE 10 MG/2 ML VIAL IVP STA (07:07)
[2019-11-05] MEDS ORDERED: diphenhydrAMINE INJ 50 MG/ML VIAL IVP STA (07:07)
[2019-11-05] MEDS ORDERED: DEXAMETHASONE 10 MG/ML VIAL IVP STA (07:07)
[2019-11-05] MEDS ORDERED: HYDROmorphone 1 MG/ML CARPUJECT IVP STA (07:07)
[2019-11-05] MEDS ORDERED: HYDROmorphone 1 MG/ML SYRINGE IVP STA (08:30)
[2019-11-05] MEDS ORDERED: KETOROLAC 15 MG/ML VIAL IVP STA (08:31)
[2019-11-05 09:56] VITALS: BP 129/75
== END 2019-11-05 09:54 | disposition home or self-care (01) ==
LOC: EDUNIT# → ED 06:15
DX: O99.89 Other specified diseases and conditions complicating pregnancy, childbirth and the puerperium (principal); R10.9 Unspecified abdominal pain; K29.00 Acute gastritis without bleeding; F12.288 Cannabis dependence with other cannabis-induced disorder; O21.0 Mild hyperemesis gravidarum; Z3A.11 11 weeks gestation of pregnancy
CPT/HCPCS: 36415; 80053; 83690; 85025; 96361; 96374; 96375; 96376; 99284; 99285; J1170; J1200; J2765

== ENCOUNTER 2019-11-23 10:02 | Outpatient (CLI) | payer MEDICAID ==
[2019-11-23 13:26] LABS: BASOPHILS # (AUTO) 0.1 10^3/uL (0.0-0.1); BASOPHILS % (AUTO) 0.8 %; EOSINOPHILS # (AUTO) 0.3 10^3/uL (0.0-0.7); EOSINOPHILS % (AUTO) 2.6 %; HGB - HEMOGLOBIN 13.2 g/dL (12.0-16.0); LYMPHOCYTES # (AUTO) 1.4 10^3/uL (1.5-3.5); LYMPHOCYTES % (AUTO) 13.9 %; MEAN CORPUSCULAR HEMOGLOBIN 32.2 pg (27.0-31.0); MEAN CORPUSCULAR HGB CONC 32.9 g/dL (32.0-36.0); MEAN CORPUSCULAR VOLUME 97.8 fL (81.0-99.0); MEAN PLATELET VOLUME 9.2 fL (7.9-10.8); MONOCYTES # (AUTO) 0.6 10^3/uL (0.0-1.0); MONOCYTES % (AUTO) 5.9 %; NEUTROPHILS # (AUTO) 7.8 10^3/uL (1.5-6.6); NEUTROPHILS % (AUTO) 76.3 %; PLT - PLATELET COUNT 258 10^3/uL (130-450); RED CELL DISTRIBUTION WIDTH 12.5 % (12.0-15.0); WHITE BLOOD COUNT 10.3 x10^3/uL (4.8-10.8)
[2019-11-24 10:24] LABS: HEPATITIS B SURFACE ANTIGEN NON-REACTIVE (NON-REACTIVE); HEPATITIS C ANTIBODY NON-REACTIVE (NON-REACTIVE)
[2019-11-24 11:34] LABS: HIV AG/AB 4TH GEN NON-REACTIVE (NON-REACTIVE)
== END 2019-11-23 23:59 | disposition home or self-care (01) ==
LOC: LAB.WCP 10:02
PROVIDERS: ATTEND Advanced Practice Midwife
DX: Z34.00 Encounter for supervision of normal first pregnancy, unspecified trimester (principal); Z36.89 Encounter for other specified antenatal screening
CPT/HCPCS: 36415; 81599; 85025; 86592; 86762; 86803; 86850; 86900; 86901; 87340; 87389

== ENCOUNTER 2019-12-21 11:04 | Outpatient (CLI) | payer MEDICAID | END 2019-12-21 23:59 | disposition home or self-care (01) | LOC: LAB.WCP 11:04 | PROVIDERS: ATTEND Advanced Practice Midwife | DX: Z34.00 Encounter for supervision of normal first pregnancy, unspecified trimester (principal); Z36.0 Encounter for antenatal screening for chromosomal anomalies | CPT/HCPCS: 36415; 81511; 81599 ==

== ENCOUNTER 2020-01-05 11:53 | Outpatient (CLI) | payer MEDICAID ==
--- NOTE | 2020-01-05 15:11 | Ultrasound Report ---
PROCEDURE: OB Detailed Eval INDICATIONS: ENCOUNTER FOR OTHER SPECIFIED SCREENING OUTSIDE/PRIOR DATING DATA: Last menstrual period (LMP): 06/16/2019. LMP-based estimated date of delivery (SHADIA): 05/22/2020. First dating scan (date and location): 10/04/2019. Estimated date of delivery (SHADIA) from first dating scan: 05/24/2020. TECHNIQUE: Real-time scanning was performed of the fetus, with image documentation and biometric measurements. COMPARISON: 10/04/2019 FINDINGS: General: A single living intrauterine gestation is present. Presentation: Variable Placenta: Placental position is anterior, without previa. Amniotic fluid index: 15.5 cm, 63rd percentile for gestational age. Largest pocket 4.6 cm heart rate: 157 beats per minute. Maternal cervical canal: 3.9 cm long; normal length is 2.5 cm or more. biometrics: Biparietal diameter: 4.8 cm 20 weeks 3 days Head circumference: 17.5 cm 20 weeks 0 days Abdominal circumference: 14.8 cm 20 weeks 1 day Femur length: 3.2 cm 20 weeks 0 days Estimated gestational age from initial scan: 20 weeks 1 day Composite gestational age from present scan: 20 weeks 0 days Estimated weight and percentile: 330g, 49th percentile Measurement variability in biometric dating: +/- 10 days from 12-20 weeks gestation, +/- 2 weeks from 20-30 weeks gestation, +/- 3 weeks at 30 weeks gestation or later. Anatomic survey: Neuro: Ventricles are normal at less than 10 mm. Cisterna magna is normal at 3-11 mm. Cerebellum i s normal in size and morphology. Nuchal skin fold: Normal at less than 6 mm between 14 and 20 weeks gestational age. Face: Nose and lips, facial profile are normal. Spine: No evidence for spina bifida. Heart: 4-chambered heart is present, with normal ventricular outflow tracts. Diaphragm: Diaphragm is intact. Stomach: Left-sided stomach is present. Kidneys: No hydronephrosis. Normal is less than 5 mm in 2nd trimester, less than 7 mm in 3rd trimester. Cord: 3 vessel cord has orthotopic insertion. Bladder: Normal in size. Extremities: All 4 extremities are visualized. IMPRESSION: 1. Single live intrauterine with ultrasound gestational age today of 20 weeks 0 days compar ed to 20 weeks 1 day from initial ultrasound. Ultrasound SHADIA is unchanged at 05/24/2020. 2. Anatomy is within normal limits. Reviewed by: Julissa Hyatt MD on 01/05/2020 3:10 PM PDT Approved by: Julissa Hyatt MD on 01/05/2020 3:10 PM PDT Station ID: [id number]
== END 2020-01-05 11:54 | disposition home or self-care (01) ==
LOC: DI 11:53
PROVIDERS: ATTEND Advanced Practice Midwife
DX: Z36.89 Encounter for other specified antenatal screening (principal)
CPT/HCPCS: 76811

== ENCOUNTER 2020-01-31 07:22 | Outpatient (CLI) | payer MEDICAID | END 2020-01-31 07:23 | disposition critical access hospital (66) | LOC: EMS 07:22 | PROVIDERS: ATTEND Surgery | DX: O99.89 Other specified diseases and conditions complicating pregnancy, childbirth and the puerperium (principal); R11.2 Nausea with vomiting, unspecified | CPT/HCPCS: A0425; A0427 ==

== ENCOUNTER 2020-01-31 07:37 | Emergency (ER) | payer MEDICAID ==
[2020-01-31] MEDS ORDERED: METOCLOPRAMIDE 10 MG/2 ML VIAL IVP STA (07:44)
[2020-01-31] MEDS ORDERED: SODIUM CHLORIDE 0.9% 1,000 ML IV STA (07:44)
[2020-01-31] MEDS ORDERED: MORPHINE 2 MG/ML CARPUJECT IVP STA ×2 (07:44→08:21)
--- NOTE | 2020-01-31 07:46 | ED Physician Documentation ---
PD HPI NVD - Stated complaint Stated Complaint: VOMITING/23 WKS - History obtained from History obtained from: Patient, EMS - Additonal information Additional information: 24-year-old woman with history of cannabinoid hyperemesis syndrome. She is a G1 currently at 23 weeks . OB is [facility]. She had quit smoking marijuana for about a week and was doing well, but relapsed over the last couple of days and since last night has had severe abdominal pain and vomiting consistent with prior episodes of cannabinoid hyperemesis. No cramping bleeding or fluid loss. Received 4 mg of Zofran on the way here without significant re lief. Review of Systems Ten Systems: 10 systems reviewed and negative Constitutional: reports: Sweats. denies: Fever GI: reports: Abdominal Pain, Nausea, Vomiting. denies: Diarrhea PD PAST MEDICAL HISTORY - Past Medical History Cardiovascular: None Respiratory: Asthma Neuro: None Endocrine/Autoimmune: None GI: Other WINDOWS TECHNICAL SPECIALIST: None : None HEENT: None Psych: Anxiety Musculoskeletal: None Derm: None - Past Surgical History Past Surgical History: Yes General: EGD HEENT: Myringotomy (tubes) - Present Medications Home Medications: Ambulatory Orders Medication Instructions Recorded Confirmed Metoclopramide [Reglan] 10 mg PO Q6H PRN #10 tablet 06/27/19 10/21/19 Pyridoxine HCl (Vitamin B6) 100 mg PO BID #60 tablet 09/23/19 10/21/19 [Vitamin B-6] Famotidine 20 mg PO DAILY #30 tablet 10/21/19 Ondansetron Odt [Zofran] 4 mg TL Q8HR PRN 10/21/19 10/21/19 Promethazine Supp [Phenergan Supp] 25 mg [place] DAILY 10/21/19 10/21/19 Famotidine 20 mg PO DAILY #30 tablet 11/05/19 Ondansetron Odt [Zofran] 4 mg TL Q6H PRN #20 tablet 11/05/19 Promethazine Supp [Phenergan Supp] 25 mg VA Q6H PRN #10 supp 11/05/19 Promethazine [Phenergan] 25 mg PO Q6H PRN #20 tab 11/05/19 dexAMETHasone [Decadron] 4 mg PO DAILY #5 tablet 11/05/19 Promethazine [Phenergan] 25 mg PO Q6H PRN #14 tab 01/31/20 - Allergies Allergies/Adverse Reactions: Allergies Allergy/AdvReac Type Severity Reaction Status Date / Time No Known Drug Allergies Allergy Verified 01/31/20 07:49 - Social History Does the pt smoke?: No Smoking Status: Never smoker Does the pt drink ETOH?: No Does the pt have substance abuse?: Yes - Immunizations Immunizations are current?: Yes - POLST Patient has POLST: No PD ED PE NORMAL - Vitals Vital signs reviewed: Yes - General General: Alert and oriented X 3, Other (Appears uncomfortable and hyperventilating) - HEENT HEENT: PERRL, EOMI - Neck Neck: Supple, no meningeal sign, No bony TTP - Cardiac Cardiac: RRR, No murmur - Respiratory Respiratory: No respiratory distress, Clear bilaterally - Abdomen Abdomen: Normal bowel sounds, Soft, Other (Nontender abdomen, bedside ultrasound shows IUP with heart rate of 146.) - Back Back: No CVA TTP, No spinal TTP - Derm Derm: Normal color, Warm and dry - Extremities Extremities: No edema, No calf tenderness / cord - Neuro Neuro: Alert and oriented X 3, Normal speech Results - Vitals Vitals: Vital Signs - 24 hr 01/31/20 01/31/20 07:49 08:02 Temperature 37.1 C Heart Rate 88 103 H Respiratory 20 20 Rate Blood Pressure 123/66 117/61 O2 Saturation 100 99 Oxygen O2 Source Room air - Labs Labs: Laboratory Tests 01/31/20 07:51 Sodium 138 Potassium 4.0 Chloride 107 Carbon Dioxide 18 L Anion Gap 13.0 BUN 10 Creatinine 0.9 Estimated GFR (MDRD) 78 L Glucose 108 H Calcium 8.7 Total Bilirubin 0.7 AST 17 ALT 12 Alkaline Phosphatase 38 L Total Protein 7.1 Albumin 3.5 Globulin 3.6 Albumin/Globulin Ratio 1.0 Lipase 37 PD MEDICAL DECISION MAKING - ED course ED course: 24-year-old G1 at 23 weeks presents with recurrent cannabinoid hyperemesis. She was doing well for a while and had abstained but then had progressive THC use recently. She discussed how she was doing well when she abstained, but then started using a little bit which rapidly progressed to "using multiple dabs per day." She was medicated here with excellent relief of her symptoms and tolerated oral challenge and requested discharge so that she could go home and take a hot shower. Departure - Departure Disposition: Home, Self Care Clinical Impression: Cannabinoid hyperemesis syndrome Qualifiers: Weeks of gestation: 23 weeks Qualified Code(s): Z3A.23 - 23 weeks gestation of Condition: Good Record reviewed to determine appropriate education?: Yes Instructions: ED Drug Abuse General, ED Nausea Vomiting Prescriptions: Promethazine [Phenergan] 25 mg PO Q6H PRN #14 tab PRN Reason: Nausea / Vomiting Comments: Refer to the resources given to you previously for drug abuse cessation. Return if worse. Follow-up with your OB, next available appointment. Promethazine prescription was sent electronically to [facility] in [place].
[2020-01-31 08:13] LABS: ALBUMIN 3.5 g/dL (3.2-5.5); BILIRUBIN,TOTAL 0.7 mg/dL (0.2-1.0); CALCIUM 8.7 mg/dL (8.5-10.3); CREATININE 0.9 mg/dL (0.4-1.0); TOTAL PROTEIN 7.1 g/dL (6.7-8.2)
[2020-01-31] MEDS ORDERED: HALOPERIDOL 5 MG/ML VIAL IVP ONE (08:21)
[2020-01-31 09:13] VITALS: BP 125/90
== END 2020-01-31 09:18 | disposition home or self-care (01) ==
LOC: EDUNIT# → ED 07:37
DX: O21.2 Late vomiting of pregnancy (principal); Z3A.23 23 weeks gestation of pregnancy
CPT/HCPCS: 36415; 80053; 83690; 96361; 96374; 96375; 99283; 99285; J2765

== ENCOUNTER 2020-03-06 15:51 | Outpatient (CLI) | payer MEDICAID ==
[2020-03-06 17:06] LABS: HGB - HEMOGLOBIN 11.5 g/dL (12.0-16.0); MEAN CORPUSCULAR HEMOGLOBIN 34.4 pg (27.0-31.0); MEAN CORPUSCULAR HGB CONC 34.3 g/dL (32.0-36.0); MEAN CORPUSCULAR VOLUME 100.3 fL (81.0-99.0); MEAN PLATELET VOLUME 8.8 fL (7.9-10.8); RED BLOOD COUNT 3.34 10^6/uL (4.20-5.40); RED CELL DISTRIBUTION WIDTH 11.9 % (12.0-15.0); WHITE BLOOD COUNT 9.4 x10^3/uL (4.8-10.8)
== END 2020-03-06 15:52 | disposition home or self-care (01) ==
LOC: LAB 15:51
PROVIDERS: ATTEND Advanced Practice Midwife
DX: Z36.89 Encounter for other specified antenatal screening (principal); Z34.00 Encounter for supervision of normal first pregnancy, unspecified trimester
CPT/HCPCS: 36415; 82950; 85027

== ENCOUNTER 2020-04-02 08:26 | Emergency (ER) | payer MEDICAID ==
--- NOTE | 2020-04-02 08:41 | ED Physician Documentation ---
PD HPI SKIN - Chief complaint Chief Complaint: Burn - History obtained from History obtained from: Patient - History of Present Illness Timing - onset: Yesterday Timing - duration: Days (11) Timing - details: Gradual onset (laying out in sun with hat and sunscreened arms/face but neglected legs and got sunburn anterior lower legs/lower thighs. Tender last night and more today. Feeling tender to have pants/clothing rub on it. Does not feel she can work today due to it. Denies abd/pelvic pain nor spotting.) Location: RLE, LLE Quality / character: Painful, Discolored. No: Vesicular Improved by: Other (lido ointment OTC) Associated symptoms: No: Fever, Myalgias, N/V/D Review of Systems Constitutional: denies: Fever Nose: denies: Rhinorrhea / runny nose, Congestion Throat: denies: Sore throat Respiratory: denies: Cough GI: denies: Abdominal Pain, Nausea, Vomiting, Diarrhea : reports: Now EGA (31 weeks). denies: Vaginal bleeding PD PAST MEDICAL HISTORY - Past Medical History Cardiovascular: None Respiratory: Asthma Neuro: None Endocrine/Autoimmune: None GI: Other SYSTEMS CONSULTANT: None : None HEENT: None Psych: Anxiety Musculoskeletal: None Derm: None - Past Surgical History Past Surgical History: Yes General: EGD HEENT: Myringotomy (tubes) - Present Medications Home Medications: Ambulatory Orders Medication Instructions Recorded Confirmed Metoclopramide [Reglan] 10 mg PO Q6H PRN #10 tablet 06/27/19 02/22/20 Pyridoxine HCl (Vitamin B6) 100 mg PO BID #60 tablet 09/23/19 02/22/20 [Vitamin B-6] Famotidine 20 mg PO DAILY #30 tablet 10/21/19 02/22/20 Ondansetron Odt [Zofran] 4 mg TL Q8HR PRN 10/21/19 02/22/20 Promethazine Supp [Phenergan Supp] 25 mg [place] DAILY 10/21/19 02/22/20 Promethazine [Phenergan] 25 mg PO Q6H PRN #20 tab 11/05/19 02/22/20 - Allergies Allergies/Adverse Reactions: Allergies Allergy/AdvReac Type Severity Reaction Status Date / Time No Known Drug Allergies Allergy Verified 02/22/20 08:06 - Social History Does the pt smoke?: No Smoking Status: Never smoker Does the pt drink ETOH?: No Does the pt have substance abuse?: Yes - Immunizations Immunizations are current?: Yes - POLST Patient has POLST: No PD ED PE NORMAL - Vitals Vital signs reviewed: Yes - General General: Alert and oriented X 3, No acute distress, Well developed/nourished - HEENT HEENT: Atraumatic - Cardiac Cardiac: RRR, No murmur - Respiratory Respiratory: Clear bilaterally - Abdomen Abdomen: Soft, Other (gravid with fundus mid between umbilicus and xyphoid. Not tender. ) - Extremities Extremities: Other (both lower thights/lower legs, with worst at the anterior knees, with redness and tenderness. No blistering. Sunburn redness with tenderness to touch. ) Results - Vitals Vitals: Vital Signs - 24 hr 04/02/20 04/02/20 08:35 10:32 Temperature 36.7 C 36.5 C Heart Rate 80 57 L Respiratory 18 16 Rate Blood Pressure 108/61 104/57 L O2 Saturation 100 100 Oxygen O2 Source Room air PD MEDICAL DECISION MAKING - ED course Complexity details: considered differential (tender sunburn. Feeling pain with clothing rubbing on it.), d/w patient Departure - Departure Disposition: 01 Home, Self Care Clinical Impression: Sunburn Condition: Stable Record reviewed to determine appropriate education?: Yes Instructions: ED Burn Sunburn Follow-Up: Antonio Higginbotham MD [Provider Admit Priv/Credential] - Comments: It is okay to be using the sunburn cream such as aloe and lidocaine on the knees and legs for the sunburn. You can also try to improve the sunburn with vitamin E or A&D cream as that helps skin healing as well. Tylenol if needed for pains. You might end up with some peeling of skin on the knees area where it is the re ddest. Forms: Activity restrictions Discharge Date/Time: 04/02/20 10:32
[2020-04-02] MEDS ORDERED: ACETAMINOPHEN 325 MG TABLET PO STA (08:51)
[2020-04-02] MEDS ORDERED: LIDOCAINE OINTMENT 5% 35.44 GM TUBE TOP STA (08:51)
[2020-04-02 10:33] VITALS: BP 104/57
--- NOTE | 2020-04-02 12:33 | Ultrasound Report ---
PROCEDURE: OB Biophysical Profile INDICATIONS: bradycardia OUTSIDE/PRIOR DATING DATA: Last menstrual period (LMP): 06/16/2019. LMP-based estimated date of delivery (SHADIA): 05/14/2020. First dating scan (date and location): 10/04/2019. Estimated date of delivery (SHADIA) from first dating scan: 05/24/2020. TECHNIQUE: Real-time scanning was performed of the fetus, with image documentation and biometric joanne surements. Biophysical profile was also obtained. COMPARISON: OB ultrasound 01/05/2020, 09/24/2019, 09/21/2019 FINDINGS: General: A single living intrauterine gestation is present. Presentation: Cephalic Placenta: Placental position is anterior, without previa. Amniotic fluid index: 9.5 cm, within normal limits for gestational age. heart rate: 132 beats per minute. Maternal cervical canal: Not well seen biometrics: Estimated gestational age from initial scan: 32 weeks 4 days Biophysical profile: Tone: 2 points. Movement: 2 points. Respiration: 2 points. Largest pocket of fluid: 2 points. IMPRESSION: 1. Single live intrauterine with ultrasound gestational age of 32 weeks 4 days. 2. BPP 8 out of 8 Reviewed by: Julissa Hyatt MD on 04/02/2020 12:31 PM PDT Approved by: Julissa Hyatt MD on 04/02/2020 12:31 PM PDT Station ID: [id number]
== END 2020-04-02 10:32 | disposition home or self-care (01) ==
LOC: ED 08:26
DX: O99.713 Diseases of the skin and subcutaneous tissue complicating pregnancy, third trimester (principal); L55.9 Sunburn, unspecified; O36.8330 Maternal care for abnormalities of the fetal heart rate or rhythm, third trimester, not applicable or unspecified; O99.323 Drug use complicating pregnancy, third trimester; F12.90 Cannabis use, unspecified, uncomplicated; Z3A.32 32 weeks gestation of pregnancy
CPT/HCPCS: 76819; 80306; 99214; 99284; A9270

== ENCOUNTER 2020-04-02 10:25 | Outpatient (CLI) | payer MEDICAID ==
[2020-04-02 11:14] LABS: MUDS CUTOFF CONCENTRATIONS CUTOFF CONC BELOW:
[2020-04-02 11:29] VITALS: BP 104/57
[2020-04-02 11:39] LABS: AMPHETAMINE SCREEN,URINE NEGATIVE (NEGATIVE); BENZODIAZEPINES SCREEN, URINE NEGATIVE (NEGATIVE); COCAINE SCREEN URINE NEGATIVE (NEGATIVE); METHADONE SCREEN, URINE NEGATIVE (NEGATIVE); METHAMPHETAMINES SCREEN, URINE NEGATIVE (NEGATIVE); OPIATE SCREEN, URINE NEGATIVE (NEGATIVE); OXYCODONE SCREEN, URINE NEGATIVE (NEGATIVE); PROPOXYPHENE SCREEN, URINE NEGATIVE (NEGATIVE); TRICYCLIC ANTIDEPRESSANT,URINE NEGATIVE (NEGATIVE)
--- NOTE | 2020-04-03 08:17 | PROVIDER PROGRESS NOTE ---
- HPI Chief Complaint: Other (Sunburn. Patient was out in the sun yesterday suffered a sunburn she is known redhead as well as having very pale skin. Upon further questioning patient admits to utilizing cannabinoids prior to but denies the use at this time.) Current : Vital Signs Temperature 36.5 C 04/02/20 10:28 Heart Rate 71 04/02/20 10:28 Respiratory Rate 16 04/02/20 10:28 Blood Pressure 104/57 L 04/02/20 10:28 O2 Saturation 100 04/02/20 10:28 Temperature 36.5 C 04/02/20 10:28 Heart Rate 71 04/02/20 10:28 Respiratory Rate 16 04/02/20 10:28 Blood Pressure 104/57 L 04/02/20 10:28 O2 Saturation 100 04/02/20 10:28 - Exam Patient is 32.57 weeks. Her course has been unremarkable at this time. - Procedures OB Procedure Performed: NST NST Procedure: NST Procedure Start Time 09:54 Stop Time 10:30 100-110 she shows excellent accelerations.Nonstress test shows a baseline to be maternal heart rate also is running in the 60 to sub-60s. This is lower than her usual heartbeat. She also to have a lower baseline than in the clinic which usually runs about 140. Service Date of procedure: 04/02/20 Procedure Details: FetalPatient presented with a low baseline in the heart rate. This is lower than was been detected in the clinic. Patient had a urine drug screen performed which showed cannabinoids being present. She admits now to having taken cannabinoids this morning. With time the baseline Increased from the 110 to the 125 region. Maternal heart rate also increased. My impression is that this was a drug-induced decreased in heart rate. I discussed the case with MELISSA. At this time he was not alarmed.
== END 2020-04-02 13:00 | disposition home or self-care (01) ==
LOC: WFO 10:25 → FBP 10:26 → WFO 13:00
PROVIDERS: ATTEND Obstetrics & Gynecology
DX: O36.8330 Maternal care for abnormalities of the fetal heart rate or rhythm, third trimester, not applicable or unspecified (principal); O99.323 Drug use complicating pregnancy, third trimester; F12.90 Cannabis use, unspecified, uncomplicated; Z3A.32 32 weeks gestation of pregnancy
CPT/HCPCS: 80306; 99214

== ENCOUNTER 2020-05-02 08:00 | Outpatient (CLI) | payer MEDICAID | END 2020-05-02 23:59 | disposition home or self-care (01) | LOC: LAB.R 08:00 | PROVIDERS: ATTEND Advanced Practice Midwife | DX: Z34.00 Encounter for supervision of normal first pregnancy, unspecified trimester (principal); Z36.85 Encounter for antenatal screening for Streptococcus B | CPT/HCPCS: 87797 ==

== ENCOUNTER 2020-05-10 05:58 | Inpatient (IN) | payer MEDICAID ==
[2020-05-10] MEDS ORDERED: SODIUM CHLORIDE FLUSH 0.9% 10 ML SYRINGE IVP PRN (06:10)
[2020-05-10] MEDS ORDERED: CARBOPROST TROMETHAMINE 250 MCG/ML AMP IM PRN (06:10)
[2020-05-10] MEDS ORDERED: fentaNYL 100 MCG/2 ML VIAL IVP PRN (06:10)
[2020-05-10] MEDS ORDERED: LACTATED RINGERS 1,000 ML IV SCH (06:10)
[2020-05-10] MEDS ORDERED: OXYTOCIN 10 UNIT/ML VIAL IM PRN (06:10)
[2020-05-10] MEDS ORDERED: LIDOCAINE-MPF 1% 30 ML VIAL ID PRN (06:10)
[2020-05-10] MEDS ORDERED: TRANEXAMIC ACID 1,000 MG in SODIUM CHLORIDE 0.9% 100ML 100 ML IV PRN (06:10)
[2020-05-10] MEDS ORDERED: miSOPROStoL 200 MCG TABLET BC PRN (06:10)
[2020-05-10] MEDS ORDERED: ONDANSETRON 4 MG/2 ML VIAL IVP PRN (06:10)
[2020-05-10] MEDS ORDERED: OXYTOCIN/SODIUM CHLORIDE 500 ML IV PRN (06:10)
[2020-05-10] MEDS ORDERED: METHYLERGONOVINE 0.2 MG/ML VIAL IM PRN (06:10)
[2020-05-10 06:44] LABS: BASOPHILS # (AUTO) 0.1 10^3/uL (0.0-0.1); BASOPHILS % (AUTO) 0.7 %; EOSINOPHILS % (AUTO) 0.3 %; HGB - HEMOGLOBIN 12.2 g/dL (12.0-16.0); LYMPHOCYTES # (AUTO) 1.5 10^3/uL (1.5-3.5); LYMPHOCYTES % (AUTO) 14.5 %; MEAN CORPUSCULAR HEMOGLOBIN 32.1 pg (27.0-31.0); MEAN CORPUSCULAR HGB CONC 33.9 g/dL (32.0-36.0); MEAN CORPUSCULAR VOLUME 94.7 fL (81.0-99.0); MEAN PLATELET VOLUME 10.2 fL (7.9-10.8); MONOCYTES # (AUTO) 0.8 10^3/uL (0.0-1.0); MONOCYTES % (AUTO) 7.4 %; NEUTROPHILS # (AUTO) 7.9 10^3/uL (1.5-6.6); NEUTROPHILS % (AUTO) 76.8 %; PLT - PLATELET COUNT 236 10^3/uL (130-450); RED CELL DISTRIBUTION WIDTH 12.4 % (12.0-15.0); WHITE BLOOD COUNT 10.3 x10^3/uL (4.8-10.8)
--- NOTE | 2020-05-10 06:44 | HISTORY & PHYSICAL EXAMINATION ---
Admit History - Visit Reason Visit Reason: Contractions - : 1 Parity: 0 Premature: 0 Ectopic: 0 : 0 Care: positive: None ([facility]) Risk/History: positive: None Complications This : positive: None Smoking Status: Never smoker - Mother's Labs Mother's Blood Type: positive: B Mother's RH: positive: Positive GBS: positive: Group B Step Negative Rubella Status: positive: Equivocal - Other Maternal History Other Maternal History: -24 yo at 38.0wks gestation who presents to Labor and Delivery with complaints of contractions starting at 0230 after a gush of fluid was felt after intercourse last night at 2300 -Reports movement -Denies ctx/VB - care with [facility] which has been adequate - Complications *Cyclic vomiting with multiple ED visits related to cannabinoid dependence -Dating Criteria *Initial US at 6.5wks c/w LMP -OB Hx *G1: current -Medications * vitamin-daily *Sertraline 50mg daily *Ondansetron PRN nausea *Promethazine PRN nausea *Metoclopramide PRN nausea -Allergies *NKDA * banana *kiwi *avocado *pet dander -Medical History *Cyclic Vomiting Syndrome *Asthma *Depression/Anxiety -Surgical History *None -Family History *Non contributory -Social History *Cannabinoid dependence - Labs, Immunizations, and Findings Initial U/S: 6w5d for SHADIA 05/24/2020 consistent with LMP A pos/Rubella *equivocal* discussed MMR inpatient Gentic testing: Desires Quad -neg / CF-neg FAS: FAS: at 20.1wks WNL. Posterior Placenta. EFW 49%. POLLO wnl. 3VC. Follow up US indicated if growth continues to be below size Glucola : 112 TDAP : 03/18/2020 Flu: Declines 05/02/2020 GBS & GC/CT at 36.6- neg HSV: denies self and FOB Breast pump Rx:: 01/18/2020 MOD: . FOB Arvin. Gender: Female. Barbara Fisher. pp contraception: discussed 12/20, will consider Multiple ED visits for cyclic vomiting r/t cannabis use -SVE /0 -Vertex by digital exam -EFW by drew's: 6# -FHTs as above -Assessment *24yo at 38.0wks gestation in active labor * Heart Tones- Category I -Plan *Admit to L&D *Monitoring- Continuous *Comfort measures available- position changes, whirlpool tub, fentanyl, and epidural per maternal preference *Diet/Activity- per maternal preference *Anticipate Meds/Allgy - Home Medications Home Medications: Ambulatory Orders Medication Instructions Recorded Confirmed Metoclopramide [Reglan] 10 mg PO Q6H PRN #10 tablet 06/27/19 02/22/20 Pyridoxine HCl (Vitamin B6) 100 mg PO BID #60 tablet 09/23/19 02/22/20 [Vitamin B-6] Famotidine 20 mg PO DAILY #30 tablet 10/21/19 02/22/20 Ondansetron Odt [Zofran] 4 mg TL Q8HR PRN 10/21/19 02/22/20 Promethazine Supp [Phenergan Supp] 25 mg [place] DAILY 10/21/19 02/22/20 Promethazine [Phenergan] 25 mg PO Q6H PRN #20 tab 11/05/19 02/22/20 - Allergies Allergies/Adverse Reactions: Allergies Allergy/AdvReac Type Severity Reaction Status Date / Time No Known Drug Allergies Allergy Verified 02/22/20 08:06 Review of Systems - All Other Systems All Other Systems: reports: Reviewed and negative Physical - Abdominal Exam Contraction Frequency (min/apart): 2-5 Contraction Intensity: positive: Moderate to strong Uterine Resting Tone: positive: Soft - Monitoring Heart Rate Baseline: 125 Strip Review: positive: Category I - Presentation Presentation: positive: Vertex - Vaginal Exam Membranes: positive: Membranes ruptured
[2020-05-10] MEDS ORDERED: HYDROCORTISONE 1% CREAM 28 GM TUBE PR PRN (08:37)
[2020-05-10] MEDS ORDERED: WITCH HAZEL/GLYCERIN 1 PAD TOP PRN (08:37)
[2020-05-10] MEDS ORDERED: MEASLES,MUMPS & RUBELLA VACC 0.5 ML VIAL SUBQ ONE (08:39)
--- NOTE | 2020-05-10 08:52 | DELIVERY NOTE ---
Delivery Note - Labor Labor: positive: Spontaneous - Delivery Method Delivery Method: positive: Spontaneous vaginal delivery - Presentation Presentation: positive: Vertex, YUE - left occiput anterior - Nuchal Cord Nuchal Cord: positive: Present (loose x1, reduced) - Amniotic Fluid Description Amniotic Fluid Description: positive: Clear - Laceration Laceration: positive: 1st degree, Periurethral (right) - Suture Suture Type: positive: Vicryl Suture Size: positive: 3-0 - Delivery Outcome Delivery Outcome: positive: Livebirth - : positive: Placed in direct skin contact with mother, Stimulated, [place] used sex: positive: Female - Cord Cord: positive: 3 vessels - Placenta Placenta: positive: Intact, Spontaneous - Estimated Blood Loss Estimated Blood Loss (in cc): 100 - Post Delivery Events Post Delivery Events: positive: No post delivery events - Delivery Comments (Free Text/Narrative) Delivery Comments (Free Text/Narrative): Note: Labor: This 24 year old, , @38.0wks gestation by 6.5week Ultrasound, confirmed by LMP, presented this morning in active labor. Cervix was 7/100/0, baby was vertex, and she had a strong urge to push. She reports SROM last night at 2300, and all fluid was clear. FHR pattern demonstrated 125 baseline in a Category I pattern, although was difficult to obtain due to maternal movement. Normal labor course. She progressed to complete at 0742. : Normal of a 2660gm female , Barbara Fisher, on 05/10/2020 at 0755. Nuchal x1, loose and reduced. The was placed on maternal abdomen, stimulated, dried and placed skin to skin. Apgars 8 at one minute and 9 at five minutes. The umbilical cord was allowed to stop pulsating at which time it was doubly clamped by CNM and cut by FOB. Physiologic management was done. Fundal massage and gentle cord traction applied for active third stage management. Cord blood was obtained. Placenta delivered spontaneously and intact at 0805. Three vessel cord. EBL 100mL. Fourth Stage: Uterine fundus firm and without excessive bleeding. The perineum, vagina, and cervix were inspected and found to have sustained a first degree right periurethral tear which was repaired using lidocaine for anesthesia using a 3-0 vicryl. The repair was performed in standard fashion under sterile conditions. Vaginal examination following repair was done. Tissues well approximated. initiated. Family bonding well. Both mother and baby are in stable condition.
[2020-05-10] MEDS: DOCUSATE SODIUM 100 MG CAPSULE PO PRN (09:12)
[2020-05-10] MEDS: ACETAMINOPHEN 500 MG TABLET PO SCH ×2 (09:12→20:03)
[2020-05-10] MEDS ORDERED: METOCLOPRAMIDE 10 MG/2 ML VIAL IVP PRN (09:28)
[2020-05-10] MEDS: IBUPROFEN 600 MG TABLET PO SCH (15:00)
[2020-05-11] MEDS ORDERED: ONDANSETRON ODT 4 MG TABLET TL PRN ×2 (04:57→05:06)
[2020-05-11] MEDS ORDERED: METOCLOPRAMIDE 10 MG TABLET PO PRN (04:58)
[2020-05-11] MEDS: IBUPROFEN 600 MG TABLET PO SCH ×4 (06:37→13:16)
[2020-05-11] MEDS: CALCIUM CARBONATE CHEW 500 MG TABLET PO SCH (07:32)
[2020-05-11] MEDS: ACETAMINOPHEN 500 MG TABLET PO SCH (07:33)
--- NOTE | 2020-05-11 09:34 | PROVIDER PROGRESS NOTE ---
Subjective - Prog Note Date Prog Note Date: 05/11/20 Prog Note Time: 09:31 - Subjective Pt reports feeling: Improved Subjective: Final Progress Note S: Leda and MARITZA are resting in bed together with baby. Reporting an improving relationship overnight. Her pain is well controlled with PO NSAIDs. Reports her bleeding as light. Reports nausea improved with showers and PO antiemetics O: Fundus Firm Lochia rubra-light PO Zofran ordered for nausea Frequent showers A: 24yo s/p on pp day 1 Perineum healing well Normal course, with the exception of ongoing cyclic nausea, possibly related to marijuana dependence, showers and PO antiemetics effective P: Continue normal care, including nausea treatment plan Evaluate for discharge home this evening or tomorrow morning Objective - Vital Signs/Intake & Output Vital Signs: Vital Signs x48h Temp Pulse Resp BP Pulse Ox 05/11/20 08:04 36.9 C 62 16 109/75 100 05/11/20 03:33 36.7 C 64 16 106/74 100 Intake & Output: Intake & Output 05/08/20 05/09/20 05/10/20 05/11/20 23:59 23:59 23:59 23:59 Intake Total 692.083 0 Balance 692.083 0 - Lab Results Fish Bones: 05/10/20 06:20
--- NOTE | 2020-05-11 12:46 | DISCHARGE SUMMARY ---
Discharge Summary Condition at Discharge: Good Discharge Disposition: 01 Home, Self Care - HPI History of Present Illness: Admit Date 05/10/2020 Discharge Date 05/11/2020 Diagnosis on Admission: 1. A 24yo at 38.0 week intrauterine 2. Early Active Labor 3. Cyclic Vomiting Syndrome r/t Marijuana Dependence Diagnosis on Discharge 1. A 24yo s/p spontaneous vaginal delivery on 05/10/2020 2. Normal recovery 3. S/P MMR subQ on 05/11/2020 Brief History: She is a patient at [facility] who presented on 05/10/2020 with complaints of contractions. The patient was found to contract every 2 to 5 minutes and her cervix was 7cm dilated, 100%effaced, and 0 station. She spontaneously delivered a viable female infant named Barbara Fisher. Apgars were 8 and 9- and 1 and 5 minutes respectively. EBL 100mL. The patient has a 1st degree right periurethral laceration that was repaired with 3-0 vicryl in usual fashion under sterile conditions. She has been doing well in her course. She is ambulating and tolerating a regular diet. She is urinating without difficulty and her lochia is normal. Her pain is well controlled with oral medications. She is experiencing ongoing nausea which is well controlled with hot showers and PO antiemetics. She received MMR on 05/11/2020. She will be discharged home today on day #1 without need for prescriptions. She intends to follow up with Midwifery at [facility] in 1, 3, and 6 weeks for routine visit. She has been given precautions to call if she has any worsening fevers, chills, abdominal pain, increased bleeding or foul smelling vaginal lochia. - ALLERGIES Allergies/Adverse Reactions: Allergies Allergy/AdvReac Type Severity Reaction Status Date / Time No Known Drug Allergies Allergy Verified 02/22/20 08:06 - MEDICATIONS Home Medications: Ambulatory Orders Medication Instructions Recorded Confirmed Metoclopramide [Reglan] 10 mg PO Q6H PRN #10 tablet 06/27/19 02/22/20 Pyridoxine HCl (Vitamin B6) 100 mg PO BID #60 tablet 09/23/19 02/22/20 [Vitamin B-6] Famotidine 20 mg PO DAILY #30 tablet 10/21/19 02/22/20 Ondansetron Odt [Zofran] 4 mg TL Q8HR PRN 10/21/19 02/22/20 Promethazine Supp [Phenergan Supp] 25 mg [place] DAILY 10/21/19 02/22/20 Promethazine [Phenergan] 25 mg PO Q6H PRN #20 tab 11/05/19 02/22/20 - LABS Result Diagrams: 05/10/20 06:20
--- NOTE | 2020-05-11 12:47 | Discharge Plan ---
Discharge Plan Problem Reviewed?: Yes Disposition: Home, Self Care Condition: Good Diet: Regular Additional Instructions or Follow Up instructions: Follow up with Midwifery at 1, 3, and 6 weeks No Smoking: If you smoke, Please STOP! Call for help. Follow-up with: Elle Ceballos ARNP [Provider Admit Priv/Credential] -
[2020-05-11 13:15] VITALS: BP 114/67
[2020-05-11] MEDS: DOCUSATE SODIUM 100 MG CAPSULE PO PRN (13:16)
[2020-05-11] MEDS ORDERED: MEASLES,MUMPS & RUBELLA VACC 0.5 ML VIAL SUBQ ONE (14:00)
--- NOTE | 2020-05-11 15:21 | Labor Flowsheet ---
Labor Flowsheet Datetime Report Generated by CPN: 05/11/2020 15:21 Datetime: 05/11/2020 13:12 VITAL SIGNS NBP Sys/Mely/Mean (mmHg): 114 : 67 : 76 Pulse: 61 Datetime: 05/11/2020 08:05 SpO2 (%): 100 Datetime: 05/10/2020 09:46 PAIN Pain Scale: 9 Pain Presence: Constant Pain Type: Cramping Pain Location: Abdomen Pain Relief Measures: CUSTOM STOCK MAKER Use Datetime: 05/10/2020 09:30 Stage of : Recovery Datetime: 05/10/2020 08:22 COMMUNICATION LaborFlag: Labor Datetime: 05/10/2020 07:42 Pushing Position: Pushing with Contractions; Pushing Right Side Pushing Progress: Descent with Pushing; Perineal Bulging; with Pushing Datetime: 05/10/2020 07:16 STAGE 2 Pushing: Involuntary Pushing Datetime: 05/10/2020 07:11 Vital Sign Comments: SpO2 monitor applied Datetime: 05/10/2020 07:05 PATIENT CARE Patient Care Comments: report received from H Mahala RN Datetime: 05/10/2020 07:00 UTERINE ACTIVITY Monitor Mode: External Monitor Interventions for UA: [place] Adjusted Frequency (min): 2-3 Quality: Strong Duration (sec): 50-80 ASSESSMENT A Monitor Mode: Exotic Dancer Interventions for FHR: Ultrasound Adjusted FHR Baseline Rate : 130 Variability: Moderate 6-25 bpm Accelerations: 15X15 Decelerations: Variable Actions for Decelerations: Side to Side; Sterile Vaginal Exam; Provider Notified Datetime: 05/10/2020 06:55 VAGINAL EXAM Dilatation (cm): 7.0 Exam by: Sarpy Datetime: 05/10/2020 06:35 Effacement (%): 100 Vaginal Exam Comments: Tucker
== END 2020-05-11 13:50 | disposition home or self-care (01) | DRG 807 ==
LOC: WFO 05:58 → FBP 06:03 → WFO 06:09 → FBP 06:10
PROVIDERS: ADMIT Advanced Practice Midwife; ATTEND Advanced Practice Midwife
PROC: 10E0XZZ Delivery of Products of Conception, External Approach (ICD-10-PCS; principal; 2020-05-10)
PROC: 0HQ9XZZ Repair Perineum Skin, External Approach (ICD-10-PCS; 2020-05-10)
DX: O99.324 Drug use complicating childbirth (principal); Z37.0 Single live birth; F12.20 Cannabis dependence, uncomplicated; O75.89 Other specified complications of labor and delivery; R11.15 Cyclical vomiting syndrome unrelated to migraine; O69.81X0 Labor and delivery complicated by cord around neck, without compression, not applicable or unspecified; O70.0 First degree perineal laceration during delivery; O92.70 Unspecified disorders of lactation; Z3A.38 38 weeks gestation of pregnancy
CPT/HCPCS: 85025; 86850; 86900; 86901; 99213; A9270; J2765; J7120; Q0162

== ENCOUNTER 2021-08-06 07:10 | Emergency (ER) | payer MEDICAID ==
[2021-08-06 07:28] VITALS: BP 122/83
--- NOTE | 2021-08-06 07:33 | ED Physician Documentation ---
PD HPI HEENT - Stated complaint Stated Complaint: COUGH/CONGESTION/SORE THROAT - Chief complaint Chief Complaint: Heent - History obtained from History obtained from: Patient - Additional information Additional information: Her daughter sick with C-19. She has tested herself several times and neg. Sick for about 5-6 days with body aches, cough, ST, L ear pain/popping. Review of Systems Constitutional: reports: Chills, Myalgias, Fatigue Ears: reports: Ear pain Nose: reports: Rhinorrhea / runny nose, Congestion Throat: reports: Sore throat Respiratory: reports: Cough. 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 HEENT: None Psych: Anxiety Musculoskeletal: None Derm: None - Past Surgical History Past Surgical History: Yes General: EGD HEENT: Myringotomy (tubes) - Present Medications Home Medications: Ambulatory Orders Medication Instructions Recorded Confirmed Metoclopramide [Reglan] 10 mg PO Q6H PRN #10 tablet 06/27/19 02/22/20 Pyridoxine HCl (Vitamin B6) 100 mg PO BID #60 tablet 09/23/19 02/22/20 [Vitamin B-6] Famotidine 20 mg PO DAILY #30 tablet 10/21/19 02/22/20 Ondansetron Odt [Zofran] 4 mg TL Q8HR PRN 10/21/19 02/22/20 Promethazine Supp [Phenergan Supp] 25 mg [place] DAILY 10/21/19 02/22/20 Promethazine [Phenergan] 25 mg PO Q6H PRN #20 tab 11/05/19 02/22/20 Amoxicillin 500 mg PO TID #30 cap 08/06/21 HYDROcod/ACETAM 5/325 [[place] 5/325] 1 - 2 tab PO Q6H PRN #15 tablet 08/06/21 - Allergies Allergies/Adverse Reactions: Allergies Allergy/AdvReac Type Severity Reaction Status Date / Time No Known Drug Allergies Allergy Verified 08/06/21 07:28 - Social History Does the pt smoke?: No Smoking Status: Never smoker Does the pt drink ETOH?: No Does the pt have substance abuse?: Yes - Immunizations Immunizations are current?: Yes - POLST Patient has POLST: No PD ED PE NORMAL - Vitals Vital signs reviewed: Yes - General General: Alert and oriented X 3, No acute distress - HEENT HEENT: Other (LOM, red tonsillar pillars.) - Neck Neck: Supple, no meningeal sign, No bony TTP - Cardiac Cardiac: RRR, No murmur - Respiratory Respiratory: No respiratory distress, Clear bilaterally - Abdomen Abdomen: Non tender - Neuro Neuro: Alert and oriented X 3, Normal speech Results - Vitals Vitals: Vital Signs - 24 hr 08/06/21 07:20 Temperature 36.9 C Heart Rate 96 Respiratory 17 Rate Blood Pressure 122/83 H O2 Saturation 98 Oxygen O2 Source Room air Departure - Departure Disposition: Home, Self Care Clinical Impression: LOM (left otitis media), Viral syndrome Condition: Good Record reviewed to determine appropriate education?: Yes Instructions: ED Otitis Media Acute Adult, ED Viral Syndrome Prescriptions: Amoxicillin 500 mg PO TID #30 cap HYDROcod/ACETAM 5/325 [[place] 5/325] 1 - 2 tab PO Q6H PRN #15 tablet PRN Reason: Pain Comments: Prescription sent electronically to [facility] [place] We will call if covid test positive. You can sign up for patient portal at [email or web address] to followup result if negative
== END 2021-08-06 07:55 | disposition home or self-care (01) ==
LOC: ED 07:10
DX: U07.1 COVID-19 (principal); H66.92 Otitis media, unspecified, left ear; B34.9 Viral infection, unspecified
CPT/HCPCS: 99283

== ENCOUNTER 2022-02-22 05:21 | Emergency (ER) | payer MEDICAID ==
[2022-02-22] MEDS ORDERED: SODIUM CHLORIDE 0.9% 2,000 ML IV STA (05:42)
[2022-02-22] MEDS ORDERED: LORazepam 2 MG/ML VIAL IVP STA (05:43)
[2022-02-22] MEDS ORDERED: PROMETHAZINE INJ 25 MG in SODIUM CHLORIDE 0.9% 50 ML IV STA (05:43)
[2022-02-22 05:57] LABS: BASOPHILS # (AUTO) 0.2 10^3/uL (0.0-0.1); BASOPHILS % (AUTO) 1.5 %; EOSINOPHILS # (AUTO) 0.1 10^3/uL (0.0-0.7); EOSINOPHILS % (AUTO) 0.6 %; HCT - HEMATOCRIT 43.3 % (37.0-47.0); LYMPHOCYTES # (AUTO) 2.4 10^3/uL (1.5-3.5); LYMPHOCYTES % (AUTO) 17.7 %; MEAN CORPUSCULAR HEMOGLOBIN 31.6 pg (27.0-31.0); MEAN CORPUSCULAR HGB CONC 34.6 g/dL (32.0-36.0); MEAN CORPUSCULAR VOLUME 91.4 fL (81.0-99.0); MEAN PLATELET VOLUME 8.8 fL (7.9-10.8); MONOCYTES # (AUTO) 1.1 10^3/uL (0.0-1.0); NEUTROPHILS # (AUTO) 9.6 10^3/uL (1.5-6.6); NEUTROPHILS % (AUTO) 71.8 %; PLT - PLATELET COUNT 407 10^3/uL (130-450); RED BLOOD COUNT 4.74 10^6/uL (4.20-5.40); WHITE BLOOD COUNT 13.4 x10^3/uL (4.8-10.8)
[2022-02-22] MEDS ORDERED: PROMETHAZINE 25 MG/1 ML VIAL ONE (06:02)
[2022-02-22 06:10] LABS: ALBUMIN 4.5 g/dL (3.2-5.5); ALBUMIN/GLOBULIN RATIO 1.3 (1.0-2.2); BILIRUBIN,TOTAL 0.9 mg/dL (0.2-1.0); CALCIUM 9.9 mg/dL (8.5-10.3); CREATININE 1.1 mg/dL (0.4-1.0); POTASSIUM 3.5 mmol/L (3.5-5.0)
[2022-02-22] MEDS ORDERED: MORPHINE 2 MG/ML CARPUJECT IVP STA ×2 (06:25→07:40)
--- NOTE | 2022-02-22 06:27 | ED Physician Documentation ---
PD HPI NVD - Stated complaint Stated Complaint: ABD PX/VOMITTING - Chief complaint Chief Complaint: Abd Pain - Additonal information Additional information: Patient is 26-year-old female presenting to the emergency department with nausea, vomiting and abdominal pain. Reports a history of cyclical vomiting and cannabinoid hyperemesis. States was abstinent from marijuana for significant amount of time after the of her child 2 years ago however resumed daily use several months ago. Reports 2 days of intractable nausea and vomiting. Specifically reports that Haldol does not work to help her symptoms. Requests IV Phenergan and Ativan. 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 HEENT: None Psych: Anxiety Musculoskeletal: None Derm: None - Past Surgical History Past Surgical History: Yes General: EGD HEENT: Myringotomy (tubes) - Present Medications Home Medications: Ambulatory Orders Medication Instructions Recorded Confirmed Promethazine [Phenergan] 25 mg PO Q6H PRN #20 tab 11/05/19 02/22/22 Promethazine Supp [Phenergan Supp] 25 mg [place] Q6H PRN #10 supp 02/22/22 Promethazine [Phenergan] 25 mg PO Q6H PRN #20 tab 02/22/22 - Allergies Allergies/Adverse Reactions: Allergies Allergy/AdvReac Type Severity Reaction Status Date / Time No Known Drug Allergies Allergy Verified 02/22/22 05:32 - Social History Does the pt smoke?: No Smoking Status: Never smoker Does the pt drink ETOH?: No Does the pt have substance abuse?: Yes - Immunizations Immunizations are current?: Yes - POLST Patient has POLST: No PD ED PE NORMAL - General General: Alert and oriented X 3, Other (Patient actively retching) - HEENT HEENT: Atraumatic, PERRL, EOMI, Ears normal, Moist mucous membranes, Pharynx benign - Neck Neck: Supple, no meningeal sign, No bony TTP, No adenopathy, Thyroid normal, No JVD - Cardiac Cardiac: RRR - Respiratory Respiratory: No respiratory distress - Abdomen Abdomen: Soft, Non tender - Female Female : Deferred - Rectal Rectal: Deferred - Back Back: No CVA TTP - Derm Derm: Normal color - Neuro Neuro: Alert and oriented X 3, project engineer 2-12 intact, No motor deficit, No sensory deficit, Normal speech - Psych Psych: Normal mood Results - Vitals Vitals: Vital Signs - 24 hr 02/22/22 02/22/22 02/22/22 05:28 06:30 08:16 Temperature 36.6 C Heart Rate 79 83 79 Respiratory 18 19 26 H Rate Blood Pressure 126/89 H 143/96 H 119/81 H O2 Saturation 99 100 100 Oxygen O2 Source Room air - EKG (time done) 0613 Rate: Rate (enter#) (86) Rhythm: NSR [place]: Normal Intervals: Normal IN. No: Prolonged QT QRS: Normal Ischemia: Non specific changes Other comments: Other comments (Moderate motion artifact throughout) - Labs Labs: Laboratory Tests 02/22/22 02/22/22 05:53 05:53 WBC 13.4 H RBC 4.74 Hgb 15.0 Hct 43.3 MCV 91.4 MCH 31.6 H MCHC 34.6 RDW 12.0 Plt Count 407 MPV 8.8 Neut # (Auto) 9.6 H Lymph # (Auto) 2.4 [place] # (Auto) 1.1 H Eos # (Auto) 0.1 Baso # (Auto) 0.2 H Absolute Nucleated RBC 0.00 Nucleated RBC % 0.0 Sodium 139 Potassium 3.5 Chloride 108 Carbon Dioxide 17 L Anion Gap 14.0 H BUN 16 Creatinine 1.1 H Estimated GFR (MDRD) 61 L Glucose 187 H Calcium 9.9 Magnesium 2.0 Total Bilirubin 0.9 AST 16 ALT 10 Alkaline Phosphatase 53 Total Protein 8.0 Albumin 4.5 Globulin 3.5 Albumin/Globulin Ratio 1.3 Lipase 26 PD MEDICAL DECISION MAKING - ED course ED course: Patient is 26-year-old female presenting to the emergency department with nausea, vomiting in setting of known history of cannabinoid hyperemesis and cyclical vomiting syndrome. Afebrile, hemodynamically stable but acutely distressed with active retching and low-volume emesis into emesis basin on arrival. Abdominal exam benign. Patient reported Ativan, Phenergan and morphine helpful for previous episodes in the past and these medications were administered. I did order for some comprehensive lab work and electrolytes are generally within normal limits. Patient does have a very mild leukocytosis however this is not atypical in the setting of an acute flare of cannabinoid hyperemesis. She is getting IV hydration at this time. I will be signing her out to the oncoming physician, please see their documentation for further detail. Departure - Departure Disposition: 01 Home, Self Care Clinical Impression: Cyclical vomiting with nausea Condition: Stable Prescriptions: Promethazine [Phenergan] 25 mg PO Q6H PRN #20 tab PRN Reason: Nausea / Vomiting Promethazine Supp [Phenergan Supp] 25 mg IN Q6H PRN #10 supp PRN Reason: Nausea / Vomiting Comments: Small frequent fluids through the day today. Avoid cannabis of course. Use promethazine suppository or orally if needed for nausea and vomiting. Tylenol if needed for pains. Discharge Date/Time: 02/22/22 10:31
[2022-02-22] MEDS ORDERED: DROPERIDOL 5 MG/2 ML VIAL IVP STA (07:40)
[2022-02-22 08:17] VITALS: BP 119/81
--- NOTE | 2022-02-22 09:59 | ED Physician Documentation ---
ED Addendum - Addendum Addendum: 02/22/22 09:57 The patient was still having some nausea and emesis after change of shift. She was given subsequent more IV fluids and also Inapsine and 2 mg morphine. These did provide further improvement in her symptoms. She has rested now for couple of hours and with out having any further vomiting. At this point it seems we can try discharging. disposition: The patient is discharged home in stable condition. Diagnoses: 1. Cyclical vomiting with nausea 2. Hyperemesis
== END 2022-02-22 10:31 | disposition home or self-care (01) ==
LOC: ED 05:21
DX: R11.15 Cyclical vomiting syndrome unrelated to migraine (principal)
CPT/HCPCS: 36415; 80053; 83690; 83735; 85025; 93005; 96365; 96375; 99281; 99285; J2060; J7040

== ENCOUNTER 2022-02-24 06:30 | Emergency (ER) | payer MEDICAID ==
[2022-02-24] MEDS ORDERED: HALOPERIDOL 5 MG/ML VIAL IM STA (06:58)
[2022-02-24] MEDS ORDERED: SODIUM CHLORIDE 0.9% 1,000 ML IV ONE (06:59)
[2022-02-24] MEDS ORDERED: PROMETHAZINE INJ 25 MG in SODIUM CHLORIDE 0.9% 50 ML IV STA ×2 (07:17→08:23)
[2022-02-24] MEDS ORDERED: LORazepam 2 MG/ML VIAL IVP STA (07:17)
--- NOTE | 2022-02-24 07:17 | ED Physician Documentation ---
PD HPI NVD - Stated complaint Stated Complaint: VOMITING - Chief complaint Chief Complaint: Abd Pain - History obtained from History obtained from: Patient - History of Present Illness Timing - onset: How many days ago (2) - Additonal information Additional information: 26-year-old female with history of cannabinoid hyperemesis syndrome well-known to emergency department presents for 2 days of nausea, vomiting, generalized abdominal pain. Patient was here 2 days prior for same, she was discharged after observation in the department and subsequently tolerating p.o. Patient states that she has been clean for the last 2 years of marijuana, however she began smoking last week, prompting the onset of her symptoms. Patient is requesting Phenergan, Ativan, Dilaudid for her symptoms. She states that the morphine that she was given last time did not help her pain and Dilaudid is what normally works for her abdominal pain. Review of Systems Ten Systems: 10 systems reviewed and negative Constitutional: denies: Fever, Chills, Myalgias Ears: denies: Loss of hearing, Ear pain, Drainage/discharge Nose: denies: Rhinorrhea / runny nose, Foreign Body Throat: denies: Dental pain / toothache, Oral lesions / sores, Sore throat Cardiac: denies: Chest pain / pressure, Palpitations GI: reports: Abdominal Pain, Nausea, Vomiting. 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 HEENT: None Psych: Anxiety Musculoskeletal: None Derm: None - Past Surgical History Past Surgical History: Yes General: EGD HEENT: Myringotomy (tubes) - Present Medications Home Medications: Ambulatory Orders Medication Instructions Recorded Confirmed Promethazine [Phenergan] 25 mg PO Q6H PRN #20 tab 11/05/19 02/22/22 Promethazine Supp [Phenergan Supp] 25 mg [place] Q6H PRN #10 supp 02/22/22 02/24/22 Promethazine [Phenergan] 25 mg PO Q6H PRN #20 tab 02/22/22 Promethazine [Phenergan] 25 mg PO Q6H PRN #10 tab 02/24/22 - Allergies Allergies/Adverse Reactions: Allergies Allergy/AdvReac Type Severity Reaction Status Date / Time No Known Drug Allergies Allergy Verified 02/24/22 06:41 - Social History Does the pt smoke?: No Smoking Status: Never smoker Does the pt drink ETOH?: No Does the pt have substance abuse?: Yes - Immunizations Immunizations are current?: Yes - POLST Patient has POLST: No PD ED PE NORMAL - Vitals Vital signs reviewed: Yes - General General: Alert and oriented X 3, Well developed/nourished, Other (loudly retching into emesis bag) - HEENT HEENT: Atraumatic, PERRL, EOMI - Neck Neck: Supple, no meningeal sign, No bony TTP, C-Spine cleared by NEXUS criteria - Cardiac Cardiac: RRR, No murmur, Strong equal pulses - Respiratory Respiratory: No respiratory distress, Clear bilaterally - Abdomen Abdomen: Soft, Non tender, Non distended, No organomegaly - Back Back: No CVA TTP, No spinal TTP - Derm Derm: Normal color, Warm and dry, No rash - Extremities Extremities: No deformity, No tenderness to palpate, Normal ROM s pain, No edema - Neuro Neuro: Alert and oriented X 3, 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 Scream-vomiting into emesis bag. Requesting Dilaudid by name. Absolutely no indication for Dilaudid at this time, patient will not be given narcotics. Patient was observed in the emergency department, she received 2 rounds of Phenergan and a round of droperidol. Was rehydrated with IV fluids. Patient subsequently tolerated p.o. and requested to be discharged from the hospital. Marijuana cessation again advised. Departure - Departure Disposition: 01 Home, Self Care Clinical Impression: Cannabinoid hyperemesis syndrome Condition: Stable Instructions: Diet Clear Liquid Dc, ED Vomiting Diarrhea Nonspecific Ad Prescriptions: Promethazine [Phenergan] 25 mg PO Q6H PRN #10 tab PRN Reason: Nausea / Vomiting Discharge Date/Time: 02/24/22 10:42
[2022-02-24] MEDS ORDERED: PROMETHAZINE 25 MG/1 ML VIAL ONE (07:47)
[2022-02-24 08:09] VITALS: BP 141/92
[2022-02-24] MEDS ORDERED: DROPERIDOL 5 MG/2 ML VIAL IVP STA (08:23)
== END 2022-02-24 10:42 | disposition home or self-care (01) ==
LOC: EDUNIT# → ED 06:30
DX: R11.2 Nausea with vomiting, unspecified (principal)
CPT/HCPCS: 96365; 96366; 96375; 99283; J2060; J7040

== ENCOUNTER 2022-11-09 03:00 | Emergency (ER) | payer MEDICAID ==
[2022-11-09] MEDS ORDERED: SODIUM CHLORIDE 0.9% 1,000 ML IV STA (03:25)
[2022-11-09] MEDS ORDERED: DROPERIDOL 5 MG/2 ML VIAL IVP STA (03:25)
[2022-11-09] MEDS ORDERED: LORazepam 2 MG/ML VIAL IVP STA (03:25)
[2022-11-09] MEDS ORDERED: KETOROLAC 30 MG/ML VIAL IVP STA (03:25)
--- NOTE | 2022-11-09 03:25 | ED Physician Documentation ---
PD HPI NVD - Stated complaint Stated Complaint: VOMITING/DIARRHEA - Chief complaint Chief Complaint: Abd Pain - History obtained from History obtained from: Patient - Additonal information Additional information: HPI from patient. Patient c/o generalized abdominal pain, nausea, vomiting, diarrhea. 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 Patient has an extensive h/o similar ED visits (radha is her [facility]th [facility] ED visit since 2013 on [facility] records); previous records reflect strong suspicion that patient's recurrent symptoms are due to cannabis hyperemesis. Review of Systems Constitutional: denies: Fever Cardiac: reports: Reviewed and negative Respiratory: reports: Reviewed and negative GI: reports: Nausea, Vomiting, Diarrhea. 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 HEENT: None Psych: Anxiety Musculoskeletal: None Derm: None - Past Surgical History Past Surgical History: Yes General: EGD HEENT: Myringotomy (tubes) - Present Medications Home Medications: Ambulatory Orders Medication Instructions Recorded Confirmed Promethazine [Phenergan] 25 mg PO Q6H PRN #20 tab 11/05/19 02/22/22 Promethazine Supp [Phenergan Supp] 25 mg [place] Q6H PRN #10 supp 02/22/22 02/24/22 Promethazine [Phenergan] 25 mg PO Q6H PRN #20 tab 02/22/22 Promethazine [Phenergan] 25 mg PO Q6H PRN #10 tab 02/24/22 LORazepam [Ativan] 0.5 - 1 mg PO TID PRN #10 tablet 11/09/22 Promethazine [Phenergan] 25 mg PO Q6H PRN #10 tab 11/09/22 - Allergies Allergies/Adverse Reactions: Allergies Allergy/AdvReac Type Severity Reaction Status Date / Time No Known Drug Allergies Allergy Verified 11/09/22 03:12 - Social History Does the pt smoke?: No Smoking Status: Never smoker Does the pt drink ETOH?: No Does the pt have substance abuse?: Yes - Immunizations Immunizations are current?: Yes - POLST Patient has POLST: No PD ED PE NORMAL - Vitals Vital signs reviewed: Yes - General General: Alert and oriented X 3, Well developed/nourished, Other (vomiting and yelling loud enough to be heard throughout most of the ED) - Cardiac Cardiac: RRR, No murmur - Respiratory Respiratory: No respiratory distress, Clear bilaterally - Abdomen Abdomen: Normal bowel sounds, Soft, Non tender, Non distended Results - Vitals Vitals: Vital Signs - 24 hr 11/09/22 11/09/22 11/09/22 03:00 03:46 04:53 Temperature 36.7 C Heart Rate 67 81 90 Respiratory 24 18 Rate Blood Pressure 121/89 H 129/84 H 117/85 H O2 Saturation 96 100 100 Oxygen O2 Source Room air - Labs Labs: Laboratory Tests 11/09/22 11/09/22 11/09/22 03:15 03:23 03:23 WBC 15.7 H RBC 4.76 Hgb 15.1 Hct 44.0 MCV 92.4 MCH 31.7 H MCHC 34.3 RDW 11.9 L Plt Count 361 MPV 9.0 Neut # (Auto) 14.0 H Lymph # (Auto) 0.5 L [place] # (Auto) 0.9 Eos # (Auto) 0.2 Baso # (Auto) 0.1 Absolute Nucleated RBC 0.00 Nucleated RBC % 0.0 Sodium 139 Potassium 3.6 Chloride 109 Carbon Dioxide 19 L Anion Gap 11.0 BUN 27 H Creatinine 0.8 Estimated GFR (MDRD) 87 L Glucose 211 H Calcium 9.3 Total Bilirubin 1.0 AST 16 ALT 14 Alkaline Phosphatase 40 L Total Protein 8.2 Albumin 4.6 Globulin 3.6 Albumin/Globulin Ratio 1.3 Lipase 30 Urine HCG, Qual NEGATIVE PD Medical Decision Making - ED course Complexity details: reviewed old records, reviewed results, re-evaluated patient, considered differential, d/w patient ED course: leukocytosis noted with WBC 15.7; this is comparable to many previous results when patient was in ED with similar symptoms, likely due to demargination. Mildly elevated BUN/creatinine ratio (27/0.8), likely representing dehydration from n/v/d. Mild hyperglycemia (211). Patient is given 30 mg IV ketorolac, 1mg IV lorazepam, 2.5mg IV droperidol, and one liter NS IV bolus. On reevaluation, patient is sleeping, NAD, awakens to voice. She is drowsy but participates in discussion. She reports adequate symptom relief. She indicates to me that she has better symptom relief with phenergan than zofran, and thus I e-prescribed two rx for her (phenergan and lorazepam). Return precautions reviewed, results of radha's tests discussed. Instructed to refrain from marijuana use; her records indicate that she had a significant hiatus from her regular ED visits for these symptoms that was temporally associated with her quitting marijuana (as well as when she was ). Departure - Departure Disposition: 01 Home, Self Care Clinical Impression: Cannabinoid hyperemesis syndrome Condition: Good Instructions: ED Vomiting Diarrhea Nonspecific Ad Prescriptions: LORazepam [Ativan] 0.5 - 1 mg PO TID PRN #10 tablet PRN Reason: Anxiety Promethazine [Phenergan] 25 mg PO Q6H PRN #10 tab PRN Reason: Nausea / Vomiting Comments: There were no concerning findings on radha's blood tests. As we discussed, your white blood cell count was mildly elevated; this is a nonspecific finding and is also something that is commonly seen when the body is stressed such as with nausea and vomiting. You have had similarly elevated white blood cell counts on many of your previous emergency department visits when you have had similar symptoms as you had radha. Your kidney tests had slight abnormality which would be consistent with dehydration. You were given fluids intravenously for rehydration, as well as medications to help control the nausea, vomiting, and abdominal pain.All of the cause of your symptoms is not clear at this time, if you I been using marijuana recently, this certainly could cause these symptoms. I have electronically submitted prescriptions for Phenergan (anti-nauseant) as well as lorazepam to the [facility] pharmacy in [place]. Discharge Date/Time: 11/09/22 05:01
[2022-11-09 03:31] LABS: BASOPHILS # (AUTO) 0.1 10^3/uL (0.0-0.1); BASOPHILS % (AUTO) 0.8 %; EOSINOPHILS # (AUTO) 0.2 10^3/uL (0.0-0.7); EOSINOPHILS % (AUTO) 1.2 %; HGB - HEMOGLOBIN 15.1 g/dL (12.0-16.0); LYMPHOCYTES # (AUTO) 0.5 10^3/uL (1.5-3.5); LYMPHOCYTES % (AUTO) 3.4 %; MEAN CORPUSCULAR HEMOGLOBIN 31.7 pg (27.0-31.0); MEAN CORPUSCULAR HGB CONC 34.3 g/dL (32.0-36.0); MEAN CORPUSCULAR VOLUME 92.4 fL (81.0-99.0); MONOCYTES # (AUTO) 0.9 10^3/uL (0.0-1.0); MONOCYTES % (AUTO) 5.5 %; NEUTROPHILS % (AUTO) 88.8 %; PLT - PLATELET COUNT 361 10^3/uL (130-450); RED BLOOD COUNT 4.76 10^6/uL (4.20-5.40); RED CELL DISTRIBUTION WIDTH 11.9 % (12.0-15.0); WHITE BLOOD COUNT 15.7 x10^3/uL (4.8-10.8)
[2022-11-09 03:42] LABS: HCG UR QUAL NEGATIVE
[2022-11-09 03:43] LABS: ALBUMIN 4.6 g/dL (3.2-5.5); ALBUMIN/GLOBULIN RATIO 1.3 (1.0-2.2); CALCIUM 9.3 mg/dL (8.5-10.3); CREATININE 0.8 mg/dL (0.4-1.0); POTASSIUM 3.6 mmol/L (3.5-5.0); TOTAL PROTEIN 8.2 g/dL (6.7-8.2)
[2022-11-09 04:54] VITALS: BP 117/85
== END 2022-11-09 05:01 | disposition home or self-care (01) ==
LOC: ED 03:00
DX: R11.2 Nausea with vomiting, unspecified (principal); F12.90 Cannabis use, unspecified, uncomplicated
CPT/HCPCS: 36415; 80053; 81025; 83690; 85025; 96374; 96375; 99283; J2060

== ENCOUNTER 2024-01-20 08:00 | Outpatient (CLI) | payer MEDICAID | END 2024-01-20 23:59 | disposition home or self-care (01) | LOC: LAB.N 08:00 | PROVIDERS: ATTEND Physician Assistant Medical | DX: L03.039 Cellulitis of unspecified toe (principal); L60.0 Ingrowing nail | CPT/HCPCS: 87070; 87077; 87181; 87205 ==

== ENCOUNTER 2024-04-19 15:40 | Emergency (ER) | payer MEDICAID ==
--- NOTE | 2024-04-19 15:47 | ED Physician Documentation ---
PD HPI ABD PAIN - Stated complaint Stated Complaint: N/V/ABD PX - History obtained from History obtained from: Patient - Additional information Additional information: She has a history of cannabinoid hyperemesis. Has been much better over the last few years due to decreased but not ceased cannabis use. Started vomiting about 3 days ago and having upper abdominal pain typical for prior flares of same. Has experienced some GI workups in the past without pertinent positive findings. No possibility of . 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 HEENT: None Psych: Anxiety Musculoskeletal: None Derm: None - Past Surgical History Past Surgical History: Yes General: EGD HEENT: Myringotomy (tubes) - Present Medications Home Medications: Ambulatory Orders Medication Instructions Recorded Confirmed No Known Home Medications 04/19/24 04/19/24 - Allergies Allergies/Adverse Reactions: Allergies Allergy/AdvReac Type Severity Reaction Status Date / Time No Known Drug Allergies Allergy Verified 04/19/24 15:53 - Social History Does the pt smoke?: No Smoking Status: Never smoker Does the pt drink ETOH?: No Does the pt have substance abuse?: Yes - Immunizations Immunizations are current?: Yes - POLST Patient has POLST: No PD ED PE NORMAL - Vitals Vital signs reviewed: Yes - General General: Alert and oriented X 3, Other (She appears sweaty and uncomfortable) - Cardiac Cardiac: RRR, No murmur - Respiratory Respiratory: No respiratory distress, Clear bilaterally - Abdomen Abdomen: Normal bowel sounds, Soft, Non tender Results - Vitals Vitals: Vital Signs - 24 hr 04/19/24 04/19/24 04/19/24 15:44 17:53 19:00 Temperature 36.5 C Heart Rate 74 86 72 Respiratory 18 16 Rate Blood Pressure 107/80 135/99 H 110/69 O2 Saturation 100 98 96 04/19/24 20:00 Temperature Heart Rate 81 Respiratory 16 Rate Blood Pressure 123/81 H O2 Saturation 98 Oxygen O2 Source Room air - Labs Labs: Laboratory Tests 04/19/24 15:56 Sodium 139 Potassium 3.2 L Chloride 107 Carbon Dioxide 17 L Anion Gap 15.0 H BUN 12 Creatinine 1.0 Estimated GFR (MDRD) 67 L Glucose 178 H Calcium 10.1 Total Bilirubin 0.9 AST 11 ALT 7 L Alkaline Phosphatase 41 L Total Protein 7.7 Albumin 4.6 Globulin 3.1 Albumin/Globulin Ratio 1.5 Lipase < 10 L PD Medical Decision Making - ED course ED course: She presents with an exacerbation of chronic abdominal pain and vomiting, previously diagnosed as cannabinoid hyperemesis although she has been much better over the last year or 2. Initially medicated per her request with Phenergan, morphine, Ativan. She was still loudly vomiting after that and was given some Dilaudid and droperidol with relief of her symptoms. On reexamination at 5:51 PM she was pain-free, nontender. Will give her some oral potassium as a p.o. challenge and for her potassium that was modestly low. The remainder of her CMP was unremarkable save signs of dehydration with low bicarb. Departure - Departure Disposition: 01 Home, Self Care Clinical Impression: Vomiting Qualifiers: Vomiting type: unspecified Nausea presence: with nausea Qualified Code(s): R11.2 - Nausea with vomiting, unspecified Condition: Good Record reviewed to determine appropriate education?: Yes Instructions: ED Nausea Vomiting Comments: Call your doctor to arrange a follow-up appointment, make the next available appointment. In the interim, return anytime if worse or if new symptoms develop. Forms: PCP List, Activity restrictions
[2024-04-19] MEDS: MORPHINE 2 MG/ML CARPUJECT IVP STA (16:00)
[2024-04-19] MEDS: LORazepam 2 MG/ML VIAL IVP STA (16:00)
[2024-04-19] MEDS: SODIUM CHLORIDE 0.9% 1,000 ML IV STA (16:00)
[2024-04-19] MEDS: PROMETHAZINE INJ 25 MG in SODIUM CHLORIDE 0.9% 50 ML IV STA (16:07)
[2024-04-19 16:22] LABS: ALBUMIN 4.6 g/dL (3.2-5.5); ALBUMIN/GLOBULIN RATIO 1.5 (1.0-2.2); ALKALINE PHOSPHATASE 41 IU/L (42-121); ALT ALANINE AMINOTRANSFERASE 7 IU/L (10-60); AST ASPARTATE AMINOTRANSFERASE 11 IU/L (10-42); BILIRUBIN,TOTAL 0.9 mg/dL (0.2-1.0); BUN - BLOOD UREA NITROGEN 12 mg/dL (6-20); CALCIUM 10.1 mg/dL (8.5-10.3); CARBON DIOXIDE - CO2 17 mmol/L (21-32); CHLORIDE 107 mmol/L (101-111); GFR - MDRD 67 (>89); GLUCOSE 178 mg/dL (74-104); POTASSIUM 3.2 mmol/L (3.5-4.5); SODIUM 139 mmol/L (135-145); TOTAL PROTEIN 7.7 g/dL (6.4-8.9)
[2024-04-19] MEDS: HYDROmorphone 1 MG/ML CARPUJECT IVP STA (16:28)
[2024-04-19] MEDS: DROPERIDOL 5 MG/2 ML VIAL IVP STA (16:28)
[2024-04-19 16:35] LABS: LIPASE < 10 U/L (11-82)
[2024-04-19] MEDS: POTASSIUM BICARB 25 MEQ TABLET PO STA ×2 (17:58→18:00)
[2024-04-19] MEDS: ONDANSETRON 4 MG/2 ML VIAL IVP STA (20:46)
[2024-04-19] MEDS: ONDANSETRON ODT 4 MG Prepack 2 TL STA (20:58)
[2024-04-19 21:12] VITALS: BP 135/82; O2SAT 99
== END 2024-04-19 21:02 | disposition home or self-care (01) ==
LOC: EDUNIT# → ED 15:40
DX: R11.2 Nausea with vomiting, unspecified (principal); E87.6 Hypokalemia
CPT/HCPCS: 36415; 80053; 83690; 96361; 96365; 96375; 99284; A9270; J1170; J2060; J7040